=== PATIENT | male | born 1965 | race Caucasian/White ===

== ENCOUNTER 2022-12-28 08:27 | Outpatient (OUT) | payer OTHER, SELFPAY ==
--- NOTE | 2022-12-28 11:05 | US_ITS ---
[address] [address] Patient Name: JELLY CARABALLO MRN: [id number] date: 1965 Sex: M Assigned Patient Location: [facility] Current Patient Location: [facility] Accession/Order Number: [id number] Exam Date: 12/28/2022 11:30 Report Date: 12/28/2022 13:53 At the request of: SUJATHA ESCALERA Procedure: US scrotum SCROTAL ULTRASOUND: 12/28/2022 10:48 AM PDT HISTORY: SCROTAL PAIN N50.82 , SCROTAL LESION N50.9, HYDROCELE N43.3. TECHNIQUE: Real-time sonography through the scrotum were performed. Color and spectral Doppler waveform analysis were used to evaluate vascularity of scrotal contents. Arterial blood inflow and venous blood outflow were evaluated. COMPARISON: Scrotal ultrasound 09/13/2022 FINDINGS: RIGHT SCROTUM: RIGHT TESTICLE: Echogenicity: Homogeneous echotexture. No focal solid lesion. Measurements: 4.5 x 2.5 x 3.1 cm. Volume: 17.9 mL. Size: Normal. Hydrocele: No hydrocele. Varicocele: No varicocele. Testicular vascular exam: Color Doppler and pulse Doppler exam demonstrates normal arterial blood inflow and venous outflow waveforms. Symmetric with opposite testis. RIGHT EPIDIDYMIS: Normal in size and position. Color Doppler is normal. The hypoechoic lesion seen on the ultrasound from 09/13/2022 is no longer visualized. LEFT SCROTUM: LEFT TESTICLE: Echogenicity: Homogeneous echotexture. No focal solid lesion. Measurements: 4.5 x 2.6 x 2.9 cm. Volume: 17.3 mL. Size: Normal. Hydrocele: Small. Interval resolution of the complexity within the hydrocele Varicocele: No varicocele. Testicular vascular exam: Color Doppler and pulse Doppler exam demonstrates normal arterial blood inflow and venous outflow waveforms. Symmetric with opposite testis. LEFT EPIDIDYMIS: Normal in size and position. Color Doppler is normal. SCROTAL WALL: Normal. IMPRESSION: 1. Hypoechoic lesion in the tail of the right epididymis is no longer visualized and may have represented a posttraumatic or infectious process. 2. Complexity within the left hydrocele has resolved. A small simple appearing hydrocele remains. Electronically authenticated by: ELOY HERNANDEZ Date: 12/28/2022 13:53
== END 2022-12-28 08:28 | disposition home or self-care (01) ==
LOC: RAD 08:35
PROVIDERS: PCP Nurse Practitioner; Visit Provider Urology
DX: N50.82 Scrotal pain (principal); N50.9 Disorder of male genital organs, unspecified; N43.3 Hydrocele, unspecified
CPT/HCPCS: 76870

== ENCOUNTER 2024-06-26 11:58 | Outpatient (OUT) | payer OTHER, SELFPAY ==
--- NOTE | 2024-06-26 12:01 | XR_ITS ---
The [address] [address] Patient Name: JELLY CARABALLO MRN: [id number] date: 1965 Sex: M Assigned Patient Location: [facility] Current Patient Location: [facility] Accession/Order Number: [id number] Exam Date: 06/26/2024 12:05 Report Date: 06/26/2024 15:21 At the request of: AMADA STOCKTON Procedure: XR abdomen min 2V EXAMINATION: XR abdomen min 2V HISTORY: Flank Pain R10.9 COMPARISON: CT abdomen pelvis 10/05/2022 FINDINGS: BOWEL GAS PATTERN: 1.8 x 1.2 cm dense opacity projecting over right mid abdomen which is felt to be within the bowel and not the lower pole of the kidney; likely food material or medication. FREE AIR: None. CALCIFICATIONS: No appreciable urinary tract calculi. Pelvic calcifications favor phleboliths. BONES: No fracture or visible bone lesion. OTHER: Negative. XR/XR abdomen min 2V IMPRESSION: 1. No appreciable urinary tract calculi. 2. Nonobstructed bowel gas pattern. No acute findings. Electronically authenticated by: MACEY LISA Date: 06/26/2024 15:21
--- NOTE | 2024-06-26 12:01 | XR_ITS ---
The [place] [id number] Patient Name: JELLY CARABALLO MRN: [id number] date: 1965 Sex: M Assigned Patient Location: [facility] Current Patient Location: [facility] Accession/Order Number: [id number] Exam Date: 06/26/2024 12:05 Report Date: 06/26/2024 15:11 At the request of: AMADA STOCKTON Procedure: XR lumbar spine 6V w bending EXAMINATION: XR lumbar spine 6V w bending HISTORY: Flank Pain R10.9 COMPARISON: No relevant comparison available. FINDINGS: BONES: No significant spondylosis, scoliosis, fracture, or visible bony lesion. DISC SPACES: No significant disc height narrowing, subluxation, or endplate abnormality. PARASPINOUS: Negative. No paraspinous abnormality is seen. OTHER: Negative. XR/XR lumbar spine 6V w bending IMPRESSION: 1. No acute bone abnormality. 2. Minimal degenerative changes. Electronically authenticated by: MACEY LISA Date: 06/26/2024 15:11
== END 2024-06-26 11:59 | disposition home or self-care (01) ==
LOC: RAD 11:58
PROVIDERS: PCP Nurse Practitioner; Visit Provider Nurse Practitioner
DX: R10.9 Unspecified abdominal pain (principal); M51.369 Other intervertebral disc degeneration, lumbar region without mention of lumbar back pain or lower extremity pain
CPT/HCPCS: 72114; 74019

== ENCOUNTER 2024-12-05 09:10 | Outpatient (OUT) | payer OTHER, SELFPAY ==
--- OUTSIDE RECORDS SUMMARY | 2015-11-01 16:30 | XMS_ITS | Encounter Summary ---
Author Organization [facility] Address [address] [place] [address] Care Team Providers Care Patient Relations Manager Name Role Phone Mariam Luna MD Primary Care Provider [phone] Encounter Details Date Type Department Care Team (Late st Contact Info) Description 11/01/2015 4:30 PM EDT Hospital Encounter [facility] Physical Therapy [address] [place], [place] [phone] Thea Gutierrez, PT Social History Tobacco Use Types Packs/Day Years Used Date Smoking Tobacco: Never Alcohol Use Standard Drinks/Week Comments No 0 (1 standard drink = 0.6 oz pur e alcohol) Sex and Gender Information Value Date Recorded Sex Assigned at Not on file Legal Sex Male 8:46 PM EST Gender Identity Not on file Sexual Orientation Not on file documented as of this encounter Progress Notes * Thea Gutierrez, PT - 11/01/2015 2:02 PM EDT [facility] Outpatient Physical Therapy Daily Note Patient: Silvestre Corea : 1965 Referring Practitioner: Dr. Naveen Webb Referral Date : 08/18/15 Date: 11/01/2015 Referring Practitioner: Dr. Naveen Webb Referral Date : 08/18/15 Diagnosis: Mila peripheral neuropathy Treatment Diagnosis: general weakness Onset Date: 08/23/15 PT Insurance Information: [employer] Total # of Visits Approved: 18 Per Physician Order Total # of Visits to Date: 3 No Show: 0 Canceled Appointment: 1 Pre-Treatment Pain: 0/10 Subjective: Pt states that he was a little stiff and notes he is getting some muscle soreness from the program. Pt reports pain is 0/10 and he does have some tightness. Exercises/Modalities/Manual: See DocFlow Sheet Assessment Assessment: Pt requires mod verbal cues for technique and pace. Plan Plan: Continue with current plan Goals (Total # of Visits to Date: 3) Short Term Goals - Time Frame for Short term goals: 3 weeks Short term goal 1: Initiate HEP - met [x]Met []Partially met []Not met Short term goal 2: Pt SLR will improve to at least 55 deg on R and 65 deg on L for improve HS stretch for flexibility. []Met []Partially met []Not met Short term goal 3: Pt will be able to use elliptical up to 10 min indicating improve endurance to activity for ADLs. 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 supervisor intermediates goal 4: Pt strength of mila hips will be at least 4+/5 to improve stability with squatting. Post Treatment Pain: 0/10 Time In: 1630 Time Out: 1716 Timed Code Treatment Minutes: 46 Minutes Total Treatment Time: 46 Minutes Thea Gutierrez PT, DPT Therapy [place]: [id number] Date: 11/01/2015 documented in this encounter Plan of Treatment Not on file documented as of this encounter Visit Diagnoses Not on filedocumented in this encounter Care Teams Patient Relations Manager Relationship Specialty Start Date End Date Mariam Luna MD PCP - General 01/31/15 08/17/20 documented as of this encounter
--- OUTSIDE RECORDS SUMMARY | 2015-11-03 17:00 | XMS_ITS | Encounter Summary ---
Author Organization [facility] Address [address] [place] [address] Care Team Providers Care Road Consultant Name Role Phone Mariam Luna MD Primary Care Provider [phone] Encounter Details Date Type Department Care Team (Late st Contact Info) Description 11/03/2015 5:00 PM EDT Hospital Encounter [facility] Physical Therapy [address] [place], [place] [phone] Thea Gutierrez, PT Social History Tobacco Use [...] Progress Notes * Thea Gutierrez, PT - 11/03/2015 6:11 PM EDT [facility] Outpatient Physical Therapy Daily Note Patient: Silvestre Corea : 1965 Referring Practitioner: Dr. Naveen Webb Referral Date : 08/18/15 Date: 11/03/2015 Referring Practitioner: Dr. Naveen Webb Referral Date : 08/18/15 Diagnosis: Mila peripheral neuropathy Treatment Diagnosis: general weakness Onset Date: 08/23/15 PT Insurance Information: [employer] Total # of Visits Approved: 18 Per Physician Order Total # of Visits to Date: 4 No Show: 0 Canceled Appointment: 1 Pre-Treatment Pain: 0/10 Subjective: Pt reports slight stiffness but he is pleased with what he is able to do. He was able to do 8 min on the elliptical. Pt has 0/10 complaints of pain. Exercises/Modalities/Manual: See DocFlow Sheet Assessment Assessment: Pt was initiated on new exs which he tolerated well. Pt demonstrated increased balance deficits with fatigue.Pt has SLR R 61 deg and L 65 deg. Plan Plan: Continue with current plan Goals (Total # of Visits to Date: 4) Short Term Goals - Time Frame for Short term goals: 3 weeks Short term goal 1: Initiate HEP - met [x]Met []Partially met []Not met Short term goal 2: Pt SLR will improve to at least 55 deg on R and 65 deg on L for improve HS stretch for flexibility - met [x]Met []Partially met []Not met Short term goal 3: Pt will be able to use elliptical up to 10 min indicating improve endurance to activity for ADLs. 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 long-term goal 4: Pt strength of mila hips will be at least 4+/5 to improve stability with squatting. Post Treatment Pain: 0/10 Time In: 1700 Time Out: 1800 Timed Code Treatment Minutes: 60 Minutes Total Treatment Time: 60 Minutes Thea Gutierrez PT, DPT Therapy [place]: [id number] Date: 11/03/2015 documented in this encounter Plan of Treatment Not on file documented as of this encounter Visit Diagnoses Not on filedocumented in this encounter Care Teams Road Consultant Relationship Specialty Start Date End Date Mariam Luna MD PCP - General 01/31/15 08/17/20 documented as of this encounter
--- OUTSIDE RECORDS SUMMARY | 2015-11-08 15:15 | XMS_ITS | Encounter Summary ---
Author Organization [facility] Address [address] [place] [address] Care Team Providers Care Fire Behavior Analyst Name Role Phone Mariam Luna MD Primary Care Provider [phone] Encounter Details Date Type Department Care Team (Late st Contact Info) Description 11/08/2015 3:15 PM EDT Hospital Encounter [facility] Physical Therapy [address] [place], [place] [phone] Bola Ennis Social History Tobacco Use Types Packs/Day Years Used Date Smoking Tobacco: Never Alcohol Use Standard Drinks/Week Comments No 0 (1 standard drink = 0.6 oz pur e alcohol) Sex and Gender Information Value Date Recorded Sex Assigned at Not on file Legal Sex Male 8:46 PM EST Gender Identity Not on file Sexual Orientation Not on file documented as of this encounter Plan of Treatment Not on file documented as of this encounter Visit Diagnoses Not on filedocumented in this encounter Care Teams Fire Behavior Analyst Relationship Specialty Start Date End Date Mariam Luna MD PCP - General 01/31/15 08/17/20 documented as of this encounter
--- OUTSIDE RECORDS SUMMARY | 2015-11-10 16:45 | XMS_ITS | Encounter Summary ---
Author Organization [facility] Address [address] [place] [address] Care Team Providers Care Insole And Outsole Preparer Name Role Phone Mariam Luna MD Primary Care Provider [phone] Encounter Details Date Type Department Care Team (Late st Contact Info) Description 11/10/2015 4:45 PM EDT Hospital Encounter [facility] Physical Therapy [address] [place], [place] [phone] Bola Ennis Social History Tobacco Use Types [...] on filedocumented in this encounter Care Teams Insole And Outsole Preparer Relationship Specialty Start Date End Date Mariam Luna MD PCP - General 01/31/15 08/17/20 documented as of this encounter
--- OUTSIDE RECORDS SUMMARY | 2015-11-11 16:15 | XMS_ITS | Encounter Summary ---
Author Organization [facility] Address [address] [place] [address] Care Team Providers Care Operator Maintainer Name Role Phone Mariam Luna MD Primary Care Provider [phone] Encounter Details Date Type Department Care Team (Late st Contact Info) Description 11/11/2015 4:15 PM EDT Hospital Encounter [facility] Physical Therapy [address] [place], [place] [phone] Fredo Gilman PTA Social History Tobacco Use Types Packs/Day Years [...] on filedocumented in this encounter Care Teams Operator Maintainer Relationship Specialty Start Date End Date Mariam Luna MD PCP - General 01/31/15 08/17/20 documented as of this encounter
--- OUTSIDE RECORDS SUMMARY | 2015-11-24 17:00 | XMS_ITS | Encounter Summary ---
Author Organization [facility] Address [address] [place] [address] Care Team Providers Care Television News Anchor Name Role Phone Mariam Luna MD Primary Care Provider [phone] Encounter Details Date Type Department Care Team (Late st Contact Info) Description 11/24/2015 5:00 PM EDT Hospital Encounter [facility] Physical Therapy [address] [place], [place] [phone] Thea Gutierrez, PT Social History Tobacco Use [...] Connie Navarrete - 11/25/2015 12:28 PM EDT [facility] Rehabilitation Date: 11/25/2015 Patient Name: Silvestre [...] on filedocumented in this encounter Care Teams Television News Anchor Relationship Specialty Start Date End Date Mariam Luna MD PCP - General 01/31/15 08/17/20 documented as of this encounter
--- OUTSIDE RECORDS SUMMARY | 2015-12-06 16:30 | XMS_ITS | Encounter Summary ---
Author Organization [facility] Address [address] [place] [address] Care Team Providers Care Topstitcher Zigzag Name Role Phone Mariam Luna MD Primary Care Provider [phone] Encounter Details Date Type Department Care Team (Late st Contact Info) Description 12/06/2015 4:30 PM EDT Hospital Encounter [facility] Physical Therapy [address] [place], [place] [id number] Thea Gutierrez, PT Social History Tobacco Use [...] Gutierrez, PT - 02/09/2016 10:22 AM EDT [facility] Outpatient Physical Therapy Discharge Summary Patient: Silvestre Corea : 1965 Referring physician: No admitting provider for patient encounter. Referring Practitioner: Dr. Naveen Webb Diagnosis: Mila peripheral neuropathy Date Treatment Initiated: 10/22/15 Date of Last Treatment: 12/06/15 PT Visit Information Onset Date: 08/23/15 PT Insurance Information: Alere Total # of Visits Approved: 18 Total [...] improve endurance to activity for ADLs. 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 economic history teacher goal 4: Pt strength of mila hips [...] Gutierrez, PT - 12/06/2015 5:45 PM EDT [facility] Outpatient Physical Therapy Daily Note Patient: Silvestre Corea : 1965 Referring Practitioner: Dr. Naveen Webb Referral Date : 08/18/15 Date: 12/06/2015 Referring Practitioner: Dr. Naveen Quick Referral Date : 08/18/15 Diagnosis: Mila peripheral neuropathy Treatment Diagnosis: general weakness Onset Date: 08/23/15 PT Insurance Information: Alere Total # of Visits Approved: 18 Per [...] ADLs. 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 economic history teacher goal 4: Pt strength of mila hips will be at least 4+/5 to improve stability with squatting. Post Treatment Pain: 0/10 Time In: 1630 Time Out: 1726 Timed Code Treatment Minutes: 57 Minutes Total Treatment Time: 57 Minutes Thea Gutierrez PT, DPT Therapy License Number: [id number] Date: 12/06/2015 documented in this encounter Plan of Treatment Not on file documented as of this encounter Visit Diagnoses Not on filedocumented in this encounter Care Teams Topstitcher Zigzag Relationship Specialty Start Date End Date Mariam Luna MD PCP - General 01/31/15 08/17/20 documented as of this encounter
--- OUTSIDE RECORDS SUMMARY | 2024-02-04 03:50 | XMS_ITS ---
Author Organization [facility] Address [address] [place] [address] Care Team Providers Care Sheet Metal Operator Name Role Phone Gala Anna Primary Care Provider Kirit Mays Unavailable [phone] REASON FOR VISIT Bilateral great toe pain Problems Problem Type SNOMED Code ICD Code Onset Dates Problem Status W/U Status Risk Notes Problem [id number] Hallux varus (acquired), right foot (M20.31) Active confirmed Problem 424541242373161 Hallux varus (acquired), left foot (M20.32) Active confirmed Problem 385917678 Contusion of left great toe with damage to nail, initial encounter (S90.212A) Active confirmed Problem 883433665 Contusion of right great toe with damage to nail, initial encounter (S90.211A) Active confirmed Encounters Encounter Location Date Provider Diagnosis [facility] [address] [place] [address] 02/04/2024 Kirit Sky Contusion of left great [...] * JELLY CARABALLO LDOB:1965 (58 yo M)Acc No.[id number]:02/04/2024 Patient: Anila JELLY CHAMBERS Zac Provider: Betsey Sky DPM :1965 A ge:58 Y S ex:Male Date:02/04/2024 Address:[address] [place] [address], [place] [address] Pcp:Gala Anna Subjective: * Chief Complaints: * [...] with Sjogren's and is currently following with provider service representative looking at seronegative arthropathies. Nail plates themselves [...] 02/04/2024 Generated for Rah cruz/Serg/Abeitting on: 0 12/05/2024 09:13 AM EDT History and Physical Notes * [...] with Sjogren's and is currently following with provider service representative looking at seronegative arthropathies. Nail plates themselves [...]
--- NOTE | 2024-12-05 | NM_ITS ---
Patient Name: JELLY CARABALLO MR#: [id number] : 1965 Exam Date: 12/05/2024 Ordering Doctor: AMADA STOCKTON RADIOLOGY REPORT PROCEDURE: NM MORIAH PERF SPECT REST STR COMPARISON: None. INDICATIONS: SOB, FAMILY HX CAD, CHEST TIGHTNESS TECHNIQUE: Exam Description: Stress/Rest two day protocol gated SPECT Rest Imagin.2 mCi Tc-99m Cardiolite IV on 12/05/2024 Stress Imaging 25.2 mCi Tc-99m Cardiolite IV on 12/08/2024 Exercise Protocol: 0.4 mg Lexiscan given IV Heart Rate (bpm): Rest: 72 Max: 90 PMHR: 55 Blood Pressure: Rest: 138/78 Max: 138/78 Symptoms: Rest and peak stress ECG findings were pending and the Lxiscan EKG portion of the study was pending per attending physician [facility] . For more details please see separate cardiac stress test report. FINDINGS: QUALITY OF STUDY: Good PERFUSION DEFECT: LOCATION: 1.Anteroapical, 2.Inferior SIZE: 1.Small 2.Medium SEVERITY: 1.Mild 2.Mild TYPE: 1.reversible 2. Fixed with adequate contractility and thickenin WALL MOTION: Normal LV SIZE: 141 mL. TID / TCD: 1.1 LVEF: Calculated EF 58%. SUMMARY: Abnormal Myocardial perfusion imaging study CONCLUSION: Abnormal myocardial perfusion stress images showing evidence of small area of mild ischemia at the anteroapical segment. In addition there is evidence of diaphragmatic attenuation Normal left ventricular systolic function, ejection fraction 58% No transient ischemic dilatation,TID 1.1 Lexiscan EKG stress test is reported separately Dictated by: Geena Cortez MD on 12/08/2024 at 15:27 Approved by: Geena Cortez MD on 12/08/2024 at 15:33
--- OUTSIDE RECORDS SUMMARY | 2024-12-05 09:12 | XMS_ITS | Clinical Summary ---
Author Organization [facility] Address [address] [place] [phone] Care Team Providers Care Banquet Manager Name Role Phone Mariam Luna MD Primary Care Provider [phone] Allergies Active Allergy Reactions Criticality Noted Date Comments Banana 07/07/2014 Medications TESTOSTERONE IMIndications:U nspecified hereditary and idiopathic peripheral neuropathy 0.25 mL by Intramuscular route once a week. Active gemfibrozil 600 MG TabIndications: Idiopathic neuropathy,Pain in both feet,Carpal tunnel syndrome, right,Carpal tunnel syndrome, left,Brisk deep tendon reflexes,Neurop athic pain take 600 mg by mouth 2 times daily. Active cetirizine 10 MG Tab take 10 mg by mouth daily. Active Diclofenac Sodium (VOLTAREN) 1 % Gel 1 Application by Transdermal route 4 times daily. 100 g 3 6 Active METFORMIN HCL PO take by mouth.. Acti ve zolpidem 10 MG Tab tabletIndicatio ns:Idiopathic neuropathy,Foot pain, bilateral,Numbn ess in feet,Bilateral hand numbness Take 10 mg by mouth at bedtime. Active lidocaine 5 % Patch patchIndication s:Neuropathic pain,Brisk deep tendon reflexes,Idiopa thic neuropathy,Pain in both feet,Carpal tunnel syndrome, right,Carpal tunnel syndrome, left Place 1 patch on skin every 24 hours. Max of 12 hours of application then remove 30 patch 11 8 Active BACLOFEN 10 MG Tab tablet TAKE 1 TABLET BY MOUTH ONCE DAILY AT BEDTIME 30 tablet 11 9 Active pregabalin 300 MG CapIndications: Idiopathic neuropathy,Gluc ose intolerance (impaired glucose tolerance) 1 capsule by mouth BID 60 capsule 5 9 Active Active Problems Problem Noted Date Diagnosed Date Obesity: body mass index of 35.0-39.9 08/16/2017 Overview (10/02/2022): 09/30/22 IMO Update Numbness in feet 08/16/2017 Bilateral hand numbness 08/16/2017 Idiopathic neuropathy 03/21/2012 Family History Medical History Relation Name Comments Other - Specify Brothileana Allison age 42 Other - Specify Daughter 1 22 Other - Specify Daughter 2 7 Coronary Artery Disease Father Neurologic Disease Father Parkinson 's Disease Other - Specify Father age 72 Neurologic Disease Maternal Aunt Neuropat hy Coronary Artery Disease Mother Diabetes Mother Uncontrolled di abetes and Renal failure Neurologic Disease Mother neuropath y Neurologic Disease Other Nephew-Sandeep symptoms like patient's Diabetes Sister 1 Other - Specify Sister 1 age 47 Neurologic Disease Sister 2 Sharron Sjogren's syndrome; Rheumatoid arthritis Other - Specify Sister 2 Sharron accidental m edication overdose Diabetes Sister 3 Other - Specify Sister 3 age 50 Other - Specify Sister 4 age 50 Other - Specify Son 9 Relation Name Status Comments Brothileana Allison Alive hand tremors an d sore feet from walking, but no other symptoms Daughter 1 Alive Daughter 2 Alive Father Alive Coronary artery bypass and Parkinson's disease Maternal Aunt Mother (Age 62) adopted; d iabetes, hearing loss and a neuropathy Other Nephew-Sandeep Alive sister 's oldest son with symptoms like patient's Sister 1 Alive DM-1 with sympt oms of peripheral neuropathy Sister 2 Sharron (Age 49) born 1960 - 14 year h/o neuropathy which is sensory predominant and fairly severe Sister 3 Alive Sister 4 Alive Son Alive Social History Tobacco Use Types Packs/Day Years Used Date Smoking Tobacco: Never Smokeless Tobacco: Never Alcohol Use Standard Drinks/Week Comments Yes 0.8 (1 standard drink = 0.6 oz p ure alcohol) rarely once a month Sex and Gender Information Value Date Recorded Sex Assigned at Not on file Legal Sex Male 4:43 PM EST Gender Identity Male Sexual Orientation Not on file 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 Not on file Not on file Not on file Not on file Not on file Not on file Not on file Last Filed Vital Signs Vital Sign Reading Time Taken Comments Blood Pressure 122/68 08/16/2017 11:22 AM EST Pulse 70 08/16/2017 11:22 AM EST Temperature - - Respiratory Rate 18 07/07/2014 3:47 PM EST Oxygen Saturation - - Inhaled Oxygen Concentration - - Weight 130.2 kg (287 lb) 08/16/2017 11:22 AM EST Height 188 cm (6' 2 ) 08/16/2017 11:22 AM EST Body Mass Index 36.85 08/16/2017 11:22 AM EST Plan of Treatment Health Maintenance Due Date Last Done Comments HEPATITIS C VIRUS SCREENING 1965 TETANUS 1965 HIV SCREENING DISCUSSION 1980 HEP B VACCINE (1 of 3 - 19+ 3-dose series) 1984 TDAP (ADULT) 1984 COLORECTAL CANCER SCREENING DISCUSSION 2010 LIPID SCREENING 04/18/2015 04/18/2010, 01/07/2010 PNEUMOCOCCAL VACCINE SERIES (1 of 1 - PCV) 2015 ZOSTER (SHINGLES) VACCINE (1 of 2) 2015 PROSTATE CANCER SCREENING DISCUSSION 2020 COVID-19 VACCINE ( - 2023- season) 2024 INFLUENZA VACCINE (Season Ended) 2025 Procedures Procedure Name Priority Date/Time Associated Diagnosis Comments LIPID PANEL W CALCULATED LDL Routine 04/18/2010 9:33 AM EDT Memory loss from Last 3 Months or Most Recently Relevant to Health Maintenance Results * (ABNORMAL) LIPID PANEL (04/18/2010 9:33 AM EDT) CHOLESTEROL 254(H) <200 mg/dL LAB, [facility] Comment: [<200 mg/dL: Desirable] [200-239 mg/dL: Borderline High] [>239 mg/dL: High] TRIGLYCERIDES-TR IGE 358(H) <150 mg/dL [facility], [facility] Comment: [<150 mg/dL: Desirable] [150-199 mg/dL: Borderline] [200-499 mg/dL: High] [>500 mg/dL: Very High] HDL CHOLESTEROL 41(L) >60.0 mg/dL LAB, [facility] Comment: [<40 mg/dL: Low (High Risk)] [>59 mg/dL: High (Low Risk)] LDL CHOLESTEROL, CALCULATED 141(H) 0 - 99 mg/dL [facility], [facility] Comment: [<100 mg/dL: Optimal] [100-129 mg/dL: Near Optimal] [130-159 mg/dL: Borderline High] [160-189 mg/dL: High] [>189 mg/dL: Very High] CHOLESTEROL, TOTAL/HDL 6.2(H) <4.5 [facility], [facility] Comment:[<4.5: Low risk] 04/18/2010 9:33 AM EDT 04/18/2010 10:53 AM EDT Angela Oshea MD, PhD CHEMISTRY ORDERABLES Final Result LAB, [facility] [address] [place] [address] from Last 3 Months or Most Recently Relevant to Health Maintenance Insurance [employer] Care Teams Banquet Manager Relationship Specialty Start Date End Date Mariam Luna MD [address] [place] [address] PCP - General Family Medicine 10/29/15
--- OUTSIDE RECORDS SUMMARY | 2024-12-05 09:12 | XMS_ITS | Encounter Summary ---
Author Organization [facility] Address [address] [place] [address] Care Team Providers Care Senior Sales Operations Manager Name Role Phone Gala Anna APRN, NP Primary Care Provider [phone] Reason for Referral * (Routine) - Closed Specialty Diagnoses / Procedures Referred By Sammy butt Referred To Contact Diagnoses Diabetic polyneuropathy associated with type 2 diabetes mellitus (HCC) Low testosterone Feeling of chest tightness Dyspnea on exertion FH: premature coronary heart disease Procedures Nuclear stress test with myocardial perfusion Gala Anna APRN - NP [address] [place] [address] Phone: tel: fax: Referral ID Status Reason Start Date Expiration Date Visits Re quested Visits Authorized [id number] Closed 08/14/2023 08/13/2024 3 3 Encounter Details Date Type Department Care Team (Latest Contact Info) Description 08/14/2023 Transcribe Orders [facility] Pre Access [address] [place] [address] Gala Anna APRN - NP [address] [place], [place] [id number] Diabetic polyneuropathy associated with type 2 diabetes mellitus (HCC) (Primary Dx); Low testosterone; Feeling of chest tightness; Dyspnea on exertion; FH: premature coronary heart disease Social History Tobacco Use Types Packs/Day Years [...] as of this encounter Plan of Treatment Scheduled Orders Name Type Priority Associated Diagnoses Orde r Schedule Nuclear stress test with myocardial perfusion CV Stress/NM Stress Routine Diabetic polyneuropathy associated with type 2 diabetes mellitus (HCC) Low testosterone Feeling of chest tightness Dyspnea on exertion FH: premature coronary heart disease Expected: 08/14/2023, Expires: 08/14/2024 documented as of this encounter Visit Diagnoses Diagnosis Diabetic polyneuropathy associated with type 2 diabetes mellitus (HCC)- Primary Low testosterone Other testicular hypofunction Feeling of chest tightness Other chest pain Dyspnea on exertion Other dyspnea and respiratory abnormality FH: premature coronary heart disease Family history of ischemic heart disease documented in this encounter Care Teams Senior Sales Operations Manager Relationship Specialty Start Date End Date Gala Anna APRN - NP [address] [facility] [address] [place], [place] [id number] PCP - General 06/19/22 documented as of this encounter
--- OUTSIDE RECORDS SUMMARY | 2024-12-05 09:12 | XMS_ITS | Encounter Summary ---
Author Organization [facility] Address [address] [place] [address] Care Team Providers Care Bread Wrapper Name Role Phone Gala Anna APRN, NP Primary Care Provider [phone] Reason for Referral * Imaging (Routine) - Closed Specialty Diagnoses / Procedures Referred By Contsofie t Referred To Contact Radiology Diagnoses Stomach ache R10.9 (ICD-10-CM) - Stomach ache Procedures CT ABDOMEN PELVIS W WO CONTRAST Additional Contrast? None CHG CT ABDOMEN & PELVIS W/O CONTRST 1/> [place] [id number] - CHG CT ABDOMEN & PELVIS W/O CONTRST 1/> BODY RE Gala Anna APRN - NP [address] [place] [address] Phone: tel: fax: Referral ID Status Reason Start Date Expiration Date Visits Re quested Visits Authorized [id number] Closed 10/09/2022 09/15/2023 1 1 Encounter Details Date Type Department Care Team (Latest Contact Info) Description 09/15/2022 Transcribe Orders [facility] Pre Access [address] [place] [address] Gala Anna APRN - NP [address] [place] [address] Stomach ache (Primary Dx) Social History Tobacco Use Types Packs/Day Years [...] Type Priority Associated Diagnoses Orde r Schedule CT ABDOMEN PELVIS W WO CONTRAST Additional Contrast? None Imaging Routine Stomach ache Expected: 09/15/2022, Expires: 09/16/2023 documented as of this encounter Visit Diagnoses Diagnosis Stomach ache- Primary Dyspepsia and other specified disorders of function of stomach documented in this encounter Care Teams Bread Wrapper Relationship Specialty Start Date End Date Gala Anna APRN - ROBBY [address] [facility] [address] [place], [place] [id number] PCP - General 06/19/22 documented as of this encounter
--- OUTSIDE RECORDS SUMMARY | 2024-12-05 09:12 | XMS_ITS | Encounter Summary ---
Author Organization [facility] Address [address] [place] [address] Care Team Providers Care Mount Loader Name Role Phone Gala Anna APRN, NP Primary Care Provider [phone] Reason for Referral * Eval and Treat (Routine) - Closed Specialty Diagnoses / Procedures Referred By Sammy t Referred To Contact Nutrition / IP Unit Diagnoses Body mass index 36.0-36.9, adult Gala Anna APRN - NP [address] [place] [address] Phone: tel: fax: [facility] Diet and Nutrition [address] [place] [address] Phone: tel: Referral ID Status Reason Start Date Expiration Date V isits Requested Visits Authorized [id number] Closed Specialty Services Required 01/26/2023 01/26/2024 1 1 Scheduling Instructions [facility] Outpatient Nutrition Services- [address] [place] [facility]83 Comments The patient can be scheduled with any member of the group, including the provider with the first available appointments. Encounter Details Date Type Department Care Team (Latest Contact Info) Description 01/26/2023 Transcribe Orders [facility] Pre Access [address] [place] [address] Gala Anna APRN - NP [address] [place] [address] Body mass index 36.0-36.9, adult (Primary Dx) Social History Tobacco Use Types [...] of this encounter Plan of Treatment Scheduled Referrals Name Type Priority Associated Diagnoses Order Schedule [facility] Body mass index 36.0-36.9, adult Ordered: 01/26/2023 documented as of this encounter Visit Diagnoses Diagnosis Body mass index 36.0-36.9, adult- Primary Body Mass Index 36.0-36.9, adult documented in this encounter Care Teams Mount Loader Relationship Specialty Start Date End Date Gala Anna APRN - ROBBY [address] [facility] [address] [place] [address] PCP - General 06/19/22 documented as of this encounter
--- OUTSIDE RECORDS SUMMARY | 2024-12-05 09:13 | XMS_ITS | Clinical Summary ---
Author Organization [facility] Address [address] [place] [address] Care Team Providers Care Tobacco Packing Machine Operator Name Role Phone Mariam Luna MD Primary Care Provider [phone] Allergies Active Allergy Reactions Criticality Noted Date Comments Banana GI Intolerance 11/09/2016 Other Swelling 11/09/2016 bees Medications baclofen (LIORESAL) 10 MG tablet Take 10 mg by mouth at bedtime . 7 Active TRULICITY 1.5 mg/0.5 mL Pen Inject 1.5 mg under the skin every 7 days Injects every Sunday night.. 7 Active fluticasone (FLONASE) 50 mcg/actuation nasal spray Instill 2 sprays into each nostril daily . 7 Active gemfibrozil (LOPID) 600 MG tablet Take 600 mg by mouth 2 (two) times a day . 7 Active metFORMIN (GLUCOPHAGE) 500 MG tablet Take 500 mg by mouth 2 (two) times a day . 7 Active LYRICA 300 mg capsule Take 300 mg by mouth 2 (two) times a day . 7 Active testosterone cypionate (DEPOTESTOTERON E CYPIONATE) 200 mg/mL injection Inject 200 mg into the shoulder, thigh, or buttocks every 14 (fourteen) days . 7 Active zolpidem (AMBIEN) 10 mg tablet Take 10 mg by mouth nightly as needed for sleep . 7 Active aspirin 81 MG EC tabletIndicatio ns:prevention of transient ischemic attack Take 81 mg by mouth daily Reasons: prevention of transient ischemic attack. Active ciclopirox (LOPROX) 0.77 % cream Apply 1 application topically 2 (two) times a day as needed Apply to feet. . Active Active Problems Problem Noted Date Diagnosed Date Bile duct leak 11/13/2016 Assessment & Plan (11/14/2016 2:49 PM EDT): Mr. Corea is a 51 yr old M with PMHx significant for DM, periphreal neuropathy and hx of PE, presenting to [facility] 11/10 with abdominal pain, N/V. He had an open tereso 11/05/2016. HIDA scan shows a bile leak from the cystic duct stump. GI consulted for evaluation. --ERCP 11/13 with placement of pancreatic duct stent. Choledocholithiasis and sludge removed w/biliary sphincterotomy and balloon extraction. A low grade cystic duct stump leak was noted tx with biliary sphincterotomy and placement of 10 Fr x 7 cm straight plastic stent. --LFTs increased today --Lipase nl --abdominal pain improved but still with some general discomfort. Passing flatus and had BM --AF, VSS Labs: WBC 6.35, Hgb 12.3, Hct 36.3, alk phos 351, AST 88, ALT 241, T bili 1.0 Plan: --Okay for clear liquids today --NPO at midnight --Will plan for EGD for PD stent removal tomorrow 11/15/16 given no sign of post ERCP pancreatitis. Discussed risk and benefit with patient and he is in agreement with plan. Consent obtained and on patient's chart. --trend LFTs --will arrange for repeat ERCP in 6 weeks removal of biliary stent and reevaluation - GI will continue to follow. Discussed with Dr. Corbin, GI Ileus 11/09/2016 Cholecystitis 11/05/2016 Assessment & Plan (11/06/2016 8:00 AM EDT): This is a 51 year old patient with acute and chronic cholecystitis and cholelithiasis s/p laparoscopic converted to open cholecystectomy, intraperitoneal drain placement 11/05 - SPEEDY dark SS, nonbilious - LFTs trending down today - will discuss need for GI consult for EUS/ERCP - if no procedure, will likely advance to clears - mIVF @ 75cc/hr - DVT PPx lovenox - cefotetan Family History Medical History Relation Comments Heart disease Father Heart disease Mother Relation Status Comments Father Mother Social History Tobacco Use Types Packs/Day Years Used Date Smoking Tobacco: Never Alcohol Use Standard Drinks/Week Comments Yes 0 (1 standard drink = 0.6 oz pur e alcohol) seldom Sex and Gender Information Value Date Recorded Sex Assigned at Not on file Legal Sex Male 12:06 AM EDT Gender Identity Not on file Sexual Orientation Not on file Last Filed Vital Signs Vital Sign Reading Time Taken Comments Blood Pressure 140/85 12/27/2016 1:43 PM EDT Pulse 63 12/27/2016 1:43 PM EDT Temperature 36.7 C (98 F) 12/20/2016 1:11 PM EDT Respiratory Rate 19 12/27/2016 1:43 PM EDT Oxygen Saturation 96% 12/27/2016 1:43 PM EDT Inhaled Oxygen Concentration - - Weight 120.2 kg (265 lb) 12/27/2016 10:17 AM EDT Height 185.4 cm (6' 1 ) 12/27/2016 10:17 AM EDT Body Mass Index 34.96 12/27/2016 10:17 AM EDT Plan of Treatment Health Maintenance Due Date Last Done Comments CT Colonography 1965 Colonoscopy 1965 Colorectal Cancer Screening/Monitoring 1965 Fecal DNA 1965 Fecal occult blood test (FOBT,FIT) 1965 PSA Level 1965 Tetanus: Every 10yrs 1965 Wellness Visit 1968 Depression Screening/Follow-Up (PHQ-2/9) 1977 HIV Screening 1980 Hepatitis C Screening 1983 Pneumococcal Vaccine: Age 50+ (1 of 1 - PCV) 6 Zoster Vaccines (1 of 2) 2015 COVID-19 Vaccine (1 - season) 2024 Influenza Vaccine (Season Ended) 2025 Medical Devices Implanted Type Area Self Propelled Hot Mix Roller Operator Device Identifier Shelf Expiration Date Model / Serial / Lot Stent 5fr 5cm Pancreatic Zimmon - [id number] Implanted:Qty: 1 on 11/13/2016 by Allen Monroy MD at [facility] Stent [employer] 08/10/2019 SPSOF-5-5 / / [id number] Description:Expiration Visua lly and verbally confirmed by CASSIE and TIAGO, RN's Stent 10-7 Cotton Rebollar Biliary Stent Only - [id number] Implanted:Qty: 1 on 11/13/2016 by Allen Monroy MD at [facility] Stent [employer] 09/07/2019 CLSO-10-7 / / [id number] Description:expiration visua lly and verbally confirmed CASSIE and TIAGO, RN's Insurance * Guarantor: Silvestre Corea Account Type Relation to Patient Date of Phone Billing Address Personal/Family Self 1965 [phone] (Work) [address] [place] [address] [employer] CHOICE POS/POSII/PREMIER CARE/PREMIER CARE PLUS * Guarantor: Silvestre Corea Account Type Relation to Patient Date of Phone Billing Address Personal/Family Self 1965 [phone] (Work) [address] [place] [address] [employer] CHOICE POS/POSII/PREMIER CARE/PREMIER CARE PLUS Advance Directives For more information, please contact: [phone] * Full Code - Unverified (Latest Code Status on File) Date Activated Date Inactivated Comments 11/09/2016 12:31 PM 11/16/2016 5:17 PM * Full Code - Unverified Date Activated Date Inactivated Comments 11/05/2016 1:32 AM 11/08/2016 7:58 PM Care Teams Tobacco Packing Machine Operator Relationship Specialty Start Date End Date Mariam Luna MD [address] [place] [address] PCP - General Family Medicine 11/04/16
--- OUTSIDE RECORDS SUMMARY | 2024-12-05 09:13 | XMS_ITS | Encounter Summary ---
Author Organization [facility] Address [address] [place] [address] Care Team Providers Care Recovery Coach Name Role Phone Alejandro Florian DO Primary Care Provider [phone] Gala Anna INDUSTRIAL ELECTRICAL TECHNICIAN Unavailable [phone] Reason for Visit * Reason Comments Med Refill Encounter Details Date Type Department Care Team (Late Contact Info) Description 11/26/2024 Refill [facility] [address] [place] [address] Gala Anna NP [address] [place] [address] Diabetic peripheral neuropathy associated with type 2 diabetes mellitus (CMS/HCC) Social History Tobacco Use Types Packs/Day Years Used Date Smoking Tobacco: Never Smokeless Tobacco: Never Alcohol Use Standard Drinks/Week Comments Never 0 (1 standard drink = 0.6 oz pur e alcohol) Caffeine: none PHQ-2 Answer Date Recorded Patient Health Questionnaire-2 Score 0 11/13/2024 Sex and Gender Information Value Date Recorded Sex Assigned at Not on file Legal Sex Male 6:39 PM EDT Gender Identity Not on file Sexual Orientation Not on file documented as of this encounter Plan of Treatment Upcoming Encounters Date Type Department Care Team (Late Contact Info) Description 03/24/2025 7:40 AM EDT Office Visit [facility] [address] [place] [address] Christina Broussard, LUIS [address] [place] [address] documented as of this encounter Visit Diagnoses Diagnosis Diabetic peripheral neuropathy associated with type 2 diabetes mellitus ([facility]) documented in this encounter Additional Health Concerns Assessment Noted Time PHQ-9 Depression Total Score: 3 04/02/20 23 7:00 AM EDT documented as of this encounter Care Teams Recovery Coach Relationship Specialty Start Date End Date Alejandro Florian DO [address] [place] [address] PCP - General Family Medicine 01/15/23 Gala Anna NP [address] [place] [address] Nurse Practitioner Family Medicine 01/15/23 documented as of this encounter
--- OUTSIDE RECORDS SUMMARY | 2024-12-05 09:13 | XMS_ITS | Encounter Summary ---
Author Organization [facility] Address [address] [facility] [place] [address] Care Team Providers Care Propagation Worker Name Role Phone Alejandro Florian DO Primary Care Provider [phone] Gala Anna BUSINESS MANAGEMENT INTERN Unavailable [phone] Encounter Details Date Type Department Care Team (Late st Contact Info) Description 02/05/2023 Abstract [facility] [address] [place] [address] Gala Anna NP [address] [place] [address] Social History Tobacco Use Types Packs/Day Years Used Date Smoking Tobacco: Never Alcohol Use Standard Drinks/Week Comments Never 0 (1 standard drink = 0.6 oz pur e alcohol) Caffeine: none Sex and Gender Information Value Date Recorded Sex Assigned at Not on file Legal Sex Male 6:39 PM EDT Gender Identity Not on file Sexual Orientation Not on file documented as of this encounter Plan of Treatment Upcoming Encounters Date Type Department Care Team (Late st Contact Info) Description 03/24/2025 7:40 AM EDT Office Visit [facility] [address] [place] [address] Christina Broussard PA [address] [facility] [address] [facility] [address] [place] [address] documented as of this encounter Visit Diagnoses Not on filedocumented in this encounter Care Teams Propagation Worker Relationship Specialty Start Date End Date Alejandro Florian DO [address] [place] [address] PCP - General Family Medicine 01/15/23 Gala Anna NP [address] [place] [address] Nurse Practitioner Family Medicine 01/15/23 documented as of this encounter
--- OUTSIDE RECORDS SUMMARY | 2024-12-05 09:13 | XMS_ITS | Clinical Summary ---
Author Organization [employer] Address [id number] [place] [address] Care Team Providers Care Urban And Regional Planner Name Role Phone Unavailable Primary Care Provider Unavailabl e Social History Tobacco Use Types Packs/Day Years Used Date Smoking Tobacco: Never Assessed Childcare Answer Date Recorded Childcare Unknown 12/11/2018 Employment Answer Date Recorded Employment Unknown 12/11/2018 Sex and Gender Information Value Date Recorded Sex Assigned at Not on file Legal Sex Male 12:13 PM EDT Gender Identity Not on file Sexual Orientation Not on file Plan of Treatment Not on file Medical Devices Not on file
--- OUTSIDE RECORDS SUMMARY | 2024-12-05 09:13 | XMS_ITS | Patient Health Record ---
Author Organization [facility] Address [address] [place] [address] Care Team Providers Care Cloth Painter Name Role Phone Gala Anna Primary Care Provider Kirit Mays Unavailable [phone] Reason For Referral No Information Problems Problem Type SNOMED Code ICD Code Onset Dates Problem Status W/U Status Risk Notes Problem [id number] Hallux varus (acquired), right foot (M20.31) Active confirmed Problem [id number] Hallux varus (acquired), left foot (M20.32) Active confirmed Problem [id number] Contusion of right great toe with damage to nail, initial encounter (S90.211A) Active confirmed Problem [id number] Contusion of left great toe with damage to nail, initial encounter (S90.212A) Active confirmed Encounters Encounter Location Date Provider Diagnosis [facility] [address] [place] [address] 02/04/2024 Kirit Sky Contusion of left great toe with damage to nail, initial encounter S90.212A ; Contusion of right great toe with damage to nail, initial encounter S90.211A ; Hallux varus (acquired), right foot M20.31 and Hallux varus (acquired), left foot M20.32 Assessments Encounter Date Diagnosis (ICD Code) Assessment Notes Treatment Notes Treatment Clinical Notes Section Notes 02/04/2024 Contusion of right great toe with damage to nail, initial encounter (ICD-10 - S90.211A) Subungual hematoma bilateral hallux 02/04/2024 Contusion of left great toe with damage to nail, initial encounter (ICD-10 - S90.212A) Subungual hematoma bilateral hallux 02/04/2024 Hallux varus [...] Subungual hematoma bilateral hallux Plan Of Treatment No Information Insurance Providers Payer Name Payer Address Payer Phone Subscriber Number Group Number Insured Name Patient Relationship to Insured Coverage Start Date Coverage End Date [facility] [address] [address] [place] [address] [id number] JELLY CARABALLO Self - patient is the insured
--- OUTSIDE RECORDS SUMMARY | 2024-12-05 09:13 | XMS_ITS | Encounter Summary ---
Author Organization [facility] Address [address] [facility] [address] [place] [address] Care Team Providers Care Trust Administrative Assistant Name Role Phone Alejandro Florian DO Primary Care Provider [phone] Gala Anna CHARACTER ARTIST Unavailable [phone] Encounter Details Date Type Department Care Team (Late st Contact Info) Description 12/28/2022 Orders Only [facility] [address] [place] [address] Gala Anna NP [address] [place] [address] Social History Tobacco Use Types Packs/Day Years Used Date Smoking Tobacco: Never Assessed Sex and Gender Information Value Date Recorded Sex Assigned at Not on file Legal Sex Male 6:39 PM EDT Gender Identity Not on file Sexual Orientation Not on file documented as of this encounter Plan of Treatment Upcoming Encounters Date Type Department Care Team (Late st Contact Info) Description 03/24/2025 7:40 AM EDT Office Visit [facility] [address] [place] [address] Christina Broussard PA [address] [facility] [address] [facility] [address] [place] [address] documented as of this encounter Procedures Procedure Name Priority Date/Time Associated Diagnosis Comments US SCROTUM Routine 12/28/2022 2:58 PM EDT documented in this encounter Results * US scrotum (12/28/2022 2:58 PM EDT) Anatomical Region Laterality Modality Body Ultrasound us Gala Anna CHARACTER ARTIST IMG US PROCEDURES Final Result documented in this encounter Visit Diagnoses Not on filedocumented in this encounter Care Teams Trust Administrative Assistant Relationship Specialty Start Date End Date Alejandro Florian DO [address] [place] [address] PCP - General Family Medicine 01/15/23 Gala Anna, ROBBY [address] [place] [address] Nurse Practitioner Family Medicine 01/15/23 documented as of this encounter
--- OUTSIDE RECORDS SUMMARY | 2024-12-05 09:13 | XMS_ITS | Encounter Summary ---
Author Organization [facility] Address [address] [facility] [place] [address] Care Team Providers Care Document Control Associate Name Role Phone Alejandro Florian DO Primary Care Provider [phone] Gala Anna STOCKROOM SUPERVISOR Unavailable [phone] Encounter Details Date Type Department Care Team (Late st Contact Info) Description 03/07/2024 Abstract [facility] [address] [place] [address] Gala Anna NP [address] [place] [address] Social History Tobacco Use Types Packs/Day Years Used Date Smoking Tobacco: Never Smokeless Tobacco: Never Alcohol Use Standard Drinks/Week Comments Never 0 (1 standard drink = 0.6 oz pur e alcohol) Caffeine: none PHQ-2 Answer Date Recorded Patient Health Questionnaire-2 Score 0 02/28/2024 Sex and Gender Information Value Date Recorded Sex Assigned at Not on file Legal Sex Male 6:39 PM EDT Gender Identity Not on file Sexual Orientation Not on file documented as of this encounter Plan of Treatment Upcoming Encounters Date Type Department Care Team (Late st Contact Info) Description 03/24/2025 7:40 AM EDT Office Visit [facility] [address] [place] [address] Christina Broussard PA [address] [facility] [address] [place], [place] [id number] documented as of this encounter Visit Diagnoses Not on filedocumented in this encounter Additional Health Concerns Assessment Noted Time PHQ-9 Depression Total Score: 3 04/02/20 23 7:00 AM EDT documented as of this encounter Care Teams Document Control Associate Relationship Specialty Start Date End Date Alejandro Florian DO [address] [place] [address] PCP - General Family Medicine 01/15/23 Gala Anna NP [address] [place] [address] Nurse Practitioner Family Medicine 01/15/23 documented as of this encounter
--- OUTSIDE RECORDS SUMMARY | 2024-12-05 09:13 | XMS_ITS | Clinical Summary ---
Author Organization [facility] Address [address] [place] [address] Care Team Providers Care Museum Exhibit Designer Name Role Phone Unavailable Primary Care Provider Unavailabl e Social History Tobacco Use Types Packs/Day Years Used Date Smoking Tobacco: Never Assessed [place] Safety & Environment Answer Date Rec orded Fear of Current or Ex-Partner Not on file Emotionally Abused Not on file 08/23/2023 Physically Abused Not on file 08/23/2023 Sexually Abused Not on file 08/23/2023 Physically or Sexually Abused Not on file Sex and Gender Information Value Date Recorded Sex Assigned at Not on file Gender Identity Not on file Sexual Orientation Not on file Plan of Treatment Not on file
--- OUTSIDE RECORDS SUMMARY | 2024-12-05 09:13 | XMS_ITS | Encounter Summary ---
Author Organization [facility] Address [address] [facility] [place] [address] Care Team Providers Care Vp Production Name Role Phone Alejandro Florian DO Primary Care Provider [phone] Gala Anna FORGESMITH Unavailable [phone] Encounter Details Date Type Department Care Team (Late st Contact Info) Description 12/27/2023 Abstract [facility] [address] [place] [address] Gala Anna NP [address] [place] [address] Social History Tobacco Use Types Packs/Day Years Used Date Smoking Tobacco: Never Smokeless Tobacco: Never Alcohol Use Standard Drinks/Week Comments Never 0 (1 standard drink = 0.6 oz pur e alcohol) Caffeine: none PHQ-2 Answer Date Recorded Patient Health Questionnaire-2 Score 0 04/02/2023 Sex and Gender Information Value Date Recorded Sex Assigned at Not on file Legal Sex Male 6:39 PM EDT Gender Identity Not on file Sexual Orientation Not on file documented as of this encounter Plan of Treatment Upcoming Encounters Date Type Department Care Team (Late st Contact Info) Description 03/24/2025 7:40 AM EDT Office Visit [facility] [address] [place] [address] Christina Broussard PA [address] [facility] [address] [place], [place] [id number] documented as of this encounter Visit Diagnoses Not on filedocumented in this encounter Additional Health Concerns Assessment Noted Time PHQ-9 Depression Total Score: 3 04/02/20 23 7:00 AM EDT documented as of this encounter Care Teams Vp Production Relationship Specialty Start Date End Date Alejandro Florian DO [address] [place] [address] PCP - General Family Medicine 01/15/23 Gala Anna NP [address] [place] [address] Nurse Practitioner Family Medicine 01/15/23 documented as of this encounter
--- OUTSIDE RECORDS SUMMARY | 2024-12-05 09:13 | XMS_ITS | Encounter Summary ---
Author Organization [facility] Address [address] [place] [address] Care Team Providers Care Metrology Technician Name Role Phone Alejandro Florian Primary Care Provider [phone] Gala Anna HOMICIDE SQUAD LIEUTENANT Unavailable [phone] Reason for Visit * Reason Comments Med Refill Encounter Details Date Type Department Care Team (Late st Contact Info) Description 05/04/2024 Refill [facility] [address] [place] [id number] Linda Benito, HOMICIDE SQUAD LIEUTENANT [address] [place] [address] Injury of nail bed of toe Social History Tobacco Use Types Packs/Day Years Used Date Smoking Tobacco: Never Smokeless Tobacco: Never Alcohol Use Standard Drinks/Week Comments Never 0 (1 standard drink = 0.6 oz pur e alcohol) Caffeine: none PHQ-2 Answer Date Recorded Patient Health Questionnaire-2 Score 0 05/05/2024 Sex and Gender Information Value Date Recorded Sex Assigned at Not on file Legal Sex Male 6:39 PM EDT Gender Identity Not on file Sexual Orientation Not on file documented as of this encounter Functional Status * Over the past 2 weeks, how often have you been bothered by any of the following problems? Question Answer Date of Assessment Author Little interest or pleasure in doing things Not at all 05/05/2024 7:56 AM Teagan Arenas LPN Feeling down, depressed, or hopeless Not at all 05/05/2024 7:56 AM Teagan Arenas LPN Patient Health Questionnaire -2 Score 0 05/05/2024 7:56 AM EST Teagan Lawrence LPN documented as of this encounter Plan of Treatment Upcoming Encounters Date Type Department Care Team (Late st Contact Info) Description 03/24/2025 7:40 AM EDT Office Visit [facility] [address] [place] [address] Christina Broussard, LUIS [address] [place] [address] documented as of this encounter Visit Diagnoses Diagnosis Injury of nail bed of toe documented in this encounter Additional Health Concerns Assessment Noted Time PHQ-9 Depression Total Score: 3 04/02/20 7:00 AM EDT documented as of this encounter Care Teams Metrology Technician Relationship Specialty Start Date End Date Alejandro Florian DO [address] [place], [place] [id number] PCP - General Family Medicine 01/15/23 Gala Anna NP [address] [place] [address] Nurse Practitioner Family Medicine 01/15/23 documented as of this encounter
--- OUTSIDE RECORDS SUMMARY | 2024-12-05 09:13 | XMS_ITS | Encounter Summary ---
Author Organization [facility] Address [address] [facility] [place] [address] Care Team Providers Care Superintendent Service Name Role Phone Alejandro Florian DO Primary Care Provider [phone] Gala Anna MANAGER LINE Unavailable [phone] Encounter Details Date Type Department Care Team (Late st Contact Info) Description 03/13/2024 Abstract [facility] [address] [place] [address] Gala Anna NP [address] [place] [address] Social History Tobacco Use Types [...] [facility] [address] [place] [address] Christina Broussard PA [address] [facility] [address] [place], [place] [id number] documented as of this encounter Visit Diagnoses Not on filedocumented in this encounter Additional Health Concerns Assessment Noted Time PHQ-9 Depression Total Score: 3 04/02/20 23 7:00 AM EDT documented as of this encounter Care Teams Superintendent Service Relationship Specialty Start Date End Date Alejandro Florian DO [address] [place] [address] PCP - General Family Medicine 01/15/23 Gala Anna NP [address] [place] [address] Nurse Practitioner Family Medicine 01/15/23 documented as of this encounter
--- OUTSIDE RECORDS SUMMARY | 2024-12-05 09:13 | XMS_ITS | Encounter Summary ---
Author Organization [facility] Address [address] [facility] [place] [address] Care Team Providers Care Electronic Die Maker Name Role Phone Alejandro Florian DO Primary Care Provider [phone] Gala Anna INSIDE CHANNEL ACCOUNT MANAGER Unavailable [phone] Encounter Details Date Type Department Care Team (Late st Contact Info) Description 01/17/2023 Abstract [facility] [address] [place] [address] Gala Anna NP [address] [place] [address] Social History Tobacco Use Types [...] [facility] DER[facility] [address] [place] [address] Christina Broussard PA [address] [facility] [address] [place] [address] [place] [address] documented as of this encounter Visit Diagnoses Not on filedocumented in this encounter Care Teams Electronic Die Maker Relationship Specialty Start Date End Date Alejandro Florian DO [address] [place] [address] PCP - General Family Medicine 01/15/23 Gala Anna NP [address] [facility] [address] [place] [address] Nurse Practitioner Family Medicine 01/15/23 documented as of this encounter
--- OUTSIDE RECORDS SUMMARY | 2024-12-05 09:13 | XMS_ITS | Encounter Summary ---
Author Organization [facility] Address [address] [facility] [place] [address] Care Team Providers Care Wound Care Specialist Name Role Phone Alejandro Florian DO Primary Care Provider [phone] Gala Anna INSURANCE ACCOUNT REPRESENTATIVE Unavailable [phone] Encounter Details Date Type Department Care Team (Late st Contact Info) Description 07/26/2023 Abstract [facility] [address] [place] [address] Gala Anna NP [address] [place] [address] Social History Tobacco Use Types [...] [facility] DER[facility] [address] [place] [address] Christina Broussard PA [address] [facility] [address] [place] [address] documented as of this encounter Visit Diagnoses Not on filedocumented in this encounter Additional Health Concerns Assessment Noted Time PHQ-9 Depression Total Score: 3 04/02/20 23 7:00 AM EDT documented as of this encounter Care Teams Wound Care Specialist Relationship Specialty Start Date End Date Alejandro Florian DO [address] [place] [address] PCP - General Family Medicine 01/15/23 Gala Anna NP [address] [place] [address] Nurse Practitioner Family Medicine 01/15/23 documented as of this encounter
--- OUTSIDE RECORDS SUMMARY | 2024-12-05 09:13 | XMS_ITS | Encounter Summary ---
Author Organization [facility] Address [address] [facility] [place] [address] Care Team Providers Care Parts Representative Name Role Phone Alejandro Florian DO Primary Care Provider [phone] Gala Anna DUST BOX TENDER Unavailable [phone] Encounter Details Date Type Department Care Team (Late st Contact Info) Description 01/15/2023 Abstract [facility] [address] [place] [address] Gala Anna NP [address] [place] [address] Social History Tobacco Use Types [...] [facility] DER[facility] [address] [place] [address] Christina Broussard PA [address] [facility] [address] [place] [address] [place] [address] documented as of this encounter Visit Diagnoses Not on filedocumented in this encounter Care Teams Parts Representative Relationship Specialty Start Date End Date Alejandro Florian DO [address] [place] [address] PCP - General Family Medicine 01/15/23 Gala Anna NP [address] [facility] [address] [place] [address] Nurse Practitioner Family Medicine 01/15/23 documented as of this encounter
--- OUTSIDE RECORDS SUMMARY | 2024-12-05 09:13 | XMS_ITS | Encounter Summary ---
Author Organization [facility] Address [address] [facility] [place] [address] Care Team Providers Care Field Evidence Technician Name Role Phone Alejandro Florian Primary Care Provider [phone] Gala Anna FACTORY LABORER Unavailable [phone] Encounter Details Date Type Department Care Team (Late st Contact Info) Description 04/02/2023 Abstract [facility] [address] [place] [address] Gala Anna NP [address] [place] [address] Social History Tobacco Use Types [...] problems? Question Answer Date of Assessment Author Patient Health Questionnaire -2 Score 0 04/02/2023 7:00 AM Mary Jo Ovalle LPN * Over the past 2 weeks, how often have you been bothered by any of the following problems? Question Answer Date of Assessment Author Little interest or pleasure in doing things Not at all 04/02/2023 7:00 AM EDT Mary Jo Garcia LPN Feeling down, depressed, or hopeless Not at all 04/02/2023 7:00 AM EDT Mary Jo Garcia LPN Trouble falling or staying asleep, or sleeping too much Several days 04/02/2023 7:00 AM EDT Mary Jo Garcia LPN Feeling tired or having little energy Several days 04/02/2023 7:00 AM EDT Mary Jo Garcia LPN Poor appetite or overeating Not at all 04/02/2023 7: 00 AM EDT Mary Jo Garcia LPN Feeling bad about yourself - or that you are a failure or have let yourself or your family down Not at all 04/02/2023 7:00 AM EDT Mary Jo Garcia LPN Trouble concentrating on things, such as reading the newspaper or watching television Several days 04/02/2023 7:00 AM EDT Mary Jo Garcia LPN Moving or speaking so slowly that other people could have noticed? Or the opposite - being so fidgety or restless that you have been moving around a lot more than usual. Not at all 04/02/2023 7:00 AM EDT Mary Jo Garcia LPN Thoughts that you would be better off or hurting yourself in some way Not at all 04/02/2023 7:00 AM EDT Mary Jo Garcia LPN Patient Health Questionnaire-9 Score 3 04/02/2023 7:00 AM EDT Lucy Garcia LPN documented as of this encounter Plan of Treatment Upcoming Encounters Date Type Department Care Team (Late st Contact Info) Description 03/24/2025 7:40 AM EDT Office Visit [facility] [address] [place] [address] Christina Broussard, LUIS [address] [place] [address] documented as of this encounter Visit Diagnoses Not on filedocumented in this encounter Additional Health Concerns Assessment Noted Time PHQ-9 Depression Total Score: 3 04/02/20 7:00 AM EDT documented as of this encounter Care Teams Field Evidence Technician Relationship Specialty Start Date End Date Alejandro Florian DO [address] [place] [address] PCP - General Family Medicine 01/15/23 Gala Anna NP [address] [place] [address] Nurse Practitioner Family Medicine 01/15/23 documented as of this encounter
--- OUTSIDE RECORDS SUMMARY | 2024-12-05 09:13 | XMS_ITS | Referral Summary ---
Author Organization [facility] Address [address] [address] Care Team Providers Care Munitions Handler Name Role Phone Unavailable Primary Care Provider [...]
--- OUTSIDE RECORDS SUMMARY | 2024-12-05 09:13 | XMS_ITS | Encounter Summary ---
Author Organization [facility] Address [address] [place] [address] Care Team Providers Care Rolling Mill Operator Helper Name Role Phone Casa Hunter MD Primary Care Provider [phone] Alli Roman MD Primary Care Provider Lisa Mariam Carrington MD Primary Care Provider [phone] Reason for Visit * Reason Onset Date Comments Medication Refill 02/21/2011 Encounter Details Date Type Department Care Team (Late st Contact Info) Description 02/21/2011 Refill Neurology [facility] [place] [address] [place] [address] [place] [address] Francia Kelly MD [address] [place] [address] [place] [address] Unspecified hereditary and idiopathic peripheral neuropathy; Spasm of muscle Social History Tobacco Use Types Packs/Day Years [...] 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 file Not on file Not on file Not on file Not on file Not on file documented as of this encounter Miscellaneous Notes * Telephone Encounter - Francia Kelly MD - 02/21/2011 11:56 AM EDTFrom: SILVESTRE CARABALLO To: Francia Kelly MD Sent: SunFeb 21, 2011 9:02 AM Subject: Medication Renewal Request Original authorizing provider: MD Silvsetre Omalley Anmol would like a refill of the following medications: gabapentin (NEURONTIN) 300 MG PO CAPS [Francia Kelly MD] Preferred pharmacy: [facility] [id number] [facility] [address] [place] [id number] Comment: I have tried to cut back as discussed however the my pain and cramping has increase so i have continued the medication. I am currently taking 2 tablets in the morning and 3 tablets in the evening. Wediscussed the possibility of changing to another medication due to side effects. I must have cursedmyself at our last appointment because i have seen significant increase in numbness and pain in both my hands and feet.Please reply to this message by work phone. documented in this encounter Plan of Treatment Not on file documented as of this encounter Visit Diagnoses Diagnosis Unspecified hereditary and idiopathic peripheral neuropathy Spasm of muscle documented in this encounter Care Teams Rolling Mill Operator Helper Relationship Specialty Start Date End Date Casa Hunter MD [address] [place] [id number] PCP - General 05/17/10 04/13/11 Alli Roman MD PCP - General 04/14/11 09/15/14 Mariam Luna MD [address] [place] [address] PCP - General Family Medicine 10/29/15 documented as of this encounter
--- OUTSIDE RECORDS SUMMARY | 2024-12-05 09:13 | XMS_ITS | Encounter Summary ---
Author Organization [facility] Address [address] [facility] [place] [place] [address] Care Team Providers Care Cyber Incident Analyst Name Role Phone Alejandro Florian DO Primary Care Provider [phone] Gala Anna PULPING MACHINE OPERATOR Unavailable [phone] Encounter Details Date Type Department Care Team (Late st Contact Info) Description 12/14/2022 Abstract [facility] [address] [place] [address] Gala Anna NP [address] [place] [address] Social History Tobacco Use Types [...] [facility] DER[facility] [address] [place] [address] Christina Broussard PA [address] [facility] [address] [place] [address] [place] [address] documented as of this encounter Visit Diagnoses Not on filedocumented in this encounter Care Teams Cyber Incident Analyst Relationship Specialty Start Date End Date Alejandro Florian DO [address] [place] [address] PCP - General Family Medicine 01/15/23 Gala Anna NP [address] [facility] [address] [place] [address] Nurse Practitioner Family Medicine 01/15/23 documented as of this encounter
--- OUTSIDE RECORDS SUMMARY | 2024-12-05 09:13 | XMS_ITS | Encounter Summary ---
Author Organization [facility] enter Address [address] [place] [address] Care Team Providers Care Outside Repairer Special Name Role Phone Alli Roman MD Primary Care Provider Mariam Gamboa MD Primary Care Provider [phone] Reason for Visit * Reason Onset Date Comments Other 06/10/2014 Encounter Details Date Type Department Care Team (Late st Contact Info) Description 06/10/[address] 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 Left vm message informing him he has an appointment with Jillian Woodruff our genetic counselor to what genetic testing should be done. Forward to Dr Kelly Forward to Jillian Woodruff * Telephone Encounter - Jb Day - 06/15/2014 10:39 AM EST PT is calling stating he needs a call back about this. Please call and advise. VEGA * Telephone Encounter - RobinsonMarcella Perez - 06/10/2014 4:37 PM EST Pt called and stated that he thought Dr. Kelly wanted him to have mouth biopsy. He stated that he thought he was to have this to test for Sjogren's Syndrome. He is wanting to confirm this before theend of the year so that he will be able to get it done before the new year. Please call and advise.Thank you. documented in this encounter Plan of Treatment Not on file documented as of this encounter Visit Diagnoses Not on filedocumented in this encounter Care Teams Outside Repairer Special Relationship Specialty Start Date End Date Alli Roman MD PCP - General 04/14/11 09/15/14 Mariam Luna MD [address] [place] [address] PCP - General Family Medicine 10/29/15 documented as of this encounter
--- OUTSIDE RECORDS SUMMARY | 2024-12-05 09:13 | XMS_ITS | Encounter Summary ---
Author Organization [facility] Address [address] [facility] [place] [address] Care Team Providers Care Auditor Internal Name Role Phone Alejandro Florian DO Primary Care Provider [phone] Gala Anna GRAVITY PROSPECTING OBSERVER HELPER Unavailable [phone] Encounter Details Date Type Department Care Team (Late st Contact Info) Description 06/15/2023 Abstract [facility] [address] [place] [address] Gala Anna NP [address] [place] [address] Social History Tobacco Use Types [...] [facility] DER[facility] [address] [place] [address] Christina Broussard PA [address] [facility] [address] [place] [address] documented as of this encounter Visit Diagnoses Not on filedocumented in this encounter Additional Health Concerns Assessment Noted Time PHQ-9 Depression Total Score: 3 04/02/20 23 7:00 AM EDT documented as of this encounter Care Teams Auditor Internal Relationship Specialty Start Date End Date Alejandro Florian DO [address] [place] [address] PCP - General Family Medicine 01/15/23 Gala Anna NP [address] [place] [address] Nurse Practitioner Family Medicine 01/15/23 documented as of this encounter
--- OUTSIDE RECORDS SUMMARY | 2024-12-05 09:13 | XMS_ITS | Encounter Summary ---
Author Organization [facility] Address [address] [facility] [place] [address] Care Team Providers Care Locomotive Crane Operator Name Role Phone Alejandro Florian Primary Care Provider [phone] Gala Anna JAVA PROGRAMMER ANALYST Unavailable [phone] Encounter Details Date Type Department Care Team (Late st Contact Info) Description 11/10/2024 Orders Only [facility] [address] [place] [address] Gala Anna NP [address] [place] [address] Social History Tobacco Use Types [...] pleasure in doing things Not at all 11/13/2024 7:29 AM ARDENT Gala Anna NP Feeling down, depressed, or hopeless Not at all 11/13/2024 7:29 AM ARDENT Gala Anna NP Patient Health Questionnaire -2 Score 0 11/13/2024 7:29 AM EDT Gaal Anna NP documented as of this encounter Plan of Treatment Upcoming Encounters Date Type Department Care Team (Late st Contact Info) Description 03/24/2025 7:40 AM EDT Office Visit [facility] [address] [place] [address] Christina Broussard, PA [address] [place] [address] documented as of this encounter Procedures Procedure Name Priority Date/Time Associated Diagnosis Comments DIABETIC RETINOPATHY SCREENING - OU - BOTH EYES Routine 11/08/2024 10:13 AM EDT documented in this encounter Results * Diabetic Retinopathy Screening - OU - Both Eyes (11/08/2024 10:13 AM EDT) Anatomical Region Laterality Modality Head Other us Gala Anna JAVA PROGRAMMER ANALYST OPHTH PHOTOGRAPHY Final Result documented in this encounter Visit Diagnoses Not on filedocumented in this encounter Additional Health Concerns Assessment Noted Time PHQ-9 Depression Total Score: 3 04/02/20 7:00 AM EDT documented as of this encounter Care Teams Locomotive Crane Operator Relationship Specialty Start Date End Date Alejandro Florian DO [address] [place] [id number] PCP - General Family Medicine 01/15/23 Gala Anna NP [address] [place] [address] Nurse Practitioner Family Medicine 01/15/23 documented as of this encounter
--- OUTSIDE RECORDS SUMMARY | 2024-12-05 09:13 | XMS_ITS | Clinical Summary ---
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 Meat Name Role Phone ChiquiAlejandro sanchez Daniel DRISCOLL Primary Care Provider [phone]- [phone] Gala Anna STAGE SETTINGS PAINTER Unavailable [phone] Allergies Active Allergy Reactions Criticality Noted Date Comments Banana 07/07/2014 Other Reaction(s): GI Distress, GI Intolerance Banana (Diagnostic) Unknown 04/21/2022 Bee Pollen Unknown 04/21/2022 Bee Venom Unknown 01/31/2015 Mixed Ragweed Angioedema,Unknown 11/09/2016 bees Molds & Smuts Unknown 04/21/2022 Medications Alpha-Lipoic Acid 600 MG capsule Take by mouth Daily Active aspirin 81 MG EC tablet Take 81 mg by mouth in the morning. Active omega-3 (Fish Oil) 1000 MG capsule Take by mouth Daily Active fluticasone (Flonase) 50 MCG/ACT nasal sprayIndications: Non-seasonal allergic rhinitis due to pollen Use 1 spray(s) in each nostril once daily 16 g 3 023 Active clobetasol (Temovate) 0.05 % ointment 022 Active EPINEPHrine (Epipen) 0.3 MG/0.3ML injection syringeIndication s:Bee sting allergy INJECT CONTENTS OF 1 PEN NEEDED FOR ALLERGIC REACTION 1 each 1 024 Active dulaglutide (Trulicity) 1.5 MG/0.5ML solution pen-injectorIndic ations:Type 2 diabetes mellitus without complication, without long-term current use of insulin Inject 1.5 mg under the skin 1 (one) time per week Patient to take two of the 1.5mg pens every week due to product availability 8 pen 11 024 Active cyanocobalamin (Vitamin B-12) 1000 MCG tablet Take 1,000 mcg by mouth Daily Active Turmeric (QC TUMERIC COMPLEX PO) Take by mouth Daily Active Syringe/Needle, Disp, (Luer Lock Safety Syringes) 22G X 1-1/2 3 ML miscIndications:I diopathic neuropathy Inject 1 each under the skin Daily 100 each 1 024 Active metFORMIN (Glucophage) 1000 MG tabletIndications :Diabetic peripheral neuropathy associated with type 2 diabetes mellitus (CMS/HCC) TAKE 1 TABLET BY MOUTH TWICE DAILY WITH A MEAL 180 tablet 1 024 Active levothyroxine (Synthroid, Levoxyl) 50 MCG tabletIndications :Acquired hypothyroidism (CMS/HCC) Take 1 tablet (50 mcg) by mouth in the morning. Take before meals. 90 tablet 2 024 Active Dulaglutide (Trulicity) 3 MG/0.5ML solution auto-injectorIndi cations:Diabetes mellitus due to underlying condition with hyperosmolarity without coma, without long-term current use of insulin (CMS/HCC) Inject 3 mg under the skin 1 (one) time per week 12 mL 3 024 Active rOPINIRole (Requip) 0.25 MG tabletIndications :Idiopathic neuropathy Take 1 tablet (0.25 mg) by mouth Daily as needed (restless legs) 90 tablet 1 024 Active tadalafil (Cialis) 5 MG tabletIndications :Low testosterone Take 1 tablet (5 mg) by mouth Daily as needed for erectile dysfunction 10 tablet 2 024 Active glyBURIDE (Diabeta) 5 MG tabletIndications :Diabetic peripheral neuropathy associated with type 2 diabetes mellitus (CMS/HCC) TAKE 1 TABLET BY MOUTH IN THE MORNING WITH MEALS 100 tablet 025 Active testosterone cypionate (Depo-Testosteron e) 200 MG/ML injectionIndicati ons:Low testosterone INJECT 1/2 (ONE-HALF) ML INTRAMUSCULARLY ONCE A WEEK 30 day supply 4 mL 3 025 Active montelukast (Singulair) 10 MG tabletIndications :Acute non-recurrent frontal sinusitis TAKE 1 TABLET BY MOUTH AT BEDTIME 90 tablet 1 025 Active pregabalin (Lyrica) 300 MG capsuleIndication s:Acute non-recurrent frontal sinusitis TAKE 1 CAPSULE BY MOUTH IN THE MORNING AND 1 AT BEDTIME 180 capsule 1 025 Active Ozempic, 2 MG/DOSE, 8 MG/3ML solution pen-injector INJECT 1 SYRINGE (2MG) SUBCUTANEOUSLY ONCE A WEEK IN THE ABDOMEN, THIGH, OR UPPER ARM. 025 Active cefuroxime (Ceftin) 250 MG tabletIndications :Bacterial folliculitis Take 1 tablet, by mouth, twice daily, 30 days 60 tablet 4 025 Active ketoconazole (NIZOral) 2 % shampooIndication s:Bacterial folliculitis Apply topically 2 (two) times a week Lather on scalp and mcdowell area 2x a week, leave on 5 min before rinsing 120 mL 11 025 12/17 Active traZODone (Desyrel) 50 MG tabletIndications :Idiopathic neuropathy TAKE 1 TABLET BY MOUTH ONCE DAILY AT THE SAME TIME EACH DAY. 90 tablet 025 Active rosuvastatin (Crestor) 40 MG tabletIndications :Diabetic peripheral neuropathy associated with type 2 diabetes mellitus (CMS/HCC) Take 1 tablet by mouth once daily 90 tablet 025 Active rosuvastatin (Crestor) 40 MG tabletIndications :Diabetic peripheral neuropathy associated with type 2 diabetes mellitus (CMS/HCC) Take 1 tablet (40 mg) by mouth Daily 90 tablet 024 11/26 Discontinued traZODone (Desyrel) 50 MG tabletIndications :Idiopathic neuropathy Take 1 tablet (50 mg) by mouth 1 (one) time each day at the same time 90 tablet 1 024 11/16 Discontinued doxycycline (Vibramycin) 100 MG capsuleIndication s:Bacterial folliculitis Take 1 capsule daily 30 capsule 3 025 11/14 Discontinued( Ineffective) cefuroxime (Ceftin) 500 MG tabletIndications :Acute non-recurrent frontal sinusitis Take 1 tablet (500 mg) by mouth in the morning and 1 tablet (500 mg) before bedtime. Do all this for 7 days. Take 1 tablet daily. 14 tablet 025 11/20 Active Problems Problem Noted Date Diagnosed Date Hallux varus (acquired), right foot 05/05/2024 Sigmoid diverticulitis 04/02/2023 Acquired hypothyroidism 01/19/2023 Asthma 01/19/2023 Bilateral hearing loss 01/19/2023 BPH with obstruction/lower urinary tract symptom s 01/19/2023 Diabetes 01/19/2023 Erectile dysfunction 01/19/2023 Gall stone 01/19/2023 Hyperlipemia 01/19/2023 Low HDL (under 40) 01/19/2023 Hyperglycemia due to type 2 diabetes mellitus long-term current use of insulin 01/17/2022 Allergic to bees 09/08/2021 Psoriasis 09/08/2021 Chronic gouty arthritis 01/12/2020 Class 2 obesity 10/07/2019 Diabetic peripheral neuropat hy associated with type 2 diabetes mellitus 10/07/2019 Essential hypertension 10/07/2019 Morbid obesity 10/07/2019 Carpal tunnel syndrome of right wrist 01/15/2018 Diverticulitis of colon 10/04/2017 Bilateral hand numbness 08/16/2017 Severe obesity with body mas s index (BMI) of 35.0 to 39.9 with serious comorbidity 08/16/2017 Overview (01/19/2023): 09/30/22 IMO Update Numbness in feet 08/16/2017 Bile duct leak 11/13/2016 Overview (01/19/2023): Last Assessment & Plan: Mr. Corea is a 51 yr old M with PMHx significant for DM, periphreal neuropathy and hx of PE, [facility] with [facility] pain, N/V. He had [...] to follow. Discussed with Dr. Corbin, GI Cholecystitis 11/05/2016 Overview (01/19/2023): Last Assessment & Plan: This is a 51 year old patient with acute and chronic cholecystitis and cholelithiasis s/p laparoscopic converted to open cholecystectomy, intraperitoneal drain placement 11/05 - SPEEDY dark SS, nonbilious - LFTs trending down today - will discuss need for GI consult for EUS/ERCP - if no procedure, will likely advance to clears - mIVF @ 75cc/hr - DVT PPx lovenox - cefotetan Lipoprotein deficiency disorder 08/28/2016 Hypertriglyceridemia 08/28/2016 Low testosterone 03/16/2016 Male hypogonadism 03/16/2016 Type 2 diabetes mellitus without complication Idiopathic neuropathy 03/21/2012 Beriberi 11/22/2010 Allergic rhinitis due to pollen 03/24/2010 Mononeuritis 03/24/2010 Resolved Problems Problem Noted Date Diagnosed Date Resolved Date Penile rash 01/19/2023 01/19/2023 Hydrocele 01/19/2023 01/19/2023 Scrotal lesion 01/19/2023 01/19/2023 Scrotal pain 01/19/2023 01/19/2023 Seasonal allergic reaction 01/19/2023 0 01/19/2023 Sensorineural hearing loss ( SNHL) of both ears 10/27/2021 01/19/2023 Ileus 11/09/2016 01/19/2023 Encounters Date Type Department Care Team Description 11/26/2024 Refill [facility] [address] [place] [id number] Gala Anna NP Diabetic peripheral neuropathy associated with type 2 diabetes mellitus (CMS/HCC) 11/16/2024 Refill [facility] [address] [place] [address] Gala Anna NP Idiopathic neuropathy 11/14/2024 7:40 AM EDT Office Visit [facility] [address] [place] [id number] Christina Broussard PA Bacterial folliculitis (Primary Dx); Seborrheic keratosis 11/14/2024 Bamboo flowsheet [facility] [address] [place] [address] Christina Broussard PA 11/14/2024 Travel 11/13/2024 7:30 AM EDT Office Visit [facility] [address] [place] [address] Gala Anna NP Type 2 diabetes mellitus with diabetic polyneuropathy, with long-term current use of insulin (CMS/[facility]) (Primary Dx); Low testosterone; Acquired hypothyroidism (CMS/HCC); Mixed hyperlipidemia ([facility]); Screening for prostate cancer; Heart murmur; Shortness of breath; Family history of early CAD; Feeling of chest tightness; Acute non-recurrent frontal sinusitis 11/13/2024 Bamboo flowsheet [facility] [address] [place] [id number] Gala Anna NP 11/13/2024 Travel 11/10/2024 Orders Only [facility] [address] [place] [address] Gala Anna NP 11/05/2024 Refill [facility] [address] [place] [address] Gala Anna NP Acute non-recurrent frontal sinusitis 11/02/2024 Refill [facility] [address] [place] [address] Gala Anna, STAGE SETTINGS PAINTER Low testosterone 10/31/2024 Telephone [facility] [address] [place] [address] Veda Hawley RN Med Refill 10/25/2024 Refill [facility] [address] [place] [address] Gala Anna, STAGE SETTINGS PAINTER Low testosterone 09/28/2024 Refill [facility] [address] [place] [address] Gala Anna, ROBBY Diabetic peripheral neuropathy associated with type 2 diabetes mellitus ([facility]/HCC) 09/11/2024 Telephone [facility] [address] [place] [address] Gala Anna, ROBBY Eye Exam 09/05/2024 Refill [facility] [address] [place] [address] Gala Anna, ROBBY Diabetic peripheral neuropathy associated with type 2 diabetes mellitus ([facility]) from Last 3 Months Immunizations Immunization Administration Dates Next Due Influenza, High Dose Seasona l, Preservative Free 04/16/2019 Influenza, Unspecified 04/21/2022,2020,04/08/2020,2018 Influenza, injectable, quadr ivalent, preservative free 04/02/2023,04/21/2022,04/15/2021,2019,04/17/2019 Influenza, seasonal, injecta ble, preservative free 05/05/2024 Moderna SARS-CoV-2 Booster Vaccination 06/06/2021 Moderna SARS-CoV-2 Vaccination 08/10/2020,2020 Tdap 04/21/2022 Family History Medical History Relation Name Comments Heart disease Father Hypertension Father Parkinsonism Father No Known Problems Maternal Grandfather No Known Problems Maternal Grandmother Diabetes Mother Heart disease Mother Hypertension Mother Kidney failure Mother Dementia Paternal Grandmother Relation Name Status Comments Father Maternal Grandfather Maternal Grandmother Mother Other Spouse Alive Paternal Grandfather Paternal Grandmother Son Alive Social History Tobacco Use Types Packs/Day Years Used Date Smoking Tobacco: Never Smokeless Tobacco: Never Tobacco Cessation:Counseling Given: Not Answered Alcohol Use Standard Drinks/Week Comments Never 0 [...] Sign Reading Time Taken Comments Blood Pressure 132/82 11/13/2024 7:25 AM EDT Pulse 74 11/13/2024 7:25 AM EDT Temperature 35.7 C (96.2 F) 11/13/2024 7:25 AM EDT Respiratory Rate 18 05/05/2024 7:56 AM EST Oxygen Saturation 94% 11/13/2024 7:25 AM EDT Inhaled Oxygen Concentration - - Weight 129 kg (284 lb 3.2 oz) 11/13/2024 7:25 AM EDT Height 188 cm (6' 2 ) 11/13/2024 7:25 AM EDT Body Mass Index 36.49 11/13/2024 7:25 AM EDT Plan of Treatment Upcoming Encounters Date Type Department Care Team (Late st Contact Info) Description 03/24/2025 7:40 AM EDT Office Visit [facility] [address] [place] [address] Christina Broussard, LUIS [address] [place] [address] Health Maintenance Due Date Last Done Comments CT Colonography 1965 FIT-DNA 1965 FIT 1965 FOBT 1965 Sigmoidoscopy 1965 Diabetes: Hemoglobin A1C 02/11/2025 025, 09/30/2024, 02/26/2024, Additional history exists Diabetes: Urine Protein Screening 11/12/2025 11/12/2024, 05/13/2024, 11/01/2023, Additional history exists Diabetes: Retinopathy Screening 11/08/2026 11/08/2024, 05/09/2023, 04/26/2022, Additional history exists Colonoscopy 04/16/2030 04/16/2020, 05/05/2013 Colorectal Cancer Screening 04/16/2030 Influenza Vaccine Completed 05/05/2024, , 04/21/2022, Additional history exists Procedures Procedure Name Priority Date/Time Associated Diagnosis Comments NOTE Routine 11/12/2024 8:11 AM EDT URINALYSIS REFLEX Routine 11/12/2024 8:1 1 AM EDT Dysuria Flank pain CULTURE, URINE, ROUTINE Routine 11/12/2024 8:11 AM EDT Dysuria Flank pain MICROALBUMIN / CREATININE URINE RATIO Routine 11/12/2024 8:10 AM EDT Diabetic peripheral neuropathy associated with type 2 diabetes mellitus (CMS/HCC) Mixed hyperlipidemia (CMS/HCC) Essential hypertension (CMS/HCC) Routine health maintenance HEMOGLOBIN A1C Routine 11/11/2024 7:49 AM EDT CBC (INCLUDES DIFF/PLT) Routine 11/11/2024 7:49 AM EDT COMPREHENSIVE METABOLIC PANEL Routine 11/11/2024 7:49 AM EDT LIPID PANEL Routine 11/11/2024 7:49 AM EDT HEPATITIS C ANTIBODY Routine 11/11/2024 7:49 AM EDT Routine health maintenance Need for hepatitis C screening test T4 (THYROXINE), TOTAL Routine 11/11/2024 7:49 AM EDT Acquired hypothyroidism (CMS/HCC) Diabetic peripheral neuropathy associated with type 2 diabetes mellitus (CMS/HCC) Mixed hyperlipidemia (CMS/HCC) Essential hypertension (CMS/HCC) Routine health maintenance TSH Routine 11/11/2024 7:49 AM EDT Acquired hypothyroidism (CMS/HCC) Diabetic peripheral neuropathy associated with type 2 diabetes mellitus (CMS/HCC) Mixed hyperlipidemia (CMS/HCC) Essential hypertension (CMS/HCC) Routine health maintenance TESTOSTERONE, TOTAL, MALES (ADULT), [place] Routine 11/11/2024 7:49 AM EDT Diabetic peripheral neuropathy associated with type 2 diabetes mellitus (CMS/HCC) Low testosterone Routine health maintenance DIABETIC RETINOPATHY SCREENING - OU - BOTH EYES Routine 11/08/2024 10:13 AM EDT HEMOGLOBIN A1C Routine 09/30/2024 Diabetic peripheral neuropathy associated with type 2 diabetes mellitus (CMS/HCC) Mixed hyperlipidemia (CMS/HCC) Type 2 diabetes mellitus without complication, without long-term current use of insulin COLONOSCOPY Routine 04/16/2020 12:00 PM EDT from Last 3 Months or Most Recently Relevant to Health Maintenance Results * NOTE (11/12/2024 8:11 AM EDT) NOTE [facility] Comment: This urine was analyzed for the presence of WBC, RBC, bacteria, casts, and other formed elements. Only those elements seen were reported. 11/12/2024 8:11 AM EDT 11/12/2024 8:11 AM EDT Narrative Resulting Agency Comment Performing Organization Information Site ID: QPT Name: [facility] Address: [address] [place] [address], [address] [place] [phone] Director: David Carrillo MD us Gala Anna NP [facility] Final Result [facility] * (ABNORMAL) Urinalysis with reflex microscopic (clean catch) (11/12/2024 8:11 AM EDT) COLOR YELLOW YELLOW [facility] APPEARANCE CLEAR CLEAR [facility] SPECIFIC GRAVITY 1.020 1.001 - 1.035 [facility] PH 5.5 5.0 - 8.0 [facility] GLUCOSE NEGATIVE NEGATIVE [facility] BILIRUBIN NEGATIVE NEGATIVE [facility] KETONES NEGATIVE NEGATIVE [facility] OCCULT BLOOD NEGATIVE NEGATIVE [facility] PROTEIN NEGATIVE NEGATIVE [facility] NITRITE NEGATIVE NEGATIVE [facility] LEUKOCYTE ESTERASE 2+(A) NEGATIVE [facility] WBC 6-10(A) < OR = 5 /HPF [facility] RBC NONE SEEN < OR = 2 /HPF [facility] SQUAMOUS EPITHELIAL CELLS 0-5 < OR = 5 /HPF [facility] BACTERIA NONE SEEN NONE SEEN /HPF [facility] HYALINE CAST NONE SEEN NONE SEEN /LPF [facility] Urine Urine specimen obtained by clean catch procedure / Unknown 11/12/2024 8:11 AM EDT 11/12/2024 8:11 AM EDT Narrative Resulting Agency Comment Performing Organization Information Site ID: QPT Name: [facility] Address: [address] [place] [address], [address] [place] [phone] Director: David Carrillo MD Gala Anna NP LAB URINE ORDERABLES Final Res ult Performing Organization Address [facility] de Phone Number [facility] * Urine culture (11/12/2024 8:11 AM EDT) MICRO NUMBER [id number] [facility] SPECIMEN QUALITY Adequate [facility] SOURCE: ([facility]) URINE [facility] STATUS FINAL [facility] RESULT SEE NOTE [facility] Comment: Less than 10,000 CFU/mL of single Gram positive organism isolated. No further testing will be performed. If clinically indicated, recollection using a method to minimize contamination, with prompt transfer to Urine Culture Transport Tube, is recommended. Urine Urine specimen obtained by clean catch procedure / Unknown 11/12/2024 8:11 AM EDT 11/12/2024 8:11 AM EDT Narrative Resulting Agency Comment Performing Organization Information Site ID: QPT Name: [facility] Address: [address] [place] [address], [address] [place] [phone] Director: David Carrillo MD Gala Anna NP LAB MICROBIOLOGY - GENERAL ORD ERABLES Final Result Performing Organization Address [facility] de Phone Number [facility] * Microalbumin / creatinine urine ratio (11/12/2024 8:10 AM EDT) CREATININE, RANDOM URINE 135 20 - 320 mg/dL [facility] ALBUMIN, URINE 0.5 See Note: mg/dL [facility] Comment: Reference Range: Reference Range Not established ALBUMIN/CREATININE RATIO, RANDOM URINE 4 <30 mg/g creat [facility] Comment: The ADA defines abnormalities in albumin excretion as follows: Albuminuria Category Result (mg/g creatinine) Normal to Mildly increased <30 Moderately increased 30-299 Severely increased > OR = 300 The ADA recommends that at least two of three specimens collected within a 3-6 month period be abnormal before considering a patient to be within a diagnostic category. Urine Urine specimen obtained by clean catch procedure / Unknown 11/12/2024 8:10 AM EDT 11/12/2024 8:10 AM EDT Narrative [facility] - 11/13/2024 11:36 AM EDT SPLIT 11/11/2024 FROM [id number] Resulting Agency Comment Performing Organization Information Site ID: QPT Name: [facility] Address: [address] [place] [address], [address] [place] [phone] Director: David Carrillo MD us Gala Anna NP LAB URINE ORDERABLES Final Res ult [facility] * Hepatitis C antibody (11/11/2024 7:49 AM EDT) HEPATITIS C ANTIBODY NON-REACTI VE NON-REACT AMY [facility] Comment: HCV antibody was non-reactive. There is no laboratory evidence of HCV infection. In most cases, no further action is required. However, if recent HCV exposure is suspected, a test for HCV RNA (test code 05441) is suggested. For additional information please refer to http://education.Seeq/faq/BWD60x9 (This link is being provided for informational/ educational purposes only.) Blood Venous blood specimen / Unknown 11/11/2024 7:49 AM EDT 11/11/2024 7:49 AM EDT Narrative [facility] - 11/12/2024 12:29 PM EDT FASTING:YES PATIENT UNABLE TO VOID; ADVISED TO RETURN FOR COLLECTION. FASTING: YES Resulting Agency Comment Performing Organization Information Site ID: QPT Name: [facility] Address: [address] [place] [address], [address] [place] [phone] Director: David Carrillo MD us Gala Anna STAGE SETTINGS PAINTER LAB BLOOD ORDERABLES Final Res ult [facility] * (ABNORMAL) CBC and differential (11/11/2024 7:49 AM EDT) WHITE BLOOD CELL COUNT 4.6 3.8 - 10.8 Thousand/u L [facility] RED BLOOD CELL COUNT 5.12 4.20 - 5.80 Million/uL [facility] HEMOGLOBIN 14.4 13.2 - 17.1 g/dL [facility] HEMATOCRIT 45.3 38.5 - 50.0 % [facility] MCV 88.5 80.0 - 100.0 fL [facility] MCH 28.1 27.0 - 33.0 pg [facility] MCHC 31.8(L) 32.0 - 36.0 g/dL [facility] Comment: For adults, a slight decrease in the calculated MCHC value (in the range of 30 to 32 g/dL) is most likely not clinically significant; however, it should be interpreted with caution in correlation with other red cell parameters and the patient's clinical condition. RDW 14.6 11.0 - 15.0 % [facility] PLATELET COUNT 182 140 - 400 Thousand/u L [facility] MPV 10.2 7.5 - 12.5 fL [facility] ABSOLUTE NEUTROPHILS 2,456 1,500 - 7,800 cells/uL [facility] ABSOLUTE LYMPHOCYTES 1,366 850 - 3,900 cells/uL [facility] ABSOLUTE MONOCYTES 428 200 - 950 cells/uL [facility] ABSOLUTE EOSINOPHILS 317 15 - 500 cells/uL [facility] ABSOLUTE BASOPHILS 32 0 - 200 cells/uL [facility] NEUTROPHILS 53.4 % [facility] LYMPHOCYTES 29.7 % [facility] MONOCYTES 9.3 % [facility] EOSINOPHILS 6.9 % [facility] BASOPHILS 0.7 % [facility] 11/11/2024 7:49 AM EDT 11/11/2024 7:49 AM EDT Narrative [facility] - 11/12/2024 12:29 PM EDT FASTING:YES PATIENT UNABLE TO VOID; ADVISED TO RETURN FOR COLLECTION. FASTING: YES Resulting Agency Comment Performing Organization Information Site ID: QPT Name: [facility] Address: [address] [place] [address], [address] [place] [phone] Director: David Carrillo MD us Gala Anna STAGE SETTINGS PAINTER LAB BLOOD ORDERABLES Final Res ult Performing Organization Address [facility] de Phone Number [facility] * TSH (11/11/2024 7:49 AM EDT) TSH 4.04 0.40 - 4.50 mIU/L [facility] Blood Venous blood specimen / Unknown 11/11/2024 7:49 AM EDT 11/11/2024 7:49 AM EDT Narrative [facility] - 11/12/2024 12:29 PM EDT FASTING:YES PATIENT UNABLE TO VOID; ADVISED TO RETURN FOR COLLECTION. FASTING: YES Resulting Agency Comment Performing Organization Information Site ID: QPT Name: [facility] Address: [address] [place] [address], [address] [place] [phone] Director: David Carrillo MD us Gala Anna STAGE SETTINGS PAINTER LAB BLOOD ORDERABLES Final Res ult Performing Organization Address [facility] de Phone Number [facility] * T4 (11/11/2024 7:49 AM EDT) Pathologist [facility] T4 (THYROXINE), TOTAL 5.9 4.9 - 10.5 mcg/dL [facility] Blood Venous blood specimen / Unknown 11/11/2024 7:49 AM EDT 11/11/2024 7:49 AM EDT Narrative [facility] - 11/12/2024 12:29 PM EDT FASTING:YES PATIENT UNABLE TO VOID; ADVISED TO RETURN FOR COLLECTION. FASTING: YES Resulting Agency Comment Performing Organization Information Site ID: QPT Name: [facility] Address: [address] [place] [address], [address] [place] [phone] Director: David Carrillo MD us Gala Anna STAGE SETTINGS PAINTER LAB BLOOD ORDERABLES Final Res ult Performing Organization Address [facility] de Phone Number [facility] * Testosterone (11/11/2024 7:49 AM EDT) TESTOSTERONE, TOTAL, MALES (ADULT), IA 448 250 - 827 ng/dL [facility] Blood Venous blood specimen / Unknown 11/11/2024 7:49 AM EDT 11/11/2024 7:49 AM EDT Narrative [facility] - 11/12/2024 12:29 PM EDT FASTING:YES PATIENT UNABLE TO VOID; ADVISED TO RETURN FOR COLLECTION. FASTING: YES Resulting Agency Comment Performing Organization Information Site ID: QPT Name: [facility] Address: [address] [facility] [place] [phone] Director: David Carrillo MD Gala Anna NP LAB BLOOD ORDERABLES Final Res ult Performing Organization Address [facility] de Phone Number [facility] * (ABNORMAL) Hemoglobin A1c (11/11/2024 7:49 AM EDT) Only the most recent of2 resultswithin the time period is included. Hemoglobin A1C 6.8(H) <5.7 % [facility] Comment: For someone without known diabetes, a hemoglobin A1c value of 6.5% or greater indicates that they may have diabetes and this should be confirmed with a follow-up test. For someone with known diabetes, a value <7% indicates that their diabetes is well controlled and a value greater than or equal to 7% indicates suboptimal control. A1c targets should be individualized based on duration of diabetes, age, comorbid conditions, and other considerations. Currently, no consensus exists regarding use of hemoglobin A1c for diagnosis of diabetes for children. 11/11/2024 7:49 AM EDT 11/11/2024 7:49 AM EDT Narrative [facility] - 11/12/2024 12:29 PM EDT FASTING:YES PATIENT UNABLE TO VOID; ADVISED TO RETURN FOR COLLECTION. FASTING: YES Resulting Agency Comment Performing Organization Information Site ID: QPT Name: [facility] [facility] Address: [address] [place] [address], [address] [place] [address] Director: David Carrillo MD Gala Anna NP LAB BLOOD ORDERABLES Final Res ult Performing Organization Address [facility] de Phone Number [facility] * (ABNORMAL) Lipid panel (11/11/2024 7:49 AM EDT) CHOLESTEROL, TOTAL 193 <200 mg/dL [facility] HDL CHOLESTEROL 34(L) > OR = 40 mg/dL [facility] TRIGLYCERIDES 433(H) <150 mg/dL [facility] Comment: If a non-fasting specimen was collected, consider repeat triglyceride testing on a fasting specimen if clinically indicated. Aditya et al. J. of Clin. Lipidol. 2015;9:129-169. LDL-CHOLESTEROL [facility] Comment: LDL cholesterol not calculated. Triglyceride levels greater than 400 mg/dL invalidate calculated LDL results. Reference range: <100 Desirable range <100 mg/dL for primary prevention; <70 mg/dL for patients with CHD or diabetic patients with > or = 2 CHD risk factors. LDL-C is now calculated using the Opal calculation, which is a validated novel method providing better accuracy than the Friedewald equation in the estimation of LDL-C. Ancelmo SS et al. MARIELY. 2013;310(19): 1954-7786 (http://education.Pressable/faq/RUW991) CHOL/HDLC RATIO 5.7(H) <5.0 (calc) [facility] NON HDL CHOLESTEROL 159(H) <130 mg/dL (calc) [facility] Comment: For patients with diabetes plus 1 major ASCVD risk factor, treating to a non-HDL-C goal of <100 mg/dL (LDL-C of <70 mg/dL) is considered a therapeutic option. 11/11/2024 7:49 AM EDT 11/11/2024 7:49 AM EDT Narrative [facility] - 11/12/2024 12:29 PM EDT FASTING:YES PATIENT UNABLE TO VOID; ADVISED TO RETURN FOR COLLECTION. FASTING: YES Resulting Agency Comment Performing Organization Information Site ID: QPT Name: [facility] Address: [address] [place] [address], [address] [place] [phone] Director: David Carrillo MD us Gala Anna NP LAB BLOOD ORDERABLES Final Res ult [facility] * (ABNORMAL) Comprehensive metabolic panel (11/11/2024 7:49 AM EDT) Glucose 159(H) 65 - 99 mg/dL [facility] Comment: Fasting reference interval For someone without known diabetes, a glucose value >125 mg/dL indicates that they may have diabetes and this should be confirmed with a follow-up test. BUN 22 7 - 25 mg/dL [facility] Creatinine 1.11 0.70 - 1.30 mg/dL [facility] EGFR 76 > OR = 60 mL/min/1. 73m2 [facility] BUN/CREATININE RATIO SEE NOTE: 6 - 22 (calc) [facility] Comment: Not Reported: BUN and Creatinine are within reference range. Sodium 139 135 - 146 mmol/L [facility] Potassium, Bld 4.4 3.5 - 5.3 mmol/L [facility] Chloride 105 98 - 110 mmol/L [facility] Carbon Dioxide 25 20 - 32 mmol/L [facility] Calcium 9.5 8.6 - 10.3 mg/dL [facility] PROTEIN, TOTAL 6.4 6.1 - 8.1 g/dL [facility] ALBUMIN 4.5 3.6 - 5.1 g/dL [facility] GLOBULIN 1.9 1.9 - 3.7 g/dL (calc) [facility] ALBUMIN/GLOBULIN RATIO 2.4 1.0 - 2.5 (calc) [facility] BILIRUBIN, TOTAL 0.5 0.2 - 1.2 mg/dL [facility] ALKALINE PHOSPHATASE 63 35 - 144 U/L [facility] AST 25 10 - 35 U/L [facility] ALT 35 9 - 46 U/L [facility] 11/11/2024 7:49 AM EDT 11/11/2024 7:49 AM EDT Narrative [facility] - 11/12/2024 12:29 PM EDT FASTING:YES PATIENT UNABLE TO VOID; ADVISED TO RETURN FOR COLLECTION. FASTING: YES Resulting Agency Comment Performing Organization Information Site ID: QPT Name: [facility] Address: [address] [place] [address], [address] [place] [phone] Director: David Carrillo MD us Gala Anna NP LAB BLOOD ORDERABLES Final Res ult [facility] * Diabetic Retinopathy Screening - OU - Both Eyes (11/08/2024 10:13 AM EDT) Anatomical Region Laterality Modality Head Other us Gala Anna NP OPHTH PHOTOGRAPHY Final Result * Colonoscopy (04/16/2020 12:00 PM EDT) Anatomical Region Laterality Modality Endoscopy 04/16/2020 12:0 0 PM EDT Narrative 04/16/2020 12:00 PM EDT PERFORMED AT [facility] LOCATION:[id number] diverticulitis Procedure Note CONVERSION, GENERIC - 11/15/2022 PERFORMED AT [facility] LOCATION:[id number] diverticulitis Gala Anna NP ENDOSCOPY PROCEDURE ORDERABLES Final Result from Last 3 Months or Most Recently Relevant to Health Maintenance Insurance [facility] [address] [phone] [facility] Care Teams Poultry Farmer Meat Relationship Specialty Start Date End Date Alejandro Florian DO [address] [place] [address] PCP - General Family Medicine 01/15/23 Gala Anna NP [address] [place] [address] Nurse Practitioner Family Medicine 01/15/23
--- OUTSIDE RECORDS SUMMARY | 2024-12-05 09:13 | XMS_ITS | Encounter Summary ---
Author Organization [facility] Address [address] [facility] [place] [address] Care Team Providers Care Tow Feeder Name Role Phone Alejandro Florian DO Primary Care Provider [phone] Gala Anna PACKAGE WRAPPER Unavailable [phone] Encounter Details Date Type Department Care Team (Late st Contact Info) Description 06/08/2023 Abstract [facility] [address] [place] [address] Gala Anna NP [address] [place] [address] Social History Tobacco Use Types [...] [facility] DERM [address] [place] [address] Christina Broussard PA [address] [facility] [address] [place] [address] documented as of this encounter Visit Diagnoses Not on filedocumented in this encounter Additional Health Concerns Assessment Noted Time PHQ-9 Depression Total Score: 3 04/02/20 23 7:00 AM EDT documented as of this encounter Care Teams Tow Feeder Relationship Specialty Start Date End Date Alejandro Florian DO [address] [place] [address] PCP - General Family Medicine 01/15/23 Gala Anna NP [address] [place] [address] Nurse Practitioner Family Medicine 01/15/23 documented as of this encounter
--- OUTSIDE RECORDS SUMMARY | 2024-12-05 09:13 | XMS_ITS | Clinical Summary ---
Author Organization [facility] Address [address] [place] [address] Care Team Providers Care Project Management Instructor Name Role Phone Gala Anna APRN - ROBBY Primary Care Provider [phone] Allergies Active Allergy Reactions Criticality Noted Date Comments Banana 01/31/2015 Bee Venom 01/31/2015 Medications famotidine (PEPCID) 20 MG tablet Take 40 mg by mouth once Active pregabalin (LYRICA) 150 MG capsule Take 300 mg by mouth 2 times daily Active metFORMIN (GLUCOPHAGE) 500 MG tablet Take 500 mg by mouth 2 times daily (with meals) Active ibuprofen (ADVIL;MOTRIN) 600 MG tablet Take 600 mg by mouth every 6 hours as needed for Pain Active aspirin 81 MG tablet Take 81 mg by mouth daily Active fluticasone (FLONASE) 50 MCG/ACT nasal spray 1 spray by Nasal route daily Active testosterone cypionate (DEPOTESTOTERONE CYPIONATE) 200 MG/ML injection Inject 200 mg into the muscle once Active dulaglutide (TRULICITY) 1.5 MG/0.5ML SC injection Inject 1.5 mg into the skin once a week Active glipiZIDE (GLUCOTROL) 5 MG tablet Take 5 mg by mouth 2 times daily (before meals) Active Alpha-Lipoic Acid 600 MG CAPS Take by mouth Active [place]-3 Fatty Acids (FISH OIL) 1000 MG capsule Take by mouth daily Active rosuvastatin (CRESTOR) 10 MG tablet Take 10 mg by mouth daily Active Encounters Date Type Department Care Team Description 11/17/2024 Transcribe Orders [facility] Pre Access [address] [id number] Gala Anna APRN - ROBBY Shortness of breath (Primary Dx); Heart murmur; Family history of early CAD; Feeling of chest tightness from Last 3 Months Social History Tobacco Use Types Packs/Day Years Used Date Smoking Tobacco: Never Tobacco Cessation:Counseling Given: Not Answered Alcohol Use Standard Drinks/Week Comments No 0 (1 standard drink = 0.6 oz pur e alcohol) Sex and Gender Information Value Date Recorded Sex Assigned at Not on file Legal Sex Male 8:46 PM EST Gender Identity Not on file Sexual Orientation Not on file Last Filed Vital Signs Vital Sign Reading Time Taken Comments Blood Pressure 134/72 06/19/2022 7:56 AM EST Pulse 80 06/19/2022 7:56 AM EST Temperature 36.1 C (96.9 F) 06/19/2022 7:56 AM EST Respiratory Rate 18 06/19/2022 7:56 AM EST Oxygen Saturation 94% 11/09/2016 8:01 AM EDT Inhaled Oxygen Concentration - - Weight 126.7 kg (279 lb 4.8 oz) 06/19/2022 7:56 AM EST Height 188 cm (6' 2 ) 06/19/2022 7:56 AM EST Body Mass Index 35.86 06/19/2022 7:56 AM EST Plan of Treatment Health Maintenance Due Date Last Done Comments Depression Screen 1977 HIV screen 1980 Hepatitis C screen 1983 Hepatitis B vaccine (1 of 3 - 19+ 3-dose series) 1984 Colonoscopy 2010 Colorectal Cancer Screen 2010 FIT/FOBT: Average risk 2010 Fecal-DNA (Cologuard): Average risk 2010 Sigmoidoscopy/CT colonography 2010 Lipids 06/29/2013 06/29/2012 Pneumococcal 50+ years Vaccine (1 of 1 - PCV) 2015 Shingles vaccine (1 of 2) 2015 A1C test (Diabetic or Prediabetic) 11/15/2020 08/18/2020 COVID-19 Vaccine ( season) 2024 06/07/2021, 08/11/2020, 07/14/2020 Flu vaccine (Season Ended) 01/30/202504/21, 04/15/2021, 04/14/2021, Additional history exists DTaP/Tdap/Td vaccine (2 - Td or Tdap) 04/21/2032 04/21/2022 GFR test (Diabetes, CKD 3-4, OR last GFR 15-59) Discontinued 03/03/2022, 11/09/2016, 12/18/2015, Additional history exists Hepatitis A vaccine Aged Out No longe r eligible based on patient's age to complete this topic Hib vaccine Aged Out No longer eligi ble based on patient's age to complete this topic Meningococcal (ACWY) vaccine Aged Out No longer eligible based on patient's age to complete this topic Meningococcal B vaccine Aged Out No l onger eligible based on patient's age to complete this topic Polio vaccine Aged Out No longer elig ible based on patient's age to complete this topic Procedures Procedure Name Priority Date/Time Associated Diagnosis Comments COMPREHENSIVE METABOLIC PANEL Routine 03/03/2022 2:33 PM EDT HEMOGLOBIN A1C Routine 08/18/2020 8:12 AM EST LIPID PANEL Routine 06/29/2012 8:32 AM EST from Last 3 Months or Most Recently Relevant to Health Maintenance Results * (ABNORMAL) Comprehensive Metabolic Panel (03/03/2022 2:33 PM EDT) Glucose 276(H) 70 - 99 mg/dL 03/03/2022 2:33 PM EDT [facility] BUN 13 6 - 20 mg/dL 03/03/2022 2:33 PM EDT [facility] Creatinine 0.87 0.70 - 1.20 mg/dL 03/03/2022 2:33 PM EDT [facility] BUN/Creatinine Ratio 15 9 - 20 03/03/2022 2:33 PM EDT [facility] Calcium 10.0 8.6 - 10.4 mg/dL 03/03/2022 2:33 PM EDT [facility] Sodium 137 135 - 144 mmol/L 03/03/2022 2:33 PM EDT [facility] Potassium 4.1 3.7 - 5.3 mmol/L 03/03/2022 2:33 PM [facility] Chloride 99 98 - 107 mmol/L 03/03/2022 2:33 PM [facility] CO2 25 20 - 31 mmol/L 03/03/2022 2:33 PM [facility] Anion Gap 13 9 - 17 mmol/L 03/03/2022 2:33 PM [facility] Alkaline Phosphatase 73 40 - 129 U/L 03/03/2022 2:33 PM [facility] ALT 42(H) 5 - 41 U/L 03/03/2022 2:33 PM [facility] AST 24 <40 U/L 03/03/2022 2:33 PM [facility] Total Bilirubin 0.6 0.3 - 1.2 mg/dL 03/03/2022 2:33 PM [facility] Total Protein 6.9 6.4 - 8.3 g/dL 03/03/2022 2:33 PM [facility] Albumin 4.6 3.5 - 5.2 g/dL 03/03/2022 2:33 PM [facility] Albumin/Globulin Ratio 2.0 1.0 - 2.5 03/03/2022 2:33 PM [facility] GFR Non- >60 >60 mL/min 03/03/2022 2:33 PM [facility] GFR >60 >60 mL/min 03/03/2022 2:33 PM [facility] GFR Comment 03/03/2022 2:33 PM [facility] Comment: Average GFR for 50-59 years old: 93 mL/min/1.73sq m Chronic Kidney Disease: <60 mL/min/1.73sq m Kidney failure: <15 mL/min/1.73sq m eGFR calculated using average adult body mass. Additional eGFR calculator available at: http://www.[employer].Medicago/multiple_crcl_2012.htm GFR Staging 03/03/2022 2:33 PM EDT [facility] Comment: Stage 1: Some kidney damage normal GFR Stage 2: Mild kidney damage GFR 60-89 Stage 3: Moderate kidney damage GFR 30-59 Stage 4: Severe kidney damage GFR 15-29 Stage 5: Severe kidney damage GFR <15 ESRD - chronic treatment by dialysis or transplant 03/03/2022 2:33 PM EDT 03/03/2022 2:34 PM EDT Gala Anna APRN - ROBBY CHEMISTRY ORDERABLES Paulina l Result Performing Organization Address City/[facility]/ZIP Co de Phone Number [facility] [address] [place] [address] * (ABNORMAL) Hemoglobin A1C (08/18/2020 8:12 AM EST) Hemoglobin A1C 6.6(H) 4.0 - 6.0 % 08/18/2020 8:12 AM EST [facility] Estimated Avg Glucose 143 mg/dL 08/18/2020 8:12 AM EST [facility] Comment: The ADA and AACC recommend providing the estimated average glucose result to permit better patient understanding of their HBA1c result. 08/18/2020 8:12 AM EST 08/18/2020 8:13 AM EST Reuben Payton MD CHEMISTRY ORDERABLES Final Resul t Performing Organization Address [facility]/ZIP Co de Phone Number [facility] [address] [phone] [facility] [address] [place] [address] * (ABNORMAL) Lipid panel (06/29/2012 8:32 AM EST) Cholesterol 201(H) 0 - 200 mg/dL [facility] HDL 41 >40 mg/dL [facility] Comment: Reference range: >= 60 Negative Risk Factor LDL Cholesterol 117(H) 0 - 100 mg/dL [facility] Comment: Direct (measured) LDL and calculated LDL are not interchangeable tests. Chol/HDL Ratio 5.0 1.0 - 5.0 [facility] Triglycerides 215(H) 0 - 150 mg/dL [facility] VLDL 43(H) 6 - 30 mg/dL [facility] Comment: Performed at [address] [place], [place] [id number] 06/29/2012 8:32 AM EST 06/29/2012 8:33 AM EST us Alli Roman MD CHEMISTRY ORDERABLES Final R esult [facility] [address] [facility] [place] [address], [facility] [phone] [facility] from Last 3 Months or Most Recently Relevant to Health Maintenance Insurance [facility] Care Teams Project Management Instructor Relationship Specialty Start Date End Date Gala Anna APRN - NP [address] [facility] [address] [place] [address] PCP - General 06/19/22
== END 2024-12-05 09:11 | disposition home or self-care (01) ==
LOC: CARD 09:11
PROVIDERS: PCP Nurse Practitioner; Visit Provider Nurse Practitioner
DX: R01.1 Cardiac murmur, unspecified (principal); R06.02 Shortness of breath; Z82.49 Family history of ischemic heart disease and other diseases of the circulatory system; R07.89 Other chest pain; R94.8 Abnormal results of function studies of other organs and systems
CPT/HCPCS: 78452; A9500

== ENCOUNTER 2024-12-08 07:33 | Outpatient (OUT) | payer OTHER, SELFPAY ==
--- OUTSIDE RECORDS SUMMARY | 2015-11-01 16:30 | XMS_ITS | Encounter Summary ---
Author Organization [facility] Address [address] [place] [address] Care Team Providers Care Metal Furniture Repairer Name Role Phone Mariam Luna MD Primary Care Provider [phone] Encounter Details Date Type Department Care Team (Late st Contact Info) Description 11/01/2015 4:30 PM EDT Hospital Encounter [facility] Physical Therapy [address] [place], [place] [phone] Thea Gutierrez, PT Social History Tobacco Use [...] Gutierrez, PT - 11/01/2015 2:02 PM EDT [facility] Out[facility] Physical Therapy Daily Note Patient: Silvestre Corea : 1965 Referring Practitioner: Dr. Naveen Webb Referral Date : 08/18/15 Date: 11/01/2015 Referring Practitioner: Dr. Naveen Webb Referral Date : 08/18/15 Diagnosis: Mila peripheral neuropathy Treatment Diagnosis: general weakness Onset Date: 08/23/15 PT Insurance Information: [employer] Total # of Visits Approved: 18 Per [...] for ADLs. 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 termite control technician goal 4: Pt strength of mila hips will be at least 4+/5 to improve stability with squatting. Post Treatment Pain: 0/10 Time In: 1630 Time Out: 1716 Timed Code Treatment Minutes: 46 Minutes Total Treatment Time: 46 Minutes Thea Gutierrez PT, DPT Therapy [place]: [id number] Date: 11/01/2015 documented in this encounter Plan of Treatment Not on file documented as of this encounter Visit Diagnoses Not on filedocumented in this encounter Care Teams Metal Furniture Repairer Relationship Specialty Start Date End Date Mariam Luna MD PCP - General 01/31/15 08/17/20 documented as of this encounter
--- OUTSIDE RECORDS SUMMARY | 2015-11-03 17:00 | XMS_ITS | Encounter Summary ---
Author Organization [facility] Address [address] [place] [address] Care Team Providers Care Mobile Sales Expert Name Role Phone Mariam Luna MD Primary Care Provider [phone] Encounter Details Date Type Department Care Team (Late st Contact Info) Description 11/03/2015 5:00 PM EDT Hospital Encounter [facility] Physical Therapy [address] [place], [place] [phone] Thea Gutirerez, PT Social History Tobacco Use Types Packs/Day [...] Gutierrez, PT - 11/03/2015 6:11 PM EDT [facility] Outpatient Physical Therapy Daily Note Patient: Silvestre Corea : 1965 Referring Practitioner: Dr. Naveen Webb Referral Date : 08/18/15 Date: 11/03/2015 Referring Practitioner: Dr. Naveen Webb Referral Date : 08/18/15 Diagnosis: Mila peripheral neuropathy Treatment Diagnosis: general weakness Onset Date: 08/23/15 PT Insurance Information: [employer] Total # of Visits Approved: 18 Per [...] for ADLs. 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 long-term goal 4: Pt strength of mila hips will be at least 4+/5 to improve stability with squatting. Post Treatment Pain: 0/10 Time In: 1700 Time Out: 1800 Timed Code Treatment Minutes: 60 Minutes Total Treatment Time: 60 Minutes Thea Gutierrez PT, DPT Therapy [place]: [id number] Date: 11/03/2015 documented in this encounter Plan of Treatment Not on file documented as of this encounter Visit Diagnoses Not on filedocumented in this encounter Care Teams Mobile Sales Expert Relationship Specialty Start Date End Date Mariam Luna MD PCP - General 01/31/15 08/17/20 documented as of this encounter
--- OUTSIDE RECORDS SUMMARY | 2015-11-08 15:15 | XMS_ITS | Encounter Summary ---
Author Organization [facility] Address [address] [place] [address] Care Team Providers Care Warranty Administrator Name Role Phone Mariam Luna MD Primary Care Provider [phone] Encounter Details Date Type Department Care Team (Late st Contact Info) Description 11/08/2015 3:15 PM EDT Hospital Encounter [facility] Physical Therapy [address] [place], [place] [phone] Bola Ennis Social History Tobacco Use Types [...] on filedocumented in this encounter Care Teams Warranty Administrator Relationship Specialty Start Date End Date Mariam Luna MD PCP - General 01/31/15 08/17/20 documented as of this encounter
--- OUTSIDE RECORDS SUMMARY | 2015-11-10 16:45 | XMS_ITS | Encounter Summary ---
Author Organization [facility] Address [address] [place] [address] Care Team Providers Care Precast Concrete Ironworker Name Role Phone Mariam Luna MD Primary Care Provider [phone] Encounter Details Date Type Department Care Team (Late st Contact Info) Description 11/10/2015 4:45 PM EDT Hospital Encounter [facility] Physical Therapy [address] [place], [place] [phone] Bola Ennis Social History Tobacco Use Types [...] on filedocumented in this encounter Care Teams Precast Concrete Ironworker Relationship Specialty Start Date End Date Mariam Luna MD PCP - General 01/31/15 08/17/20 documented as of this encounter
--- OUTSIDE RECORDS SUMMARY | 2015-11-11 16:15 | XMS_ITS | Encounter Summary ---
Author Organization [facility] Address [address] [place] [address] Care Team Providers Care Jet Man Name Role Phone Mariam Luna MD Primary Care Provider [phone] Encounter Details Date Type Department Care Team (Late st Contact Info) Description 11/11/2015 4:15 PM EDT Hospital Encounter [facility] Physical Therapy [address] [place], [place] [phone] Fredo Gilman PTA Social History Tobacco Use [...] on filedocumented in this encounter Care Teams Jet Man Relationship Specialty Start Date End Date Mariam Luna MD PCP - General 01/31/15 08/17/20 documented as of this encounter
--- OUTSIDE RECORDS SUMMARY | 2015-11-24 17:00 | XMS_ITS | Encounter Summary ---
Author Organization [facility] Address [address] [place] [address] Care Team Providers Care Brand Specialist Name Role Phone Mariam Luna MD Primary Care Provider [phone] Encounter Details Date Type Department Care Team (Late st Contact Info) Description 11/24/2015 5:00 PM EDT Hospital Encounter [facility] Physical Therapy [address] [place], [place] [phone] Thea Gutierrez, PT Social History Tobacco Use [...] as of this encounter Progress Notes * Connie Navarrete - 11/25/2015 12:28 PM EDT [facility] Rehabilitation Date: 11/25/2015 Patient Name: Silvestre Corea : 1965 [x] Pt No Showed Appt [] Pt Cancelled Appt: [] No Reason Given [] Sick/ill [] Other: Connie Navarrete Date: 11/25/2015 Cosigned by Thea Gutierrez, PT at 12/09/2015 11:09 AM EDT documented in this encounter Plan of Treatment Not on file documented as of this encounter Visit Diagnoses Not on filedocumented in this encounter Care Teams Brand Specialist Relationship Specialty Start Date End Date Mariam Luna MD PCP - General 01/31/15 08/17/20 documented as of this encounter
--- OUTSIDE RECORDS SUMMARY | 2015-12-06 16:30 | XMS_ITS | Encounter Summary ---
Author Organization [facility] Address [address] [place] [address] Care Team Providers Care Felt Washing Machine Tender Name Role Phone Mariam Luna MD Primary Care Provider Encounter Details Date Type Department Care Team (Late st Contact Info) Description 12/06/2015 4:30 PM EDT Hospital Encounter [facility] Physical Therapy [address] [place], [place] [phone] Thea Gutierrez, PT Social History Tobacco Use [...] on file documented as of this encounter Discharge Summaries * Ella Gutierrez, PT - 02/09/2016 10:22 AM EDT [facility] Outpatient Physical Therapy Discharge Summary Patient: Silvestre Corea : 1965 Referring physician: No admitting provider for patient encounter. Referring Practitioner: Dr. Naveen Webb Diagnosis: Mila peripheral neuropathy Date Treatment Initiated: 10/22/15 Date of Last Treatment: 12/06/15 PT Visit Information Onset Date: 08/23/15 PT Insurance Information: [employer] Total # of Visits Approved: 18 Total # of Visits to Date: 10 Plan of Care/Certification Expiration Date: 01/17/16 No Show: 4 Canceled Appointment: 3 Frequency/Duration Days: 3 times per week Weeks: 6 weeks Treatment Received [x]HP/CP []Electrical Stim [x]Therapeutic Exercise []Gait Training []Aquatics []Ultrasound [x]Patient Education/HEP [x]Manual Therapy []Traction []Neuro-devin []Soft Tissue Mobs []Home TENS []Iontophoresis [x]Orthotic casting/fitting []Dry Needling Assessment Assessment: Pt completed 10 PT visits with improvements noted. Pt called to cancel last 2 scheduledappointments and no further visits were scheduled. We will now discharge PT episode. Goals Short term goals Time Frame for Short term goals: 3 weeks Short term goal 1: Initiate HEP - met Short term goal 2: Pt SLR will improve to at least 55 deg on R and 65 deg on L for improve HS stretch for flexibility - met Short term goal 3: Pt will be able to use elliptical up to 10 min indicating improve endurance to activity for ADLs. -MET aluminum boats assembler goals Time Frame for aluminum boats assembler goals : 6 weeks aluminum boats assembler goal 1: Pt will be independent and compliant with his HEP - met and cont alf goal 2: Pt flexibility will improve to allow at least 65 deg SLR mila decreasing strain onLB alf goal 3: Pt will report overall 45% improved in all MRADLs. aluminum boats assembler goal 4: Pt strength of mila hips will be at least 4+/5 to improve stability with squatting. Reason for Discharge [] Goals Achieved [] Poor Follow Through/Attendance [x] Optimal Function Achieved [x] Patient Discharged Self [] Hospitalization [] Physician discharge Thank you for this referral Ella Gutierrez PT, DPT Date: 02/09/2016 documented in this encounter Progress Notes * Thea Gutierrez, PT - 12/06/2015 5:45 PM EDT [facility] Outpatient Physical Therapy Daily Note Patient: Silvestre Corea : 1965 Referring Practitioner: Dr. Naveen Webb Referral Date : 08/18/15 Date: 12/06/2015 Referring Practitioner: Dr. Naveen Quick Referral Date : 08/18/15 Diagnosis: Mila peripheral neuropathy Treatment Diagnosis: general weakness Onset Date: 08/23/15 PT Insurance Information: [employer] Total # of Visits Approved: 18 Per Physician Order Total # of Visits to Date: 10 No Show: 4 Canceled Appointment: 1 Pre-Treatment Pain: 0/10 Subjective: Pt reports that he has no pain other than when he is on his feet. He is able to stay onhis feet longer. Pt was issued his orthotics and instructed in wearing schedule. Exercises/Modalities/Manual: See DocFlow Sheet Assessment Assessment: Pt was instructed in proper wearing of orthotics. Pt reported good understanding. Pt missed prior appointment due to his father's . Will continue to progress as tolerated. Plan Plan: Continue with current plan Goals (Total # of Visits to Date: 10) Short Term Goals - Time Frame for [...] indicating improve endurance to activity for ADLs. 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 aluminum boats assembler goal 4: Pt strength of mila hips will be at least 4+/5 to improve stability with squatting. Post Treatment Pain: 0/10 Time In: 1630 Time Out: 1726 Timed Code Treatment Minutes: 57 Minutes Total Treatment Time: 57 Minutes Thea Gutierrez PT, DPT Therapy [place]: [id number] Date: 12/06/2015 documented in this encounter Plan of Treatment Not on file documented as of this encounter Visit Diagnoses Not on filedocumented in this encounter Care Teams Felt Washing Machine Tender Relationship Specialty Start Date End Date Mariam Luna MD PCP - General 01/31/15 08/17/20 documented as of this encounter
--- OUTSIDE RECORDS SUMMARY | 2024-02-04 03:50 | XMS_ITS ---
Author Organization [facility] Address [address] [place] [address] Care Team Providers Care Landscape Foreman Name Role Phone Gala Anna Primary Care Provider Kirit Mays Unavailable [phone] REASON FOR VISIT Bilateral great toe pain Problems Problem Type SNOMED Code ICD Code Onset Dates Problem Status W/U Status Risk Notes Problem 46032451371201838 Hallux varus (acquired), right foot (M20.31) Active confirmed Problem 680227481683128 Hallux varus (acquired), left foot (M20.32) Active confirmed Problem 557519923 Contusion of left great toe with damage to nail, initial encounter (S90.212A) Active confirmed Problem 515543618 Contusion of right great toe with damage to nail, initial encounter (S90.211A) Active confirmed Encounters Encounter Location Date Provider Diagnosis [facility] [address] [place] [phone] 02/04/2024 Kirit Sky Contusion of left great toe with damage to nail, initial encounter S90.212A ; Contusion of right great toe with damage to nail, initial encounter S90.211A ; Hallux varus (acquired), right foot M20.31 and Hallux varus (acquired), left foot M20.32 Assessments Encounter Date Diagnosis (ICD Code) Assessment Notes Treatment Notes Treatment Clinical Notes Section Notes 02/04/2024 Contusion of left great toe with damage to nail, initial encounter (ICD-10 - S90.212A) Subungual hematoma bilateral hallux 02/04/2024 Contusion of right great toe with damage to nail, initial encounter (ICD-10 - S90.211A) Subungual hematoma bilateral hallux 02/04/2024 Hallux varus (acquired), right foot (ICD-10 - M20.31) Patient Educated with: OM HANDOUT.pdf (OM HANDOUT.pdf) Subungual hematoma bilateral hallux 02/04/2024 Hallux varus (acquired), left foot (ICD-10 - M20.32) Subungual hematoma bilateral hallux 02/04/2024 Other Patient examined and evaluated Patient was given homeopathic remedies for home including Epsom salt soaks Patient was given silicone toe ring lets Follow-up female Subungual hematoma bilateral hallux Plan Of Treatment Treatment Notes Assessment Notes Hallux varus (acquired), right foot Juliana ent Educated with: OM HANDOUT.pdf (OM HANDOUT.pdf) Other Patient examined and evaluated Patient was given homeopathic remedies for home including Epsom salt soaks Patient was given silicone toe ring lets Follow-up female Next Appt Details Follow Up: email, Reason: Progress Notes * JELLY CARABALLO LDOB:1965 (58 yo M)Acc No.[id number]:02/04/2024 Patient: Anila JELLY CHAMBERS Zac Provider: Betsey Sky DPM :1965 A ge:58 Y S ex:Male Date:02/04/2024 Address:[address] [place] [address], [place] [address] Pcp:Gala Anna Subjective: * Chief Complaints: * B ilateral great toe pain * HPI: F ollow Up: Patient is a pleasant 58-year-old male presenting for initial evaluation of bilateral foot pain, left worse than right. Patient states that the great toe nail plate had turned black over the last 2 weeks after doing extensive yard work. 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 Patient's sister was also diagnosed with Sjogren's and is currently following with toe former stitchdowns looking at seronegative arthropathies. Nail plates themselves appear stable. Patient was given silicone toe sleeves as well as a handout for homeopathic remedies including Epsom salt soaks at home. Patient will follow-up with us via email. All further question concerns or medical management were otherwise addressed. * Medical History: * Surgical History: * Medications: N one Objective: * Vitals: * Examination: G eneral examination: P atient alert and oriented x 3 no acute distress Pedal pulses palpable skin temperature is within normal arabella cap refill time intact to lesser toes Skin envelope appears well-maintained does have stable subungual hematoma encompassing the hallux nail plate bilateral. Minimal pain on palpation subungual hematoma involves less than 50% of the nailbed Epicritic and protopathic sensations are grossly diminished with global paresthesias . Assessment: * Assessment: 1. C ontusion of left great toe with damage to nail, initial encounter - S90.212A (Primary)?2. C ontusion of right great toe with damage to nail, initial encounter - S90.211A 3 . Hallux varus (acquired), right foot - M20.31 4 . H allux varus (acquired), left foot - M20.32 Subungual hematoma bilateral hallux. Plan: * Treatment: 2. O thers Notes: Patient examined and evaluated Patient was given homeopathic remedies for home including Epsom salt soaks Patient was given silicone toe ring lets Follow-up female * Procedure Codes: * Follow Up: e mail Forms: * Images: * Sign off status: Completed true * Provider: Betsey Sky DPM Date: 0 02/04/2024 Generated for Rah cruz/Serg/Abeitting on: 0 12/08/2024 07:36 AM EDT History and Physical Notes * HPI (History of Present Illness) Category Sub-Category Detail Notes Category Not es Follow Up Patient is a pl easant 58-year-old male presenting for initial evaluation of bilateral foot pain, left worse than right. Patient states that the great toe nail plate had turned black over the last 2 weeks after doing extensive yard work. 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 Patient's sister was also diagnosed with Sjogren's and is currently following with toe former stitchdowns looking at seronegative arthropathies. Nail plates themselves appear stable. Patient was given silicone toe sleeves as well as a handout for homeopathic remedies including Epsom salt soaks at home. Patient will follow-up with us via email. All further question concerns or medical management were otherwise addressed. Examination Category Sub-Category Detail Notes Category Not es General examination Patient alert and oriented x 3 no acute distress Pedal pulses palpable skin temperature is within normal arabella cap refill time intact to lesser toes Skin envelope appears well-maintained does have stable subungual hematoma encompassing the hallux nail plate bilateral. Minimal pain on palpation subungual hematoma involves less than 50% of the nailbed Epicritic and protopathic sensations are grossly diminished with global paresthesias
--- OUTSIDE RECORDS SUMMARY | 2024-12-08 07:36 | XMS_ITS | Encounter Summary ---
Author Organization [facility] Address [address] [facility] [address] [place] [address] Care Team Providers Care Veneer Glue Jointer Feedback Name Role Phone Alejandro Florian DO Primary Care Provider Gala Anna IN HOME SALES REPRESENTATIVE Unavailable [phone] Encounter Details Date Type Department Care Team (Late st Contact Info) Description 12/28/2022 Orders Only [facility] [address] [place] [address] Gala Anna NP [address] [place] [address] Social History Tobacco Use Types [...] [facility] DERM [address] [place] [address] Christina Broussard PA [address] [facility] [facility] [address] [facility] [address] [place] [address] documented as of this encounter Procedures Procedure Name Priority Date/Time Associated Diagnosis Comments US SCROTUM Routine 12/28/2022 2:58 PM EDT documented in this encounter Results * US scrotum (12/28/2022 2:58 PM EDT) Anatomical Region Laterality Modality Body Ultrasound us Gala Anna IN HOME SALES REPRESENTATIVE IMG US PROCEDURES Final Result documented in this encounter Visit Diagnoses Not on filedocumented in this encounter Care Teams Veneer Glue Jointer Feedback Relationship Specialty Start Date End Date Alejandro Florian DO [address] [place] [address] PCP - General Family Medicine 01/15/23 Gala Anna, ROBBY [address] [place] [address] Nurse Practitioner Family Medicine 01/15/23 documented as of this encounter
--- OUTSIDE RECORDS SUMMARY | 2024-12-08 07:36 | XMS_ITS | Referral Summary ---
Author Organization [facility] Address [address] [place] [address] Care Team Providers Care Utilization Management Rn Name Role Phone Unavailable Primary Care Provider [...]
--- OUTSIDE RECORDS SUMMARY | 2024-12-08 07:36 | XMS_ITS | Clinical Summary ---
Author Organization [facility] Address [address] [place] [address] Care Team Providers Care Log Grader Name Role Phone Mariam Luna MD Primary Care Provider [phone] Allergies Active Allergy Reactions Criticality Noted Date [...] neuropathy and hx of PE, presenting to [facility] 11/10 with abdominal pain, N/V. [...] Ended) 2025 Medical Devices Implanted Type Area Bulb Planter Device Identifier Shelf Expiration Date Model / Serial / Lot Stent 5fr 5cm Pancreatic Zimmon - [id number] Implanted:Qty: 1 on 11/13/2016 by Allen Monroy MD at [facility] Stent [employer] 08/10/2019 [id number]-5-5 / / [id number] Description:Expiration Visua lly and verbally confirmed by CASSIE and TIAGO, RN's Stent 10-7 Cotton Rebollar Biliary Stent Only - [id number] Implanted:Qty: 1 on 11/13/2016 by Allen Monroy MD at [facility] Stent [employer] 09/07/2019 [id number]-10-7 / / [id number] Description:expiration visua lly and verbally confirmed CASSIE and TIAGO, RN's Insurance * Guarantor: Silvestre Corea Account Type Relation to Patient Date of Phone Billing Address Personal/Family Self 1965 [phone] (Work) [address] [place] [address] [employer] CHOICE POS/POSII/PREMIER CARE/PREMIER CARE PLUS * Guarantor: Silvestre Corea Account Type Relation to Patient Date of Phone Billing Address Personal/Family Self 1965 [phone] (Work) [address] [place] [address] [employer] CHOICE POS/POSII/PREMIER CARE/PREMIER CARE PLUS Advance Directives For more information, please contact: [phone] * Full Code - Unverified (Latest Code Status on File) Date Activated Date Inactivated Comments 11/09/2016 12:31 PM 11/16/2016 5:17 PM * Full Code - Unverified Date Activated Date Inactivated Comments 11/05/2016 1:32 AM 11/08/2016 7:58 PM Care Teams Log Grader Relationship Specialty Start Date End Date Mariam Luna MD [address] [place] [address] PCP - General Family Medicine 11/04/16
--- OUTSIDE RECORDS SUMMARY | 2024-12-08 07:36 | XMS_ITS | Encounter Summary ---
Author Organization [facility] Address [address] [facility] [place] [address] Care Team Providers Care Printed Circuit Board Panels Trimmer Name Role Phone Alejandro Florian DO Primary Care Provider [phone] Gala Anna PROGRESS CLERK Unavailable [phone] Encounter Details Date Type Department Care Team (Late st Contact Info) Description 07/26/2023 Abstract [facility] [address] [place] [address] Gala Anna NP [address] [place] [address] Social History Tobacco Use Types [...] [facility] DERM [address] [place] [address] Christina Broussard PA [address] [facility] [address] [place] [address] documented as of this encounter Visit Diagnoses Not on filedocumented in this encounter Additional Health Concerns Assessment Noted Time PHQ-9 Depression Total Score: 3 04/02/20 23 7:00 AM EDT documented as of this encounter Care Teams Printed Circuit Board Panels Trimmer Relationship Specialty Start Date End Date Alejandro Florian DO [address] [place] [address] PCP - General Family Medicine 01/15/23 Gala Anna NP [address] [place] [address] Nurse Practitioner Family Medicine 01/15/23 documented as of this encounter
--- OUTSIDE RECORDS SUMMARY | 2024-12-08 07:36 | XMS_ITS | Encounter Summary ---
Author Organization [facility] Address [address] [place] [address] Care Team Providers Care Content Producer Name Role Phone Gala Anna APRN, NP Primary Care Provider [phone] Reason for Referral * Eval and Treat (Routine) - Closed Specialty Diagnoses / Procedures Referred By Sammy t Referred To Contact Nutrition / IP Unit Diagnoses Body mass index 36.0-36.9, adult Gala Anna APRN - NP [address] [place] [address] Phone: tel: fax: [facility] Diet and Nutrition [address] [place] [address] Phone: tel: Referral ID Status Reason Start Date Expiration Date V isits Requested Visits Authorized [id number] Closed Specialty Services Required 01/26/2023 01/26/2024 1 1 Scheduling Instructions [facility] Outpatient Nutrition Services- [address] Mc[place]ally [facility]83 Comments The patient can be scheduled with any member of the group, including the provider with the first available appointments. Encounter Details Date Type Department Care Team (Latest Contact Info) Description 01/26/2023 Transcribe Orders [facility] Pre Access [address] [place] [address] Gala Anna APRN - NP [address] [place] [address] Body mass index 36.0-36.9, adult (Primary Dx) [...] Name Type Priority Associated Diagnoses Order Schedule [facility] Routine Body mass index 36.0-36.9, adult Ordered: 01/26/2023 documented as of this encounter Visit Diagnoses Diagnosis Body mass index 36.0-36.9, adult- Primary Body Mass Index 36.0-36.9, adult documented in this encounter Care Teams Content Producer Relationship Specialty Start Date End Date Gala Anna APRN - ROBBY [address] [facility] [address] [place] [address] PCP - General 06/19/22 documented as of this encounter
--- OUTSIDE RECORDS SUMMARY | 2024-12-08 07:36 | XMS_ITS | Encounter Summary ---
Author Organization [facility] Address [address] [facility] [place] [address] Care Team Providers Care Soil Conservation Aide Name Role Phone Alejandro Florian DO Primary Care Provider [phone] Gala Anna AUTOMOTIVE PARTS COORDINATOR Unavailable [phone] Encounter Details Date Type Department Care Team (Late st Contact Info) Description 03/13/2024 Abstract [facility] [address] [place] [address] Gala Anna NP [address] [place] [address] Social History Tobacco Use Types [...] TSR DERM [address] [place] [address] Christina Broussard PA [address] [facility] [address] [place], [place] [phone] documented as of this encounter Visit Diagnoses Not on filedocumented in this encounter Additional Health Concerns Assessment Noted Time PHQ-9 Depression Total Score: 3 04/02/20 23 7:00 AM EDT documented as of this encounter Care Teams Soil Conservation Aide Relationship Specialty Start Date End Date Alejandro Florian DO [address] [place] [address] PCP - General Family Medicine 01/15/23 Gala Anna NP [address] [place] [address] Nurse Practitioner Family Medicine 01/15/23 documented as of this encounter
--- OUTSIDE RECORDS SUMMARY | 2024-12-08 07:36 | XMS_ITS | Encounter Summary ---
Author Organization [facility] Address [address] [facility] [place] [address] Care Team Providers Care Assistant Name Role Phone Alejandro Florian DO Primary Care Provider [phone]- [phone] Gala Anna ASIC DESIGN ENGINEER Unavailable [phone] Encounter Details Date Type Department Care Team (Late st Contact Info) Description 02/05/2023 Abstract [facility] [address] [place] [address] Gala Anna NP [address] [place] [address] Social History Tobacco Use Types [...] [facility] D[facility] [address] [place] [address] Christina Broussard PA [address] [facility] [address] [facility] [address] [place] [address] documented as of this encounter Visit Diagnoses Not on filedocumented in this encounter Care Teams Assistant Relationship Specialty Start Date End Date Alejandro Florian DO [address] [place] [address] PCP - General Family Medicine 01/15/23 Gala Anna NP [address] [place] [address] Nurse Practitioner Family Medicine 01/15/23 documented as of this encounter
--- OUTSIDE RECORDS SUMMARY | 2024-12-08 07:36 | XMS_ITS | Encounter Summary ---
Author Organization [facility] Address [address] [facility] [place] [address] Care Team Providers Care Administrative Intern Name Role Phone Alejandro Florian DO Primary Care Provider [phone] Gala Anna INDUSTRIAL CONVEYOR BELT REPAIRER Unavailable [phone] Encounter Details Date Type Department Care Team (Late st Contact Info) Description 01/17/2023 Abstract [facility] [address] [place] [address] Gala Anna NP [address] [place] [address] Social History Tobacco Use Types [...] [facility] DERM [address] [place] [address] Christina Broussard PA [address] [facility] [address] [place] [address] [place] [address] documented as of this encounter Visit Diagnoses Not on filedocumented in this encounter Care Teams Administrative Intern Relationship Specialty Start Date End Date Alejandro Florian DO [address] [place] [address] PCP - General Family Medicine 01/15/23 Gala Anna NP [address] [facility] [address] [place] [address] Nurse Practitioner Family Medicine 01/15/23 documented as of this encounter
--- OUTSIDE RECORDS SUMMARY | 2024-12-08 07:36 | XMS_ITS | Encounter Summary ---
Author Organization [facility] Address [address] [place] [address] Care Team Providers Care City Wellness Coordinator Name Role Phone Gala Anna APRN, NP Primary Care Provider [phone] Reason for Referral * Imaging (Routine) - Closed Specialty Diagnoses / Procedures Referred By Contsofie t Referred To Contact Radiology Diagnoses Stomach ache R10.9 (ICD-10-CM) - Stomach ache Procedures CT ABDOMEN PELVIS W WO CONTRAST Additional Contrast? None CHG CT ABDOMEN & PELVIS W/O CONTRST 1/> [place] RE [id number] - CHG CT ABDOMEN & PELVIS W/O CONTRST 1/> BODY RE Gala Anna APRN - NP [address] [place] [address] Phone: tel: fax: Referral ID Status Reason Start Date Expiration Date Visits Re quested Visits Authorized [id number] Closed 10/09/2022 09/15/2023 1 1 Encounter Details Date Type Department Care Team (Latest Contact Info) Description 09/15/2022 Transcribe Orders [facility] Pre Access [address] [place] [address] Gala Anna APRN - NP [address] [place] [address] Stomach ache (Primary Dx) Social History Tobacco [...] stomach documented in this encounter Care Teams City Wellness Coordinator Relationship Specialty Start Date End Date Gala Anna APRN - ROBBY [address] [facility] [address] [place], [place] [id number] PCP - General 06/19/22 documented as of this encounter
--- OUTSIDE RECORDS SUMMARY | 2024-12-08 07:36 | XMS_ITS | Encounter Summary ---
Author Organization [facility] Address [address] [place] [address] Care Team Providers Care Metal Door Assembler Name Role Phone Alejandro Florian Primary Care Provider [phone] Gala Anna FREELANCE DIRECTOR Unavailable [phone] Reason for Visit * Reason Comments Med Refill Encounter Details Date Type Department Care Team (Late st Contact Info) Description 05/04/2024 Refill [facility] [address] [place] [id number] Linda Benito, FREELANCE DIRECTOR [address] [place] [address] Injury of nail bed of [...] [facility] DERM [address] [place] [address] Christina Broussard, LUIS [address] [place] [address] documented as of this encounter Visit Diagnoses Diagnosis Injury of nail bed of toe documented in this encounter Additional Health Concerns Assessment Noted Time PHQ-9 Depression Total Score: 3 04/02/20 7:00 AM EDT documented as of this encounter Care Teams Metal Door Assembler Relationship Specialty Start Date End Date Alejandro Florian DO [address] [place], [place] [id number] PCP - General Family Medicine 01/15/23 Gala Anna NP [address] [place] [address] Nurse Practitioner Family Medicine 01/15/23 documented as of this encounter
--- OUTSIDE RECORDS SUMMARY | 2024-12-08 07:36 | XMS_ITS | Encounter Summary ---
Author Organization [facility] Address [address] [place] [address] Care Team Providers Care Durability Technician Name Role Phone Gala Anna APRN, NP Primary Care Provider [phone] Reason for Referral * (Routine) - Closed Specialty Diagnoses / Procedures Referred By Sammy butt Referred To Contact Diagnoses Diabetic polyneuropathy associated with type 2 diabetes mellitus (HCC) Low testosterone Feeling of chest tightness Dyspnea on exertion FH: premature coronary heart disease Procedures Nuclear stress test with myocardial perfusion Gala Anna APRN - NP [address] [place] [address] Phone: tel: fax: Referral ID Status Reason Start Date Expiration Date Visits Re quested Visits Authorized [id number] Closed 08/14/2023 08/13/2024 3 3 Encounter Details Date Type Department Care Team (Latest Contact Info) Description 08/14/2023 Transcribe Orders [facility] Pre Access [address] [place] [address] Gala Anna APRN - NP [address] [place], [place] [id number] Diabetic polyneuropathy associated with type 2 diabetes [...] disease documented in this encounter Care Teams Durability Technician Relationship Specialty Start Date End Date Gala Anna APRN - NP [address] [facility] [address] [place], [place] [id number] PCP - General 06/19/22 documented as of this encounter
--- OUTSIDE RECORDS SUMMARY | 2024-12-08 07:36 | XMS_ITS | Encounter Summary ---
Author Organization [facility] Address [address] [facility] [place] [address] Care Team Providers Care Electronics Hardware Design Engineer Name Role Phone Alejandro Florian DO Primary Care Provider [phone] Gala Anna SYSTEM TECHNOLOGIST Unavailable [phone] Encounter Details Date Type Department Care Team (Late st Contact Info) Description 06/08/2023 Abstract [facility] [address] [place] [address] Gala Anna NP [address] [place] [address] Social History Tobacco Use Types [...] [facility] D[facility] [address] [place] [address] Christina Broussard PA [address] [facility] [address] [place] [address] documented as of this encounter Visit Diagnoses Not on filedocumented in this encounter Additional Health Concerns Assessment Noted Time PHQ-9 Depression Total Score: 3 04/02/20 23 7:00 AM EDT documented as of this encounter Care Teams Electronics Hardware Design Engineer Relationship Specialty Start Date End Date Alejandro Florian DO [address] [place] [address] PCP - General Family Medicine 01/15/23 Gala Anna NP [address] [place] [address] Nurse Practitioner Family Medicine 01/15/23 documented as of this encounter
--- OUTSIDE RECORDS SUMMARY | 2024-12-08 07:36 | XMS_ITS | Encounter Summary ---
Author Organization [facility] Address [address] [facility] [place] [address] Care Team Providers Care Search Lead Name Role Phone Alejandro Florian Primary Care Provider [phone] Gala Anna FIELD RECRUITER Unavailable [phone] Encounter Details Date Type Department Care Team (Late st Contact Info) Description 11/10/2024 Orders Only [facility] [address] [place] [address] Gala Anna NP [address] [place] [address] Social History Tobacco Use Types [...] -2 Score 0 11/13/2024 7:29 AM EDT Gala Anna NP documented as of this encounter Plan of Treatment Upcoming Encounters Date Type Department Care Team (Late st Contact Info) Description 03/24/2025 7:40 AM EDT Office Visit [facility] [address] [place] [address] Christina Broussard, PA [address] [place] [address] documented as of this encounter Procedures Procedure Name Priority Date/Time Associated Diagnosis Comments DIABETIC RETINOPATHY SCREENING - OU - BOTH EYES Routine 11/08/2024 10:13 AM EDT documented in this encounter Results * Diabetic Retinopathy Screening - OU - Both Eyes (11/08/2024 10:13 AM EDT) Anatomical Region Laterality Modality Head Other us Gala Anna FIELD RECRUITER OPHTH PHOTOGRAPHY Final Result documented in this encounter Visit Diagnoses Not on filedocumented in this encounter Additional Health Concerns Assessment Noted Time PHQ-9 Depression Total Score: 3 04/02/20 7:00 AM EDT documented as of this encounter Care Teams Search Lead Relationship Specialty Start Date End Date Alejandro Florian DO [address] [place] [id number] PCP - General Family Medicine 01/15/23 Gala Anna NP [address] [place] [address] Nurse Practitioner Family Medicine 01/15/23 documented as of this encounter
--- OUTSIDE RECORDS SUMMARY | 2024-12-08 07:36 | XMS_ITS | Encounter Summary ---
Author Organization [facility] Address [address] [facility] [place] [address] Care Team Providers Care Unit Clerk Name Role Phone Alejandro Florian DO Primary Care Provider [phone] Gala Anna AUTHORIZATION COORDINATOR Unavailable [phone] Encounter Details Date Type Department Care Team (Late st Contact Info) Description 12/14/2022 Abstract [facility] [address] [place] [address] Gala Anna NP [address] [place] [address] Social History Tobacco Use Types [...] TSR DERM [address] [place] [address] Christina Broussard PA [address] [facility] [address] [place] [address] [place] [address] documented as of this encounter Visit Diagnoses Not on filedocumented in this encounter Care Teams Unit Clerk Relationship Specialty Start Date End Date Alejandro Florian DO [address] [place] [address] PCP - General Family Medicine 01/15/23 Gala Anna NP [address] [facility] [address] [place] [address] Nurse Practitioner Family Medicine 01/15/23 documented as of this encounter
--- OUTSIDE RECORDS SUMMARY | 2024-12-08 07:36 | XMS_ITS | Clinical Summary ---
Author Organization [facility] Address [address] [place] [address] Care Team Providers Care General Internist Name Role Phone Unavailable Primary Care Provider [...]
--- OUTSIDE RECORDS SUMMARY | 2024-12-08 07:36 | XMS_ITS | Encounter Summary ---
Author Organization [facility] Address [address] [facility] [place] [address] Care Team Providers Care Furniture Mover Helper Name Role Phone Alejandro Florian DO Primary Care Provider [phone] Gala Anna AIRCRAFT INSTRUMENT TESTER Unavailable [phone] Encounter Details Date Type Department Care Team (Late st Contact Info) Description 06/15/2023 Abstract [facility] [address] [place] [address] Gala Anna NP [address] [place] [address] Social History Tobacco Use Types [...] TSR DERM [address] [place] [address] Christina Broussard PA [address] [facility] [address] [place] [address] documented as of this encounter Visit Diagnoses Not on filedocumented in this encounter Additional Health Concerns Assessment Noted Time PHQ-9 Depression Total Score: 3 04/02/20 23 7:00 AM EDT documented as of this encounter Care Teams Furniture Mover Helper Relationship Specialty Start Date End Date Alejandro Florian DO [address] [place] [address] PCP - General Family Medicine 01/15/23 Gala Anna NP [address] [place] [address] Nurse Practitioner Family Medicine 01/15/23 documented as of this encounter
--- OUTSIDE RECORDS SUMMARY | 2024-12-08 07:36 | XMS_ITS | Encounter Summary ---
Author Organization [facility] Address [address] [facility] [place] [address] Care Team Providers Care Press Operator Printing Name Role Phone Alejandro Florian DO Primary Care Provider [phone] Gala Anna WOOD STRIP BLOCK FLOOR INSTALLER Unavailable [phone] Encounter Details Date Type Department Care Team (Late st Contact Info) Description 01/15/2023 Abstract [facility] [address] [place] [address] Gala Anna NP [address] [place] [address] Social History Tobacco Use Types [...] TSR DERM [address] [place] [address] Christina Broussard PA [address] [facility] [address] [place] [address] [place] [address] documented as of this encounter Visit Diagnoses Not on filedocumented in this encounter Care Teams Press Operator Printing Relationship Specialty Start Date End Date Alejandro Florian DO [address] [place] [address] PCP - General Family Medicine 01/15/23 Gala Anna NP [address] [facility] [address] [place] [address] Nurse Practitioner Family Medicine 01/15/23 documented as of this encounter
--- OUTSIDE RECORDS SUMMARY | 2024-12-08 07:36 | XMS_ITS | Clinical Summary ---
Author Organization [facility] Address [address] [place] [address] Care Team Providers Care Plumbing Warehouse Helper Name Role Phone Gala Anna APRN - ROBBY Primary Care Provider [phone] Allergies Active Allergy Reactions Criticality Noted Date [...] 600 MG CAPS Take by mouth Active Nebo-3 Fatty Acids (FISH OIL) 1000 MG capsule Take by mouth daily Active rosuvastatin (CRESTOR) 10 MG tablet Take 10 mg by mouth daily Active Encounters Date Type Department Care Team Description 11/17/2024 Transcribe Orders [facility] Pre Access [address] [place] [id number] Gala Anna APRN - ROBBY Shortness of [...] - 99 mg/dL 03/03/2022 2:33 PM EDT [facility] BUN 13 6 - 20 mg/dL 03/03/2022 2:33 PM EDT [facility] Creatinine 0.87 0.70 - 1.20 mg/dL 03/03/2022 2:33 PM EDT [facility] BUN/Creatinine Ratio 15 9 - 20 03/03/2022 2:33 PM EDT [facility] Calcium 10.0 8.6 - 10.4 mg/dL 03/03/2022 2:33 PM EDT [facility] Sodium 137 135 - 144 mmol/L 03/03/2022 2:33 PM EDT [facility] Potassium 4.1 3.7 - 5.3 mmol/L 03/03/2022 2:33 PM [facility] Chloride 99 98 - 107 mmol/L 03/03/2022 2:33 PM [facility] CO2 25 20 - 31 mmol/L 03/03/2022 2:33 PM [facility] Anion Gap 13 9 - 17 mmol/L 03/03/2022 2:33 PM [facility] Alkaline Phosphatase 73 40 - 129 U/L 03/03/2022 2:33 PM [facility] ALT 42(H) 5 - 41 U/L 03/03/2022 2:33 PM [facility] AST 24 <40 U/L 03/03/2022 2:33 PM [facility] Total Bilirubin 0.6 0.3 - 1.2 mg/dL 03/03/2022 2:33 PM [facility] Total Protein 6.9 6.4 - 8.3 g/dL 03/03/2022 2:33 PM [facility] Albumin 4.6 3.5 - 5.2 g/dL 03/03/2022 2:33 PM [facility] Albumin/Globulin Ratio 2.0 1.0 - 2.5 03/03/2022 2:33 PM [facility] GFR Non- >60 >60 mL/min 03/03/2022 2:33 PM [facility] GFR >60 >60 mL/min 03/03/2022 2:33 PM [facility] GFR Comment 03/03/2022 2:33 PM [facility] Comment: Average GFR for 50-59 years old: 93 mL/min/1.73sq m Chronic Kidney Disease: <60 mL/min/1.73sq m Kidney failure: <15 mL/min/1.73sq m eGFR calculated using average adult body mass. Additional eGFR calculator available at: http://www.[employer].Calix/multiple_crcl_2012.htm GFR Staging 03/03/2022 2:33 PM EDT [facility] Comment: Stage 1: Some kidney damage [...] ORDERABLES Paulina l Result Performing Organization Address City/[facility]/ZIP Co de Phone Number [facility] [address] [place] [address] * (ABNORMAL) Hemoglobin A1C (08/18/2020 8:12 AM EST) Hemoglobin A1C 6.6(H) 4.0 - 6.0 % 08/18/2020 8:12 AM EST [facility] Estimated Avg Glucose 143 mg/dL 08/18/2020 8:12 AM EST [facility] Comment: The ADA and AACC recommend providing the estimated average glucose result to permit better patient understanding of their HBA1c result. 08/18/2020 8:12 AM EST 08/18/2020 8:13 AM EST Reuben Payton MD CHEMISTRY ORDERABLES Final Resul t Performing Organization Address [facility]/ZIP Co de Phone Number [facility] [address] [phone] [facility] [employer] [address] [place] [address] * (ABNORMAL) Lipid panel (06/29/2012 8:32 AM EST) Cholesterol 201(H) 0 - 200 mg/dL [facility] HDL 41 >40 mg/dL [facility] Comment: Reference range: >= 60 Negative Risk Factor LDL Cholesterol 117(H) 0 - 100 mg/dL [facility] Comment: Direct (measured) LDL and calculated LDL are not interchangeable tests. Chol/HDL Ratio 5.0 1.0 - 5.0 [facility] Triglycerides 215(H) 0 - 150 mg/dL [facility] VLDL 43(H) 6 - 30 mg/dL [facility] Comment: Performed at [address] [place], [place] [id number] 06/29/2012 8:32 AM EST 06/29/2012 8:33 AM EST us Alli Roman MD CHEMISTRY ORDERABLES Final R esult [facility] [address] [place] [address], [facility] [phone] [facility] from Last 3 Months or Most Recently Relevant to Health Maintenance Insurance [facility] Care Teams Plumbing Warehouse Helper Relationship Specialty Start Date End Date Gala Anna APRN - NP [address] [facility] [address] [place] [address] PCP - General 06/19/22
--- OUTSIDE RECORDS SUMMARY | 2024-12-08 07:37 | XMS_ITS | Encounter Summary ---
Author Organization [facility] Address [address] [facility] [place] [address] Care Team Providers Care Instructional Paraprofessional Name Role Phone Alejandro Florian DO Primary Care Provider [phone] Gala Anna WORD PROCESSOR Unavailable [phone] Encounter Details Date Type Department Care Team (Late st Contact Info) Description 03/07/2024 Abstract [facility] [address] [place] [address] Gala Anna NP [address] [place] [address] Social History Tobacco Use Types [...] TSR DERM [address] [place] [address] Christina Broussard PA [address] [facility] [address] [place], [place] [id number] documented as of this encounter Visit Diagnoses Not on filedocumented in this encounter Additional Health Concerns Assessment Noted Time PHQ-9 Depression Total Score: 3 04/02/20 23 7:00 AM EDT documented as of this encounter Care Teams Instructional Paraprofessional Relationship Specialty Start Date End Date Alejandro Florian DO [address] [place] [address] PCP - General Family Medicine 01/15/23 Gala Anna NP [address] [place] [address] Nurse Practitioner Family Medicine 01/15/23 documented as of this encounter
--- OUTSIDE RECORDS SUMMARY | 2024-12-08 07:37 | XMS_ITS | Encounter Summary ---
Author Organization [facility] Address [address] [facility] [address] Care Team Providers Care Used Building Materials Yard Worker Name Role Phone Alejandro Florian DO Primary Care Provider [phone] Gala Anna ALLIED HEALTH PROFESSIONAL Unavailable [phone] Encounter Details Date Type Department Care Team (Late st Contact Info) Description 12/27/2023 Abstract [facility] [address] [place] [address] Gala Anna NP [address] [place] [address] Social History Tobacco Use Types [...] TSR DERM [address] [place] [address] Christina Broussard PA [address] [facility] [address] [place], [place] [id number] documented as of this encounter Visit Diagnoses Not on filedocumented in this encounter Additional Health Concerns Assessment Noted Time PHQ-9 Depression Total Score: 3 04/02/20 23 7:00 AM EDT documented as of this encounter Care Teams Used Building Materials Yard Worker Relationship Specialty Start Date End Date Alejandro Florian DO [address] [place] [address] PCP - General Family Medicine 01/15/23 Gala Anna NP [address] [place] [address] Nurse Practitioner Family Medicine 01/15/23 documented as of this encounter
--- OUTSIDE RECORDS SUMMARY | 2024-12-08 07:37 | XMS_ITS | Clinical Summary ---
Author Organization [facility] Address [address] [place] [address] Care Team Providers Care Folder Machine Adjuster Name Role Phone ChiquiAlejandro sanchez Daniel DRISCOLL Primary Care Provider [phone] Gala Anna CERTIFIED MEDICINE AIDE Unavailable [phone] Allergies Active Allergy Reactions Criticality Noted Date [...] Hyperglycemia due to type 2 diabetes mellitus [facility] current use of insulin 01/17/2022 Allergic to [...] hx of PE, presenting to [facility] 11/10 with abdominal pain, N/V. He had [...] FM [address] [place] [id number] Gala Anna NP Diabetic peripheral neuropathy associated with type 2 diabetes mellitus (CMS/HCC) 11/16/2024 Refill [facility] [address] [place] [address] Glaa Anna NP Idiopathic neuropathy 11/14/2024 7:40 AM EDT Office Visit [facility] [address] [place] [address] Christina Broussard PA Bacterial folliculitis (Primary Dx); Seborrheic keratosis 11/14/2024 Bamboo flowsheet [facility] [address] [place] [address] Christina Broussard PA 11/14/2024 Travel 11/13/2024 7:30 AM EDT Office Visit [facility] [address] [place] [address] Gala Anna NP Type 2 diabetes mellitus with diabetic polyneuropathy, with long-term current use of insulin (CMS/[facility]) (Primary Dx); Low testosterone; Acquired hypothyroidism (CMS/HCC); Mixed hyperlipidemia ([facility]); Screening for prostate cancer; Heart murmur; Shortness of breath; Family history of early CAD; Feeling of chest tightness; Acute non-recurrent frontal sinusitis 11/13/2024 Bamboo flowsheet [facility] [address] [place] [address] Gala Anna NP 11/13/2024 Travel 11/10/2024 Orders Only [facility] [address] [place] [address] Gala Anna NP 11/05/2024 Refill [facility] [address] [place] [address] Gala Anna NP Acute non-recurrent frontal sinusitis 11/02/2024 Refill [facility] [address] [place] [address] Gala Anna, CERTIFIED MEDICINE AIDE Low testosterone 10/31/2024 Telephone [facility] [address] [place] [address] Veda Hawley RN Med Refill 10/25/2024 Refill [facility] [address] [place] [address] Gala Anna, ROBBY Low testosterone 09/28/2024 Refill [facility] [address] [place] [address] Gala Anna, ROBBY Diabetic peripheral neuropathy associated with type 2 diabetes mellitus ([facility]) 09/11/2024 Telephone [facility] [address] [place] [address] Gala Anna, ROBBY Eye Exam from Last 3 Months Immunizations Immunization Administration [...] [facility] DER[facility] [address] [place] [address] Christina Broussard, PA [address] [place] [address] Health Maintenance Due Date Last Done Comments [...] type 2 diabetes mellitus (CMS/HCC) Mixed hyperlipidemia (CMS/[facility]) Type 2 diabetes mellitus without complication, without [...] Performing Organization Information Site ID: QPT Name: [employer] [facility] Address: [address] [place] [address], [address] [place] [address] Director: David Carrillo MD Gala Anna NP [facility] Final Result [facility] [...] Performing Organization Information Site ID: QPT Name: [employer] [facility] Address: [address] [place] [address], [address] [place], [place] [id number] Director: David Carrillo MD Gala Anna NP LAB URINE ORDERABLES Final Res ult Performing Organization Address [facility] de Phone Number QUEST * Urine culture (11/12/2024 8:11 AM EDT) MICRO NUMBER [id number] [facility] SPECIMEN QUALITY Adequate [facility]ST SOURCE: (QUEST) [...] Performing Organization Information Site ID: QPT Name: [employer] [facility] Address: [address] [place] [address], [address] [place] [address] Director: David Carrillo MD Gala Anna NP LAB MICROBIOLOGY - GENERAL ORD ERABLES Final Result Performing Organization Address [facility] de Phone Number QUEST * Microalbumin / [...] 11/13/2024 11:36 AM EDT SPLIT 11/11/2024 FROM [id number] Resulting Agency Comment Performing Organization Information Site ID: QPT Name: [employer] [facility] Address: [address] [facility], [address] [place] [address] Director: David Carrillo MD us Gala Anna CERTIFIED MEDICINE AIDE LAB URINE ORDERABLES Final Res ult Performing Organization Address [facility] de Phone Number [facility] * Hepatitis C antibody (11/11/2024 7:49 AM EDT) HEPATITIS C ANTIBODY NON-REACTI VE NON-REACT AMY [facility] Comment: HCV antibody was non-reactive. There is no laboratory evidence of HCV infection. In most cases, no further action is required. However, if recent HCV exposure is suspected, a test for HCV RNA (test code 91096) is suggested. For additional information please refer to http://education.Jotky/faq/AME28a0 (This link is being provided for informational/ educational purposes only.) Blood Venous blood specimen / Unknown 11/11/2024 7:49 AM EDT 11/11/2024 7:49 AM EDT Narrative [facility] - 11/12/2024 12:29 PM EDT FASTING:YES PATIENT UNABLE TO VOID; ADVISED TO RETURN FOR COLLECTION. FASTING: YES Resulting Agency Comment Performing Organization Information Site ID: QPT Name: [facility] [facility] Address: [address] [place] [address], [address] [place] [address] Director: David Carrillo MD us Gala Anna CERTIFIED MEDICINE AIDE LAB BLOOD ORDERABLES Final Res ult Performing Organization Address [facility] de Phone Number [facility] * (ABNORMAL) CBC and differential (11/11/2024 7:49 AM EDT) Pathologist [facility] WHITE BLOOD CELL COUNT 4.6 3.8 - [...] Performing Organization Information Site ID: QPT Name: [employer] [facility] Address: [address] [place] [address], [address] [place] [address] Director: David Carrillo MD us Gala Anna NP LAB BLOOD ORDERABLES Final Res ult [facility] * TSH (11/11/2024 7:49 AM EDT) Pathologist [facility] TSH 4.04 0.40 - 4.50 mIU/L [facility] Blood Venous blood specimen / Unknown 11/11/2024 7:49 AM EDT 11/11/2024 7:49 AM EDT Narrative [facility] - 11/12/2024 12:29 PM EDT FASTING:YES PATIENT UNABLE TO VOID; ADVISED TO RETURN FOR COLLECTION. FASTING: YES Resulting Agency Comment Performing Organization Information Site ID: QPT Name: [facility] [facility] Address: [address] [place] [address], [address] [place] [address] Director: David Carrillo MD Gala Anna CERTIFIED MEDICINE AIDE LAB BLOOD ORDERABLES Final Res ult Performing Organization Address [facility] de Phone Number [facility]ST * T4 (11/11/2024 7:49 AM EDT) T4 (THYROXINE), TOTAL 5.9 4.9 - 10.5 mcg/dL [facility] Blood Venous blood specimen / Unknown 11/11/2024 7:49 AM EDT 11/11/2024 7:49 AM EDT Narrative [facility] - 11/12/2024 12:29 PM EDT FASTING:YES PATIENT UNABLE TO VOID; ADVISED TO RETURN FOR COLLECTION. FASTING: YES Resulting Agency Comment Performing Organization Information Site ID: QPT Name: [facility] [facility] Address: [address] [place] [address], [address] [place], [place] [id number] Director: David Carrillo MD Gala Anna CERTIFIED MEDICINE AIDE LAB BLOOD ORDERABLES Final Res ult Performing Organization Address [facility] de Phone Number [facility] * Testosterone (11/11/2024 [...] Performing Organization Information Site ID: QPT Name: [employer] [facility] Address: [address] , [address] [place] [address] Director: David Carrillo MD Gala Anna NP LAB BLOOD ORDERABLES Final Res ult Performing Organization Address [facility] de Phone Number [facility] * (ABNORMAL) Hemoglobin [...] Performing Organization Information Site ID: QPT Name: [facility] [facility] Address: [address] , [address] [place] [address] Director: David Carrillo MD us Gala Anna NP LAB BLOOD ORDERABLES Final Res ult Performing Organization Address [facility] de Phone Number [facility] * (ABNORMAL) Lipid [...] factors. LDL-C is now calculated using the Ancelmo-Mor calculation, which is a validated novel method providing better accuracy than the Friedewald equation in the estimation of LDL-C. Ancelmo SS et al. MARIELY. 2013;310(19): 4346-4475 (http://education.Zazoom/faq/NOI219) CHOL/HDLC RATIO 5.7(H) <5.0 (calc) [facility]ST NON [...] Performing Organization Information Site ID: QPT Name: [employer] [facility] Address: [address] [place] [address], [address] [place] [address] Director: David Carrillo MD Gala Anna NP [...] Performing Organization Information Site ID: QPT Name: [employer] [facility] Address: [address] [place] [address], [address] [place] [address] Director: David Carrillo MD us Gala Anna [...] Narrative 04/16/2020 12:00 PM EDT PERFORMED AT [facility] LOCATION:[id number] diverticulitis Procedure Note CONVERSION, GENERIC - 11/15/2022 PERFORMED AT [facility] LOCATION:[id number] diverticulitis Gala Anna NP ENDOSCOPY PROCEDURE ORDERABLES Final Result from Last 3 Months or Most Recently Relevant to Health Maintenance Insurance [facility] Care Teams Folder Machine Adjuster Relationship Specialty Start Date End Date Alejandro Florian DO [address] [place] [address] PCP - General Family Medicine 01/15/23 Gala Anna NP [address] [place] [address] Nurse Practitioner Family Medicine 01/15/23
--- OUTSIDE RECORDS SUMMARY | 2024-12-08 07:37 | XMS_ITS | Patient Health Record ---
Author Organization [facility] Address [address] [place] [address] Care Team Providers Care Apartment Locator Name Role Phone Gala Anna Primary Care Provider Kirit Mays Unavailable [phone] Reason For Referral No Information Problems Problem Type SNOMED Code ICD Code Onset Dates Problem Status W/U Status Risk Notes Problem [id number] Hallux varus (acquired), right foot (M20.31) Active confirmed Problem [id number] Hallux varus (acquired), left foot (M20.32) Active confirmed Problem [id number] Contusion of right great toe with damage to nail, initial encounter (S90.211A) Active confirmed Problem [id number] Contusion of left great toe with damage to nail, initial encounter (S90.212A) Active confirmed Encounters Encounter Location Date Provider Diagnosis [facility] Office [address] [place] [phone] 02/04/2024 Kirit Sky Contusion of left great [...] Insured Coverage Start Date Coverage End Date [facility] [address] [address] [place] [address] [id number] JELLY CARABALLO Self - patient is the insured
--- OUTSIDE RECORDS SUMMARY | 2024-12-08 07:37 | XMS_ITS | Encounter Summary ---
Author Organization [facility] Address [address] [place] [address] Care Team Providers Care Woodworking Shop Hand Name Role Phone Alejandro Florian DO Primary Care Provider [phone] Gala Anna FLOOR ATTENDANT Unavailable [phone] Reason for Visit * Reason Comments Med Refill Encounter Details Date Type Department Care Team (Late Contact Info) Description 11/26/2024 Refill [facility] [address] [place] [address] Gala Anna NP [address] [place] [address] Diabetic peripheral neuropathy associated with [...] [facility]SR DERM [address] [place] [address] Christina Broussard, LUIS [address] [place] [address] documented as of this encounter Visit Diagnoses Diagnosis Diabetic peripheral neuropathy associated with type 2 diabetes mellitus ([facility]) documented in this encounter Additional Health Concerns Assessment Noted Time PHQ-9 Depression Total Score: 3 04/02/20 23 7:00 AM EDT documented as of this encounter Care Teams Woodworking Shop Hand Relationship Specialty Start Date End Date Alejandro Florian DO [address] [place] [address] PCP - General Family Medicine 01/15/23 Gala Anna NP [address] [place] [address] Nurse Practitioner Family Medicine 01/15/23 documented as of this encounter
--- OUTSIDE RECORDS SUMMARY | 2024-12-08 07:37 | XMS_ITS | Clinical Summary ---
Author Organization [employer] [facility] [employer] Address [id number] [place] [address] Care Team Providers Care Center Human Resources Manager Name Role Phone Unavailable Primary Care Provider [...]
--- OUTSIDE RECORDS SUMMARY | 2024-12-08 07:47 | XMS_ITS | CCD ---
Author Organization [facility] ion [facility] Care Team Providers Care Blocker [employer]ated [employer] Forms Name Role Phone BAKFRANCINE, ENEDELIA FRANTZ Unavailable Unavailable KHUSHI, ENEDELIA FRANTZ Unavailable Unavailable TIMO QUIROZ Unavailable Unavailable Fito James Primary Care Provider James Payton MD Primary Care Provider FRUTH, AMADA Referring Unavailable ROSS, JAMES Primary Care Unavailable FRUTH, AMADA Referring Unavailable ROSS, [facility] Primary Care Unavailable FRUTH, AMADA Referring Unavailable ROSS, [facility] Primary Care Unavailable FRUTH, AMADA Referring Unavailable ROSS, [facility] Primary Care Unavailable FRUTH, AMADA Primary Care Physician FRUTH, AMADA Primary Care Unavailable BROWN ., DR NESTOR Madrigal Admitting Unavailable BROWN ., DR NESTOR Madrigal Attending Unavailable BROWN ., DR NESTOR Madrigal Consulting Unavailable ANEUDY, DR RAD Sanchez Consulting Unavailabl e FRUTH, AMADA Primary Care Unavailable FRUTH, AMADA Admitting Unavailable FRUTH, AMADA Attending Unavailable ALBERTO ZAPIEN Consulting Unavailable FRUTH, AMADA Consulting Unavailable FRUTH, AMADA Primary Care Unavailable GOVIND FIGUEROA Consulting Unavailable JAYME CELIS Admitting Unavailable JAYME CELIS Attending Unavailable JAYME CELIS Consulting Unavailable Alejandro Florian DO Primary Care Provider Wilfrido LITIGATION SPECIALISTAmada Unavailable [phone] Frukaryn, LITIGATION SPECIALIST Amada Carrion Primary Care Unavailab le Fruth, LITIGATION SPECIALIST Amada Carrion Referring Unavailab maritza DagFrancheska Abreu Attending Unavail able FRUKARYN, AMADA E Attending Unavailable CHRISTINA HAM Attending Unavailable CHRISTINA HAM Attending Unavailable FRUKARYN, AMADA E Attending Unavailable CHRISTINA HAM Attending Unavailable RENETTA BENITO Referring Unavailable RENETTA BENITO Attending Unavailable AMADA STOCKTON Attending Unavailable AMADA STOCKTON Attending Unavailable Lizzeth Arriaga Attending Unavailable Lizzeth Arriaga Attending Unavailable Allergies Allergy Classification Reported Allergen(s) Allergy Type Date of Onset Reaction(s) Facility (20 sources) banana extract; Translations: [BANANA] Drug Allergy 0 [facility] Repository (1 source) OTHER; Translations: [OTHER] Propensity to adverse reactions (disorder) 7 [facility] Repository (5 sources) bee venom Propensity to adverse reactions to drug 5 [facility] Work Phone: (1 source) bee venom Drug allergy (disorder) 1 [facility] Repository (1 source) Mold Extract Drug Allergy [facility] Repository (20 sources) Banana Extract Drug Allergy 2 Unknown [facility] Work Phone: (20 sources) Bee pollen Allergy to substance 2 Unknown [facility] Healthcare (20 sources) Honey bee venom Allergy to substance 5 Unknown [facility] Healthcare (20 sources) Mold Extract Drug Allergy 2 Unknown [facility] Healthcare (20 sources) Mixed Ragweed Allergy to substance 7 Angioedema, Unknown [facility] Healthcare (1 source) No Known Medication Allergies; Translations: [No Known Medication Allergies] Propensity to adverse reactions (disorder) [facility] Repository Medications Current Medications Medication Drug Class(es) Dates Sig (Normalized) Sig (Original) acetaminophen 325 mg / oxyCODONE hydrochloride 5 mg oral tablet (5 sources) Opioid Agonist take 2 tablets by mouth every four hours as needed for pain and pain, then take 1-2 tablets by mouth every four hours as needed for pain and pain oxyCODONE-acetamin ophen (PERCOCET) 5-325 MG per tablet Take 2 tablets by mouth every 4 hours as needed for Pain 1-2 tablets ever 4 hrs prn pain . 0 Active aspirin 81 mg delayed release oral tablet (20 sources) Platelet Aggregation Inhibitor, Nonsteroidal Anti-inflammatory Drug take 1 tablet by mouth in the morning aspirin 81 MG EC tablet Take 81 mg by mouth in the morning. Active take 1 tablet by mouth once afshan y aspirin 81 MG tablet Take 81 mg by mouth daily 0 Active azithromycin 250 mg oral tablet (2 sources) Macrolide Antimicrobial Start: 02-28-2024 End: 03-04-2024 take 2 tablets by mouth once daily, then take 1 tablet by mouth once daily azithromycin (Zithromax) 250 MG tablet Indications: Acute non-recurrent frontal sinusitis Take 2 tablets (500 mg) by mouth Daily AND 1 tablet (250 mg) Daily. Do all this for 5 days. 6 tablet 02/28/2024 03/04/2024 Active baclofen 10 mg oral tablet (5 sources) gamma-Aminobutyric Acid-ergic Agonist take 1 tablet by mouth once daily baclofen (LIORESAL) 10 MG tablet Take 10 mg by mouth nightly 0 Active betamethasone 0.5 mg/ml / clotrimazole 10 mg/ml topical cream (3 sources) Azole Antifungal, Corticosteroid Start: 09-27-2022 apply 45 g topically twice daily betamethasone-clot rimazole Top 0.05%-1% Crm 15 gram See Instructions, 45 gm, Refill(s) 0, Topical BID, [id number], 188, cm, 09/27/22 10:31:00 EDT, Height/Length Dosing, 128, kg, 09/27/22 10:31:00 EDT, Weight Dosing Start Date: 09/27/22 Status: Ordered cefuroxime 250 mg oral tablet (10 sources) Cephalosporin Antibacterial Start: 11-14-2024 take 1 tablet by mouth twice daily cefuroxime (Ceftin) 250 MG tablet Indications: Bacterial folliculitis Take 1 tablet, by mouth, twice daily, 30 days 60 tablet 4 11/14/2024 Active Start: 11-13-2024 End: 11-20-2024 take 1 tablet by mouth in the morning, then take 1 tablet by mouth at bedtime, then take 1 tablet by mouth once daily cefuroxime (Ceftin) 500 MG tablet Indications: Acute non-recurrent frontal sinusitis Take 1 tablet (500 mg) by mouth in the morning and 1 tablet (500 mg) before bedtime. Do all this for 7 days. Take 1 tablet daily. 14 tablet 11/13/2024 11/20/2024 Active cetirizine hydrochloride 10 mg oral tablet (3 sources) Histamine-1 Receptor Antagonist take 1 tablet by mouth in the morning cetirizine (ZyrTEC) 10 MG tablet Take 10 mg by mouth in the morning. 0 Active clobetasol propionate 0.0005 mg/mg topical ointment (20 sources) Corticosteroid Start: 06-12-20 clobetasol (Temovate) 0.05 % ointment 06/12/2022 Active Start: 06-12-2022 clobetasol (Te movate) 0.05 % ointment APPLY OINTMENT TOPICALLY TO AFFECTED AREA EXTERNALLY TWICE DAILY FOR 14 DAYS 06/12/2022 Active diphenhydrAMINE hydrochloride 50 mg oral capsule (5 sources) Histamine-1 Receptor Antagonist take 1 capsule by mouth once diphenhydrAMINE (BENADRYL) 50 MG capsule Take 50 mg by mouth once 0 Active docosahexaenoic acid 120 mg / eicosapentaenoic acid 180 mg oral capsule (20 sources) omega-3 (Fish Oi l) 1000 MG capsule Take by mouth Daily Active doxycycline hyclate 100 mg oral capsule (20 sources) Tetracycline-class Drug Start: End: doxycycline (Vibramycin) 100 MG capsule Indications: Bacterial folliculitis Take 1 capsule daily 30 capsule 3 07/22/2024 11/14/2024 Discontinued (Ineffective) 0.5 ml dulaglutide 3 mg/ml auto-injector (20 sources) GLP-1 Receptor Agonist Start: 024 dulaglutide (Trulicity) 1.5 MG/0.5ML solution pen-injector Indications: Type 2 diabetes mellitus without complication, without long-term current use of insulin Inject 1.5 mg under the skin 1 (one) time per week Patient to take two of the 1.5mg pens every week due to product availability 8 pen 11 12/24/2023 Active Start: 09-05-2022 Trulicity Pen Refills(s) 0 Start Date: 09/05/22 Status: Ordered Dulaglutide (DEWEY LICITY) 1.5 MG/0.5ML SOPN Inject 1.5 mg into the skin once a week 0 Active Dulaglutide (Trulicity) 3 MG/0.5ML solution auto-injector (20 sources) Start: 05-05-2024 inject 3 mg by subcutaneous injection every week Dulaglutide (Trulicity) 3 MG/0.5ML solution auto-injector Indications: Diabetes mellitus due to underlying condition with hyperosmolarity without coma, without long-term current use of insulin (CMS/HCC) Inject 3 mg under the skin 1 (one) time per week 12 mL 3 05/05/2024 Active dulaglutide (Trulicity) 3 MG/0.5ML solution pen-injector (15 sources) Start: 03-07-2024 End: 05-05-2024 inject 3 mg by subcutaneous injection every week dulaglutide (Trulicity) 3 MG/0.5ML solution pen-injector Indications: Diabetes mellitus due to underlying condition with hyperosmolarity without coma, without long-term current use of insulin (CMS/HCC) Inject 3 mg under the skin 1 (one) time per week 12 mL 3 03/07/2024 05/05/2024 Discontinued (Therapy completed) Start: 03-07-2024 inject 3 mg by subcu taneous injection every week dulaglutide (Trulicity) 3 MG/0.5ML solution pen-injector Indications: Diabetes mellitus due to underlying condition with hyperosmolarity without coma, without long-term current use of insulin (CMS/HCC) Inject 3 mg under the skin 1 (one) time per week 12 mL 3 03/07/2024 Active Start: 08-15-2023 End: 03-07-2024 dulaglutide (Trulicity) 3 MG /0.5ML solution pen-injector Indications: Diabetes mellitus due to underlying condition with hyperosmolarity without coma, without long-term current use of insulin (CMS/HCC) INJECT 1 SYRINGE SUBCUTANEOUSLY ONCE A WEEK ON WEDNESDAYS 12 mL 3 08/15/2023 03/07/2024 Discontinued (Reorder) Start: 08-15-2023 dulaglutide (T rulicity) 3 MG/0.5ML solution pen-injector Indications: Diabetes mellitus due to underlying condition with hyperosmolarity without coma, without long-term current use of insulin (CMS/HCC) INJECT 1 SYRINGE SUBCUTANEOUSLY ONCE A WEEK ON WEDNESDAYS 12 mL 3 08/15/2023 Active [id number] 0.3 ml EPINEPHrine 1 mg/ml auto-injector (20 sources) alpha-Adrenergic Agonist, beta-Adrenergic Agonist, Catecholamine Start: 10-12-2023 EPINEPHrine (Epip en) 0.3 MG/0.3ML injection syringe Indications: Bee sting allergy INJECT CONTENTS OF 1 PEN NEEDED FOR ALLERGIC REACTION 1 each 1 10/12/2023 Active Start: 06-12-2022 EPINEPHrine (E pipen) 0.3 MG/0.3ML injection syringe INJECT CONTENTS OF 1 PEN NEEDED FOR ALLERGIC REACTION 0 06/12/2022 Active famotidine 20 mg oral tablet (5 sources) Histamine-2 Receptor Antagonist take 2 tablets by mouth once famotidine (PEPCID) 20 MG tablet Take 40 mg by mouth once 0 Active fluticasone propionate 0.05 mg/actuat metered dose nasal spray (20 sources) Corticosteroid Start: 03-27-20 take 1 spray(s) nasal route once daily fluticasone (Flonase) 50 MCG/ACT nasal spray Indications: Non-seasonal allergic rhinitis due to pollen Use 1 spray(s) in each nostril once daily 16 g 3 03/27/2023 Active fluticasone (IAN NASE ALLERGY RELIEF) 50 MCG/ACT nasal spray 1 spray by Nasal route daily 0 Active gemfibrozil 600 mg oral tablet (5 sources) Peroxisome Proliferator Receptor alpha Agonist take 1 tablet by mouth twice daily gemfibrozil (LOPID) 600 MG tablet Take 600 mg by mouth 2 times daily 0 Active glipiZIDE (4 sources) Sulfonylurea Start: 3 glipiZIDE Refills(s) 0 Start Date: 09/05/22 Status: Ordered glyBURIDE 5 mg oral tablet (20 sources) Sulfonylurea Start: 5 End: 5 take 1 tablet by mouth at mealtime glyBURIDE (Diabeta) 5 MG tablet Indications: Diabetic peripheral neuropathy associated with type 2 diabetes mellitus (CMS/HCC) TAKE 1 TABLET BY MOUTH IN THE MORNING WITH MEALS 100 tablet 09/28/2024 Active Start: 09-18-2023 End: 05-05-2024 take 1 tablet by mouth at mealtime glyBURIDE (Diabeta) 5 MG tablet Indications: Diabetic peripheral neuropathy associated with type 2 diabetes mellitus (CMS/HCC) Take 1 tablet (5 mg) by mouth in the morning. Take with meals. 100 tablet 1 05/05/2024 Active Start: 06-05-2023 take 1 tablet by gina th once daily at breakfast glyBURIDE (Diabeta) 5 MG tablet Indications: Diabetic peripheral neuropathy associated with type 2 diabetes mellitus (CMS/HCC) TAKE 1 TABLET BY MOUTH ONCE DAILY WITH BREAKFAST OR THE FIRST MAIN MEAL OF THE DAY 90 tablet 0 06/05/2023 Active ibuprofen 600 mg oral tablet (5 sources) Nonsteroidal Anti-inflammatory Drug take 1 tablet by mouth every six hours as needed for pain ibuprofen (ADVIL;MOTRIN) 600 MG tablet Take 600 mg by mouth every 6 hours as needed for Pain 0 Active ketoconazole 20 mg/ml medicated shampoo (4 sources) Azole Antifungal Start: End: ketoconazole (NIZOral) 2 % shampoo Indications: Bacterial folliculitis Apply topically 2 (two) times a week Lather on scalp and mcdowell area 2x a week, leave on 5 min before rinsing 120 mL 11 11/17/2024 12/17/2024 Active ketorolac tromethamine 10 mg oral tablet (2 sources) Nonsteroidal Anti-inflammatory Drug, Cyclooxygenase Inhibitor Start: End: take 1 tablet by mouth every six hours for pain ketorolac (Toradol) 10 MG tablet Indications: Flank pain Take 1 tablet (10 mg) by mouth every 6 (six) hours if needed for moderate pain for up to 5 days 20 tablet 06/17/2024 06/22/2024 Active levoFLOXacin 500 mg oral tablet (1 source) Quinolone Antimicrobial Start: End: take 1 tablet by mouth every twenty-four hours Levaquin 500 mg Tab 500 mg = 1 tab(s), Oral, q24hr, X 14 day(s), # 14 tab(s), Refills(s) 0, Pharmacy: [id number], 188, cm, 09/27/22 10:31:00 EDT, Height/Length Dosing, 128, kg, 09/27/22 10:31:00 EDT, Weight Dosing Start Date: 09/27/22 Stop Date: 10/11/22 Status: Ordered levothyroxine sodium 0.05 mg oral tablet (20 sources) l-Thyroxine Start: End: take 1 tablet by mouth before mealtime levothyroxine (Synthroid, Levoxyl) 50 MCG tablet Indications: Acquired hypothyroidism (CMS/HCC) Take 1 tablet (50 mcg) by mouth in the morning. Take before meals. 90 tablet 2 05/05/2024 Active Melatonin (4 sources) Start: melatonin Refills(s) 0 Start Date: 09/05/22 Status: Ordered meloxicam 15 mg oral tablet (3 sources) Nonsteroidal Anti-inflammatory Drug Start: take 1 tablet by mouth once daily meloxicam 15 mg Tab 15 mg = 1 tab(s), Oral, Daily, # 14 tab(s), Refills(s) 0, Pharmacy: [facility], 188, cm, 09/27/22 10:31:00 EDT, Height/Length Dosing, 128, kg, 09/27/22 10:31:00 EDT, Weight Dosing Start Date: 09/27/22 Status: Ordered metFORMIN hydrochloride 1000 mg oral tablet (20 sources) Biguanide Start: End: take 1 tablet by mouth twice daily at mealtime metFORMIN (Glucophage) 1000 MG tablet Indications: Diabetic peripheral neuropathy associated with type 2 diabetes mellitus (CMS/HCC) TAKE 1 TABLET BY MOUTH TWICE DAILY WITH A MEAL 180 tablet 1 05/05/2024 Active Start: 05-20-2023 End: 08-03-2023 take 1 tablet by mouth twice daily at mealtime metFORMIN (Glucophage) 1000 MG tablet Indications: Diabetic peripheral neuropathy associated with type 2 diabetes mellitus (CMS/HCC) TAKE 1 TABLET BY MOUTH TWICE DAILY WITH A MEAL 180 tablet 1 08/03/2023 Active Start: 09-05-2022 metformin Refi lls(s) 0 Start Date: 09/05/22 Status: Ordered take 1 tablet by gina twice daily at mealtime metFORMIN (GLUCOPHAGE) 500 MG tablet Take 500 mg by mouth 2 times daily (with meals) 0 Active miconazole nitrate 20 mg/ml topical cream (16 sources) Azole Antifungal Start: 10-12-2023 End: 06-17-2024 miconazole (Micatin) 2 % cream Indications: Balanitis Apply topically 2 (two) times a day genitalia 113 g 1 10/12/2023 06/17/2024 Discontinued (Therapy completed) montelukast 10 mg oral tablet (20 sources) Leukotriene Receptor Antagonist Start: 10-12-2023 End: 05-05-2025 take 1 tablet by mouth at bedtime montelukast (Singulair) 10 MG tablet Indications: Acute non-recurrent frontal sinusitis TAKE 1 TABLET BY MOUTH AT BEDTIME 90 tablet 1 11/05/2024 Active Multivitamin preparation (4 sources) Start: 09-05-2022 multivitamin Refill(s) 0 Start Date: 09/05/22 Status: Ordered Ozempic, 2 MG/DOSE, 8 MG/3ML solution pen-injector (7 sources) Start: 11-10-2024 Ozempic, 2 MG/DOSE, 8 MG/3ML solution pen-injector INJECT 1 SYRINGE (2MG) SUBCUTANEOUSLY ONCE A WEEK IN THE ABDOMEN, THIGH, OR UPPER ARM. 11/10/2024 Active pioglitazone 15 mg oral tablet (16 sources) Peroxisome Proliferator Receptor alpha Agonist, Peroxisome Proliferator Receptor gamma Agonist, Thiazolidinedione Start: 11-02-2023 End: 05-05-2024 take 1 tablet by mouth once daily pioglitazone (Actos) 15 MG tablet Indications: Diabetic peripheral neuropathy associated with type 2 diabetes mellitus (CMS/HCC) Take 1 tablet (15 mg) by mouth Daily 90 tablet 1 03/07/2024 Active pregabalin 300 mg oral capsule (20 sources) Start: 10-12-2023 End: 03-07-2025 take 1 capsule by mouth in the morning, then take 1 capsule by mouth at bedtime pregabalin (Lyrica) 300 MG capsule Indications: Acute non-recurrent frontal sinusitis TAKE 1 CAPSULE BY MOUTH IN THE MORNING AND 1 AT BEDTIME 180 capsule 1 11/05/2024 Active Start: 04-02-2023 End: 08-03-2023 take 1 capsule by mouth in the morning pregabalin (Lyrica) 300 MG capsule Indications: Diabetic peripheral neuropathy associated with type 2 diabetes mellitus (CMS/HCC) Take 1 capsule (300 mg) by mouth in the morning and 1 capsule (300 mg) before bedtime. 180 capsule 3 08/03/2023 Active Start: 09-05-2022 Lyrica Refills (s) 0 Start Date: 09/05/22 Status: Ordered take 2 capsules by m outh twice daily pregabalin (LYRICA) 150 MG capsule Take 300 mg by mouth 2 times daily 0 Active rOPINIRole 0.25 mg oral tablet (20 sources) Nonergot Dopamine Agonist Start: 03-07-2024 End: 05-05-2024 take 1 tablet by mouth once daily as needed rOPINIRole (Requip) 0.25 MG tablet Indications: Idiopathic neuropathy Take 1 tablet (0.25 mg) by mouth Daily as needed (restless legs) 90 tablet 1 05/05/2024 Active rosuvastatin calcium 40 mg oral tablet (20 sources) HMG-CoA Reductase Inhibitor Start: 11-26-2024 take 1 tablet by mouth once daily rosuvastatin (Crestor) 40 MG tablet Indications: Diabetic peripheral neuropathy associated with type 2 diabetes mellitus (CMS/HCC) Take 1 tablet by mouth once daily 90 tablet 11/26/2024 Active Start: 12-12-2023 End: 11-26-2024 take 1 tablet by mouth once daily rosuvastatin (Crestor) 40 MG tablet Indications: Diabetic peripheral neuropathy associated with type 2 diabetes mellitus (CMS/HCC) Take 1 tablet (40 mg) by mouth Daily 90 tablet 05/05/2024 11/26/2024 Discontinued Start: 06-05-2023 take 1 tablet by gina once daily rosuvastatin (Crestor) 40 MG tablet Indications: Diabetic peripheral neuropathy associated with type 2 diabetes mellitus (CMS/HCC) Take 1 tablet by mouth once daily 90 tablet 0 06/05/2023 Active Start: 09-05-2022 rosuvastatin R efills(s) 0 Start Date: 09/05/22 Status: Ordered Syringe/Needle, Disp, (Luer Lock Safety Syringes) 22G X 1-1/2 3 ML misc (20 sources) Start: 03-07-2024 Syringe/Needle, Disp, (Luer Lock Safety Syringes) 22G X 1-1/2 3 ML misc Indications: Idiopathic neuropathy Inject 1 each under the skin Daily 100 each 1 03/07/2024 Active tadalafil 5 mg oral tablet (20 sources) Phosphodiesterase 5 Inhibitor Start: 11-02-2023 End: 05-05-2024 take 1 tablet by mouth once daily as needed tadalafil (Cialis) 5 MG tablet Indications: Low testosterone Take 1 tablet (5 mg) by mouth Daily as needed for erectile dysfunction 10 tablet 2 05/05/2024 Active Start: 09-27-2022 take 1 tablet by gina once daily tadalafil 5 mg oral tablet 5 mg = 1 tab(s), Oral, Daily, # 30 tab(s), Refills(s) 11, Pharmacy: [facility], 188, cm, 09/27/22 10:31:00 EDT, Height/Length Dosing, 128, kg, 09/27/22 10:31:00 EDT, Weight Dosing Start Date: 09/27/22 Status: Ordered Start: 09-05-2022 End: 11-04-2022 take 1 tablet by mouth once daily Cialis 2.5 mg oral tablet 2.5 mg = 1 tab(s), Oral, Daily, X 30 day(s), # 30 tab(s), Refills(s) 1, Pharmacy: [facility], 188, cm, 09/05/22 10:08:00 EST, Height/Length Dosing, 128, kg, 09/05/22 10:08:00 EST, Weight Dosing Start Date: 09/05/22 Stop Date: 11/04/22 Status: Ordered 1 ml testosterone cypionate 200 mg/ml injection (20 sources) Androgen Start: 07-25-2023 End: 11-03-2024 inject 0.5 mL by intramuscular injection every week testosterone cypionate (Depo-Testosterone) 200 MG/ML injection Indications: Low testosterone INJECT 1/2 (ONE-HALF) ML INTRAMUSCULARLY ONCE A WEEK 30 day supply 4 mL 3 11/03/2024 Active testosterone cyp ionate (DEPOTESTOTERONE CYPIONATE) 200 MG/ML injection Inject 200 mg into the muscle once 0 Active thioctic acid 600 mg oral capsule (20 sources) Alpha-Lipoic Aci d 600 MG capsule Take by mouth Daily Active traMADol hydrochloride 50 mg oral tablet (5 sources) Opioid Agonist Start: 6 take 1 tablet by mouth every six hours traMADol (ULTRAM) 50 MG tablet Take 1 tablet by mouth every 6 hours when necessary pain 16 tablet 0 12/16/2015 Active traZODone hydrochloride 50 mg oral tablet (20 sources) Serotonin Reuptake Inhibitor Start: 4 End: 5 take 1 tablet by mouth once daily traZODone (Desyrel) 50 MG tablet Indications: Idiopathic neuropathy TAKE 1 TABLET BY MOUTH ONCE DAILY AT THE SAME TIME EACH DAY. 90 tablet 11/16/2024 Active Start: 09-05-2022 trazodone Refi lls(s) 0 Start Date: 09/05/22 Status: Ordered Turmeric extract (20 sources) Turmeric (QC NORMA MAGALYS COMPLEX PO) Take by mouth Daily Active vitamin b12 1 mg oral tablet (20 sources) Vitamin B12 take 1 tablet by mouth once daily cyanocobalamin (Vitamin B-12) 1000 MCG tablet Take 1,000 mcg by mouth Daily Active zolpidem tartrate 10 mg oral tablet (5 sources) gamma-Aminobutyric Acid-ergic Agonist take 1 tablet by mouth once daily as needed for sleep zolpidem (AMBIEN) 10 MG tablet Take 10 mg by mouth nightly as needed for Sleep 0 Active Completed/Discontinued Medications Medication Drug Class(es) Dates Sig (Normalized) Sig (Original) Luer Lock Safety Syringes 22G X 1-1/2 3 ML misc (7 sources) Start: 11-20-2022 End: 03-07-2024 Luer Lock Safety Syringes 22G X 1-1/2 3 ML misc USE DIRECTED ONCE A WEEK 11/20/2022 03/07/2024 Discontinued (Reorder) Start: 11-20-2022 Luer Lock Safe ty Syringes 22G X 1-1/2 3 ML misc USE DIRECTED ONCE A WEEK 11/20/2022 Active Start: 11-20-2022 Luer Lock Safe ty Syringes 22G X 1-1/2 3 ML misc USE DIRECTED ONCE A WEEK 0 11/20/2022 Active Trulicity 3 MG/0.5ML solution pen-injector (3 sources) End: 08-15-2023 inject 3 mg by subcutaneous injection every week Trulicity 3 MG/0.5ML solution pen-injector 3 mg Subcutaneous weekly for 90 days 0 08/15/2023 Discontinued inject 3 mg by subcu taneous injection every week Trulicity 3 MG/0.5ML solution pen-injector 3 mg Subcutaneous weekly for 90 days 0 Active Problems Active Problems Problem Classification Problem Date Documented Date Episodic/Chronic Abdominal pain (7 sources) Generalized abdominal pain; Translations: [Generalized abdominal pain] Onset: 10-13-2022 Episodic Acquired foot deformities (20 sources) Acquired right hallux varus; Translations: [Hallux varus (acquired), right foot] Onset: 05-05-2024 05-05-2024 Chronic Asthma (20 sources) Asthma; Translations: [Unspecified asthma, uncomplicated] Onset: 01-19-2023 09-05-2022 Chronic Biliary tract disease (20 sources) Bile duct leakage; Translations: [Other specified diseases of biliary tract] Onset: 11-13-2016 01-19-2023 Chronic Diabetes mellitus with complications (20 sources) Type 2 diabetes mellitus with diabetic polyneuropathy; Translations: [Peripheral neuropathy due to type 2 diabetes mellitus] Onset: 10-07-2019 01-19-2023 Chronic Diabetes mellitus without complication (20 sources) Diabetes mellitus; Translations: [Type 2 diabetes mellitus without complications] Onset: 03-16-2016 09-05-2022 Chronic Disorders of lipid metabolism (20 sources) Hyperlipidemia; Translations: [Hyperlipidemia, unspecified] Onset: 08-28-2016 09-05-2022 Chronic Diverticulosis and diverticulitis (20 sources) Diverticulitis of colon; Translations: [Diverticulitis of large intestine without perforation or abscess without bleeding] Onset: 10-04-2017 01-19-2023 Chronic Essential hypertension (20 sources) Essential (primary) hypertension; Translations: [Essential hypertension] Onset: 10-07-2019 01-19-2023 Chronic Genitourinary symptoms and ill-defined conditions (2 sources) Dysuria; Translations: [Dysuria] 05-05-2024 Episodic Gout and other crystal arthropathies (20 sources) Chronic gouty arthritis; Translations: [Idiopathic chronic gout, unspecified site, without tophus (tophi)] Onset: 01-12-2020 01-19-2023 Chronic Heart valve disorders (6 sources) Heart murmur; Translations: [Cardiac murmur, unspecified] 11-13-2024 Episodic Hyperplasia of prostate (20 sources) Benign prostatic hypertrophy with outflow obstruction; Translations: [Benign prostatic hyperplasia with lower urinary tract symptoms] Onset: 09-05-2022 Chronic Immunizations and screening for infectious disease (2 sources) Immunization due; Translations: [Encounter for immunization] 05-05-2024 Episodic Nonspecific chest pain (7 sources) Tight chest; Translations: [Other chest pain] 08-03-2023 Episodic Other and unspecified benign neoplasm (2 sources) Senile angioma; Translations: [Hemangioma of skin and subcutaneous tissue] 04-21-2024 Episodic Other ear and sense organ disorders (20 sources) Bilateral hearing loss; Translations: [Unspecified hearing loss, bilateral] Onset: 01-19-2023 01-19-2023 Chronic Other endocrine disorders (20 sources) Male hypogonadism; Translations: [Testicular hypofunction] Onset: 03-16-2016 01-19-2023 Chronic Other inflammatory condition of skin (20 sources) Psoriasis; Translations: [Psoriasis, unspecified] Onset: 09-08-2021 01-19-2023 Chronic Other lower respiratory disease (1 source) Dyspnea on exertion; Translations: [Other forms of dyspnea] 08-03-2023 Episodic Other lower respiratory disease (6 sources) Dyspnea; Translations: [Shortness of breath] 11-13-2024 Episodic Other male genital disorders (20 sources) Male erectile dysfunction, unspecified; Translations: [Erectile dysfunction] Onset: 09-05-2022 Chronic Other male genital disorders (2 sources) Hydrocele of testis; Translations: [Hydrocele, unspecified] Onset: 09-27-2022 Episodic Other male genital disorders (4 sources) Scrotal pain; Translations: [SCROTAL PAIN] Onset: 09-13-2022 Episodic Other nervous system disorders (20 sources) Carpal tunnel syndrome of right wrist; Translations: [Carpal tunnel syndrome, right upper limb] Onset: 01-15-2018 01-19-2023 Chronic Other nervous system disorders (20 sources) Neuropathy; Translations: [Hereditary and idiopathic neuropathy, unspecified] Onset: 03-21-2012 01-19-2023 Chronic Other nervous system disorders (20 sources) Mononeuritis; Translations: [Mononeuropathy, unspecified] Onset: 03-24-2010 01-19-2023 Chronic Other nutritional; endocrine; and metabolic disorders (20 sources) Obese class II; Translations: [Obesity, unspecified] Onset: 10-07-2019 01-19-2023 Chronic Other nutritional; endocrine; and metabolic disorders (20 sources) Lipoprotein deficiency disorder; Translations: [Lipoprotein deficiency] Onset: 08-28-2016 01-19-2023 Chronic Other nutritional; endocrine; and metabolic disorders (20 sources) Cholesterol level - finding; Translations: [Lipoprotein deficiency] Onset: 01-19-2023 01-19-2023 Chronic Other nutritional; endocrine; and metabolic disorders (20 sources) Morbid obesity; Translations: [Morbid (severe) obesity due to excess calories] Onset: 10-07-2019 01-19-2023 Chronic Other nutritional; endocrine; and metabolic disorders (20 sources) Severe obesity; Translations: [Morbid (severe) obesity due to excess calories] Onset: 08-16-2017 01-19-2023 Chronic Other nutritional; endocrine; and metabolic disorders (4 sources) Obesity caused by energy imbalance; Translations: [Morbid (severe) obesity due to excess calories] 05-05-2024 Chronic Other nutritional; endocrine; and metabolic disorders (2 sources) Body mass index 30+ - obesity; Translations: [Body mass index (BMI) 35.0-35.9, adult] 05-05-2024 Chronic Other skin disorders (3 sources) Eruption; Translations: [Rash and other nonspecific skin eruption] Onset: 09-05-2022 Episodic Other skin disorders (6 sources) Rash of genitalia; Translations: [Rash and other nonspecific skin eruption] Onset: 01-19-2023 Resolved: 01-19-2023 09-27-2022 Episodic Other skin disorders (6 sources) Bacterial folliculitis; Translations: [Other specified follicular disorders] 04-21-2024 Episodic Other skin disorders (2 sources) Seborrheic keratosis; Translations: [Other seborrheic keratosis] 11-14-2024 Episodic Other upper respiratory disease (20 sources) Allergic rhinitis due to pollen; Translations: [Allergic rhinitis due to pollen] Onset: 03-24-2010 01-19-2023 Chronic Other upper respiratory infections (9 sources) Acute frontal sinusitis; Translations: [Acute frontal sinusitis, unspecified] 05-05-2024 Episodic Residual codes; unclassified (1 source) Obstructive sleep apnea (adult) (pediatric); Translations: [OBSTRUCTIVE SLEEP APNEA] Onset: 03-01-2022 Chronic Residual codes; unclassified (7 sources) FH: premature coronary heart disease; Translations: [Family history of ischemic heart disease and other diseases of the circulatory system] 08-03-2023 Episodic Thyroid disorders (20 sources) Hypothyroidism; Translations: [Acquired hypothyroidism] Onset: 01-19-2023 09-05-2022 Chronic Unclassified (4 sources) Patient encounter status 09-05-2022 Unclassified (1 source) CONTACT W/AND (SUSP) EXPOS COVID-19; Translations: [CONTACT W/AND (SUSP) EXPOS COVID-19] Onset: 03-01-2022 Past or Other Problems Problem Classification Problem Date Documented Date Episodic/Chronic Allergic reactions (20 sources) Allergy to bee venom; Translations: [Bee allergy status] Onset: 09-08-2021 01-19-2023 Episodic Biliary tract disease (20 sources) Calculus of bile duct without cholangitis or cholecystitis without obstruction; Translations: [Gallstone] Onset: 11-05-2016 09-05-2022 Episodic Intestinal obstruction without hernia (20 sources) Intestinal obstruction co-occurrent and due to decreased peristalsis; Translations: [Ileus, unspecified] Onset: 11-09-2016 Resolved: 01-19-2023 01-19-2023 Episodic Mood disorders (20 sources) Mood disorders Onset: 04-02-2023 04-02-2023 Nutritional deficiencies (20 sources) Beriberi; Translations: [Dry beriberi] Onset: 11-22-2010 01-19-2023 Episodic Other aftercare (1 source) 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; Translations: [SENIOR LIVING CURRENT USE OF ASPIRIN] Onset: 03-01-2022 Episodic Other aftercare (1 source) prison (current) use of oral hypoglycemic drugs; Translations: [SENIOR LIVING USE ORAL HYPOGLYCEMIC DX] Onset: 03-01-2022 Episodic Other aftercare (1 source) Other intermediate designer (current) drug therapy; Translations: [OTH SENIOR LIVING CURRENT DRUG THERAPY] Onset: 03-01-2022 Episodic Other aftercare (20 sources) Long-term current use of insulin; Translations: [rodent exterminator (current) use of insulin] Onset: 01-17-2022 01-19-2023 Episodic Other ear and sense organ disorders (20 sources) Sensorineural hearing loss, bilateral; Translations: [Sensorineural hearing loss, bilateral] Onset: 10-27-2021 Resolved: 01-19-2023 01-19-2023 Chronic Other lower respiratory disease (4 sources) Cough; Translations: [Acute cough] Episodic Other male genital disorders (20 sources) Disorder of male genital organ; Translations: [Disorder of male genital organs, unspecified] Onset: 09-27-2022 Resolved: 01-19-2023 Episodic Other male genital disorders (20 sources) Pain in scrotum ; Translations: [Scrotal pain] Onset: 09-27-2022 Resolved: 01-19-2023 Episodic Other male genital disorders (20 sources) Disorder of scrotum; Translations: [Disorder of male genital organs, unspecified] Onset: 01-19-2023 Resolved: 01-19-2023 09-27-2022 Episodic Other nervous system disorders (20 sources) Numbness of hand; Translations: [Anesthesia of skin] Onset: 08-16-2017 01-19-2023 Episodic Other nervous system disorders (20 sources) Numbness of foot ; Translations: [Anesthesia of skin] Onset: 08-16-2017 01-19-2023 Episodic Other screening for suspected conditions (not mental disorders or infectious disease) (20 sources) Encounter for screening for malignant neoplasm of prostate; Translations: [Screening for malignant neoplasm done] Onset: 03-16-2016 Episodic Other skin disorders (20 sources) Rash and other nonspecific skin eruption; Translations: [Unspecified disorder of penis] Onset: 01-19-2023 Resolved: 01-19-2023 01-19-2023 Episodic Other upper respiratory disease (20 sources) Seasonal allergy; Translations: [Other seasonal allergic rhinitis] Onset: 01-19-2023 Resolved: 01-19-2023 01-19-2023 Chronic Poisoning by nonmedicinal substances (4 sources) Toxic effect of venom of bees, accidental (unintentional), initial encounter; Translations: [TOXIC EFF VENOM BEES ACC INIT ENC] Onset: 02-26-2022 Episodic Results Test Name Value Interpretation Reference Range Facility Provider Letteron 09-30-2024 Provider Letter Amada Stockton, [id number] [facility] [address] [place] [id number] Re: Silvestre Anmol Date of Visit: 09/30/2024 Dear Amada Stockton , Let me know if you have any questions or concerns. Sincerely, Francheska Mejia, DRAINAGE DESIGN COORDINATOR-ACCOUNTS PAYABLE BOOKKEEPER C C Providers: The following document(s) were included in the letter: September 30, 2024 09:25:06 EDT - (09/30/2024) Diabetes Office Visit Note Normal [facility] SARS-CoV-2 (COVID-19) Ab Juan Sharma (S/P/Bld)on 02-28-2024 Interpretation and review of laboratory results Normal [facility] SARS-CoV-2 (COVID-19) RNA FELIX+probe Ql (Unsp spec) Negative [facility] Ambulatory Visit Summaryon 0 12-26-2023 Ambulatory Visit Summary SILVESTRE COREA :1965 Visit Date:12/26/2023 Ambulatory Visit Instructions Your Diagnosis BPH with obstruction/lower urinary tract symptoms Hydrocele Scrotal lesion Penile rash Erectile dysfunction Your Care Team Attending Physician - Bart MARTINEZ, Lizzeth Pena Primary Care Physician - AMADA STOCKTON NP This Is Your Medications List Contact prescribing physician if questions or concerns betamethasone-clotri mazole topical (betamethasone-clotr imazole Top 0.05%-1% Crm 15 gram) dulaglutide (Trulicity Pen) glipiZIDE melatonin meloxicam (meloxicam 15 mg Tab) metformin multivitamin pregabalin (Lyrica) rosuvastatin tadalafil (tadalafil 5 mg oral tablet) trazodone Procedures Performed Cholecystectomy, Colonoscopy, Vasectomy. Discharge Vitals Temperature (Temporal Artery) 36.5 ?C Heart Rate (Peripheral) 88 Blood Pressure 140/86 Height 188 cm Height 74 in Weight 128 kg Weight 281.6 lb BMI 36.22 What to do next You Need to Schedule the Following Appointments Follow Up with Bart MARTINEZ, Lizzeth Pena, URL, URO When: Where: [address] [place] [address]- [phone] Medications What How Much When Why Instructions Unchanged betamethasone-clotri mazole topical (betamethasone-clotr imazole Top 0.05%-1% Crm 15 gram) See instructions Topical BID Contact prescribing physician if questions or concerns Unchanged dulaglutide (Trulicity Pen) Contact prescribing physician if questions or concerns Unchanged glipiZIDE Contact prescribing physician if questions or concerns Unchanged melatonin Contact prescribing physician if questions or concerns Unchanged meloxicam (meloxicam 15 mg Tab) 1 Tablets By Mouth Every day Contact prescribing physician if questions or concerns Unchanged metformin Contact prescribing physician if questions or concerns Unchanged multivitamin Contact prescribing physician if questions or concerns Unchanged pregabalin (Lyrica) Contact prescribing physician if questions or concerns Unchanged rosuvastatin Contact prescribing physician if questions or concerns Unchanged tadalafil (tadalafil 5 mg oral tablet) 1 Tablets By Mouth Every day BPH with obstruction/lower urinary tract symptoms Contact prescribing physician if questions or concerns Unchanged trazodone Contact prescribing physician if questions or concerns Allergies No Known Allergies No Known Medication Allergies Problems Ongoing - Any problem that you are currently receiving treatment for. Asthma BPH with obstruction/lower urinary tract symptoms Diabetes Erectile dysfunction Gall stone Hydrocele Hyperlipemia Hypothyroid Penile rash Prostate cancer screening Scrotal lesion Scrotal pain Patient Survey You may receive a survey via text or e-mail asking about your office visit. Please share your experience with us by completing your survey. We appreciate your feedback and thank you for choosing us for your care. Education Materials Erectile Dysfunction Erectile dysfunction (ED) is the inability to get or keep an erection in order to have sexual intercourse. ED is considered a symptom of an underlying disorder and is not considered a disease. ED may include: ? Inability to get an erection. ? Lack of enough hardness of the erection to allow penetration. ? Loss of erection before sex is finished. What are the causes? This condition may be caused by: ? Physical causes, such as: ? Artery problems. This may include heart disease, high blood pressure, atherosclerosis, and diabetes. ? Hormonal problems, such as low testosterone. ? Obesity. ? Nerve problems. This may include back or pelvic injuries, multiple sclerosis, Parkinson's disease, spinal cord injury, and stroke. ? Certain medicines, such as: ? Pain relievers. ? Antidepressants. ? Blood pressure medicines and water pills (diuretics). ? Cancer medicines. ? Antihistamines. ? Muscle relaxants. ? Lifestyle factors, such as: ? Use of drugs such as marijuana, cocaine, or opioids. ? Excessive use of alcohol. ? Smoking. ? Lack of physical activity or exercise. ? Psychological causes, such as: ? Anxiety or stress. ? Sadness or depression. ? Exhaustion. ? Fear about sexual performance. ? Guilt. What are the signs or symptoms? Symptoms of this condition include: ? Inability to get an erection. ? Lack of enough hardness of the erection to allow penetration. ? Loss of the erection before sex is finished. ? Sometimes having normal erections, but with frequent unsatisfactory episodes. ? Low sexual satisfaction in either partner due to erection problems. ? A curved penis occurring with erection. The curve may cause pain, or the penis may be too curved to allow for intercourse. ? Never having nighttime or morning erections. How is this diagnosed? This condition is often diagnosed by: ? (more content not included)... Normal [facility] Patient Educationon 12-26-19 Patient Education Urology Erectile Dysfunction Erectile dysfunction (ED) is the inability to get or keep an erection in order to have sexual intercourse. ED is considered a symptom of an underlying disorder and is not considered a disease. ED may include: ? Inability to get an erection. ? Lack of enough hardness of the erection to allow penetration. ? Loss of erection before sex is finished. What are the causes? This condition may be caused by: ? Physical causes, such as: ? Artery problems. This may include heart disease, high blood pressure, atherosclerosis, and diabetes. ? Hormonal problems, such as low testosterone. ? Obesity. ? Nerve problems. This may include back or pelvic injuries, multiple sclerosis, Parkinson's disease, spinal cord injury, and stroke. ? Certain medicines, such as: ? Pain relievers. ? Antidepressants. ? Blood pressure medicines and water pills (diuretics). ? Cancer medicines. ? Antihistamines. ? Muscle relaxants. ? Lifestyle factors, such as: ? Use of drugs such as marijuana, cocaine, or opioids. ? Excessive use of alcohol. ? Smoking. ? Lack of physical activity or exercise. ? Psychological causes, such as: ? Anxiety or stress. ? Sadness or depression. ? Exhaustion. ? Fear about sexual performance. ? Guilt. What are the signs or symptoms? Symptoms of this condition include: ? Inability to get an erection. ? Lack of enough hardness of the erection to allow penetration. ? Loss of the erection before sex is finished. ? Sometimes having normal erections, but with frequent unsatisfactory episodes. ? Low sexual satisfaction in either partner due to erection problems. ? A curved penis occurring with erection. The curve may cause pain, or the penis may be too curved to allow for intercourse. ? Never having nighttime or morning erections. How is this diagnosed? This condition is often diagnosed by: ? Performing a physical exam to find other diseases or specific problems with the penis. ? Asking you detailed questions about the problem. ? Doing tests, such as: ? Blood tests to check for diabetes mellitus or high cholesterol, or to measure hormone levels. ? Other tests to check for underlying health conditions. ? An ultrasound exam to check for scarring. ? A test to check blood flow to the penis. ? Doing a sleep study at home to measure nighttime erections. How is this treated? This condition may be treated by: ? Medicines, such as: ? Medicine taken by mouth to help you achieve an erection (oral medicine). ? Hormone replacement therapy to replace low testosterone levels. ? Medicine that is injected into the penis. Your health care provider may instruct you how to give yourself these injections at home. ? Medicine that is delivered with a short applicator tube. The tube is inserted into the opening at the tip of the penis, which is the opening of the urethra. A tiny pellet of medicine is put in the urethra. The pellet dissolves and enhances erectile function. This is also called MUSE (medicated urethral system for erections) therapy. ? Vacuum pump. This is a pump with a ring on it. The pump and ring are placed on the penis and used to create pressure that helps the penis become erect. ? Penile implant surgery. In this procedure, you may receive: ? An inflatable implant. This consists of cylinders, a pump, and a reservoir. The cylinders can be inflated with a fluid that helps to create an erection, and they can be deflated after intercourse. ? A semi-rigid implant. This consists of two silicone rubber rods. The rods provide some rigidity. They are also flexible, so the penis can both curve downward in its normal position and become straight for sexual intercourse. ? Blood vessel surgery to improve blood flow to the penis. During this procedure, a blood vessel from a different part of the body is placed into the penis to allow blood to flow around (bypass) damaged or blocked blood vessels. ? Lifestyle changes, such as exercising more, losing weight, and quitting smoking. Follow these instructions at home: Medicines ? Take [id number] and prescription medicines only as told by your health care provider. Do not increase the dosage without first discussing it with your health care provider. ? If you are using self-injections, do injections as directed by your health care provider. Make sure you avoid any veins that are on the surface of the penis. After giving an injection, apply pressure to the injection site for 5 minutes. ? Talk to your health care provider about how to prevent headaches while taking ED medicines. These medicines may cause a sudden headache due to the increase in blood flow in your body. General instructions ? Exercise regularly, as directed by your health care provider. Work with your health care provider to lose weight, if needed. ? Do not use any products that contain nicotine or tobacco. These products include cig (more content not included)... Normal [facility] Urology Office/Clinic Noteon 12-26-2023 Urology Office/Clinic Note Chief Complaint F/U with BPH HPI Staff 15m (pt RS'd due to not having image complete, then CX'd next appt) DX: BPH, Scrotal pain, Scrotal Lesion, Hydrocele & Penile Rash *Tadalafil increased from 2.5mg to 5mg at time of last encounter He states that this dose helps a lot better & was tx'd w/Levaquin 500mg qd & Meloxicam 15mg qd x2wks. CT ap w/wo 10/06/23 (ordered by PCP due to abdominal & flank pain) *NEG Uro Scrotal US 12/28/22 *improvement of prior complex hydrocele and epididymal lesion (pt called w/results) Last PSA 09/20/21 0.47 Current PSA 08/03/23- 0.52 Pt is diabetic. Last A1C 10/30/23- 8.2 IPSS 9 RICKIE 20 Could not give a urine sample today Pain in left testicle and pressure under neath the testicle. Does not take anything for this just rides it out until it goes away (Off and on pain) Dysuria: denies Incomplete bladder emptying: yes Hematuria: denies visible blood Frequency: 2x daily Urgency: in the morning he has urgency, but the rest of day no urgency Nocturia: denies Stream: sometimes hesitation, weaker stream Leaking: yes Post void dripping: yes Wearing pads/ Depends: denies Urge incontinence: denies Stress incontinence: denies Incontinence without Sensory Awareness: denies Abdominal pain: denies Flank pain: denies Sexual complaints: denies History of Present Illness Tests reviewed: reviewed scrotal US, CT scan, testosterone, external labs: PSA, A1c I have reviewed the previous health record information and history for this patient from Dr. Arriaga. I have reviewed and verified the staff HPI to be accurate for this encounter. Review of Systems PHQ Score Initial Depression Screen Score: 0 SCORE ROS - Provider Constitutional: denies weight loss, denies hot flashes. Eyes: denies eye problems. Gastrointestinal: denies nausea, denies vomiting. Cardiovascular: denies chest pain or angina. Integumentary: no dryness Musculoskeletal: denies musculoskeletal symptoms. ENMT: denies otolaryngeal symptoms. Respiratory: no shortness of breath. Heme/Lymph: denies easy bleeding tendency, denies easy bruising tendency. Psychiatric: no confusion, no anxiety. Genitourinary: See HPI. Physical Exam Vitals & Measurements T: 36.5 ?C(Temporal Artery) HR: 88(Peripheral) BP: 140/86 HT: 74 in HT: 188 cm WT: 128 kg WT: 281.6 lb BMI: 36.22 General Appearance: alert, no distress, well nourished, well developed male. Genitourinary: abnormal scrotum - small L hydrocele, normal testes, normal urethra, epididymis - tender on L without masses, normal vas deferens/spermatic cord. No inguinal hernia. Assessment/Plan 58 yo male with hx of complex hydrocele, epididymitis and BPH here for follow up 1. BPH with obstruction/lower urinary tract symptoms (N40.1: Benign prostatic hyperplasia with lower urinary tract symptoms) CT AP w/wo 10/06/23 [facility] - Prostate volume 50g. PSA 09/20/21 - 0.47 10/30/23 - 0.52 IPSS 9 (11). Increased Tadalafil from 2.5mg qd to 5mg qd at prior OV. Feels this has been working well. Discussed alternative options to medication if pt prefers to be off or wants to improve sxs further, including TURP, versus less invasive options such as Rezum or Urolift, depending on prostate size and shape. Educational pamphlets provided. Advised pt a cystoscopy/TRUS may need done prior to determine candidacy. Risks/benefits of each option have been discussed in detail. Pt would like to think about options for now. -Cont Tadalafil 5mg qd -Cont PSA screening w/ PCP q2y -Call to schedule cysto/TRUS if wishes to proceed with operative intervention in future 2. Hydrocele (N43.3: Hydrocele, unspecified) Scrotal US 09/13/22 [facility] - a moderate complex left-sided hydrocele Scrotal US 12/28/22 [facility] - Small L hydrocele. Given Levaquin 500mg qd and Meloxicam 15mg qd for 2 weeks at prior OV. US shows resolution from prior event. Pain improved after taking this. However reports intermittent L testicular pain and pressure underneath. Not bothersome enough to warrant intervention, pt just wanted to f/u. Reviewed imaging results. Advised pt hydrocele did improve. However pt does feel epididymis is inflamed, consistent on exam. Notices pain especially when lying down. Educated pt on pathophysiology of hydroceles and epididymitis. Advised pt pain may be present secondary to previous infection/scarring. Hydrocele does not appear large enough to warrant intervention at this time. -Recommended scrotal support and NSAIDs if pain becomes bothersome. Declines meloxicam at this time -Take ibuprofen 600-800 q6hrs as needed -Consider scrotal US if pain becomes more bothersome or exam changes -Consider surgery in future if no improvement/botherso me after conservative measures. Risks of surgery discussed 3. Scrotal lesion (N50.9: Disorder of male genital organs, unspecified) Scrotal US 09/13/22 [facility] - Hypoechoic lesion to the right testicle, outside testicle - possibly cyst Scrotal US 12/28/22 [facility] - Hypoechoic lesion no (more content not included)... Normal [facility] Comment on above: Result Comment: Elec tronically Signed By: Lizzeth Arriaga MD\.br\Date and Time Signed: 12/26/23 15:55 EDT\.br\Electronically Co-Signed By: Tatum Coyle.br\Date and Time Co-Signed: 12/26/23 09:44 EDT CREATININEon 10-05-2022 Creatinine [Mass/Vol] 0.98 mg/dL Normal 0.70-1.30 The [facility] Comment on above: Performed By: #### C ALEXIS #### [facility] [address], [place] [address] Dr. Magda Shelby EGFR-AF MALAGASY >60 Normal >=60 [facility] Comment on above: Performed By: #### C ALEXIS #### [facility] [address], [place] [address] Dr. Magda Shelby EGFR-NON AF MALAGASY >60 Normal >=60 [facility] Comment on above: Performed By: #### C ALEXIS #### [facility] [address] [place], [place] [id number] Dr. Magda Shelby CT ABD/PELV WO W CONon 10-05 CT ABD/PELV WO W CON EXAM: CT scan of the abdomen and pelvis without and with IV contrast using 100 mL of IV iodinated contrast. Oral contrast. Dose reduction technique used: Automated exposure control and/or adjustment of the mA and/or kV according to patient size and/or use of iterative reconstruction technique. REASON FOR EXAM: Abdominal pain, flank pain COMPARISON: CT scan dated 10/01/2017 FINDINGS: Tiny nonobstructing left calyceal tip renal stone. Left renal cyst. Cholecystectomy. Colonic diverticulosis. Negative appendix. No free intraperitoneal air. No free fluid in the abdomen or pelvis. No dilated or thickened loops of small bowel or colon. No renal, ureteral or bladder calculi. No hydronephrosis. Liver, pancreas, spleen, bilateral kidneys, and bilateral adrenal glands are otherwise unremarkable. No lymphadenopathy in the abdomen or pelvis. Remainder unremarkable. IMPRESSION: No acute abnormalities in the abdomen or pelvis. Electronically authenticated by: ALBERTO ZAPIEN Date: 2022-10-05 08:57 Normal [facility] US SCROTUMon 09-13-2022 US SCROTUM EXAM: US SCROTUM HISTORY: Pain in scrotum COMPARISON: None. TECHNIQUE: Realtime scrotal ultrasound. Doppler color flow as well as spectral analysis were performed. Findings: The right and left testes measure 3.5 x 3.0 x 2.1 and 3.8 x 3.3 x 2.1 cm. Unremarkable parenchymal echotexture. No intratesticular mass. Blood flow is identified bilaterally. Caudal to the right testis the is a hypoechoic 1.5 x 0.7 x 0.7 cm lesion. No significant internal blood flow. Moderate sized septated left-sided hydrocele. IMPRESSION: 1. Blood flow identified to the bilateral testes. 2. 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 If indicated, suggest short-term follow-up imaging in 6-12 weeks to assess for stability. 3. Moderate-sized complex left-sided hydrocele. Electronically authenticated by: GOVIND FIGUEROA Date: 2022-09-13 09:34 Normal [facility] CBCon 03-03-2022 Erythrocyte distribution width (RBC) [Ratio] 13.8 % Normal 11.8-14.4 [facility] Comment on above: Performed By: #### C WANG, CP #### [address] [place], [place] [id number] Glass Sagger: Bill Hernadez MD Hematocrit (Bld) [Volume fraction] 44.7 % Normal 40.7-50.3 [facility] Comment on above: Performed By: #### C WANG, CP #### [address] [place], [place] [address] Glass Sagger: Bill Hernadez MD Hemoglobin (Bld) [Mass/Vol] 14.6 g/dL Normal 13.0-17.0 [facility] Comment on above: Performed By: #### C WANG, CP #### [address] [place], [place] [id number] Glass Sagger: Bill Hernadez MD MCH (RBC) [Entitic mass] 27.7 pg Normal 25.2-33.5 [facility] Comment on above: Performed By: #### C WANG, CP #### [address] [place], [place] [id number] Glass Sagger: Bill Henradez MD MCHC (RBC) [Mass/Vol] 32.7 g/dL Normal 28.4-34.8 [facility] Comment on above: Performed By: #### C WANG, CP #### [address] [place] [address] Glass Sagger: Bill Hernadez MD MCV (RBC) [Entitic vol] 84.7 fL Normal 82.6-102.9 [facility] Comment on above: Performed By: #### C WANG, CP #### [address] [place], [place] [address] Glass Sagger: Bill Hernadez MD NRBC Automated 0.0 per 100 WBC Normal 0.0 [facility] Comment on above: Performed By: #### C WANG, CP #### [facility] [address] [place], [facility]83 Glass Sagger: Bill Hernadez MD Platelet mean volume (Bld) [Entitic vol] 10.5 fL Normal 8.1-13.5 [facility] Comment on above: Performed By: #### C WANG, CP #### [address] [place], [facility]83 Glass Sagger: Bill Hernadez MD Platelets (Bld) [#/Vol] 216 10*3/uL Normal 138-453 [facility] Comment on above: Performed By: #### C WANG, CP #### [address] [place], [facility]83 [employer] Sagger: Bill Hernadez MD RBC (Bld) [#/Vol] 5.28 10*6/uL Normal 4.21-5.77 [facility] Comment on above: Performed By: #### C WANG, CP #### [address] [place], [facility]83 Glass Sagger: Bill Hernadez MD WBC (Bld) [#/Vol] 7.6 10*3/uL Normal 3.5-11.3 [facility] Comment on above: Performed By: #### C WANG, CP #### [facility] [address] [place] [address] Glass Sagger: Bill Hernadez MD Hematocrit (Bld) [Volume fraction] 44.7 % 40.7 - 50.3 % [facility] Hemoglobin (Bld) [Mass/Vol] 14.6 g/dL 13 - 17 g/dL [facility] MCH (RBC) [Entitic mass] 27.7 pg 25.2 - 33.5 pg [facility] MCHC (RBC) [Mass/Vol] 32.7 g/dL 28.4 - 34.8 g/dL [facility] MCV (RBC) [Entitic vol] 84.7 fL 82.6 - 102.9 fL [facility] NRBC Automated 0.0 0.0 per 100 WBC [facility] Platelet distribution width (Bld) [Ratio] 13.8 % 11.8 - 14.4 % [facility] Platelet mean volume (Bld) [Entitic vol] 10.5 fL 8.1 - 13.5 fL [facility] Platelets (Bld) [#/Vol] 216 10*3/uL [facility] RBC (Bld) [#/Vol] 5.28 10*6/uL 4.21 - 5.7 7 m/uL [facility] WBC (Bld) [#/Vol] 7.6 10*3/uL [facility] Comp Metabolic Profon 2021 (cont.) Normal [facility] Comment on above: Result Comment: Aver age GFR for 50-59 years old: 93 mL/min/1.73sq m Chronic Kidney Disease: <60 mL/min/1.73sq m Kidney failure: <15 mL/min/1.73sq m eGFR calculated using average adult body mass. Additional eGFR calculator available at: http://www.[employer]/multiple_crcl_2011.htm Performed By: #### C WANG, CP #### [facility] [address] [place] [address] Glass Sagger: Bill Hernadez MD Albumin [Mass/Vol] 4.6 g/dL Normal 3.5-5.2 [facility] Comment on above: Performed By: #### C WANG, CP #### [facility] [address] [place] [address] Glass Sagger: Bill Hernadez MD Albumin/Glob Ratio 2.0 Normal 1.0-2.5 [facility] Comment on above: Performed By: #### C BC, CP #### [facility] [address] [place], [place] [id number] Glass Sagger: Bill Hernadez MD Alkaline Phos 73 U/L Normal 40-129 [facility] Comment on above: Performed By: #### C BC, CP #### [facility] [address] [place], [place] [address] Glass Sagger: Bill Hernadez MD ALT [Catalytic activity/Vol] 42 U/L High 5-41 [facility] Comment on above: Performed By: #### C BC, CP #### [facility] [address] [place], [place] [address]83 Glass Sagger: Bill Hernadez MD Anion gap [Moles/Vol] 13 mmol/L Normal 9-17 [facility] Comment on above: Performed By: #### C BC, CP #### [facility] [address] [place], [place] [address] Glass Sagger: Bill Hernadez MD AST [Catalytic activity/Vol] 24 U/L Normal <40 [facility] Comment on above: Performed By: #### C BC, CP #### [facility] [address] [place], [place] 3527383 Glass Sagger: Bill Hernadez MD Bilirubin [Mass/Vol] 0.6 mg/dL Normal 0.3-1.2 [facility] Comment on above: Performed By: #### C BC, CP #### [facility] [address] [place], [place] [id number] Glass Sagger: Bill Hernadez MD BUN/CRE Ratio 15 Normal 9-20 [facility] Comment on above: Performed By: #### C BC, CP #### [facility] [address] [place], [place] [address] Glass Sagger: Bill Hernadez MD Calcium [Mass/Vol] 10.0 mg/dL Normal 8.6-10.4 [facility] Comment on above: Performed By: #### C BC, CP #### [facility] [address] [place], [place] [address] Glass Sagger: Bill Hernadez MD Chloride [Moles/Vol] 99 mmol/L Normal 98-107 [facility] Comment on above: Performed By: #### C BC, CP #### [facility] [address] [place], [place] [address]83 Glass Sagger: Bill Hernadez MD CO2 [Moles/Vol] 25 mmol/L Normal 20-31 [facility] Comment on above: Performed By: #### C BC, CP #### [facility] [address] [place], [place] [address]83 Glass Sagger: Bill Hernadez MD Creatinine [Mass/Vol] 0.87 mg/dL Normal 0.70-1.20 [facility] Comment on above: Performed By: #### C BC, CP #### [facility] [address] [place], [place] [address]83 Glass Sagger: Bill Hernadez MD GFR, Amer >60 Normal >60 [facility] Comment on above: Performed By: #### C BC, CP #### [facility] [address] [place], [place] [address] Glass Sagger: Bill Hernadez MD GFR,non Amer >60 Normal >60 [facility] Comment on above: Performed By: #### C BC, CP #### [facility] [address] [place], [place] [id number] Glass Sagger: Bill Hernadez MD Glucose [Mass/Vol] 276 mg/dL High 70-99 [facility] Comment on above: Performed By: #### C BC, CP #### [facility] [address] [place], [place] [address] Glass Sagger: Bill Hernadez MD Potassium [Moles/Vol] 4.1 mmol/L Normal 3.7-5.3 [facility] Comment on above: Performed By: #### C WANG, CP #### [facility] [address] [place] [address] Glass Sagger: Bill Hernadez MD Protein [Mass/Vol] 6.9 g/dL Normal 6.4-8.3 [facility] Comment on above: Performed By: #### C WANG, CP #### [facility] [address] [place] [address] Glass Sagger: Bill Hernadez MD Sodium [Moles/Vol] 137 mmol/L Normal 135-144 [facility] Comment on above: Performed By: #### C WANG, CP #### [address] [place], [place] [address]483 Glass Sagger: Bill Hernadez MD Staging: Normal [facility] Comment on above: Result Comment: Stag e 1: Some kidney damage normal GFR Stage 2: Mild kidney damage GFR 60-89 Stage 3: Moderate kidney damage GFR 30-59 Stage 4: Severe kidney damage GFR 15-29 Stage 5: Severe kidney damage GFR <15 ESRD - chronic treatment by dialysis or transplant Performed By: #### C WANG, CP #### [facility] [address] [place] [address] Dr[address] [place], [place] [address] Glass Sagger: Bill Hernadez MD Urea nitrogen [Mass/Vol] 13 mg/dL Normal 6-20 [facility] Comment on above: Performed By: #### C WANG, CP #### [facility] [address] [place] [address] Glass Sagger: Bill Hernadez MD Comprehensive Metabolic Pane [facility] 03-03-2022 Albumin [Mass/Vol] 4.6 g/dL 3.5 - 5.2 g/dL [facility] Albumin/Globulin [Mass ratio] 2.0 {ratio} 1 - 2.[address] [facility] ALP (Bld) [Catalytic activity/Vol] 73 U/L 40 - 129 U/L [facility] ALT [Catalytic activity/Vol] 42 U/L High 5 - 41 U/L [facility] Anion gap [Moles/Vol] 13 mmol/L 9 - 17 mmol/L [facility] AST [Catalytic activity/Vol] 24 U/L NINF - 40 U/L [facility] Bilirubin [Mass/Vol] 0.6 mg/dL 0.3 - 1.2 mg/dL [facility] Calcium [Mass/Vol] 10.0 mg/dL 8.6 - 10. 4 mg/dL [facility] Chloride [Moles/Vol] 99 mmol/L 98 - 107 mmol/L [facility] CO2 [Moles/Vol] 25 mmol/L 20 - 31 mmol/L [facility] Creatinine [Mass/Vol] 0.87 mg/dL 0.7 - 1.2 mg/dL [facility] Free PSA/Total PSA [Mass fraction] 6.9 g/dL 6.4 - 8.3 g/dL [facility] GFR >60 60 - PINF mL/min [facility] GFR Non- >60 60 - PINF mL/min [facility] Glucose [Mass/Vol] 276 mg/dL High 70 - 99 mg/dL [facility] Interpretation and review of laboratory results Abnormal [facility] Potassium [Moles/Vol] 4.1 mmol/L 3.7 - 5.3 mmol/L [facility] Sodium [Moles/Vol] 137 mmol/L 135 - 144 mmol/L [facility] Urea nitrogen (BldV) [Mass/Vol] 13 mg/dL 6 - 20 mg/dL [facility] Urea nitrogen/Creatinine (Bld) [Mass ratio] 15 9 - 20 [facility] Laboratory - Chemistry and C hemistry - challengeon 03-03-2022 GFR/1.73 sq M.predicted MDRD (S/P/Bld) [Vol rate/Area] [facility] Comment on above: Average GFR for 50-5 9 years old: 93 mL/min/1.73sq m Chronic Kidney Disease: <60 mL/min/1.73sq m Kidney failure: <15 mL/min/1.73sq m eGFR calculated using average adult body mass. Additional eGFR calculator available at: http://www.[employer]/multiple_crcl_2012.htm Stage 1: Some kidney damage normal GFR Stage 2: Mild kidney damage GFR 60-89 Stage 3: Moderate kidney damage GFR 30-59 Stage 4: Severe kidney damage GFR 15-29 Stage 5: Severe kidney damage GFR <15 ESRD - chronic treatment by dialysis or transplant XR ABDOMEN (2 VIEWS)on 03-03 XR ABDOMEN (2 VIEWS) EXAMINATION: TWO XRAY VIEWS OF THE ABDOMEN 03/03/2022 3:03 pm COMPARISON: None. HISTORY: ORDERING SYSTEM PROVIDED HISTORY: Abdominal pain, generalized FINDINGS: Bowel gas pattern nonobstructed. No pathologic calcification. No acute osseous abnormality. IMPRESSION: Nonobstructed bowel-gas pattern. Interpreted by: Abram Muñoz DO Signed by: Abram Muñoz DO 03/03/22 Final result Normal [facility] Nonobstructed bowel-gas pattern. [facility] EXAMINATION: TWO XRAY VIEWS OF THE ABDOMEN 03/03/2022 3:03 pm COMPARISON: None. HISTORY: ORDERING SYSTEM PROVIDED HISTORY: Abdominal pain, generalized FINDINGS: Bowel gas pattern nonobstructed. No pathologic calcification. No acute osseous abnormality. [facility] Abram Muñoz DO - 03/03/2022 EXAMINATION: TWO XRAY VIEWS OF THE ABDOMEN 03/03/2022 3:03 pm COMPARISON: None. HISTORY: ORDERING SYSTEM PROVIDED HISTORY: Abdominal pain, generalized FINDINGS: Bowel gas pattern nonobstructed. No pathologic calcification. No acute osseous abnormality. IMPRESSION: Nonobstructed bowel-gas pattern. [facility] Work Phone: Radiology Study observation (narrative) [facility] [employer] Phone: XR ABDOMEN (2 VIEWS)Ordered By: Abram Muñoz on 03-03-2022 [facility] Phone: XR CHEST (2 VW)on 03-03-2022 XR CHEST (2 VW) EXAMINATION: TWO XRAY VIEWS OF THE CHEST 03/03/2022 3:03 pm COMPARISON: PA and lateral chest November 09, 2016. HISTORY: ORDERING SYSTEM PROVIDED HISTORY: Abdominal pain, generalized FINDINGS: The heart is normal in size. Central pulmonary vascularity appears normal. No evidence of pneumothorax, pleural effusion, infiltrate, or abnormal lung mass. Osseous structures are grossly unremarkable in appearance. Suggestion of a large body habitus. IMPRESSION: Unremarkable PA and lateral chest. No evidence of acute cardiopulmonary process. Interpreted by: Martha Crawford MD Signed by: Martha Crawford MD 03/03/22 Final result Normal [facility] Unremarkable PA and lateral chest. No evidence of acute cardiopulmonary process. [facility] EXAMINATION: TWO XRAY VIEWS OF THE CHEST 03/03/2022 3:03 pm COMPARISON: PA and lateral chest November 09, 2016. HISTORY: ORDERING SYSTEM PROVIDED HISTORY: Abdominal pain, generalized FINDINGS: The heart is normal in size. Central pulmonary vascularity appears normal. No evidence of pneumothorax, pleural effusion, infiltrate, or abnormal lung mass. Osseous structures are grossly unremarkable in appearance. Suggestion of a large body habitus. [facility] Martha Crawford MD - 03/03/2022 EXAMINATION: TWO XRAY VIEWS OF THE CHEST 03/03/2022 3:03 pm COMPARISON: PA and lateral chest November 09, 2016. HISTORY: ORDERING SYSTEM PROVIDED HISTORY: Abdominal pain, generalized FINDINGS: The heart is normal in size. Central pulmonary vascularity appears normal. No evidence of pneumothorax, pleural effusion, infiltrate, or abnormal lung mass. Osseous structures are grossly unremarkable in appearance. Suggestion of a large body habitus. IMPRESSION: Unremarkable PA and lateral chest. No evidence of acute cardiopulmonary process. [employer] Phone: Radiology Study observation (narrative) [employer] Phone: XR CHEST (2 VW)Ordered By: Mo Crawford on 03-03-2022 [employer] Phone: POINT OF CARE GLUCOSEon 01-31 Glucose [Mass/Vol] 240 mg/dL Critically high 74-106 [facility] Comment on above: Performed By: #### P OCGLUC #### [facility] [address] [place] [address] Dr. Magda Shelby CBC AUTO DIFFon 02-26-2022 BASO # 0.0 103/ul Normal 0.0-0.1 [facility] Comment on above: Performed By: #### C BC #### [facility] [address] [place] [address] Dr. Magda Shelby Basophils/100 WBC (Bld) 0.2 % Normal 0.2-2.0 [facility] Comment on above: Performed By: #### C BC #### [facility] [address] [place] [address] Dr. Magda Shelby EO # 0.1 103/ul Normal 0.0-0.7 [facility] Comment on above: Performed By: #### C BC #### [facility] [address] [place] [address] Dr. Magda Shelby Eosinophils/100 WBC (Bld) 1.1 % Normal 0.9-7.0 [facility] Comment on above: Performed By: #### C BC #### [facility] [address] [place] [address] Dr. Magda Shelby Erythrocyte distribution width (RBC) [Ratio] 14.5 % Normal 11.0-15.0 [facility] Comment on above: Performed By: #### C BC #### [facility] [address] [place] [address] Dr. Magda Shelby Hematocrit (Bld) [Volume fraction] 45.3 % Normal 42.0-54.0 [facility] Comment on above: Performed By: #### C BC #### [facility] [address] [place] [address] Dr. Magda Shelby Hemoglobin (Bld) [Mass/Vol] 14.9 g/dL Normal 14.0-18.0 [facility] Comment on above: Performed By: #### C BC #### [facility] [address] [place] [address] Dr. Magda Shelby IG # 0.04 10e3/ul Critically high 0.00-0.03 [facility] Comment on above: Performed By: #### C BC #### [facility] [address] [place] [address] Dr. Magda Shelby IG % 0.4 % Normal 0.0-0.5 [facility] Comment on above: Performed By: #### C BC #### [facility] [address] [place] [address] Dr. Magda Shelby LYMPH # 1.4 103/ul Normal 1.2-3.8 [facility] Comment on above: Performed By: #### C BC #### [facility] [address] [place] [address] Dr. Magda Shelby Lymphocytes/100 WBC (Bld) 13.2 % Critically low 20.5-60.0 [facility] Comment on above: Performed By: #### C BC #### [facility] [address] [place] [address] Dr. Magda Shelby MANUAL DIFF REQ NO Normal [facility] Comment on above: Performed By: #### C BC #### [facility] [address] [place] [address] Dr. Magda Shelby MCH (RBC) [Entitic mass] 27.6 pg Normal 25.9-34.0 [facility] Comment on above: Performed By: #### C BC #### [facility] [address] [place] [address] Dr. Magda Shelby MCHC (RBC) [Mass/Vol] 32.9 g/dL Normal 29.9-35.2 [facility] Comment on above: Performed By: #### C BC #### [facility] [address] [place] [address] Dr. Magda Shelby MCV (RBC) [Entitic vol] 84.0 fL Normal 80.0-94.0 [facility] Comment on above: Performed By: #### C BC #### [facility] [address] [place] [address] Dr. Magda Shelby MONO # 0.6 103/ul Normal 0.3-0.8 [facility] Comment on above: Performed By: #### C BC #### [facility] [address] [place] [address] [address] Magda Shelby Monocytes/100 WBC (Bld) 5.1 % Normal 1.7-12.0 [facility] Comment on above: Performed By: #### C BC #### [facility] [address] [place] [address] [address] Magda Shelby NEUT # 8.7 103/ul Critically high 1.4-6.5 [facility] Comment on above: Performed By: #### C BC #### [facility] [address] [place] [address] Dr. Magda Shelby Neutrophils/100 WBC (Bld) 80.0 % Critically high 43.0-75.0 [facility] Comment on above: Performed By: #### C BC #### [facility] [address] [place] [address] Dr. Magda Shelby Platelet mean volume (Bld) [Entitic vol] 10.4 fL Normal 9.5-13.5 [facility] Comment on above: Performed By: #### C BC #### [facility] [address] [place] [address] Dr. Magda Shelby PLT 213 103/ul Normal 150-450 [facility] Comment on above: Performed By: #### C BC #### [facility] [address] [place] [address] Dr. Magda hSelby RBC 5.39 106/ul Normal 4.70-6.10 [facility] Comment on above: Performed By: #### C BC #### [facility] [address] [place] [address] Dr. Magda Shelby WBC 10.9 103/ul Normal 4.0-11.0 [facility] Comment on above: Performed By: #### C BC #### [facility] [address] [place] [address] Dr. Magda Shelby Covid-19 PCR ([facility]on 01-31 SARS-CoV-2 (COVID-19) RNA FELIX+probe Ql (Unsp spec) Not detected Normal NOT DETECTED [facility] Comment on above: Result Comment: When diagnostic testing is negative, the possibility of a false negative should be considered in the context of a patient's recent exposures and the presence of clinical signs and symptoms consistent with SARS-CoV-2. This test is not yet approved or cleared by the [place] FDA. When there are no FDA-approved or cleared tests available, and other criteria are met, FDA can make tests available under an emergency access mechanism called an Emergency Use Authorization (EUA). The EUA for this test is supported by the Unit Assistant of Health and Human Service's declaration that circumstances exist to justify the emergency use of in vitro diagnostics for the detection and/or diagnosis of the virus that causes COVID-19. This EUA will remain in effect for the duration of the COVID-19 declaration justifying emergency of IVDs, unless it is terminated or revoked by the FDA (after which the test may no longer be used). Performed By: #### C VDTBH #### [facility] [address] [place] [address] Dr. Magda Shelby POINT OF CARE GLUCOSEon 01-31 Glucose [Mass/Vol] 281 mg/dL Critically high 74-106 [facility] Comment on above: Performed By: #### P OCGLUC #### [facility] [address] [place] [address] Dr. Magda Shelby Glucose [Mass/Vol] 222 mg/dL Critically high 74-106 [facility] Comment on above: Performed By: #### P OCGLUC #### [facility] [address] [place] [address] Dr. Magda Shelby PROF CHEM 8 (BAS METB)on Anion gap [Moles/Vol] 12.2 mmol/L Normal [facility] [facility] Comment on above: Performed By: #### B MP #### [facility] [address] [place] [address] Dr. Magda Shelby Calcium [Mass/Vol] 8.6 mg/dL Normal 8.5-10.1 [facility] Comment on above: Performed By: #### B MP #### [facility] [address] [address] [address] Magda Shelby Chloride [Moles/Vol] 105 mmol/L Normal 98-107 [facility] Comment on above: Performed By: #### B MP #### [facility] [address] [address] [address] Magda Shelby CO2 [Moles/Vol] 25.1 mmol/L Normal 21.0-32.0 [facility] Comment on above: Performed By: #### B MP #### [facility] [address] [place] [address] Dr. Magda Shelby Creatinine [Mass/Vol] 1.12 mg/dL Normal 0.70-1.30 [facility] Comment on above: Performed By: #### B MP #### [facility] [address] [place] [address] Dr. Magda Shelby EGFR-AF MALAGASY >60 Normal >=60 [facility] Comment on above: Performed By: #### B MP #### [facility] [address] [address] [address] Magda Shelby EGFR-NON AF MALAGASY >60 Normal >=60 [facility] Comment on above: Performed By: #### B MP #### [facility] [address] [address] [address] Magda Shelby Glucose [Mass/Vol] 184 mg/dL Critically high 74-106 [facility] Comment on above: Performed By: #### B MP #### [facility] [address] [address] [address] Magda Shelby Potassium [Moles/Vol] 4.3 mmol/L Normal 3.5-5.1 [facility] Comment on above: Performed By: #### B MP #### [facility] [address] [address] [address] Magda Shelby Sodium [Moles/Vol] 138 mmol/L Normal 136-145 [facility] Comment on above: Performed By: #### B MP #### [facility] [address] [address] [address] Magda Shelby Urea nitrogen [Mass/Vol] 13.0 mg/dL Normal 7.0-18.0 [facility] Comment on above: Performed By: #### B MP #### [facility] [address] [place], [place] [address] Dr. Magda Shelby Urea nitrogen/Creatinine [Mass ratio] 11.6 mg/mg Normal [facility] Comment on above: Performed By: #### B MP #### [facility] [address] [place], [place] [address] Dr. Magda Shelby Microalbumin (with Creat)on 09-21-2021 Creatinine (U) [Mass/Vol] 85 mg/dL Normal 20-320 [facility] Comment on above: Order Comment: [facility] performed at: [facility], [address] [place] [address], [address] [place] [address], [address] [place] [address], Electronic Device Monitor: David Carrillo MD [facility] Date/Time: [facility] Results Received Date/Time: [facility] Reported Date/Time: Performed By: #### m ALBC #### [facility] [address] [place] [address] MICROALBUMIN 0.3 mg/dL Normal See Note: [facility] Comment on above: Order Comment: [facility] performed at: [facility], [address] [place] [address], [address] [place] [address], [address] [place] [address], Electronic Device Monitor: David Carrillo MD [facility] Date/Time: [facility] Results Received Date/Time: [facility] Reported Date/Time: Result Comment: Refe rence Range: Reference Range Not established Performed By: #### m ALBC #### [facility] [address] [place] [address] MICROALBUMIN/CREATI NINE RATIO, RANDOM URINE 4 mcg/mg creat Normal <30 [facility] Comment on above: Order Comment: [facility] performed at: [facility], [address] [place] [address], [address] [place] [address], [phone], Electronic Device Monitor: David Carrillo MD [facility] Date/Time: [facility] Results Received Date/Time: [facility] Reported Date/Time: Result Comment: The ADA defines abnormalities in albumin excretion as follows: Albuminuria Category Result (mcg/mg creatinine) Normal to Mildly increased <30 Moderately increased 30-299 Severely increased > OR = 300 The ADA recommends that at least two of three specimens collected within a 3-6 month period be abnormal before considering a patient to be within a diagnostic category. Performed By: #### m ALBC #### [facility] [address] [place] [address] Q - UR CULT REFLEXon 022 REFLEXIVE URINE CULTURE SEE NOTE Normal [facility] Comment on above: Order Comment: [facility] performed at: [employer], [facility], [address] [place] [address], [address] [place] [address], [phone], Electronic Device Monitor: David Carrillo MD [facility] Date/Time: [facility] Results Received Date/Time: [facility] Reported Date/Time: Result Comment: NO C ULTURE INDICATED Performed By: #### A 1C #### [facility] [address] [place] [address] Q - URINALYSIS,COMPLETE,WITH REFLEX TO CULTUREon 09-21-2021 Appearance (U) CLEAR Normal CLEAR [facility] Comment on above: Order Comment: [facility] performed at: [facility], [address] [place] [address], [address] [place] [address], [phone], Electronic Device Monitor: David Carrillo MD [facility] Date/Time: [facility] Results Received Date/Time: [facility] Reported Date/Time: Performed By: #### A 1C #### [facility] [address] [place] [address] BACTERIA NONE SEEN Normal NONE SEEN [facility] Comment on above: Order Comment: [facility] performed at: [facility], [address] [place] [address] , [address] [place] [address], [address] [place] [address], Electronic Device Monitor: David Carrillo MD [facility] Date/Time: [facility] Results Received Date/Time: [facility] Reported Date/Time: Performed By: #### A 1C #### [facility] [address] [place] [address] Bilirubin Ql (U) Negative Normal NEGATIVE [facility] Comment on above: Order Comment: [facility] performed at: [employer], [facility], [address] , [address] [place] [address], [address] [place] [address], Electronic Device Monitor: David Carrillo MD [facility] Date/Time: [facility] Results Received Date/Time: [facility] Reported Date/Time: Performed By: #### A 1C #### [facility] [address] [place] [address] Color (U) YELLOW Normal YELLOW [facility] Comment on above: Order Comment: [facility] performed at: [employer], [facility], [address] , [address] [place] [address], [address] [place] [address], Electronic Device Monitor: David Carrillo MD [facility] Date/Time: [facility] Results Received Date/Time: [facility] Reported Date/Time: Performed By: #### A 1C #### [facility] [address] [place] [address] Glucose Ql (U) Negative Normal NEGATIVE [facility] Comment on above: Order Comment: [facility] performed at: [employer], [facility], [address] , [address] [place] [address], [address] [place] [address], Electronic Device Monitor: David Carrillo MD [facility] Date/Time: [facility] Results Received Date/Time: [facility] Reported Date/Time: Performed By: #### A 1C #### [facility] [address] [place] [address] HYALINE CAST NONE SEEN Normal NONE SEEN [facility] Comment on above: Order Comment: [facility] performed at: [employer], [facility], [address] [facility], [address] [place] [address], [address] [place] [address], Electronic Device Monitor: David Carrilol MD [facility] Date/Time: [facility] Results Received Date/Time: [facility] Reported Date/Time: Performed By: #### A 1C #### [facility] [address] [place] [address] Ketones Ql (U) Negative Normal NEGATIVE [facility] Comment on above: Order Comment: [facility] performed at: [employer], [facility], [address] [facility], [address] [place] [address], [address] [place] [address], Electronic Device Monitor: David Carrillo MD [facility] Date/Time: [facility] Results Received Date/Time: [facility] Reported Date/Time: Performed By: #### A 1C #### [facility] [address] [place] [address] Leukocyte esterase Test strip Ql (U) Negative Normal NEGATIVE [facility] Comment on above: Order Comment: [facility] performed at: [employer], [facility], [address] [facility], [address] [place] [address], [address] [place] [address], Electronic Device Monitor: David Carrillo MD [facility] Date/Time: [facility] Results Received Date/Time: [facility] Reported Date/Time: Performed By: #### A 1C #### [facility] [address] [place] [address] Nitrite Ql (U) Negative Normal NEGATIVE [facility] Comment on above: Order Comment: [facility] performed at: [employer], [facility], [address] [facility], [address] [place] [address], [address] [place] [address], Electronic Device Monitor: David Carrillo MD [facility] Date/Time: [facility] Results Received Date/Time: [facility] Reported Date/Time: Performed By: #### A 1C #### [facility] [address] [place] [address] OCCULT BLOOD Negative Normal NEGATIVE [facility] Comment on above: Order Comment: [facility] performed at: [employer], [facility], [address] [facility], [address] [place] [address], [address] [place] [address], Electronic Device Monitor: David Carrillo MD [facility] Date/Time: [facility] Results Received Date/Time: [facility] Reported Date/Time: Performed By: #### A 1C #### [facility] [address] [place] [address] pH (U) [pH] Normal 5.0-8.[address] [facility] Special[facility] Comment on above: Order Comment: [facility] performed at: [employer], [facility], [address] , [address] [place] [address], [address] [place] [address], Electronic Device Monitor: David Carrillo MD [facility] Date/Time: [facility] Results Received Date/Time: [facility] Reported Date/Time: Performed By: #### A 1C #### [facility] [address] [place] [address] Protein Ql (U) Negative Normal NEGATIVE [facility] Comment on above: Order Comment: [facility] performed at: [employer], [facility], [address] [facility], [address] [place] [address], [address] [place] [address], Electronic Device Monitor: David Carrillo MD [facility] Date/Time: [facility] Results Received Date/Time: [facility] Reported Date/Time: Performed By: #### A 1C #### [facility] [address] [place] [address] RBC NONE SEEN Normal < OR = 2 [facility] Comment on above: Order Comment: [facility] performed at: [employer], [facility], [address] [facility], [address] [place] [address], [address] [place] [address], Electronic Device Monitor: David Carrillo MD [facility] Date/Time: [facility] Results Received Date/Time: [facility] Reported Date/Time: Performed By: #### A 1C #### [facility] [address] [place] [address] Specific gravity (U) [Rel density] 1.015 Normal 1.001-1.035 [facility] Comment on above: Order Comment: [facility] performed at: [employer], [facility], [address] [facility], [address] [place] [address], [address] [place] [address], Electronic Device Monitor: David Carrillo MD [facility] Date/Time: [facility] Results Received Date/Time: [facility] Reported Date/Time: Performed By: #### A 1C #### [facility] [address] [place] [address] SQUAMOUS EPITHELIAL CELLS NONE SEEN Normal < OR = 5 [facility] Comment on above: Order Comment: [facility] performed at: [employer], [facility], [address] , [address] [place] [address], [address] [place] [address], Electronic Device Monitor: David Carrillo MD [facility] Date/Time: [facility] Results Received Date/Time: [facility] Reported Date/Time: Performed By: #### A 1C #### [facility] [address] [place] [address] WBC NONE SEEN Normal < OR = 5 [facility] Comment on above: Order Comment: [facility] performed at: [employer], [facility], [address] , [address] [place] [address], [address] [place] [address], Electronic Device Monitor: David Carrillo MD [facility] Date/Time: [facility] Results Received Date/Time: [facility] Reported Date/Time: Performed By: #### A 1C #### [facility] [address] [place] [address] Complete Blood Count with Au to Diffon 09-20-2021 BASOABS 28 cells/uL Normal 0-[address] [facility] Specialist Comment on above: Order Comment: [facility] performed at: [employer], [facility], [address] [place] [address], [address] [place] [address], [address] [place] [address], Electronic Device Monitor: David Carrillo MD [facility] Date/Time: [facility] Results Received Date/Time: [facility] Reported Date/Time: Performed By: #### C BCAD, CMP, TSH reflex FT4, TEST, LIPD, FT4, VITD #### [facility] Default [address] [place] [address] Basophils/100 WBC (Bld) 0.5 % Normal [facility] Comment on above: Order Comment: [facility] performed at: [employer], [facility], [address] [place] [address], [address] [place] [address], [address] [place] [address], Electronic Device Monitor: David Carrillo MD [facility] Date/Time: [facility] Results Received Date/Time: [facility] Reported Date/Time: Performed By: #### C BCAD, CMP, TSH reflex FT4, TEST, LIPD, FT4, VITD #### [facility] Default [address] [place] [address] EOSABS 429 cells/uL Normal 15-500 [facility] Comment on above: Order Comment: [facility] performed at: [employer], [facility], [address] [place] [address], [address] [place] [address], [address] [place] [address], Electronic Device Monitor: David Carrillo MD [facility] Date/Time: [facility] Results Received Date/Time: [facility] Reported Date/Time: Performed By: #### C BCAD, CMP, TSH reflex FT4, TEST, LIPD, FT4, VITD #### [facility] Default [address] [place] [address] Eosinophils/100 WBC (Bld) 7.8 % Normal [facility] Comment on above: Order Comment: [facility] performed at: [employer], [facility], [address] [place] [address], [address] [place] [address], [address] [place] [address], Electronic Device Monitor: David Carrillo MD [facility] Date/Time: [facility] Results Received Date/Time: [facility] Reported Date/Time: Performed By: #### C BCAD, CMP, TSH reflex FT4, TEST, LIPD, FT4, VITD #### [facility] Default [address] [place] [address] Erythrocyte distribution width (RBC) [Ratio] 13.7 % Normal 11.0-15.0 [facility] Comment on above: Order Comment: [facility] performed at: [employer], [facility], [address] [place] [address], [address] [place] [address], [address] [place] [address], Electronic Device Monitor: David Carrillo MD [facility] Date/Time: [facility] Results Received Date/Time: [facility] Reported Date/Time: Performed By: #### C BCAD, CMP, TSH reflex FT4, TEST, LIPD, FT4, VITD #### [facility] Default [address] [place] [address] Hematocrit (Bld) [Volume fraction] 41.4 % Normal 38.5-50.0 [facility] Comment on above: Order Comment: [facility] performed at: [employer], [facility], [address] [place] [address], [address] [place] [address], Electronic Device Monitor: David Carrillo MD [facility] Date/Time: [facility] Results Received Date/Time: [facility] Reported Date/Time: Performed By: #### C BCAD, CMP, TSH reflex FT4, TEST, LIPD, FT4, VITD #### [facility] Default [address] [place] [address] Hemoglobin (Bld) [Mass/Vol] 13.6 g/dL Normal 13.2-17.1 [facility] Comment on above: Order Comment: [facility] performed at: [employer], [facility], [address] [place] [address], [address] [place] [address], [address] [place] [address], Electronic Device Monitor: David Carrillo MD [facility] Date/Time: [facility] Results Received Date/Time: [facility] Reported Date/Time: Performed By: #### C BCAD, CMP, TSH reflex FT4, TEST, LIPD, FT4, VITD #### [facility] Default [address] [place] [address] Lymphocytes (Bld) [#/Vol] 1.485 10*3/uL Normal 850-3900 [facility] Comment on above: Order Comment: [facility] performed at: [employer], [facility], [address] [place] [address], [address] [place] [address], [address] [place] [address], Electronic Device Monitor: David Carrillo MD [facility] Date/Time: [facility] Results Received Date/Time: [facility] Reported Date/Time: Performed By: #### C BCAD, CMP, TSH reflex FT4, TEST, LIPD, FT4, VITD #### [facility] Default [address] [place] [address] Lymphocytes/100 WBC (Bld) 27.0 % Normal [facility] Comment on above: Order Comment: [facility] performed at: [employer], [facility], [address] [place] [address], [address] [place] [address], [address] [place] [address], Electronic Device Monitor: David Carrillo MD [facility] Date/Time: [facility] Results Received Date/Time: [facility] Reported Date/Time: Performed By: #### C BCAD, CMP, TSH reflex FT4, TEST, LIPD, FT4, VITD #### [facility] Default [address] [place] [address] MCH (RBC) [Entitic mass] 27.6 pg Normal 27.0-33.0 [facility] Comment on above: Order Comment: [facility] performed at: [facility], [facility], [address] [place] [address], [address] [place] [address], [address] [place] [address], Electronic Device Monitor: David Carrillo MD [facility] Date/Time: [facility] Results Received Date/Time: [facility] Reported Date/Time: Performed By: #### C BCAD, CMP, TSH reflex FT4, TEST, LIPD, FT4, VITD #### [facility] Default [address] [place] [address] MCHC (RBC) [Mass/Vol] 32.9 g/dL Normal 32.0-36.0 [facility] Comment on above: Order Comment: [facility] performed at: [employer], [facility], [address] [place] [address], [address] [place] [address], [address] [place] [address], Electronic Device Monitor: David Carrillo MD [facility] Date/Time: [facility] Results Received Date/Time: [facility] Reported Date/Time: Performed By: #### C BCAD, CMP, TSH reflex FT4, TEST, LIPD, FT4, VITD #### [facility] Default [address] [place] [address] MCV (RBC) [Entitic vol] 84.0 fL Normal 80.0-100.0 [facility] Comment on above: Order Comment: [facility] performed at: [employer], [facility], [address] [place] [address], [address] [place] [address], [address] [place] [address], Electronic Device Monitor: David Carrillo MD [facility] Date/Time: [facility] Results Received Date/Time: [facility] Reported Date/Time: Performed By: #### C BCAD, CMP, TSH reflex FT4, TEST, LIPD, FT4, VITD #### [facility] Default [address] [place] [address] MONOABS 556 cells/uL Normal 200-950 [facility] Comment on above: Order Comment: [facility] performed at: [employer], [employer], [address] [facility], [address] [place] [address], [address] [place] [address], Electronic Device Monitor: David Carrillo MD [facility] Date/Time: [facility] Results Received Date/Time: [facility] Reported Date/Time: Performed By: #### C BCAD, CMP, TSH reflex FT4, TEST, LIPD, FT4, VITD #### [facility] Default [address] [place] [address] Monocytes/100 WBC (Bld) 10.1 % Normal [facility] Specialist Comment on above: Order Comment: [facility] performed at: [employer], [facility], [address] [facility], [address] [place] [address], [address] [place] [address], Electronic Device Monitor: David Carrillo MD [facility] Date/Time: [facility] Results Received Date/Time: [facility] Reported Date/Time: Performed By: #### C BCAD, CMP, TSH reflex FT4, TEST, LIPD, FT4, VITD #### [facility] [address] [place] [address] Neutrophils (Bld) [#/Vol] 3.003 10*3/uL Normal 8749-[address] [facility] Comment on above: Order Comment: [facility] performed at: [employer], [facility], [address] [place] [address], [address] [place] [address], [address] [place] [address], Electronic Device Monitor: David Carrillo MD [facility] Date/Time: [facility] Results Received Date/Time: [facility] Reported Date/Time: Performed By: #### C BCAD, CMP, TSH reflex FT4, TEST, LIPD, FT4, VITD #### [facility] Default [address] [place] [address] Neutrophils/100 WBC (Bld) 54.6 % Normal [facility] Comment on above: Order Comment: [facility] performed at: [employer], [facility], [address] [place] [address], [address] [place] [address], [address] [place] [address], Electronic Device Monitor: David Carrillo MD [facility] Date/Time: [facility] Results Received Date/Time: [facility] Reported Date/Time: Performed By: #### C BCAD, CMP, TSH reflex FT4, TEST, LIPD, FT4, VITD #### [facility] Default [address] [place] [address] Platelet mean volume (Bld) [Entitic vol] 11.3 fL Normal 7.5-12.5 [facility] Comment on above: Order Comment: [facility] performed at: [employer], [facility], [address] [place] [address], [address] [place] [address], [address] [place] [address], Electronic Device Monitor: David Carrillo MD [facility] Date/Time: [facility] Results Received Date/Time: [facility] Reported Date/Time: Performed By: #### C BCAD, CMP, TSH reflex FT4, TEST, LIPD, FT4, VITD #### [facility] Default [address] [place] [address] Platelets (Bld) [#/Vol] 175 10*3/uL Normal 140-400 [facility] Comment on above: Order Comment: [facility] performed at: [employer], [facility], [address] [place] [address], [address] [place] [address], [address] [place] [address], Electronic Device Monitor: David Carrillo MD [facility] Date/Time: [facility] Results Received Date/Time: [facility] Reported Date/Time: Performed By: #### C BCAD, CMP, TSH reflex FT4, TEST, LIPD, FT4, VITD #### [facility] Default [address] [place] [address] RBC (Bld) [#/Vol] 4.93 10*6/uL Normal 4.20-5.80 [facility] [place] [facility] Comment on above: Order Comment: [facility] performed at: [employer], [facility], [address] , [address] [place] [address], [address] [place] [address], Electronic Device Monitor: David Carrillo MD [facility] Date/Time: [facility] Results Received Date/Time: [facility] Reported Date/Time: Performed By: #### C BCAD, CMP, TSH reflex FT4, TEST, LIPD, FT4, VITD #### [facility] Default [address] [place] [address] WBC (Bld) [#/Vol] 5.5 10*3/uL Normal 3.8-10.8 Shay larson [place] Be[employer] Farmer Comment on above: Order Comment: [facility] Testing performed at: [employer], [facility], [address] , [address] [place] [address], [phone], Electronic Device Monitor: David Carrillo MD [facility] Collection Date/Time: [facility] Results Received Date/Time: [facility] Reported Date/Time: Performed By: #### C BCAD, CMP, TSH reflex FT4, TEST, LIPD, FT4, VITD #### [facility] Default [address] [place] [address] Comprehensive Metabolic Pane favian 09-20-2021 Albumin [Mass/Vol] 4.4 g/dL Normal 3.6-5.1 Shay larson [place] [employer] Comment on above: Order Comment: [facility] Testing performed at: [employer], [facility], [address] , [address] [place] [address], [phone], Electronic Device Monitor: David Carrillo MD [facility] Date/Time: [facility] Results Received Date/Time: [facility] Reported Date/Time: Performed By: #### C BCAD, CMP, TSH reflex FT4, TEST, LIPD, FT4, VITD #### [facility] Default [address] [place] [address] Albumin/Globulin [Mass ratio] 2.1 {ratio} Normal 1.0-2.[address] [facility] Specialist Comment on above: Order Comment: [facility] performed at: [employer], [facility], [address] [place] [address], [address] [place] [address], [address] [place] [address], Electronic Device Monitor: David Carrillo MD [facility] Date/Time: [facility] Results Received Date/Time: [facility] Reported Date/Time: Performed By: #### C BCAD, CMP, TSH reflex FT4, TEST, LIPD, FT4, VITD #### [facility] [address] [place] [address] ALP [Catalytic activity/Vol] 60 U/L Normal 35-[address] [facility] Specialist Comment on above: Order Comment: [facility] performed at: [employer], [facility], [address] [place] [address], [address] [place] [address], [address] [place] [address], Electronic Device Monitor: David Carrillo MD [facility] Date/Time: [facility] Results Received Date/Time: [facility] Reported Date/Time: Performed By: #### C BCAD, CMP, TSH reflex FT4, TEST, LIPD, FT4, VITD #### [facility] [address] [place] [address] ALT [Catalytic activity/Vol] 45 U/L Normal 9-[address] [facility] Specialist Comment on above: Order Comment: [facility] performed at: [employer], [facility], [address] [place] [address], [address] [place] [address], [address] [place] [address], Electronic Device Monitor: David Carrillo MD [facility] Date/Time: [facility] Results Received Date/Time: [facility] Reported Date/Time: Performed By: #### C BCAD, CMP, TSH reflex FT4, TEST, LIPD, FT4, VITD #### [facility] [address] [place] [address] Anion gap [Moles/Vol] 13 mmol/L Normal 12-20 [facility] Beef Farmer Comment on above: Order Comment: [facility] Testing performed at: [employer], [facility], [address] [place] [address], [address] [place] [address], [address] [place] [address], Electronic Device Monitor: David Carrillo MD [facility] Date/Time: [facility] Results Received Date/Time: [facility] Reported Date/Time: Result Comment: Effe ctive 07/07/2019 reference range changed. Performed By: #### C BCAD, CMP, TSH reflex FT4, TEST, LIPD, FT4, VITD #### [facility] [address] [place] [address] AST [Catalytic activity/Vol] 32 U/L Normal 10-35 [facility] Beef Farmer Comment on above: Order Comment: [facility] performed at: [employer], [facility], [address] [place] [address], [address] [place] [address], [address] [place] [address], Electronic Device Monitor: David Carrillo MD [facility] Date/Time: [facility] Results Received Date/Time: [facility] Reported Date/Time: Performed By: #### C BCAD, CMP, TSH reflex FT4, TEST, LIPD, FT4, VITD #### [facility] [address] [place] [address] Bilirubin [Mass/Vol] 0.5 mg/dL Normal 0.2-1.2 [facility] Beef Farmer Comment on above: Order Comment: [facility] performed at: [employer], [facility], [address] [place] [address], [address] [place] [address], [address] [place] [address], Electronic Device Monitor: David Carrillo MD [facility] Date/Time: [facility] Results Received Date/Time: [facility] Reported Date/Time: Performed By: #### C BCAD, CMP, TSH reflex FT4, TEST, LIPD, FT4, VITD #### [facility] Default [address] [place] [address] BUN/CREA 16 NOT APPLICABLE Normal 6-22 [facility] Comment on above: Order Comment: [facility] Testing performed at: [employer], [facility], [address] [facility], [address] [place] [address], [address] [place] [address], Electronic Device Monitor: David Carrillo MD [facility] Date/Time: [facility] Results Received Date/Time: [facility] Reported Date/Time: Performed By: #### C BCAD, CMP, TSH reflex FT4, TEST, LIPD, FT4, VITD #### [facility] Default [address] [place] [address] Calcium [Mass/Vol] 9.3 mg/dL Normal 8.6-10.3 [facility] Comment on above: Order Comment: [facility] Testing performed at: [employer], [facility], [address] [place] [address], [address] [place] [address], [address] [place] [address], Electronic Device Monitor: David Carrillo MD [facility] Date/Time: [facility] Results Received Date/Time: [facility] Reported Date/Time: Performed By: #### C BCAD, CMP, TSH reflex FT4, TEST, LIPD, FT4, VITD #### [facility] [address] [place] [address] Chloride [Moles/Vol] 106 mmol/L Normal 98-110 [facility] Comment on above: Order Comment: [facility] performed at: [employer], [facility], [address] [place] [address], [address] [place] [address], [address] [place] [address], Electronic Device Monitor: David Carrillo MD [facility] Date/Time: [facility] Results Received Date/Time: [facility] Reported Date/Time: Performed By: #### C BCAD, CMP, TSH reflex FT4, TEST, LIPD, FT4, VITD #### [facility] [address] [place] [address] CO2 [Moles/Vol] 25 mmol/L Normal 20-32 [facility] Beef Farmer Comment on above: Order Comment: [facility] Testing performed at: [employer], [facility], [address] [facility], [address] [place] [address], [address] [place] [address], Electronic Device Monitor: David Carrillo MD [facility] Date/Time: [facility] Results Received Date/Time: [facility] Reported Date/Time: Performed By: #### C BCAD, CMP, TSH reflex FT4, TEST, LIPD, FT4, VITD #### [facility] [address] [place] [address] Creatinine [Mass/Vol] 0.92 mg/dL Normal 0.70-1.33 [facility] Beef Farmer Comment on above: Order Comment: [facility] performed at: [employer], [facility], [address] [facility], [address] [place] [address], [phone], Electronic Device Monitor: David Carrillo MD [facility] Date/Time: [facility] Results Received Date/Time: [facility] Reported Date/Time: Result Comment: For patients >49 years of age, the reference limit for Creatinine is approximately 13% higher for people identified as -Latvian. Performed By: #### C BCAD, CMP, TSH reflex FT4, TEST, LIPD, FT4, VITD #### [facility] Default [address] [place] [address] eGFRAA ([facility]) 107 mL/min/1.73m2 Normal > OR = 60 [facility] Specialist Comment on above: Order Comment: [facility] Testing performed at: [employer], [facility], [address] , [address] [place] [address], [phone], Electronic Device Monitor: David Carrillo MD [facility] Date/Time: [facility] Results Received Date/Time: [facility] Reported Date/Time: Performed By: #### C BCAD, CMP, TSH reflex FT4, TEST, LIPD, FT4, VITD #### [facility] Default [address] [place] [address] eGFRNAA ([facility]) 93 mL/min/1.73m2 Normal > OR = 60 [facility] Beef Farmer Comment on above: Order Comment: [facility] performed at: [employer], [facility], [address] [place] [address], [address] [place] [address], [address] [place] [address], Electronic Device Monitor: David Carrillo MD [facility] Date/Time: [facility] Results Received Date/Time: [facility] Reported Date/Time: Performed By: #### C BCAD, CMP, TSH reflex FT4, TEST, LIPD, FT4, VITD #### [facility] Default [address] [facility] [place] [address] Globulin (S) [Mass/Vol] 2.1 g/dL Normal 1.9-3.7 [facility] Beef Farmer Comment on above: Order Comment: [facility] Testing performed at: [employer], [facility], [address] [place] [address], [address] [place] [address], [address] [place] [address], Electronic Device Monitor: David Carrillo MD [facility] Date/Time: [facility] Results Received Date/Time: [facility] Reported Date/Time: Performed By: #### C BCAD, CMP, TSH reflex FT4, TEST, LIPD, FT4, VITD #### [facility] Default [address] [place] [address] Glucose [Mass/Vol] 168 mg/dL High 65-99 [facility] Beef Farmer Comment on above: Order Comment: [facility] performed at: [employer], [facility], [address] [place] [address], [address] [place] [address], [address] [place] [address], Electronic Device Monitor: David Carrillo MD [facility] Date/Time: [facility] Results Received Date/Time: [facility] Reported Date/Time: Result Comment: Fasting reference interval For someone without known diabetes, a glucose value >125 mg/dL indicates that they may have diabetes and this should be confirmed with a follow-up test. Performed By: #### C BCAD, CMP, TSH reflex FT4, TEST, LIPD, FT4, VITD #### [facility] Default [address] [place] [address] Potassium [Moles/Vol] 4.4 mmol/L Normal 3.5-5.[address] [facility] Specialist Comment on above: Order Comment: [facility] Testing performed at: [employer] [facility], [address] [place] [address], [phone], Electronic Device Monitor: David Carrillo MD [facility] Collection Date/Time: [facility] Results Received Date/Time: [facility] Reported Date/Time: Performed By: #### C BCAD, CMP, TSH reflex FT4, TEST, LIPD, FT4, VITD #### [facility] Default [address] [place] [address] Protein [Mass/Vol] 6.5 g/dL Normal 6.1-8.1 [facility] Beef Farmer Comment on above: Order Comment: [facility] Testing performed at: [facility], [address] [place] [address], [phone], Electronic Device Monitor: David Carrillo MD [facility] Collection Date/Time: [facility] Results Received Date/Time: [facility] Reported Date/Time: Performed By: #### C BCAD, CMP, TSH reflex FT4, TEST, LIPD, FT4, VITD #### [facility] Default [address] [place] [address] Sodium [Moles/Vol] 140 mmol/L Normal 135-146 Shay [facility] Beef Farmer Comment on above: Order Comment: [facility] Testing performed at: [facility], [address] [place] [address], [address] [place] [address], [address] [place] [address], Electronic Device Monitor: David Carrillo MD [facility] Collection Date/Time: [facility] Results Received Date/Time: [facility] Reported Date/Time: Performed By: #### C BCAD, CMP, TSH reflex FT4, TEST, LIPD, FT4, VITD #### [facility] Default [address] [place] [address] Urea nitrogen [Mass/Vol] 15 mg/dL Normal 7-25 [facility] Beef Farmer Comment on above: Order Comment: [facility] Testing performed at: [employer], [facility], [address] [place] [address], [address] [place] [address], [address] [place] [address], Electronic Device Monitor: David Carrillo MD [facility] Collection Date/Time: [facility] Results Received Date/Time: [facility] Reported Date/Time: Performed By: #### C BCAD, CMP, TSH reflex FT4, TEST, LIPD, FT4, VITD #### [facility] Default [address] [place] [address] Free T4on 09-20-2021 Free T4 [Mass/Vol] 1.0 ng/dL Normal 0.8-1.8 [facility] Specialist Comment on above: Order Comment: [facility] Testing performed at: [employer], [facility], [address] [place] [address], [address] [place] [address], [address] [place] [address], Electronic Device Monitor: David Carrillo MD [facility] Collection Date/Time: [facility] Results Received Date/Time: [facility] Reported Date/Time: Performed By: #### C BCAD, CMP, TSH reflex FT4, TEST, LIPD, FT4, VITD #### [facility] Default [address] [place] [address] Hemoglobin A1Con 09-20-2021 HEMOGLOBIN A1c 7.1 % of total Hgb High <5.7 No rthern [place] Be[employer] Farmer Comment on above: Order Comment: [facility] performed at: [employer], [facility], [address] [facility], [address] [place] [address], [phone], Electronic Device Monitor: David Carrillo MD [facility] Date/Time: [facility] Results Received Date/Time: [facility] Reported Date/Time: Result Comment: For someone without known diabetes, a [...] A1c for diagnosis of diabetes for children. Performed By: #### A 1C #### [facility] Default [address] [place] [address] Lipid Panelon 09-20-2021 Cholesterol [Mass/Vol] 117 mg/dL Normal <200 [facility] Beef Farmer Comment on above: Order Comment: [facility] Testing performed at: [employer], [facility], [address] [facility], [address] [place] [address], [phone], Electronic Device Monitor: David Carrillo MD [facility] Date/Time: [facility] Results Received Date/Time: [facility] Reported Date/Time: Performed By: #### C BCAD, CMP, TSH reflex FT4, TEST, LIPD, FT4, VITD #### [facility] Default [address] [place] [address] Cholesterol in HDL [Mass/Vol] 37 mg/dL Low > OR = 40 [facility] Beef Farmer Comment on above: Order Comment: [facility] Testing performed at: [employer], [facility], [address] [facility], [address] [place] [address], [phone], Electronic Device Monitor: David Carrillo MD [facility] Date/Time: [facility] Results Received Date/Time: [facility] Reported Date/Time: Performed By: #### C BCAD, CMP, TSH reflex FT4, TEST, LIPD, FT4, VITD #### [facility] Default [address] [place] [address] Cholesterol in LDL [Mass/Vol] 49 mg/dL Normal [facility] Specialist Comment on above: Order Comment: [facility] performed at: [employer], [facility], [address] [facility], [address] [place] [address], [phone], Electronic Device Monitor: David Carrillo MD [facility] Collection Date/Time: [facility] Results Received Date/Time: [facility] Reported Date/Time: Result Comment: Refe rence range: <100 Desirable range <100 mg/dL for primary prevention; <70 mg/dL for patients with CHD or diabetic patients with > or = 2 CHD risk factors. LDL-C is now calculated using the Ancelmo-Mor calculation, which is a validated novel method providing better accuracy than the Friedewald equation in the estimation of LDL-C. Ancelmo CLINTON et al. MARIELY. 2013;310(19): 2117-4178 (http://education.Your Style Unzipped.Aislelabs/faq/HLM788) Performed By: #### C BCAD, CMP, TSH reflex FT4, TEST, LIPD, FT4, VITD #### [facility] Default [address] [place] [address] NON HDL CHOLESTEROL 80 mg/dL (calc) Normal <130 [facility] Beef Farmer Comment on above: Order Comment: [facility] performed at: [employer], [facility], [address] , [address] [place] [address], [phone], Electronic Device Monitor: David Carrillo MD [facility] Collection Date/Time: [facility] Results Received Date/Time: [facility] Reported Date/Time: Result Comment: For patients with diabetes plus 1 major ASCVD risk factor, treating to a non-HDL-C goal of <100 mg/dL (LDL-C of <70 mg/dL) is considered a therapeutic option. Performed By: #### C BCAD, CMP, TSH reflex FT4, TEST, LIPD, FT4, VITD #### [facility] Default [address] [place] [address] Triglyceride [Mass/Vol] 263 mg/dL High <150 [facility] Beef Farmer Comment on above: Order Comment: [facility] Testing performed at: [facility], [facility], [address] [place] [address], [address] [place] [address], [address] [place] [address], Electronic Device Monitor: David Carrillo MD [facility] Collection Date/Time: [facility] Results Received Date/Time: [facility] Reported Date/Time: Result Comment: If a non-fasting specimen was collected, consider repeat triglyceride testing on a fasting specimen if clinically indicated. Aditya et al. J. of Clin. Lipidol. 2015;9:129-169. Performed By: #### C BCAD, CMP, TSH reflex FT4, TEST, LIPD, FT4, VITD #### [facility] Default [address] [place] [address] Prostatic Specific Antigen, Totalon 09-20-2021 PSA, TOTAL 0.47 ng/mL Normal < OR = 4.00 [facility] Beef Farmer Comment on above: Order Comment: [facility] Testing performed at: [facility], [facility], [address] [place] [address], [address] [place] [address], [address] [place] [address], Electronic Device Monitor: David Carrillo MD [facility] Collection Date/Time: [facility] Results Received Date/Time: [facility] Reported Date/Time: Result Comment: The total PSA value from this assay system is standardized against the WHO standard. The test result will be approximately 20% lower when compared to the equimolar-standardized total PSA (Juliana Midnight). Comparison of serial PSA results should be interpreted with this fact in mind. This test was performed using the Siemens chemiluminescent method. Values obtained from different assay methods cannot be used interchangeably. PSA levels, regardless of value, should not be interpreted as absolute evidence of the presence or absence of disease. Performed By: #### P SA #### [facility] Default [address] [place] [address] TSH w/ Reflex to Free T4on 0 09-20-2021 TSH W/REFLEX TO FT4 5.46 mIU/L High 0.40-4.50 [facility] Specialist Comment on above: Order Comment: [facility] Testing performed at: [employer], [facility], [address] [facility], [address] [place] [address], [phone], Electronic Device Monitor: David Carrillo MD [facility] Collection Date/Time: [facility] Results Received Date/Time: [facility] Reported Date/Time: Performed By: #### C BCAD, CMP, TSH reflex FT4, TEST, LIPD, FT4, VITD #### [facility] Default [address] [place] [address] Testosteroneon 09-20-2021 TESTOSTERONE, TOTAL, MALES (ADULT), IA 349 ng/dL Normal 250-[address] [facility] Specialist Comment on above: Order Comment: [facility] performed at: [employer], [facility], [address] [place] [address], [address] [place] [address], [address] [place] [address], Electronic Device Monitor: David Carrillo MD [facility] Collection Date/Time: [facility] Results Received Date/Time: [facility] Reported Date/Time: Performed By: #### C BCAD, CMP, TSH reflex FT4, TEST, LIPD, FT4, VITD #### [facility] Default [address] [place] [address] Vitamin D 25-OHon 09-20-2021 VIT D 25 OH 22 ng/mL Low 30-[address] [facility] Specialist Comment on above: Order Comment: [facility] performed at: [employer], [facility], [address] [place] [address], [address] [place] [address], [address] [place] [address], Electronic Device Monitor: David Carrillo MD [facility] Collection Date/Time: [facility] Results Received Date/Time: [facility] Reported Date/Time: Result Comment: Marizol min D Status 25-OH Vitamin D: Deficiency: <20 ng/mL Insufficiency: 20 - 29 ng/mL Optimal: > or = 30 ng/mL For 25-OH Vitamin D testing on patients on D2-supplementation and patients for whom quantitation of D2 and D3 fractions is required, the QuestAssureD(TM) 25-OH VIT D, (D2,D3), LC/MS/MS is recommended: order code 63803 (patients >2yrs). See Note 1 Note 1 For additional information, please refer to http://education.Plan A Drink/faq/IAP372 (This link is being provided for informational/ educational purposes only.) Performed By: #### C BCAD, CMP, TSH reflex FT4, TEST, LIPD, FT4, VITD #### [facility] Default [address] [place] [address] Hemoglobin A1Con 08-18-2020 Glucose [Mass/Vol] 143 mg/dL [employer] Work Phone: Comment on above: The ADA and AACC rec ommend providing the estimated average glucose result to permit better patient understanding of their HBA1c result. HbA1c (Bld) [Mass fraction] 6.6 % High 4 - 6 % [employer] Work Phone: Interpretation and review of laboratory results Abnormal [employer] Phone: Vital Signs Date Time Vital Sign Value Performing Clinician Facility 11-13-2024 07:25-0400 Body height 188 cm Amada Stockton LITIGATION SPECIALIST Work Phone: [facility] 11-13-2024 07:25-0400 Body mass index (BMI) [Ratio] 36.49 kg/m2 Amada Stockton LITIGATION SPECIALIST Work Phone: [facility] 11-13-2024 07:25-0400 Body temperature 96.21 [degF] Amada Stockton LITIGATION SPECIALIST Work Phone: [facility] 11-13-2024 07:25-0400 Body weight 128.91 kg Amada Stockton LITIGATION SPECIALIST Work Phone: [facility] 11-13-2024 07:25-0400 Diastolic blood pressure 82 mm[Hg] Amdaa Stockton LITIGATION SPECIALIST Work Phone: [facility] 11-13-2024 07:25-0400 Heart rate 74 /min Amada Fruth LITIGATION SPECIALIST Work Phone: [facility] 11-13-2024 07:25-0400 SaO2% (BldA) [Mass fraction] 94 % Amada Fruth LITIGATION SPECIALIST Work Phone: [facility] 11-13-2024 07:25-0400 Systolic blood pressure 132 mm[Hg] Amada Fruth LITIGATION SPECIALIST Work Phone: [facility] 06-17-2024 07:39-0500 Body height 188 cm Amada Fruth LITIGATION SPECIALIST Work Phone: [facility] 06-17-2024 07:39-0500 Body mass index (BMI) [Ratio] 35.87 kg/m2 Amada Fruth LITIGATION SPECIALIST Work Phone: [facility] 06-17-2024 07:39-0500 Body temperature 97.59 [degF] Amada Fruth LITIGATION SPECIALIST Work Phone: [facility] 06-17-2024 07:39-0500 Body weight 126.73 kg Amada Fruth LITIGATION SPECIALIST Work Phone: [facility] 06-17-2024 07:39-0500 Diastolic blood pressure 78 mm[Hg] Amada Fruth LITIGATION SPECIALIST Work Phone: [facility] 06-17-2024 07:39-0500 Heart rate 76 /min Amada Fruth LITIGATION SPECIALIST Work Phone: [facility] 06-17-2024 07:39-0500 SaO2% (BldA) [Mass fraction] 95 % Amada Fruth LITIGATION SPECIALIST Work Phone: [facility] 06-17-2024 07:39-0500 Systolic blood pressure 130 mm[Hg] Amada Fruth LITIGATION SPECIALIST Work Phone: [facility] 05-05-2024 07:56-0500 Body height 188 cm Amada Fruth LITIGATION SPECIALIST Work Phone: [facility] 05-05-2024 07:56-0500 Diastolic blood pressure 80 mm[Hg] Amada Fruth LITIGATION SPECIALIST Work Phone: [facility] 05-05-2024 07:56-0500 Heart rate 71 /min Amada Fruth LITIGATION SPECIALIST Work Phone: [facility] 05-05-2024 07:56-0500 Respiratory rate 18 /min Amada Fruth LITIGATION SPECIALIST Work Phone: [facility] 05-05-2024 07:56-0500 SaO2% (BldA) [Mass fraction] 94 % Amada Fruth LITIGATION SPECIALIST Work Phone: [facility] 05-05-2024 07:56-0500 Systolic blood pressure 112 mm[Hg] Amada Fruth LITIGATION SPECIALIST Work Phone: [facility] 02-28-2024 11:34-0400 Body height 188 cm Amada Fruth LITIGATION SPECIALIST Work Phone: [facility] 02-28-2024 11:34-0400 Body mass index (BMI) [Ratio] 35.82 kg/m2 Amada Fruth LITIGATION SPECIALIST Work Phone: [facility] [facility] 02-28-2024 11:34-0400 Body temperature 97.59 [degF] Amada Fruth LITIGATION SPECIALIST Work Phone: [facility] 02-28-2024 11:34-0400 Body weight 126.55 kg Amada Fruth LITIGATION SPECIALIST Work Phone: [facility] 02-28-2024 11:34-0400 Diastolic blood pressure 76 mm[Hg] Amada Fruth LITIGATION SPECIALIST Work Phone: [facility] 02-28-2024 11:34-0400 Heart rate 68 /min Amada Fruth LITIGATION SPECIALIST Work Phone: [facility] 02-28-2024 11:34-0400 SaO2% (BldA) [Mass fraction] 94 % Amada Fruth LITIGATION SPECIALIST Work Phone: [facility] 02-28-2024 11:34-0400 Systolic blood pressure 138 mm[Hg] Amada Fruth LITIGATION SPECIALIST Work Phone: [facility] 12-26-2023 08:27-0400 Blood Pressure Location Lizzeth Lue [facility] 12-26-2023 08:27-0400 Body temperature 97.7 [degF] Lizzeth Lue [facility] 12-26-2023 08:27-0400 Diastolic blood pressure 86 mm[Hg] Lizzeth Lue [facility] 12-26-2023 08:27-0400 Heart rate 88 /min Lizzeth Lue [facility] 12-26-2023 08:27-0400 Systolic blood pressure 140 mm[Hg] Lizzeth Lue [facility] 08-03-2023 07:39-0500 Body height 188 cm Amada Fruth LITIGATION SPECIALIST Work Phone: [facility] 08-03-2023 07:39-0500 Body mass index (BMI) [Ratio] 36.21 kg/m2 Amada Fruth LITIGATION SPECIALIST Work Phone: [facility] 08-03-2023 07:39-0500 Body weight 127.91 kg Amada Fruth LITIGATION SPECIALIST Work Phone: [facility] 08-03-2023 07:39-0500 Diastolic blood pressure 80 mm[Hg] Amada Fruth LITIGATION SPECIALIST Work Phone: [facility] 08-03-2023 07:39-0500 Heart rate 71 /min Amada Fruth LITIGATION SPECIALIST Work Phone: [facility] 08-03-2023 07:39-0500 Systolic blood pressure 126 mm[Hg] Amada Fruth LITIGATION SPECIALIST Work Phone: [facility] 09-27-2022 10:25-0400 Blood Pressure Location Lizzeth Lue [facility] 09-27-2022 10:25-0400 Diastolic blood pressure 82 mm[Hg] Lizzeth Lue [facility] 09-27-2022 10:25-0400 Heart rate 78 /min Lizzeth Lue [facility] 09-27-2022 10:25-0400 Systolic blood pressure 127 mm[Hg] Lizzeth Lue [facility] 09-05-2022 09:58-0500 Blood Pressure Location JAYME LALITA [facility] 09-05-2022 09:58-0500 Diastolic blood pressure 84 mm[Hg] JAYME LALITA [facility] 09-05-2022 09:58-0500 Heart rate 80 /min JAYME LALITA [facility] 09-05-2022 09:58-0500 Systolic blood pressure 144 mm[Hg] JAYME LALITA [facility] Encounters Encounter Date Encounter Type Care Provider Facility Start: 12-26-2024 ambulatory Lizzeth Arriaga Facility:[facility] Start: 11-26-2024 End: 11-26-2024 Refill Amada Stockton LITIGATION SPECIALIST Work Phone: [facility] Comment on above: Diabetic peripheral neuropathy associated with type 2 diabetes mellitus ([facility]) Start: 11-16-2024 End: 11-16-2024 Refill Amadaashley Stockton LITIGATION SPECIALIST Work Phone: [facility] Comment on above: Idiopathic neuropath y Start: 11-14-2024 End: 11-14-2024 Bamboo flowsheet Christina SMITH Work Phone: [facility] Start: 11-14-2024 End: 11-14-2024 Bamboo flowsheet Christina Ham PA Work Phone: [facility] Start: 11-14-2024 End: 11-14-2024 Office outpatient visit 25 minutes Christina Frank Aarti PA Work Phone: [facility] Comment on above: Bacterial folliculit is (Primary Dx); Seborrheic keratosis Start: 11-14-2024 End: 11-14-2024 ambulatory CHRISTINA HAM Not Available Start: 11-13-2024 End: 11-13-2024 Bamboo flowsheet Amada E Fruth LITIGATION SPECIALIST Work Phone: [facility] Start: 11-13-2024 End: 11-13-2024 Bamboo flowsheet Amada E Fruth LITIGATION SPECIALIST Work Phone: [facility] Start: 11-13-2024 End: 11-13-2024 Office outpatient visit 25 minutes Amada E Fruth LITIGATION SPECIALIST Work Phone: [facility] Comment on above: Type 2 diabetes nata itus with diabetic polyneuropathy, with long-term current use of insulin (CMS/HCC) (Primary Dx); Low testosterone; Acquired hypothyroidism (CMS/HCC); Mixed hyperlipidemia (CMS/HCC); Screening for prostate cancer; Heart murmur; Shortness of breath; Family history of early CAD; Feeling of chest tightness; Acute non-recurrent frontal sinusitis Start: 11-13-2024 End: 11-13-2024 ambulatory AMADA E FRUTH Not Available Start: 11-05-2024 End: 11-05-2024 Refill Amada E Fruth LITIGATION SPECIALIST Work Phone: [facility] Comment on above: Acute non-recurrent frontal sinusitis Start: 11-02-2024 End: 11-03-2024 Refill Amada E Fruth LITIGATION SPECIALIST Work Phone: [facility] Comment on above: Low testosterone Start: 10-31-2024 End: 11-02-2024 Telephone encounter Veda Halwey RN [facility] Comment on above: Med Refill Start: 10-25-2024 End: 10-26-2024 Refill Amadaashley Stockton LITIGATION SPECIALIST Work Phone: [facility] Comment on above: Low testosterone Start: 09-30-2024 End: 09-30-2024 ambulatory LITIGATION SPECIALIST Amada Stockton Facility[facility] Start: 09-28-2024 End: 09-28-2024 Refill Amadaashley Stockton LITIGATION SPECIALIST Work Phone: [facility] Comment on above: Diabetic peripheral neuropathy associated with type 2 diabetes mellitus ([facility]) Start: 08-22-2024 End: 08-22-2024 Telephone encounter Lizz Farfan MA [facility] Comment on above: Referral Start: 07-22-2024 End: 07-22-2024 Bamboo flowsheet Christina Ham PA Work Phone: [facility] Start: 07-22-2024 End: 07-22-2024 Bamboo flowsheet Christinahussein Ham PA Work Phone: [facility] Start: 07-22-2024 End: 07-22-2024 ambulatory CHRISTINA Zac HAM Not Available Start: 07-22-2024 End: 07-22-2024 Office outpatient visit 15 minutes Christina Ham PA Work Phone: [facility] Comment on above: Bacterial folliculit is (Primary Dx) Start: 06-29-2024 End: 06-30-2024 Telephone encounter Amada Stockton LITIGATION SPECIALIST Work Phone: [facility] Comment on above: abdominal xray Start: 06-17-2024 End: 06-17-2024 Bamboo flowsheet Amada E Frukaryn LITIGATION SPECIALIST Work Phone: [facility] Start: 06-17-2024 End: 06-17-2024 Bamboo flowsheet Amada E Fruth LITIGATION SPECIALIST Work Phone: [facility] Start: 06-17-2024 End: 06-17-2024 Office outpatient visit 15 minutes Amada Stockton LITIGATION SPECIALIST Work Phone: [facility] Comment on above: Flank pain (Primary Dx) Start: 06-17-2024 End: 06-17-2024 ambulatory AMADA E FRUTH Not Available Start: 05-05-2024 End: 05-05-2024 Bamboo flowsheet Amada E Fruth LITIGATION SPECIALIST Work Phone: [facility] Start: 05-05-2024 End: 05-05-2024 Bamboo flowsheet Amada E Fruth LITIGATION SPECIALIST Work Phone: [facility] Start: 05-05-2024 End: 05-05-2024 ambulatory AMADA E FRUTH Not Available Start: 05-05-2024 End: 05-05-2024 Patient encounter status Amada E Fruth LITIGATION SPECIALIST Work Phone: [facility] Start: 05-05-2024 End: 05-05-2024 Periodic preventive med est patient 40-64yrs Amada E Fruth LITIGATION SPECIALIST Work Phone: [facility] Comment on above: Acquired hypothyroid ism (CMS/HCC) (Primary Dx); Diabetic peripheral neuropathy associated with type 2 diabetes mellitus (CMS/HCC); Mixed hyperlipidemia (CMS/HCC); Low testosterone; Type 2 diabetes mellitus without complication, without long-term current use of insulin (CMS/HCC); Diabetes mellitus due to underlying condition with hyperosmolarity without coma, without long-term current use of insulin (CMS/HCC); Acute non-recurrent frontal sinusitis; Idiopathic neuropathy; Immunization due; Dysuria; Flank pain; Routine general medical examination at a health care facility; Type 2 diabetes mellitus with hyperglycemia (CMS/HCC); Morbid (severe) obesity due to excess calories (CMS/HCC); Body mass index (BMI) 35.0-35.9, adult; Type 2 diabetes mellitus with other specified complication (CMS/HCC); Male erectile dysfunction, unspecified; Type 2 diabetes mellitus with diabetic neuropathy, unspecified (CMS/HCC) Start: 04-21-2024 End: 04-21-2024 Bamboo flowsheet Christina Ham PA Work Phone: [facility] Start: 04-21-2024 End: 04-21-2024 Bamboo flowsheet Christina Ham PA Work Phone: [facility] Start: 04-21-2024 End: 04-21-2024 Office outpatient new 30 minutes Christina Ham PA Work Phone: [facility] Comment on above: Bacterial folliculit is (Primary Dx); Garrett angioma Start: 04-21-2024 End: 04-21-2024 ambulatory CHRISTINA HAM Not Available Start: 03-12-2024 End: 03-12-2024 Refill Teagan Lawrence [employer] Work Phone: [facility] Comment on above: Acute non-recurrent frontal sinusitis; Diabetic peripheral neuropathy associated with type 2 diabetes mellitus (CMS/HCC) Start: 03-09-2024 End: 03-09-2024 Refill Amada E Fruth LITIGATION SPECIALIST Work Phone: [facility] Comment on above: Diabetic peripheral neuropathy associated with type 2 diabetes mellitus (CMS/HCC) Start: 03-07-2024 End: 03-07-2024 Refill Amada E Fruth LITIGATION SPECIALIST Work Phone: [facility] Comment on above: Acquired hypothyroid ism (CMS/HCC); Low testosterone; Diabetes mellitus due to underlying condition with hyperosmolarity without coma, without long-term current use of insulin (CMS/HCC); Diabetic peripheral neuropathy associated with type 2 diabetes mellitus (CMS/HCC); Acute non-recurrent frontal sinusitis Idiopathic neuropath y (Primary Dx) Start: 02-28-2024 End: 02-28-2024 Bamboo flowsheet Amada E Fruth LITIGATION SPECIALIST Work Phone: [facility] Start: 02-28-2024 End: 02-28-2024 Bamboo flowsheet Amada E Fruth LITIGATION SPECIALIST Work Phone: [facility] Start: 02-28-2024 End: 02-28-2024 ambulatory AMADA E FRUTH Not Available Start: 02-28-2024 End: 02-28-2024 Office outpatient visit 15 minutes Amada E Fruth LITIGATION SPECIALIST Work Phone: [facility] Comment on above: Acute cough (Primary Dx); Acute non-recurrent frontal sinusitis Start: 01-30-2024 End: 01-30-2024 ambulatory RENETTA BENITO Not Available Start: 12-26-2023 End: 12-26-2023 ambulatory Lizzeth Arriaga Facility:[facility] Start: 12-26-2023 End: 12-26-2023 Patient encounter procedure Lizzeth Arriaga [facility] Start: 08-15-2023 Refill Amada Hansonth LITIGATION SPECIALIST Work Phone: [facility] Comment on above: Diabetes mellitus du e to underlying condition with hyperosmolarity without coma, without long-term current use of insulin (CMS/HCC) (Primary Dx) Start: 08-03-2023 Bamboo flowsheet Amada E Frut h LITIGATION SPECIALIST Work Phone: [facility] Start: 08-03-2023 Bamboo flowsheet Amada E Frut h LITIGATION SPECIALIST Work Phone: [facility] Start: 08-03-2023 End: 08-03-2023 Office outpatient visit 15 minutes Amada E th LITIGATION SPECIALIST Work Phone: [facility] Comment on above: Feeling of chest tig htness (Primary Dx); Diabetic peripheral neuropathy associated with type 2 diabetes mellitus (CMS/HCC); Acquired hypothyroidism (CMS/HCC); Low testosterone; Dyspnea on exertion; Family history of premature CAD; Screening for prostate cancer Start: 11-29-2022 End: 11-29-2022 Patient encounter procedure Lizzeth WhiteRosette Herrmannrohan [facility] Start: 10-05-2022 End: 10-06-2022 ambulatory AMADA STOCKTON Facility: Start: 09-27-2022 End: 09-27-2022 Patient encounter procedure Lizzeth WhiteRosette Herrmannrohan [facility] Start: 09-13-2022 End: 09-14-2022 ambulatory [facility] Facility: Start: 09-05-2022 End: 09-05-2022 Patient encounter procedure JAYME CELIS [facility] Start: 03-03-2022 End: 03-06-2022 ambulatory [facility] Start: 03-03-2022 End: 03-05-2022 Subsequent hospital visit by physician Negra Ramos Dr Room 2 [facility] Comment on above: Abdominal pain, gene ralized; Acute cough Start: 02-26-2022 End: 02-27-2022 ambulatory [facility] Facility: Start: 08-18-2020 End: 08-18-2020 Subsequent hospital visit by physician James MACEDO [facility] Start: 12-27-2016 End: 12-27-2016 Ambulatory [facility] Procedures Date Procedure Procedure Detail Performing Clinician Start: 02-28-2024 SARS-CoV-2 (COVID-19 ) Ab panel - Serum, Plasma or Blood by Rapid immunoassay Amada Stockton LITIGATION SPECIALIST Work Phone: Start: 03-03-2022 Radiologic exam abdo men 2 views Amada Stockton Work Phone: Start: 03-03-2022 Radiologic exam ches t 2 views Amada Stockton Work Phone: Start: 03-03-2022 Comprehensive metabo lic panel Amada Stockton Work Phone: Start: 08-18-2020 Hemoglobin glycosylated a1c James Payton Work Phone: Start: 04-16-2020 Colonoscopy James olsen MD Work Phone: Cholecystectomy JAYME KAUR Colonoscopy JAYME CELIS Vasectomy JAYME CELIS Plan of Treatment Date Care Activity Detail Author Start: 04-16-2030 Screening for malign ant neoplasm of colon [facility] Start: 11-08-2026 Glaucoma screening Diabetes: R etinopathy Screening [facility] Start: 11-12-2025 Urine screening for protein Diabetes: Urine Protein Screening [facility] Start: 05-13-2025 Urine screening for protein Diabetes: Urine Protein Screening [facility] Start: 05-09-2025 Glaucoma screening Diabetes: R etinopathy Screening [facility] Start: 03-24-2025 End: 03-24-2025 Patient encounter procedure 03/24/2025 7:40 AM EDT Office Visit [facility] [address] [place] [address] Christina Ham, LUIS [address] [place] [address] [facility] Start: 02-11-2025 Hemoglobin A1c measurement Diabetes: Hemoglobin A1C [facility] Start: 12-30-2024 Hemoglobin A1c measurement Diabetes: Hemoglobin A1C [facility] Start: 11-14-2024 End: 11-14-2024 Patient encounter procedure [facility] Comment on above: Arrived Start: 11-13-2024 End: 11-13-2025 Cardiac stress study Procedure STRESS TEST LEXISCAN Imaging Routine Heart murmur Shortness of breath Family history of early CAD Feeling of chest tightness Expected: 11/13/2024 (Approximate), Expires: 11/13/2025 [facility] Comment on above: Expected: 11/13/2024 (Approximate), Expires: 11/13/2025 Start: 11-13-2024 End: 11-13-2025 CBC W Auto Differential panel - Blood CBC and differential Lab Routine Type 2 diabetes mellitus with diabetic polyneuropathy, with long-term current use of insulin (CMS/HCC) Mixed hyperlipidemia (CMS/HCC) Expected: 11/13/2024 (Approximate), Expires: 11/13/2025 [facility] Work Phone: Comment on above: Expected: 11/13/2024 (Approximate), Expires: 11/13/2025 Start: 11-13-2024 End: 11-13-2025 Comprehensive metabolic 2000 panel - Serum or Plasma Comprehensive metabolic panel Lab Routine Type 2 diabetes mellitus with diabetic polyneuropathy, with long-term current use of insulin (CMS/HCC) Mixed hyperlipidemia (CMS/HCC) Expected: 11/13/2024 (Approximate), Expires: 11/13/2025 [facility] Comment on above: Expected: 11/13/2024 (Approximate), Expires: 11/13/2025 Start: 11-13-2024 End: 11-13-2025 Hemoglobin A1c/Hemoglobin.total in Blood Hemoglobin A1c Lab Routine Type 2 diabetes mellitus with diabetic polyneuropathy, with long-term current use of insulin (CMS/HCC) Expected: 11/13/2024 (Approximate), Expires: 11/13/2025 [facility] Comment on above: Expected: 11/13/2024 (Approximate), Expires: 11/13/2025 Start: 11-13-2024 End: 11-13-2025 Lipid 1996 panel - Serum or Plasma Lipid panel Lab Routine Type 2 diabetes mellitus with diabetic polyneuropathy, with long-term current use of insulin (CMS/HCC) Mixed hyperlipidemia (CMS/HCC) Expected: 11/13/2024 (Approximate), Expires: 11/13/2025 [facility] Comment on above: Expected: 11/13/2024 (Approximate), Expires: 11/13/2025 Start: 11-13-2024 End: 11-13-2025 Microalbumin/Creatinine panel in random Urine Microalbumin / creatinine urine ratio Lab Routine Type 2 diabetes mellitus with diabetic polyneuropathy, with long-term current use of insulin (CMS/HCC) Expected: 11/13/2024 (Approximate), Expires: 11/13/2025 [facility] Comment on above: Expected: 11/13/2024 (Approximate), Expires: 11/13/2025 Start: 11-13-2024 End: 11-13-2025 Prostate specific Ag [Mass/volume] in Serum or Plasma PSA Lab Routine Type 2 diabetes mellitus with diabetic polyneuropathy, with long-term current use of insulin (CMS/HCC) Screening for prostate cancer Expected: 11/13/2024 (Approximate), Expires: 11/13/2025 [facility] Comment on above: Expected: 11/13/2024 (Approximate), Expires: 11/13/2025 Start: 11-13-2024 End: 11-13-2025 Thyrotropin [Units/volume] in Serum or Plasma TSH Lab Routine Type 2 diabetes mellitus with diabetic polyneuropathy, with long-term current use of insulin (CMS/HCC) Acquired hypothyroidism (CMS/HCC) Expected: 11/13/2024 (Approximate), Expires: 11/13/2025 [facility] Comment on above: Expected: 11/13/2024 (Approximate), Expires: 11/13/2025 Start: 11-13-2024 End: 11-13-2026 US Heart Transthoracic Transthoracic Echo (TTE) Complete Echocardiography Routine Heart murmur Shortness of breath Family history of early CAD Feeling of chest tightness Expected: 11/13/2024 (Approximate), Expires: 11/13/2026 [facility] Comment on above: Expected: 11/13/2024 (Approximate), Expires: 11/13/2026 Start: 11-13-2024 End: 11-13-2024 Patient encounter procedure [facility] Comment on above: Arrived Start: 10-31-2024 Urine screening for protein Diabetes: Urine Protein Screening [facility] Start: 08-05-2024 End: 05-05-2025 Microalbumin/Creatinine panel in random Urine Microalbumin / creatinine urine ratio Lab Routine Diabetic peripheral neuropathy associated with type 2 diabetes mellitus (CMS/HCC) Dysuria Flank pain Expected: 08/05/2024 (Approximate), Expires: 05/05/2025 [facility] Comment on above: Expected: 08/05/2024 (Approximate), Expires: 05/05/2025 Start: 08-02-2024 Urine screening for protein Diabetes: Urine Protein Screening [facility] Start: 07-22-2024 End: 07-22-2024 Patient encounter procedure 07/22/2024 7:50 AM EST Office Visit [facility] [address] [place] [id number] Christina Ham PA [address] [place] [address] [facility] Start: 06-17-2024 End: 06-17-2025 XR Abdomen Single view XR ABDOMEN 2 VIEW Imaging Routine Flank pain Expected: 06/17/2024, Expires: 06/17/2025 [facility] Comment on above: Expected: 06/17/2024 , Expires: 06/17/2025 Start: 06-17-2024 End: 06-17-2025 XR Lumbar spine 4 Views XR LUMBAR SPINE AP/LAT/FLEX/EXT/OBLIQUES Imaging Routine Flank pain Expected: 06/17/2024, Expires: 06/17/2025 [facility] Work Phone: Comment on above: Expected: 06/17/2024 , Expires: 06/17/2025 Start: 06-17-2024 End: 06-17-2024 Patient encounter procedure 06/17/2024 7:30 AM EST Office Visit [facility] [address] [place] [address] Amada Stockton NP [address] [place] [address] Arrived [facility] Comment on above: Arrived Start: 05-28-2024 Hemoglobin A1c measurement Diabetes: Hemoglobin A1C [facility] Start: 05-05-2024 End: 05-05-2025 Bacteria identified in Urine by Culture Urine culture Microbiology Routine Dysuria Flank pain Expected: 05/05/2024 (Approximate), Expires: 05/05/2025 [facility] Comment on above: Expected: 05/05/2024 (Approximate), Expires: 05/05/2025 Start: 05-05-2024 End: 05-05-2025 CBC W Auto Differential panel - Blood CBC and differential Lab Routine Diabetic peripheral neuropathy associated with type 2 diabetes mellitus (CMS/HCC) Mixed hyperlipidemia (CMS/HCC) Type 2 diabetes mellitus without complication, without long-term current use of insulin (CMS/HCC) Expected: 05/05/2024 (Approximate), Expires: 05/05/2025 [facility] Work Phone: Comment on above: Expected: 05/05/2024 (Approximate), Expires: 05/05/2025 Start: 05-05-2024 End: 05-05-2025 Comprehensive metabolic 2000 panel - Serum or Plasma Comprehensive metabolic panel Lab Routine Diabetic peripheral neuropathy associated with type 2 diabetes mellitus (CMS/HCC) Mixed hyperlipidemia (CMS/HCC) Type 2 diabetes mellitus without complication, without long-term current use of insulin (CMS/HCC) Expected: 05/05/2024 (Approximate), Expires: 05/05/2025 [facility] Comment on above: Expected: 05/05/2024 (Approximate), Expires: 05/05/2025 Start: 05-05-2024 End: 05-05-2025 Hemoglobin A1c/Hemoglobin.total in Blood Hemoglobin A1c Lab Routine Diabetic peripheral neuropathy associated with type 2 diabetes mellitus (CMS/HCC) Mixed hyperlipidemia (CMS/HCC) Type 2 diabetes mellitus without complication, without long-term current use of insulin (CMS/HCC) Expected: 05/05/2024 (Approximate), Expires: 05/05/2025 [facility] Comment on above: Expected: 05/05/2024 (Approximate), Expires: 05/05/2025 Start: 05-05-2024 End: 05-05-2025 Lipid 1996 panel - Serum or Plasma Lipid panel Lab Routine Diabetic peripheral neuropathy associated with type 2 diabetes mellitus (CMS/HCC) Mixed hyperlipidemia (CMS/HCC) Type 2 diabetes mellitus without complication, without long-term current use of insulin (CMS/HCC) Expected: 05/05/2024 (Approximate), Expires: 05/05/2025 [facility] Comment on above: Expected: 05/05/2024 (Approximate), Expires: 05/05/2025 Start: 05-05-2024 End: 05-05-2025 Microalbumin/Creatinine panel in random Urine Microalbumin / creatinine urine ratio Lab Routine Diabetic peripheral neuropathy associated with type 2 diabetes mellitus (CMS/HCC) Mixed hyperlipidemia (CMS/HCC) Type 2 diabetes mellitus without complication, without long-term current use of insulin (CMS/HCC) Expected: 05/05/2024 (Approximate), Expires: 05/05/2025 [facility] Comment on above: Expected: 05/05/2024 (Approximate), Expires: 05/05/2025 Start: 05-05-2024 End: 05-05-2025 Testosterone [Mass/volume] in Serum or Plasma Testosterone Lab Routine Low testosterone Expected: 05/05/2024 (Approximate), Expires: 05/05/2025 [facility] Comment on above: Expected: 05/05/2024 (Approximate), Expires: 05/05/2025 Start: 05-05-2024 End: 05-05-2025 Thyrotropin [Units/volume] in Serum or Plasma TSH Lab Routine Acquired hypothyroidism (CMS/HCC) Expected: 05/05/2024 (Approximate), Expires: 05/05/2025 [facility] Comment on above: Expected: 05/05/2024 (Approximate), Expires: 05/05/2025 Start: 05-05-2024 End: 05-05-2025 Urinalysis complete panel - Urine Urinalysis with reflex microscopic (clean catch) Lab Routine Dysuria Flank pain Expected: 05/05/2024 (Approximate), Expires: 05/05/2025 [facility] Comment on above: Expected: 05/05/2024 (Approximate), Expires: 05/05/2025 Start: 05-05-2024 End: 05-05-2024 Patient encounter procedure 05/05/2024 7:30 AM EST Office Visit [facility] [address] [place] [address] Amada Stockton NP [address] [place] [id number] [facility] Start: 04-21-2024 End: 04-21-2024 Patient encounter procedure 04/21/2024 9:50 AM EDT Office Visit [facility] [address] [place] [id number] Christina Ham PA [address] [place] [address] Other acne [facility] Comment on above: Other acne Start: 04-10-2024 End: 04-10-2024 Patient encounter procedure 04/10/2024 3:30 PM EDT Office Visit [facility] [address] [place] [address] Amina Graham MD [address] [place] [address] [facility] Start: 03-30-2024 Urine screening for protein Diabetes: Urine Protein Screening [facility] Start: 03-02-2024 Influenza vaccination Influenza Vacc ine (#1) [facility] Start: 01-29-2024 Hemoglobin A1c measurement Diabetes: Hemoglobin A1C [facility] Start: 11-02-2023 End: 11-02-2023 Patient encounter procedure 11/02/2023 7:30 AM EDT Office Visit [facility] [address] [place] [address] Amada Stockton NP [address] [place] [address] [facility] Start: 11-01-2023 End: 08-03-2024 CBC W Auto Differential panel - Blood CBC and differential Lab Routine Diabetic peripheral neuropathy associated with type 2 diabetes mellitus ([facility]) Expected: 11/01/2023 (Approximate), Expires: 08/03/2024 [facility] Comment on above: Expected: 11/01/2023 (Approximate), Expires: 08/03/2024 Start: 11-01-2023 End: 08-03-2024 Comprehensive metabolic 2000 panel - Serum or Plasma Comprehensive metabolic panel Lab Routine Diabetic peripheral neuropathy associated with type 2 diabetes mellitus ([facility]) Expected: 11/01/2023 (Approximate), Expires: 08/03/2024 [facility] Comment on above: Expected: 11/01/2023 (Approximate), Expires: 08/03/2024 Start: 11-01-2023 End: 08-03-2024 Hemoglobin A1c measurement Hemoglobin A1c Lab Routine Diabetic peripheral neuropathy associated with type 2 diabetes mellitus ([facility]) Expected: 11/01/2023 (Approximate), Expires: 08/03/2024 [facility] Comment on above: Expected: 11/01/2023 (Approximate), Expires: 08/03/2024 Start: 11-01-2023 End: 08-03-2024 Lipid 1996 panel - Serum or Plasma Lipid panel Lab Routine Diabetic peripheral neuropathy associated with type 2 diabetes mellitus (CMS/HCC) Expected: 11/01/2023 (Approximate), Expires: 08/03/2024 [facility] Comment on above: Expected: 11/01/2023 (Approximate), Expires: 08/03/2024 Start: 11-01-2023 End: 08-03-2024 Microalbumin/Creatinine panel in random Urine Microalbumin / creatinine urine ratio Lab Routine Diabetic peripheral neuropathy associated with type 2 diabetes mellitus (CMS/HCC) Expected: 11/01/2023 (Approximate), Expires: 08/03/2024 [facility] Comment on above: Expected: 11/01/2023 (Approximate), Expires: 08/03/2024 Start: 11-01-2023 End: 08-03-2024 Prostate specific Ag [Mass/volume] in Serum or Plasma PSA Lab Routine Screening for prostate cancer Expected: 11/01/2023 (Approximate), Expires: 08/03/2024 [facility] Comment on above: Expected: 11/01/2023 (Approximate), Expires: 08/03/2024 Start: 11-01-2023 End: 08-03-2024 Testosterone [Mass/volume] in Serum or Plasma Testosterone Lab Routine Low testosterone Expected: 11/01/2023 (Approximate), Expires: 08/03/2024 [facility] Comment on above: Expected: 11/01/2023 (Approximate), Expires: 08/03/2024 Start: 11-01-2023 End: 08-03-2024 Thyrotropin [Units/volume] in Serum or Plasma TSH Lab Routine Diabetic peripheral neuropathy associated with type 2 diabetes mellitus (CMS/HCC) Acquired hypothyroidism (CMS/HCC) Expected: 11/01/2023 (Approximate), Expires: 08/03/2024 [facility] Comment on above: Expected: 11/01/2023 (Approximate), Expires: 08/03/2024 Start: 10-31-2023 Hemoglobin A1c measurement Diabetes: Hemoglobin A1C [facility] Start: 08-03-2023 End: 08-03-2025 STRESS NUCLEAR MEDICINE TREADMILL STRESS NUCLEAR MEDICINE TREADMI[facility] Cardiac Nuclear Medicine Routine Diabetic peripheral neuropathy associated with type 2 diabetes mellitus (CMS/HCC) Low testosterone Feeling of chest tightness Dyspnea on exertion Family history of premature CAD Expected: 08/03/2023 (Approximate), Expires: 08/03/2025 [facility] Work Phone: Comment on above: Expected: 08/03/2023 (Approximate), Expires: 08/03/2025 Start: 06-29-2023 Hemoglobin A1c measurement Diabetes: Hemoglobin A1C [facility] Start: 03-16-2022 End: 03-16-2022 Patient encounter procedure 03/16/2022 Office Visit Neurology Rustam Calderon MD [address] [place] [address] [place] [address] [facility] Start: 03-02-2022 Influenza vaccination Flu vaccine (# 1) [facility] Start: 10-06-2021 COVID-19 Vaccine (4 - Booster for Moderna series) COVID-19 Vaccine (4 - Booster for Moderna series) [facility] Start: 08-18-2021 Hemoglobin A1c measurement A1C test (Diabetic or Prediabetic) [facility] Start: 11-15-2020 Hemoglobin A1c measurement A1C test (Diabetic or Prediabetic) [facility] Start: 03-02-2020 Influenza vaccination Flu vaccine (# 1) [facility] Work Phone: Start: 06-29-2017 [facility]id [facility] Start: 2015 Screening for malign ant neoplasm of colon [facility] Start: 2015 Shingles Vaccine (1 of 2) Shingles Vaccine (1 of 2) [facility] Start: 06-29-2013 Lipid panel Lipids [facility] Start: 2010 Screening for malign ant neoplasm of colon [facility] Start: 1984 DTaP/Tdap/Td vaccine (1 - Tdap) DTaP/Tdap/Td vaccine (1 - Tdap) [facility] Start: 1983 Diabetic retinal exam Diabetic retin al exam [facility] Start: 1983 Hepatitis C screening Hepatitis C sc reen [facility] Start: 1983 Urine screening for protein Diabetic microalbuminuria test [facility] Start: 1980 HIV screening HIV screen [facility] Start: 1977 Depression Screen Depression Screen [facility] Start: 1975 Diabetic foot examination Diabetic foot exam [facility] Start: 1965 Hepatitis C screening Hepatitis C sc grisel [facility] Work Phone: Start: 1965 Screening for malign ant neoplasm of colon [facility] Immunizations Immunization Date Immunization Notes Care Provider [facility] 05-05-2024 influenza, seasonal, injectable, preservative free Amada Fruth LITIGATION SPECIALIST Work Phone: [facility] 04-02-2023 influenza, injectabl e, quadrivalent, preservative free Amada Fruth LITIGATION SPECIALIST Work Phone: [facility] 04-02-2023 influenza virus vaccine, unspecified formulation Amada Fruth LITIGATION SPECIALIST Work Phone: [facility] 04-21-2022 influenza virus vaccine, unspecified formulation JAYME LALITA [facility] 04-21-2022 influenza, injectabl e, quadrivalent, preservative free Amada Fruth LITIGATION SPECIALIST Work Phone: [facility] 04-21-2022 tetanus toxoid, redu georgina diphtheria toxoid, and acellular pertussis vaccine, adsorbed JAYME LALITA [facility] 06-07-2021 SARS-CoV-2 (COVID-19 ) mRNA-1273 vaccine JAYME LALITA [facility] 06-06-2021 Moderna SARS-CoV-2 Booster Vaccination Amada Fruth LITIGATION SPECIALIST Work Phone: [facility] 04-15-2021 influenza virus vaccine, unspecified formulation JAYME LALITA [facility] 04-15-2021 influenza, injectabl e, quadrivalent, preservative free Amada Fruth LITIGATION SPECIALIST Work Phone: [facility] 08-11-2020 SARS-CoV-2 (COVID-19 ) mRNA-1273 vaccine JAYME LALITA [facility] Comment on above: Result Comment: 2022: TPV6 08-10-2020 Moderna SARS-CoV-2 Vaccination Amada Fruth LITIGATION SPECIALIST Work Phone: [facility] 07-14-2020 SARS-CoV-2 (COVID-19 ) mRNA-1273 vaccine JAYME LALITA [facility] 07-13-2020 Moderna SARS-CoV-2 Vaccination Amada Fruth LITIGATION SPECIALIST Work Phone: [facility] 04-08-2020 influenza virus vaccine, unspecified formulation JAYME LALITA [facility] 04-08-2020 influenza, injectabl e, quadrivalent, preservative free Amada Fruth LITIGATION SPECIALIST Work Phone: [facility] 04-17-2019 influenza virus vaccine, unspecified formulation JAYME LALITA [facility] 04-17-2019 influenza, injectabl e, quadrivalent, preservative free Amada Fruth LITIGATION SPECIALIST Work Phone: [facility] 04-16-2019 influenza, high dose seasonal, preservative-free Amada Fruth LITIGATION SPECIALIST Work Phone: [facility] Healthcare Payers Date Payer Category Payer Private Health Insurance [id number] 2016 Private Health Insurance [id number] 1965 Unknown [id number] 2.16.8 [id number] 1965 Unknown [id number] 2.16.8 [id number] 1965 Unknown [id number] 2.16.8 [id number] 1965 Unknown [id number] 2.16.8 [id number] 1965 Unknown [id number] 2.16.84 [id number] 1965 Unknown [id number] 2.16.84 [id number] 1965 Unknown [id number] 2.16.84 0.1.832445.3.579.2.593 1965 Unknown [id number] 2.16. [id number] 1965 Unknown [id number] 2.16.84 0.1.178397.3.579.2.1259 1965 Unknown [id number] 2.16.84 0.1.021664.3.579.2.1259 1965 Unknown [id number] 2.16.84 0.1.768105.3.579.2.9 1965 Unknown [id number] 2.16.84 0.1.436231.3.579.2.1259 1965 Unknown [id number] 2.16.84 0.1.032594.3.579.2.1259 1965 Unknown [id number] 2.16.84 0.1.574190.3.579.2.1259 1965 Unknown [id number] 2.16.84 0.1.909710.3.579.2.1259 1965 Unknown [id number] 2.16.84 0.1.300451.3.579.2.1259 1965 Unknown [id number] 2.16.8 40.1.982388.3.579.2.727 1965 Unknown [id number] 2.16.8 [id number] 1959 Unknown [id number] Social History Date Type Detail Facility Start: 11-09-2016 End: 04-02-2023 Tobacco smoking status NHIS Never smoker [employer] Phone: Start: 11-09-2016 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 intake 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) [employer] Phone: Start: 1965 [facility] Tobacco smoking status Never [facility] Start: 04-02-2023 End: 11-13-2024 Sex Assigned At Male [facility] Start: 04-02-2023 Tobacco use and exposure Smokeless tobacco non-user [facility] Start: 04-02-2023 End: 11-14-2024 Alcohol intake Lifetime non-drinker (finding) [facility] Start: 04-02-2023 End: 11-13-2024 History of Social function [facility] Start: 01-18-2023 Alcohol Comment Caffeine: none [facility] Functional Status Date Assessment Result Facility 11-13-2024 Patient Health Quest ionnaire 2 item (PHQ-2) [Reported] [facility] 12-26-2023 Functional Status N/A [facility] 09-27-2022 Functional Status N/A [facility] 09-05-2022 Functional Status Yes [facility] Clinical Notes 09-05-2022 to 11-14-2024 LUIS Worthington - 11/14/2024 7:40 AM EDTRachel Rohan Stockton NP - 11/13/2024 7:30 AM EDTTelephone Encounter - Veda Hawley RN - 10/31/2024 9:32 AM LUIS Liu - 07/22/2024 7:50 AM EST Note Date & Type Note Facility 11-14-2024 History of Presen t illness Narrative Images from the original note were not included. Follow up Diagnosis: Folliculitis Location: neck, posterior scalp Last visit: 4 months ago Symptoms: still breaking out; still flaring with CPAP with mask; feels more oily; washes face twice a day with astringent; maybe feels he is sweating more and causing more breakouts; also feels he flares with testosterone levels Status: no change Current treatment: Doxycycline 100mg once a day Lesion Location: right arm Duration: month Quality: denies pain, denies itch Associated symptoms: weird rosemarie Treatments: none All pertinent medical history, medications, and allergies were reviewed. General Exam: alert, oriented to person, place, and time, normal affect, well appearing A focused exam completed based on patient reported problems, see below: Skin Exam 1. BACTERIAL FOLLICULITIS Left Buccal Cheek, Left Occipital Scalp, Left Parotid Area, Neck - Posterior, Scalp Erythematous follicular papules and pustules. Unchanged today At this time as patient is not improved, plan to discontinue Doxycyline and start Ceftin 250mg bid. Ketoconazole shampoo also prescribed for patient to use on the scalp and mcdowell area. Instructed on proper use of prescribed medications. Ceftin handout given. Plan to follow up in 3-4 months Related Medications cefuroxime (Ceftin) 250 MG tablet Take 1 tablet, by mouth, twice daily, 30 days ketoconazole (NIZOral) 2 % shampoo Apply topically 2 (two) times a week Lather on scalp and mcdowell area 2x a week, leave on 5 min before rinsing 2. SEBORRHEIC KERATOSIS Right Forearm - Posterior Stuck on verrucous, variably pigmented papule Patient was counseled regarding these benign growths. Removal is normally not necessary, but they may be removed if they are symptomatic or for cosmetic reasons. Next Visit: 3-4 months Folliculitis follow up documented in this encounter [facility] 11-13-2024 History of Presen t illness Narrative Images from the original note were not included. Silvestre Corea is a 59 y.o. 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 Mother and father both had DC by this age. Hx of DM A1c 6.8 currently SUBJECTIVE: MEDICATIONS: Current Outpatient Medications Medication Instructions Alpha-Lipoic Acid 600 MG capsule Daily aspirin 81 mg, Daily RT cefuroxime (CEFTIN) 500 mg, Oral, 2 times daily, Take 1 tablet daily clobetasol (Temovate) 0.05 % ointment APPLY OINTMENT TOPICALLY TO AFFECTED AREA EXTERNALLY TWICE DAILY FOR 14 DAYS cyanocobalamin (VITAMIN B-12) 1,000 mcg, Daily doxycycline (Vibramycin) 100 MG capsule Take 1 capsule daily EPINEPHrine (Epipen) 0.3 MG/0.3ML injection syringe INJECT CONTENTS OF 1 PEN NEEDED FOR ALLERGIC REACTION fluticasone (Flonase) 50 MCG/ACT nasal spray Use 1 spray(s) in each nostril once daily glyBURIDE (Diabeta) 5 MG tablet TAKE 1 TABLET BY MOUTH IN THE MORNING WITH MEALS levothyroxine (SYNTHROID, LEVOXYL) 50 mcg, Oral, Daily before breakfast metFORMIN (Glucophage) 1000 MG tablet TAKE 1 TABLET BY MOUTH TWICE DAILY WITH A MEAL montelukast (SINGULAIR) 10 mg, Oral, Nightly omega-3 (Fish Oil) 1000 MG capsule Daily Ozempic, 2 MG/DOSE, 8 MG/3ML solution pen-injector INJECT 1 SYRINGE (2MG) SUBCUTANEOUSLY ONCE A WEEK IN THE ABDOMEN, THIGH, OR UPPER ARM. pregabalin (Lyrica) 300 MG capsule TAKE 1 CAPSULE BY MOUTH IN THE MORNING AND 1 AT BEDTIME rOPINIRole (REQUIP) 0.25 mg, Oral, Daily PRN rosuvastatin (CRESTOR) 40 mg, Oral, Daily Syringe/Needle, Disp, (Luer Lock Safety Syringes) 22G X 1-1/2 3 ML misc 1 each, Subcutaneous, Daily tadalafil (CIALIS) 5 mg, Oral, Daily PRN testosterone cypionate (Depo-Testosterone) 200 MG/ML injection INJECT 1/2 (ONE-HALF) ML INTRAMUSCULARLY ONCE A WEEK 30 day supply traZODone (DESYREL) 50 mg, Oral, Every 24 hours Trulicity 1.5 mg, Subcutaneous, Weekly, Patient to take two of the 1.5mg pens every week due to product availability Trulicity 3 mg, Subcutaneous, Weekly Turmeric (QC TUMERIC COMPLEX PO) Daily ALLERGIES: Allergies Allergen Reactions Banana Other Reaction(s): GI Distress, GI Intolerance Banana (Diagnostic) Unknown Bee Pollen Unknown Bee Venom Unknown Mixed Ragweed Angioedema and Unknown bees Molds & Smuts Unknown SURGICAL HISTORY: Past Surgical History: Procedure Laterality Date [facility] CLONOSEQ CLONALITY (ID) 10/02/2017 Dr. Miles CHOLECYSTECTOMY 11/[address] Marko Robledo at [facility] COLONOSCOPY 05/05/2013 for diverticulitis, diverticulosis, polyp by Dr. Miles TONSILLECTOMY 1979 FAMILY HISTORY: Family History Problem Relation Name Age of Onset Hypertension Mother Heart disease Mother Kidney failure Mother Diabetes Mother Parkinsonism Father Hypertension Father Heart disease Father No Known Problems Maternal Grandmother No Known Problems Maternal Grandfather Dementia Paternal Grandmother SOCIAL HISTORY: Social History Tobacco Use Smoking status: Never Smokeless tobacco: Never Vaping Use Vaping status: Never Used Substance Use Topics Alcohol use: Never Comment: Caffeine: none Drug use: Never Depression: Not at risk (11/13/2024) PHQ-2 PHQ-2 Score: 0 REVIEW OF SYMPTOMS: Review of Systems Constitutional: Positive for fatigue. HENT: Positive for congestion, sinus pressure, sinus pain, sore throat and voice change. Eyes: Negative. Respiratory: Positive for shortness of breath. Cardiovascular: Positive for chest pain. Gastrointestinal: Negative. Genitourinary: Negative. Musculoskeletal: Positive for arthralgias. Skin: Negative. Neurological: Negative. Psychiatric/Behavioral: Negative. Hematological: Negative. Endocrine: Negative. Allergic/Immunologic: Positive for environmental allergies. OBJECTIVE: Visit Vitals BP 132/82 (BP Location: Left arm, Patient Position: Sitting, BP Cuff Size: Large adult) Pulse 74 Temp 96.2 F (Tympanic) Ht 6' 2 Wt 284 lb 3.2 oz SpO2 94% BMI 36.49 kg/m Smoking Status Never BSA 2.6 m Physical Exam Constitutional: Appearance: Normal appearance. HENT: Head: Normocephalic and atraumatic. Right Ear: Tympanic membrane, ear canal and external ear normal. Left Ear: Tympanic membrane, ear canal and external ear normal. Nose: Nose normal. Mouth/Throat: Mouth: Mucous membranes are moist. Pharynx: Oropharynx is clear. Eyes: Extraocular Movements: Extraocular movements intact. Conjunctiva/sclera: Conjunctivae normal. Pupils: Pupils are equal, round, and reactive to light. Neck: Vascular: No carotid bruit. Cardiovascular: Rate and Rhythm: Normal rate and regular rhythm. Pulses: Normal pulses. Heart sounds: Murmur heard. Pulmonary: Effort: Pulmonary effort is normal. Breath sounds: Normal breath sounds. Musculoskeletal: General: Normal range of motion. Cervical back: Normal range of motion and neck supple. Right lower leg: No edema. Left lower leg: No edema. Skin: General: Skin is warm and dry. Capillary Refill: Capillary refill takes less than 2 seconds. Neurological: General: No focal deficit present. Mental Status: He is alert and oriented to person, place, and time. Mental status is at baseline. Psychiatric: Mood and Affect: Mood normal. Behavior: Behavior normal. Thought Content: Thought content normal. Judgment: Judgment normal. ASSESSMENT AND PLAN: Assessment/Plan Problem List Items Addressed This Visit Acquired hypothyroidism (CMS/HCC) Relevant Orders TSH Chronic stable. Monitor. Diabetes (CMS/HCC) - Primary Relevant Orders Our specific goals for your diabetes, is to keep your hbaic<7% and your blood pressure less than 130/80. Our plan for achieving these goals is as follows: You state that you are confident that you can achieve & practice our plan. You have been given handouts providng education on diabetic diet and a summary of this plan at the end of your visit today. CBC and differential Comprehensive metabolic panel Hemoglobin A1c Lipid panel Microalbumin / creatinine urine ratio TSH PSA Hyperlipemia (CMS/HCC) Relevant Orders CBC and differential Comprehensive metabolic panel Lipid panel Low fat diet daily exercise. Low testosterone chronic stable. Monitor continue current care Other Visit Diagnoses Screening for prostate cancer Relevant Orders PSA Complete with next blood draw Heart murmur Relevant Orders Complete echo to evaluate Transthoracic Echo (TTE) Complete STRESS TEST [place] Shortness of breath Relevant Orders Complete echo and stress test to evaluate. To ER immediately for worsening/concerning symptoms Transthoracic Echo (TTE) Complete STRESS TEST [place] Family history of early CAD Relevant Orders Complete echo and stress test Transthoracic Echo (TTE) Complete STRESS TEST [place] Feeling of chest tightness Relevant Orders Complete stress test and eho Transthoracic Echo (TTE) Complete STRESS TEST [place] Acute non-recurrent frontal sinusitis Relevant Medications continue current medications. increase fliuds. rest use steam. take all medications as directed. call with any concerns and to ER for worsening symptoms cefuroxime (Ceftin) 500 MG tablet Follow up in about 3 months (around 02/13/2025) for Recheck. documented in this encounter [facility] 10-31-2024 Telephone encounter Note Rx for testosterone needs to be altered to reflect 4ml vs 2ml. Thiagot aware this will occur Sunday. [facility] 10-31-2024 Miscellaneous Notes Rx for testosterone needs to be altered to reflect 4ml vs 2ml. Thiagot aware this will occur Sunday. documented in this encounter [facility] 09-30-2024 Note Patient Education Ma terials Name: BuddySilvestre bradley Current Date: 09/30/2024 09:07:39 [facility] : 1965 The following sheet(s) are the Patient Education Leaflets for Silvestre Corea Custom Diabetes office visit stop metformin Trulicity 4.5 mg weekly Breakfast glyburide 5mg May call or stop by office for CGM/glucometer download and review for instrution on further med adjustment. Health Maintenance Goals Blood sugar goals ? A1c goal less than 7% to prevent intermediate designer complications that high sugar can lead to damage of small vessels of all organs specifically eyes, heart, brain, kidneys, skin and nerves. ? Use your meter readings as a guide to improve diet and exercise. ? Fasting and premeal blood sugar goal range 80-130 ? 1-2 hours after meal, bedtime goal less than 180 Hypoglycemia treatment ? Check blood sugar if you have symptoms of low which may include sweating, hunger, lightheaded, shakiness, nausea, confusion, blurred vision If low BS less than 70 treat following Rule of 15's: ? Eat 15 g carbs: 3 glucose tabs or 4 ounces fruit juice or regular soda, or 6-7 hard candies, or 1 tablespoon or sugar ? If blood sugar remains <80 after eating 15 g of carbs and waiting 15 minutes may repeat if blood sugar remains low ? No driving until glucose is normal. Instruct family members should be instructed in use of glucagon injection or nasal route in the instance of profound hypoglycemia. Diet Goals ? Continue working on proper diet choices increasing whole foodds with protein and vegetables. Avoid sugary drinks, avoid white/starchy foods (rice, pasta, potatoes), limit snacks and processed foods with high carb foods. Weight Loss Goal ? 5-10% if BMI is over 25 through diet and exercise. Goal BMI range 18.5 to 25. Activity Goal ? Minimum 10,000 steps daily. Intentional exercise 30 minutes at least 5 days a week for a total of 150 min of moderate to intense aerobic activity with goals of increasing heart rate at least 50-70%, walking is a great way to accomplish this goal Blood Pressure Goal ? Less than 130/80. Yearly urine labs and blood draw to monitor kidney function Cholesterol Goal ? LDL less than 100 and <70 in presence of heart disease. Vision ? Dilated eye exam should be performed yearly, starting within 5 years of initial diagnosis, or more often in cases of retinopathy Feet ? Daily home feet exams. Look for open wounds, developing sores, blisters, cracks, nailbed concerns. See assistive technology specialist for toenail trimming and promptly for any sites of concern. Vaccines ? Flu Shot recommended yearly in the fall. ? COVID vaccine initial series and booster ? Pneumovax recommended once prior to age 65 and then every 5 years. ? Hepatitis B series recommended ? Zostavax recommended age 60 Healthy Meal Tips PROTEIN: Choose foods high in protein. Eating protein that is low in fat can help you control your weight. It also helps keep your heart healthy. Low-fat high-protein foods include: ? Fish ? Plant proteins, such as dry beans and peas, nuts, and soy products like tofu and soymilk ? Lean meat with all visible fat removed ? Poultry with the skin removed ? Low-fat or nonfat milk, corrage cheese, cymraes yogurt, cheese FIBER: Fiber goal over 25 grams per day Starches, sugars, and fiber are all types of carbohydrates. Choose healthy carbohydrates high in Fiber. Fiber can help lower your cholesterol and triglycerides. Fiber is also healthy for your heart. You should have 25 grams of total fiber each day. Examples Fiber rich foods: Whole-grain breads and cereals Bulgur wheat Brown rice Whole-wheat pasta Fruits and Vegetables Dry beans and Peas CARBS: Carbohydrate goal under 150g per day Keep track of the amount of carbohydrates you eat. This can help you keep the right balance of physical activity and medicine. The amount of carbohydrates needed varies for each person depending on things such as your health, the medicines you take and how active you are. You may start with around 45 to 60 grams of carbohydrates per meal, depending on your situation. Examples of foods with less than 15 grams of carbohydrates (1 serving of carbohydrates): 1/2 cup canned or frozen fruit 1 slice Bread 1 cup of Soup Small piece of fresh fruit (4 ounces) ? cup Oatmeal ? cup Casserole ? cup Ice Cream or Sherbet ? Malian Muffin ? large Baked Potato (3 ounces) 2 small Cookies 4 to 6 Crackers 1/3 cup Rice 2-inch square Cake without Frosting 2-inch square Brownie 6 chicken Nuggets FATS: Saturated and trans fats are unhealthy for your heart. They raise LDL (bad) cholesterol. Fat is also high in calories, so it can make you gain weight. Do your best to limit unhealthy fats. To cut down on unhealthy fats and sugar, limit these foods: Butter or margarine Palm and palm kernel oils Coconut oil Cream Cheese Marc Lunch meats Ice cream Sweet bakery goods such as pies, muffins, donuts Jams (more content not included)... [facility] 08-22-2024 Telephone encounter Note Requesting referral for diabetes management to Dr. Pérez's office for weight management and type 2 diabetic management. [facility] 08-22-2024 Miscellaneous Notes Requesting referral for diabetes management to Dr. Pérez's office for weight management and type 2 diabetic management. documented in this encounter [facility] 07-22-2024 History of Presen t illness Narrative Follow up Diagnosis: Folliculitis Location: neck, posterior scalp Last visit: 3 months ago (first follow up since starting treatment) Symptoms: almost clear; few breakouts remain; itching still Status: improved Current treatment: Doxycycline 100mg once a day (still taking) All pertinent medical history, medications, and allergies were reviewed. General Exam: alert, oriented to person, place, and time, normal affect, well appearing A focused exam completed based on patient reported problems, see below: 1. Bacterial folliculitis Neck - Posterior, Scalp Few erythematous follicular papules and pustules. Much improved At this time as patient is improved but not at treatment goal, plan to continue current treatment. Refills prescribed today. Explained that likely the strap from CPAP machine is pulling hair follicles. Plan to follow up in 4 months. May consider decreasing Doxy at next appt Related Medications doxycycline (Vibramycin) 100 MG capsule Take 1 capsule daily Next Visit: 4 months documented in this encounter [facility] 06-29-2024 Telephone encounter Note Notify negative abdominal xray And notify mild arthritis of spine only. Can consider physical therapy if pain still present. [facility] 06-29-2024 Miscellaneous Notes Notify negative abdominal xray And notify mild arthritis of spine only. Can consider physical therapy if pain still present. documented in this encounter [facility] 06-17-2024 History of Presen t illness Narrative Silvestre Corea is a 58 y.o. 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 Ongoing a couple weeks. No known injury. Denies fever/chills. Denies difficulty urinating or blood in urine. Advil and aleve do not help symptoms. Pain is waking him up at night. SUBJECTIVE: MEDICATIONS: Current Outpatient Medications Medication Instructions Alpha-Lipoic Acid 600 MG capsule Daily aspirin 81 mg, Daily RT clobetasol (Temovate) 0.05 % ointment APPLY OINTMENT TOPICALLY TO AFFECTED AREA EXTERNALLY TWICE DAILY FOR 14 DAYS cyanocobalamin (VITAMIN B-12) 1,000 mcg, Daily doxycycline (Vibramycin) 100 MG capsule Take 1 capsule daily EPINEPHrine (Epipen) 0.3 MG/0.3ML injection syringe INJECT CONTENTS OF 1 PEN NEEDED FOR ALLERGIC REACTION fluticasone (Flonase) 50 MCG/ACT nasal spray Use 1 spray(s) in each nostril once daily glyBURIDE (DIABETA) 5 mg, Oral, Daily with breakfast ketorolac (TORADOL) 10 mg, Oral, Every 6 hours PRN levothyroxine (SYNTHROID, LEVOXYL) 50 mcg, Oral, Daily before breakfast metFORMIN (Glucophage) 1000 MG tablet TAKE 1 TABLET BY MOUTH TWICE DAILY WITH A MEAL montelukast (SINGULAIR) 10 mg, Oral, Nightly omega-3 (Fish Oil) 1000 MG capsule Daily pregabalin (LYRICA) 300 mg, Oral, 2 times daily, Patient states the red pregabalin works but the blue does not. Please dispense the red brand of medication rOPINIRole (REQUIP) 0.25 mg, Oral, Daily PRN rosuvastatin (CRESTOR) 40 mg, Oral, Daily Syringe/Needle, Disp, (Luer Lock Safety Syringes) 22G X 1-1/2 3 ML misc 1 each, Subcutaneous, Daily tadalafil (CIALIS) 5 mg, Oral, Daily PRN testosterone cypionate (Depo-Testosterone) 200 MG/ML injection INJECT 1/2 (ONE-HALF) ML INTRAMUSCULARLY ONCE A WEEK traZODone (DESYREL) 50 mg, Oral, Every 24 hours Trulicity 1.5 mg, Subcutaneous, Weekly, Patient to take two of the 1.5mg pens every week due to product availability Trulicity 3 mg, Subcutaneous, Weekly Turmeric (QC TUMERIC COMPLEX PO) Daily ALLERGIES: Allergies Allergen Reactions Banana Other Reaction(s): GI Distress, GI Intolerance Banana (Diagnostic) Unknown Bee Pollen Unknown Bee Venom Unknown Mixed Ragweed Angioedema and Unknown bees Molds & Smuts Unknown SURGICAL HISTORY: Past Surgical History: Procedure Laterality Date [facility] CLONOSEQ CLONALITY (ID) 10/02/2017 Dr. Miles CHOLECYSTECTOMY 11/[address] Marko Robledo at [facility] COLONOSCOPY 05/05/2013 for diverticulitis, diverticulosis, polyp by Dr. Miles TONSILLECTOMY 1979 FAMILY HISTORY: Family History Problem Relation Name Age of Onset Hypertension Mother Heart disease Mother Kidney failure Mother Diabetes Mother Parkinsonism Father Hypertension Father Heart disease Father No Known Problems Maternal Grandmother No Known Problems Maternal Grandfather Dementia Paternal Grandmother SOCIAL HISTORY: Social History Tobacco Use Smoking status: Never Smokeless tobacco: Never Vaping Use Vaping status: Never Used Substance Use Topics Alcohol use: Never Comment: Caffeine: none Drug use: Never Depression: Not at risk (05/05/2024) PHQ-2 PHQ-2 Score: 0 REVIEW OF SYMPTOMS: Review of Systems Constitutional: Negative. HENT: Negative. Eyes: Negative. Respiratory: Negative. Cardiovascular: Negative. Gastrointestinal: Negative. Genitourinary: Negative. Musculoskeletal: Positive for back pain. Skin: Negative. Neurological: Neuropathy present. Pt feels this is worsening. Psychiatric/Behavioral: Negative. Hematological: Negative. Endocrine: Negative. Allergic/Immunologic: Negative. OBJECTIVE: Visit Vitals BP 130/78 (BP Location: Left arm, Patient Position: Sitting, BP Cuff Size: Large adult) Pulse 76 Temp 97.6 F (Tympanic) Ht 6' 2 Wt 279 lb 6.4 oz SpO2 95% BMI 35.87 kg/m Smoking Status Never BSA 2.58 m Physical Exam Constitutional: Appearance: Normal appearance. HENT: Head: Normocephalic and atraumatic. Eyes: Extraocular Movements: Extraocular movements intact. Conjunctiva/sclera: Conjunctivae normal. Pupils: Pupils are equal, round, and reactive to light. Cardiovascular: Rate and Rhythm: Normal rate and regular rhythm. Pulses: Normal pulses. Heart sounds: Normal heart sounds. Pulmonary: Effort: Pulmonary effort is normal. Breath sounds: Normal breath sounds. Musculoskeletal: General: Tenderness present. No swelling, deformity or signs of injury. Right lower leg: No edema. Left lower leg: No edema. Comments: Tender mid back bilateral flanks Skin: General: Skin is warm and dry. Neurological: General: No focal deficit present. Mental Status: He is alert and oriented to person, place, and time. Mental status is at baseline. Psychiatric: Mood and Affect: Mood normal. Behavior: Behavior normal. Thought Content: Thought content normal. Judgment: Judgment normal. ASSESSMENT AND PLAN: Assessment/Plan Problem List Items Addressed This Visit None Visit Diagnoses Flank pain - Primary Relevant Medications ketorolac (Toradol) 10 MG tablet Other Relevant Orders XR LUMBAR SPINE AP/LAT/FLEX/EXT/OBLIQUES XR ABDOMEN 2 VIEW Complete xrays. Medication as directed with food. Stretch every day. 4 weeks. documented in this encounter [facility] 05-05-2024 History of Presen t illness Narrative Silvestre Corea is a 58 y.o. 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 Bowels at baseline. Noting pain in bilateral flanks unsure if MS or kidneys but feels deeper. Neuropathy stable. Using cgm current bsl 103. Mood has been good. SUBJECTIVE: MEDICATIONS: Current Outpatient Medications Medication Instructions Alpha-Lipoic Acid 600 MG capsule Daily aspirin 81 mg, Daily RT clobetasol (Temovate) 0.05 % ointment APPLY OINTMENT TOPICALLY TO AFFECTED AREA EXTERNALLY TWICE DAILY FOR 14 DAYS cyanocobalamin (VITAMIN B-12) 1,000 mcg, Daily doxycycline (Vibramycin) 100 MG capsule Take 1 capsule daily EPINEPHrine (Epipen) 0.3 MG/0.3ML injection syringe INJECT CONTENTS OF 1 PEN NEEDED FOR ALLERGIC REACTION fluticasone (Flonase) 50 MCG/ACT nasal spray Use 1 spray(s) in each nostril once daily glyBURIDE (DIABETA) 5 mg, Oral, Daily with breakfast levothyroxine (SYNTHROID, LEVOXYL) 50 mcg, Oral, Daily before breakfast metFORMIN (Glucophage) 1000 MG tablet TAKE 1 TABLET BY MOUTH TWICE DAILY WITH A MEAL miconazole (Micatin) 2 % cream Topical, 2 times daily, genitalia montelukast (SINGULAIR) 10 mg, Oral, Nightly omega-3 (Fish Oil) 1000 MG capsule Daily pregabalin (LYRICA) 300 mg, Oral, 2 times daily, Patient states the red pregabalin works but the blue does not. Please dispense the red brand of medication rOPINIRole (REQUIP) 0.25 mg, Oral, Daily PRN rosuvastatin (CRESTOR) 40 mg, Oral, Daily Syringe/Needle, Disp, (Luer Lock Safety Syringes) 22G X 1-1/2 3 ML misc 1 each, Subcutaneous, Daily tadalafil (CIALIS) 5 mg, Oral, Daily PRN testosterone cypionate (Depo-Testosterone) 200 MG/ML injection INJECT 1/2 (ONE-HALF) ML INTRAMUSCULARLY ONCE A WEEK traZODone (DESYREL) 50 mg, Oral, Every 24 hours Trulicity 1.5 mg, Subcutaneous, Weekly, Patient to take two of the 1.5mg pens every week due to product availability Trulicity 3 mg, Subcutaneous, Weekly Turmeric (QC TUMERIC COMPLEX PO) Daily ALLERGIES: Allergies Allergen Reactions Banana Other Reaction(s): GI Distress, GI Intolerance Banana (Diagnostic) Unknown Bee Pollen Unknown Bee Venom Unknown Mixed Ragweed Angioedema and Unknown bees Molds & Smuts Unknown SURGICAL HISTORY: Past Surgical History: Procedure Laterality Date [facility] CLONOSEQ CLONALITY (ID) 10/02/2017 Dr. Miles CHOLECYSTECTOMY 11/[address] Marko Robledo at [facility] COLONOSCOPY 05/05/2013 for diverticulitis, diverticulosis, polyp by Dr. Miles TONSILLECTOMY 1979 FAMILY HISTORY: Family History Problem Relation Name Age of Onset Hypertension Mother Heart disease Mother Kidney failure Mother Diabetes Mother Parkinsonism Father Hypertension Father Heart disease Father No Known Problems Maternal Grandmother No Known Problems Maternal Grandfather Dementia Paternal Grandmother SOCIAL HISTORY: Social History Tobacco Use Smoking status: Never Smokeless tobacco: Never Vaping Use Vaping status: Never Used Substance Use Topics Alcohol use: Never Comment: Caffeine: none Drug use: Never Depression: Not at risk (05/05/2024) PHQ-2 PHQ-2 Score: 0 REVIEW OF SYMPTOMS: Review of Systems Review of Systems Constitutional: Negative for fatigue, fever and unexpected weight change. HENT: Negative for congestion, dental problem, ear pain, postnasal drip, sinus pain and sore throat. Eyes: Negative for discharge and visual disturbance. Respiratory: Negative for snoring, cough, shortness of breath and wheezing. Cardiovascular: Negative for chest pain and palpitations. Gastrointestinal: Negative for blood in stool, constipation, diarrhea, nausea and vomiting. Genitourinary: Negative for difficulty urinating, dysuria and enuresis. Musculoskeletal: Negative for arthralgias and +bilateral flank pain Skin: Negative for color change, rash and wound. Allergic/Immunologic: Negative for food allergies. Neurological: Negative for dizziness and headaches. Psychiatric/Behavioral: Negative for self-injury and sleep disturbance. The patient is not nervous/anxious. OBJECTIVE: Visit Vitals BP 112/80 (BP Location: Left arm, Patient Position: Sitting, BP Cuff Size: Adult) Pulse 71 Resp 18 Ht 6' 2 SpO2 94% BMI 35.82 kg/m Smoking Status Never BSA 2.58 m Physical Exam Constitutional: General: pt is not in acute distress. Appearance:Pt is not ill-appearing, toxic-appearing or diaphoretic. HENT: Head: Normocephalic and atraumatic. Right Ear: Tympanic membrane and ear canal normal. There is no impacted cerumen. Left Ear: Tympanic membrane and ear canal normal. There is no impacted cerumen. Nose: No congestion or rhinorrhea. Mouth/Throat: Mouth: Mucous membranes are moist. Pharynx: Oropharynx is clear. No oropharyngeal exudate or posterior oropharyngeal erythema. Eyes: Extraocular Movements: Extraocular movements intact. Conjunctiva/sclera: Conjunctivae normal. Pupils: Pupils are equal, round, and reactive to light. Neck: Vascular: No carotid bruit. Cardiovascular: Rate and Rhythm: Normal rate and regular rhythm. Pulses: Normal pulses. Heart sounds: No murmur heard. No friction rub. No gallop. Pulmonary: Effort: Pulmonary effort is normal. No respiratory distress. Breath sounds: No stridor. No wheezing, rhonchi or rales. Musculoskeletal: General: No swelling, tenderness or deformity. Cervical back: No rigidity. Right lower leg: No edema. Left lower leg: No edema. Lymphadenopathy: Cervical: No cervical adenopathy. Skin: General: Skin is warm and dry. Capillary Refill: Capillary refill takes less than 2 seconds. Findings: No rash. Neurological: General: No focal deficit present. Mental Status: Pt is alert and oriented to person, place, and time. Mental status is at baseline. Psychiatric: Mood and Affect: Mood normal. Behavior: Behavior normal. Thought Content: Thought content normal. Judgment: Judgment normal. Diabetic foot exam: Left: Pulses Dorsalis Pedis: present Reflexes 2+ Vibratory sensation normal Proprioception normal Sharp/dull discrimination normal Filament test present Right: Pulses Dorsalis Pedis: present Reflexes 2+ Vibratory sensation normal Proprioception normal Sharp/dull discrimination normal Filament test present ASSESSMENT AND PLAN: Assessment/Plan Problem List Items Addressed This Visit Acquired hypothyroidism ([facility]/HCC) - Primary Relevant Medications levothyroxine (Synthroid, Levoxyl) 50 MCG tablet Other Relevant Orders TSH Stable. Monitor. Diabetes (CMS/HCC) Our specific goals for your diabetes, is to keep your hbaic<7% and your blood pressure less than 130/80. Our plan for achieving these goals is as follows: You state that you are confident that you can achieve & practice our plan. You have been given handouts providng education on diabetic diet and a summary of this plan at the end of your visit today. Relevant Medications Dulaglutide (Trulicity) 3 MG/0.5ML solution auto-injector Other Relevant Orders CBC and differential Comprehensive metabolic panel Hemoglobin A1c Lipid panel Microalbumin / creatinine urine ratio Diabetic peripheral neuropathy associated with type 2 diabetes mellitus ([facility]/HCC) Relevant Medications metFORMIN (Glucophage) 1000 MG tablet glyBURIDE (Diabeta) 5 MG tablet rosuvastatin (Crestor) 40 MG tablet Other Relevant Orders CBC and differential Comprehensive metabolic panel Hemoglobin A1c Lipid panel Microalbumin / creatinine urine ratio Microalbumin / creatinine urine ratio As above. Please get office copy of work wellness labs. Hyperlipemia ([facility]/HCC) Relevant Orders Low fat diet daily exercise CBC and differential Comprehensive metabolic panel Hemoglobin A1c Lipid panel Microalbumin / creatinine urine ratio Idiopathic neuropathy Stable monitor Relevant Medications rOPINIRole (Requip) 0.25 MG tablet traZODone (Desyrel) 50 MG tablet Low testosterone Stable. monitor Relevant Medications tadalafil (Cialis) 5 MG tablet testosterone cypionate (Depo-Testosterone) 200 MG/ML injection Other Relevant Orders Testosterone Type 2 diabetes mellitus without complication (CMS/HCC) Relevant Orders CBC and differential Comprehensive metabolic panel Hemoglobin A1c Lipid panel Microalbumin / creatinine urine ratio As above Other Visit Diagnoses Acute non-recurrent frontal sinusitis Relevant Medications montelukast (Singulair) 10 MG tablet pregabalin (Lyrica) 300 MG capsule continue current medications. increase fliuds. rest use steam. take all medications as directed. call with any concerns and to ER for worsening symptoms Immunization due Relevant Orders informed consent obtained. VIS provided. Flu vaccine greater than or equal to 3 years old, PF IM (IMM19) (Completed) Dysuria Relevant Orders Microalbumin / creatinine urine ratio Urinalysis with reflex microscopic (clean catch) Pt to bring sample back to office to run urine and micro a Urine culture Flank pain Relevant Orders As above Microalbumin / creatinine urine ratio Urinalysis with reflex microscopic (clean catch) Urine culture Routine general medical examination at a health care facility \ Encouraged to return for wellness exam/discussion once yearly. Advised to maintain 150 min of exercise per week with emphasis on good nutrition. Encouraged annual flu vaccine and keeping dtap utd. Discussed importance of adequate sleep and work/recreational balance. Encouraged to call with any questions at any time. Patient voiced understanding. Type 2 diabetes mellitus with hyperglycemia (CMS/HCC) Our specific goals for your diabetes, is to keep your hbaic<7% and your blood pressure less than 130/80. Our plan for achieving these goals is as follows: You state that you are confident that you can achieve & practice our plan. You have been given handouts providng education on diabetic diet and a summary of this plan at the end of your visit today. Morbid (severe) obesity due to excess calories (CMS/HCC) Stable. monitor Body mass index (BMI) 35.0-35.9, adult continue low calorie diet and daily exercise Type 2 diabetes mellitus with other specified complication (CMS/HCC) as above Male erectile dysfunction, unspecified cialis as needed Type 2 diabetes mellitus with diabetic neuropathy, unspecified (CMS/HCC) See above Follow up in about 3 months (around 08/05/2024) for Recheck. documented in this encounter [facility] 04-21-2024 History of Presen t illness Narrative Images from the original note were not included. Rash Location: posterior neck/posterior scalp Duration: 10 years Quality: painful Modifying factors: aggravated by CPAP machine Associated symptoms: acne , flares a couple of times a month Current treatments: Clearacil wash, Stridex pads, OTC acne cream (all ineffective) Lesion Location: left chest Duration: years Quality: denies pain, denies itch Associated symptoms: red, enlarging Treatments: none Previous patient. Last seen in 2019. Referred today by Amada Stockton APRN-NAS All pertinent medical history, medications, and allergies were reviewed. General Exam: alert, oriented to person, place, and time, normal affect, well appearing A focused exam completed based on patient reported problems, see below: 1. Bacterial folliculitis Neck - Posterior, Scalp Erythematous follicular papules and pustules. Discussed that folliculitis is a common condition in which the hair follicles become infected and can be symptomatic. Plan to treat like acne with a mcc low dose antibiotic. Doxycyline 100mg once a day prescribed today. Recommend patient take medication with food but not dairy, sit up for 30 min after taking medication, wear sunscreen as this medication increases sun sensitivity, and discontinue medication and notify clinic if new headaches/vision changes or other side effects occur. Recommend that patient wash with either Neutrogena Tsal shampoo or Selsun Blue. Notify office if failing to improve despite treatment. Plan to follow up in 2-3 months Related Medications doxycycline (Vibramycin) 100 MG capsule Take 1 capsule daily 2. Garrett angioma Left Breast Single garrett-red papule The patient was informed that angiomas are benign growths on the the skin. No treatment is necessary. Next Visit: 3 months documented in this encounter [facility] 03-12-2024 Telephone encounter Note Silvestre left a message on the refill line that he wanted Gabapentin and or Lyrica couldn't remember and then he said his diabetic medication he thought was Glipizide so I pulled Glyburide [facility] 03-12-2024 Miscellaneous Notes Silvestre left a message on the refill line that he wanted Gabapentin and or Lyrica couldn't remember and then he said his diabetic medication he thought was Glipizide so I pulled Glyburide documented in this encounter [facility] 02-28-2024 History of Presen t illness Narrative DIABETES Has freestyle andi A1C- 10/30/2023- 8.2 MICROA- 08/2023 LIPID- 10/2023 EYE EXAM- 05/2023- NDR FOOT EXAM- 01/17/2022- +neuropathy LAB- 10/2023 PSA- 10/30/2023- 0.52 HEP C SCREENING- none on file COLON- 04/16/2020- diverticulosis WELLVISIT- 10/2023 VACCINES- tdap 04/2022; no shingrix on file GENERAL SURGEON- Dr Pham- for colonoscopy FUNERAL LIMOUSINE DRIVER- Christina Ham- 12/2019 VENEER MATCHER- Dr Bateman- 02/04/2020 EYELET ROW MARKER- Dr. Mosqueda DENTIST- Johanna Mcnally Silvestre Corea is a 58 y.o. 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 Denies difficulty breathing. Otc without relief. SUBJECTIVE: MEDICATIONS: Current Outpatient Medications Medication Instructions Alpha-Lipoic Acid 600 MG capsule Oral, Daily aspirin 81 mg, Oral, Daily RT clobetasol (Temovate) 0.05 % ointment APPLY OINTMENT TOPICALLY TO AFFECTED AREA EXTERNALLY TWICE DAILY FOR 14 DAYS cyanocobalamin (VITAMIN B-12) 1,000 mcg, Oral, Daily dulaglutide (Trulicity) 3 MG/0.5ML solution pen-injector INJECT 1 SYRINGE SUBCUTANEOUSLY ONCE A WEEK ON WEDNESDAYS EPINEPHrine (Epipen) 0.3 MG/0.3ML injection syringe INJECT CONTENTS OF 1 PEN NEEDED FOR ALLERGIC REACTION fluticasone (Flonase) 50 MCG/ACT nasal spray Use 1 spray(s) in each nostril once daily glyBURIDE (Diabeta) 5 MG tablet TAKE 1 TABLET BY MOUTH ONCE DAILY WITH BREAKFAST OR THE FIRST MAIN MEAL OF THE DAY levothyroxine (SYNTHROID, LEVOXYL) 50 mcg, Oral, Daily before breakfast Luer Lock Safety Syringes 22G X 1-1/2 3 ML misc USE DIRECTED ONCE A WEEK metFORMIN (Glucophage) 1000 MG tablet TAKE 1 TABLET BY MOUTH TWICE DAILY WITH A MEAL miconazole (Micatin) 2 % cream Topical, 2 times daily, genitalia montelukast (SINGULAIR) 10 mg, Oral, Nightly omega-3 (Fish Oil) 1000 MG capsule Oral, Daily pioglitazone (ACTOS) 15 mg, Oral, Daily pregabalin (LYRICA) 300 mg, Oral, 2 times daily, Patient states the red pregabalin works but the blue does not. Please dispense the red brand of medication rOPINIRole (Requip) 0.25 MG tablet Daily PRN rosuvastatin (Crestor) 40 MG tablet Take 1 tablet by mouth once daily tadalafil (CIALIS) 5 mg, Oral, Daily PRN testosterone cypionate (Depo-Testosterone) 200 MG/ML injection INJECT 1/2 (ONE-HALF) ML INTRAMUSCULARLY ONCE A WEEK traZODone (Desyrel) 50 MG tablet Every 24 hours Trulicity 1.5 mg, Subcutaneous, Weekly, Patient to take two of the 1.5mg pens every week due to product availability Turmeric (QC TUMERIC COMPLEX PO) Oral, Daily ALLERGIES: Allergies Allergen Reactions Banana Other Reaction(s): GI Distress, GI Intolerance Banana (Diagnostic) Unknown Bee Pollen Unknown Bee Venom Unknown Mixed Ragweed Angioedema and Unknown bees Molds & Smuts Unknown SURGICAL HISTORY: Past Surgical History: Procedure Laterality Date [facility] CLONOSEQ CLONALITY (ID) 10/02/2017 Dr. Miles CHOLECYSTECTOMY 11/[address] Marko Robled[facility] at [facility] COLONOSCOPY 05/05/2013 for diverticulitis, diverticulosis, polyp by Dr. Miles TONSILLECTOMY 1979 FAMILY HISTORY: Family History Problem Relation Name Age of Onset Hypertension Mother Heart disease Mother Kidney failure Mother Diabetes Mother Parkinsonism Father Hypertension Father Heart disease Father No Known Problems Maternal Grandmother No Known Problems Maternal Grandfather Dementia Paternal Grandmother SOCIAL HISTORY: Social History Tobacco Use Smoking status: Never Smokeless tobacco: Never Vaping Use Vaping status: Never Used Substance Use Topics Alcohol use: Never Comment: Caffeine: none Drug use: Never Depression: Not at risk (02/28/2024) PHQ-2 PHQ-2 Score: 0 REVIEW OF SYMPTOMS: Review of Systems ROS : Sinus pain pressure and drainage Sore throat Ears plugged Negative for fevers, shortness of breath or wheezing +dry cough Denies rash +headache Denies dizziness Denies chest pain pressure edema or palpitations OBJECTIVE: Visit Vitals BP 138/76 Pulse 68 Temp 97.6 F Ht 6' 2 Wt 279 lb SpO2 94% BMI 35.82 kg/m Smoking Status Never BSA 2.58 m Physical Exam Constitutional: Appearance: Normal appearance. HENT: Head: Normocephalic and atraumatic. Right Ear: Tympanic membrane, ear canal and external ear normal. Left Ear: Tympanic membrane, ear canal and external ear normal. Nose: Congestion present. Comments: + sinus tenderness on palpation Mouth/Throat: Mouth: Mucous membranes are moist. Pharynx: Posterior oropharyngeal erythema present. Eyes: Conjunctiva/sclera: Conjunctivae normal. Pupils: Pupils are equal, round, and reactive to light. Cardiovascular: Rate and Rhythm: Normal rate and regular rhythm. Pulses: Normal pulses. Pulmonary: Effort: Pulmonary effort is normal. Breath sounds: Normal breath sounds. Musculoskeletal: General: Normal range of motion. Cervical back: Normal range of motion. Skin: General: Skin is warm and dry. Neurological: General: No focal deficit present. Mental Status: She is alert and oriented to person, place, and time. Mental status is at baseline. Psychiatric: Mood and Affect: Mood normal. Behavior: Behavior normal. Thought Content: Thought content normal. ASSESSMENT AND PLAN: Assessment/Plan Follow up keep routine and as needed.. documented in this encounter [facility] 12-26-2023 Hospital Discharg e instructions Patient Education 12/26/2023 09:41:44 Erectile Dysfunction Erectile Dysfunction Erectile dysfunction (ED) is the inability to get or keep an erection in order to have sexual intercourse. ED is considered a symptom of an underlying disorder and is not considered a disease. ED may include: Inability to get an erection. Lack of enough hardness of the erection to allow penetration. Loss of erection before sex is finished. What are the causes? This condition may be caused by: Physical causes, such as: ?Artery problems. This may include heart disease, high blood pressure, atherosclerosis, and diabetes. ?Hormonal problems, such as low testosterone. ?Obesity. ?Nerve problems. This may include back or pelvic injuries, multiple sclerosis, Parkinson's disease, spinal cord injury, and stroke. Certain medicines, such as: ?Pain relievers. ?Antidepressants. ?Blood pressure medicines and water pills (diuretics). ?Cancer medicines. ?Antihistamines. ?Muscle relaxants. Lifestyle factors, such as: ?Use of drugs such as marijuana, cocaine, or opioids. ?Excessive use of alcohol. ?Smoking. ?Lack of physical activity or exercise. Psychological causes, such as: ?Anxiety or stress. ?Sadness or depression. ?Exhaustion. ?Fear about sexual performance. ?Guilt. What are the signs or symptoms? Symptoms of this condition include: Inability to get an erection. Lack of enough hardness of the erection to allow penetration. Loss of the erection before sex is finished. Sometimes having normal erections, but with frequent unsatisfactory episodes. Low sexual satisfaction in either partner due to erection problems. A curved penis occurring with erection. The curve may cause pain, or the penis may be too curved to allow for intercourse. Never having nighttime or morning erections. How is this diagnosed? This condition is often diagnosed by: Performing a physical exam to find other diseases or specific problems with the penis. Asking you detailed questions about the problem. Doing tests, such as: ?Blood tests to check for diabetes mellitus or high cholesterol, or to measure hormone levels. ?Other tests to check for underlying health conditions. ?An ultrasound exam to check for scarring. ?A test to check blood flow to the penis. Doing a sleep study at home to measure nighttime erections. How is this treated? This condition may be treated by: Medicines, such as: ?Medicine taken by mouth to help you achieve an erection (oral medicine). ?Hormone replacement therapy to replace low testosterone levels. ?Medicine that is injected into the penis. Your health care provider may instruct you how to give yourself these injections at home. ?Medicine that is delivered with a short applicator tube. The tube is inserted into the opening at the tip of the penis, which is the opening of the urethra. A tiny pellet of medicine is put in the urethra. The pellet dissolves and enhances erectile function. This is also called MUSE (medicated urethral system for erections) therapy. Vacuum pump. This is a pump with a ring on it. The pump and ring are placed on the penis and used to create pressure that helps the penis become erect. Penile implant surgery. In this procedure, you may receive: ?An inflatable implant. This consists of cylinders, a pump, and a reservoir. The cylinders can be inflated with a fluid that helps to create an erection, and they can be deflated after intercourse. ?A semi-rigid implant. This consists of two silicone rubber rods. The rods provide some rigidity. They are also flexible, so the penis can both curve downward in its normal position and become straight for sexual intercourse. Blood vessel surgery to improve blood flow to the penis. During this procedure, a blood vessel from a different part of the body is placed into the penis to allow blood to flow around (bypass) damaged or blocked blood vessels. Lifestyle changes, such as exercising more, losing weight, and quitting smoking. Follow these instructions at home: Medicines Take gbbh-[id number] and prescription medicines only as told by your health care provider. Do not increase the dosage without first discussing it with your health care provider. If you are using self-injections, do injections as directed by your health care provider. Make sure you avoid any veins that are on the surface of the penis. After giving an injection, apply pressure to the injection site for 5 minutes. Talk to your health care provider about how to prevent headaches while taking ED medicines. These medicines may cause a sudden headache due to the increase in blood flow in your body. General instructions Exercise regularly, as directed by your health care provider. Work with your health care provider to lose weight, if needed. Do not use any products that contain nicotine or tobacco. These products include cigarettes, chewing tobacco, and vaping devices, such as e-cigarettes. If you need help quitting, ask your health care provider. Before using a vacuum pump, read the instructions that come with the pump and discuss any questions with your health care provider. Keep all follow-up visits. This is important. Contact a health care provider if: You feel nauseous. You are vomiting. You get sudden headaches while taking ED medicines. You have any concerns about your sexual health. Get help right away if: You are taking oral or injectable medicines and you have an erection that lasts longer than 4 hours. If your health care provider is unavailable, go to the nearest emergency room for evaluation. An erection that lasts much longer than 4 hours can result in permanent damage to your penis. You have severe pain in your groin or abdomen. You develop redness or severe swelling of your penis. You have redness spreading at your groin or lower abdomen. You are unable to urinate. You experience chest pain or a rapid heartbeat (palpitations) after taking oral medicines. These symptoms may represent a serious problem that is an emergency. Do not wait to see if the symptoms will go away. Get medical help right away. Call your local emergency services (911 in the [place] Do not drive yourself to the hospital. Summary Erectile dysfunction (ED) is the inability to get or keep an erection during sexual intercourse. This condition is diagnosed based on a physical exam, your symptoms, and tests to determine the cause. Treatment varies depending on the cause and may include medicines, hormone therapy, surgery, or a vacuum pump. You may need follow-up visits to make sure that you are using your medicines or devices correctly. Get help right away if you are taking or injecting medicines and you have an erection that lasts longer than 4 hours. This information is not intended to replace advice given to you by your health care provider. Make sure you discuss any questions you have with your health care provider. Document Revised: 09/14/2021 Document Reviewed: 09/14/2021 [employer] Patient Education 2022 [employer] Follow Up Care 11/05/2023 12:36:59 With:Bart MARTINEZ, JOEY Pedro, URO Address: [address] [place] [address] [phone] When: Unknown [facility] 08-03-2023 History of Presen t illness Narrative DIABETES A1C- 03/30/2023- 6.6 MICROA- 03/30/2023 LIPID- 03/30/2923 EYE EXAM- 05/2023- NDR FOOT EXAM- 01/17/2022- +neuropathy LAB- 08/2023 PSA- 09/12/2022 HEP C SCREENING- none on file COLON- 04/16/2020- diverticulosis WELLVISIT- 09/13/2022 VACCINES- tdap 04/2022; no shingrix on file GENERAL SURGEON- Dr Pham- for colonoscopy FUNERAL LIMOUSINE DRIVER- Christina Ham- 12/2019 VENEER MATCHER- Dr Bateman-02/04/2020 Silvestre Corea is a 57 y.o. 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 Bsl 90-140 not checking blood pressures. Having some chest tightness that goes into the back. +fmh CAD gets short of breath with exertion that goes away with rest. Neuropathy controlled currently. SUBJECTIVE: MEDICATIONS: Current Outpatient Medications Medication Instructions Alpha-Lipoic Acid 600 MG capsule Oral, Daily aspirin 81 mg, Oral, Daily RT cetirizine (ZYRTEC) 10 mg, Oral, Daily clobetasol (Temovate) 0.05 % ointment APPLY OINTMENT TOPICALLY TO AFFECTED AREA EXTERNALLY TWICE DAILY FOR 14 DAYS EPINEPHrine (Epipen) 0.3 MG/0.3ML injection syringe INJECT CONTENTS OF 1 PEN NEEDED FOR ALLERGIC REACTION fluticasone (Flonase) 50 MCG/ACT nasal spray Use 1 spray(s) in each nostril once daily glyBURIDE (Diabeta) 5 MG tablet TAKE 1 TABLET BY MOUTH ONCE DAILY WITH BREAKFAST OR THE FIRST MAIN MEAL OF THE DAY levothyroxine (SYNTHROID, LEVOXYL) 50 mcg, Oral, Daily before breakfast Luer Lock Safety Syringes 22G X 1-1/2 3 ML misc USE DIRECTED ONCE A WEEK metFORMIN (Glucophage) 1000 MG tablet TAKE 1 TABLET BY MOUTH TWICE DAILY WITH A MEAL omega-3 (Fish Oil) 1000 MG capsule Oral, Daily pregabalin (LYRICA) 300 mg, Oral, 2 times daily rOPINIRole (Requip) 0.25 MG tablet Daily PRN rosuvastatin (Crestor) 40 MG tablet Take 1 tablet by mouth once daily tadalafil (CIALIS) 5 mg, Oral, Daily PRN testosterone cypionate (Depo-Testosterone) 200 MG/ML injection INJECT 1/2 (ONE-HALF) ML INTRAMUSCULARLY ONCE A WEEK traZODone (Desyrel) 50 MG tablet Every 24 hours Trulicity 3 MG/0.5ML solution pen-injector 3 mg Subcutaneous weekly for 90 days ALLERGIES: Allergies Allergen Reactions Banana Other Reaction(s): GI Distress, GI Intolerance Banana (Diagnostic) Unknown Bee Pollen Unknown Bee Venom Unknown Mixed Ragweed Angioedema and Unknown bees Molds & Smuts Unknown SURGICAL HISTORY: Past Surgical History: Procedure Laterality Date [facility] CLONOSEQ CLONALITY (ID) 10/02/2017 Dr. Miles CHOLECYSTECTOMY 11/[address] Marko Robledo at [facility] COLONOSCOPY 05/05/2013 for diverticulitis, diverticulosis, polyp by Dr. Miles TONSILLECTOMY 1979 FAMILY HISTORY: Family History Problem Relation Name Age of Onset Hypertension Mother Heart disease Mother Kidney failure Mother Diabetes Mother Parkinsonism Father Hypertension Father Heart disease Father No Known Problems Maternal Grandmother No Known Problems Maternal Grandfather Dementia Paternal Grandmother SOCIAL HISTORY: Social History Tobacco Use Smoking status: Never Smokeless tobacco: Never Vaping Use Vaping Use: Never used Substance Use Topics Alcohol use: Never Comment: Caffeine: none Depression: Not at risk (04/02/2023) PHQ-2 PHQ-2 Score: 0 REVIEW OF SYMPTOMS: Review of Systems Review of Systems Constitutional: Negative for fatigue, fever and unexpected weight change. HENT: Negative for congestion, dental problem, ear pain, postnasal drip, sinus pain and sore throat. Eyes: Negative for discharge and visual disturbance. Respiratory: Negative for snoring, cough, + shortness of breath Cardiovascular: positive for chest pain and palpitations. Gastrointestinal: Negative for blood in stool, constipation, diarrhea, nausea and vomiting. Genitourinary: Negative for difficulty urinating, dysuria and enuresis. Musculoskeletal: Negative for arthralgias and back pain. Skin: Negative for color change, rash and wound. Allergic/Immunologic: Negative for food allergies. Neurological: Negative for dizziness and headaches. Psychiatric/Behavioral: Negative for self-injury and sleep disturbance. The patient is not nervous/anxious. OBJECTIVE: Visit Vitals BP 126/80 Pulse 71 Ht 6' 2 Wt 282 lb BMI 36.21 kg/m Smoking Status Never BSA 2.59 m Physical Exam Constitutional: General: pt is not in acute distress. Appearance:Pt is not ill-appearing, toxic-appearing or diaphoretic. HENT: Head: Normocephalic and atraumatic. Right Ear: Tympanic membrane and ear canal normal. There is no impacted cerumen. Left Ear: Tympanic membrane and ear canal normal. There is no impacted cerumen. Nose: No congestion or rhinorrhea. Mouth/Throat: Mouth: Mucous membranes are moist. Pharynx: Oropharynx is clear. No oropharyngeal exudate or posterior oropharyngeal erythema. Eyes: Extraocular Movements: Extraocular movements intact. Conjunctiva/sclera: Conjunctivae normal. Pupils: Pupils are equal, round, and reactive to light. Neck: Vascular: No carotid bruit. Cardiovascular: Rate and Rhythm: Normal rate and regular rhythm. Pulses: Normal pulses. Heart sounds: No murmur heard. No friction rub. No gallop. Pulmonary: Effort: Pulmonary effort is normal. No respiratory distress. Breath sounds: No stridor. No wheezing, rhonchi or rales. Chest: Chest wall: No tenderness. Abdominal: General: Abdomen is flat. Bowel sounds are normal. There is no distension. Palpations: Abdomen is soft. Tenderness: There is no abdominal tenderness. There is no guarding. Musculoskeletal: General: No swelling, tenderness or deformity. Cervical back: No rigidity. Right lower leg: No edema. Left lower leg: No edema. Lymphadenopathy: Cervical: No cervical adenopathy. Skin: General: Skin is warm and dry. Capillary Refill: Capillary refill takes less than 2 seconds. Findings: No rash. Neurological: General: No focal deficit present. Mental Status: Pt is alert and oriented to person, place, and time. Mental status is at baseline. Psychiatric: Mood and Affect: Mood normal. Behavior: Behavior normal. Thought Content: Thought content normal. Judgment: Judgment normal. Diabetic foot exam: Left: Pulses Dorsalis Pedis: present Reflexes 2+ Vibratory sensation normal Proprioception normal Sharp/dull discrimination normal Filament test present Right: Pulses Dorsalis Pedis: present Reflexes 2+ Vibratory sensation normal Proprioception normal Sharp/dull discrimination normal Filament test present ASSESSMENT AND PLAN: Assessment/Plan Problem List Items Addressed This Visit Acquired hypothyroidism (CMS/HCC) Relevant Medications levothyroxine (Synthroid, Levoxyl) 50 MCG tablet Other Relevant Orders TSH Stable. Monitor. Diabetic peripheral neuropathy associated with type 2 diabetes mellitus (CMS/HCC) Relevant Medications pregabalin (Lyrica) 300 MG capsule metFORMIN (Glucophage) 1000 MG tablet Other Relevant Orders STRESS NUCLEAR MEDICINE TREADMILL CBC and differential Comprehensive metabolic panel Hemoglobin A1c Lipid panel Microalbumin / creatinine urine ratio TSH Continue all current care. Our specific goals for your diabetes, is to keep your hbaic<7% and your blood pressure less than 130/80. Our plan for achieving these goals is as follows: You state that you are confident that you can achieve & practice our plan. You have been given handouts providng education on diabetic diet and a summary of this plan at the end of your visit today. Low testosterone Relevant Medications testosterone cypionate (Depo-Testosterone) 200 MG/ML injection Other Relevant Orders STRESS NUCLEAR MEDICINE TREADMILL Testosterone Continue all current care. Continue to monitor. Other Visit Diagnoses Feeling of chest tightness - Primary Relevant Orders STRESS NUCLEAR MEDICINE TREADMILL Complete stress test. Monitor. To ER for concerns. Dyspnea on exertion Relevant Orders STRESS NUCLEAR MEDICINE TREADMILL As above. Family history of premature CAD Relevant Orders STRESS NUCLEAR MEDICINE TREADMILL As above. Screening for prostate cancer Relevant Orders PSA Complete labs as ordered. Follow up in about 4 months (around 12/02/2023), or wellness. documented in this encounter [facility] 09-27-2022 Hospital Discharg e instructions Patient Education 09/27/2022 11:26:31 Testicular Self-Exam, [id number]-[id number] Testicular Self-Exam A self-exam of your testicles (testicular self-exam) is looking at and feeling your testicles for unusual lumps or swelling. Swelling, lumps, or pain can be caused by: Injuries. Puffiness, redness, and soreness (inflammation). Infection. Extra fluids around your testicle (hydrocele). Twisted testicles (testicular torsion). Cancer of the testicle (testicular cancer). Why is it important to do a self-exam of testicles? You may need to do self-exams if you are at risk for cancer of the testicles. You may be at risk if you have: A testicle that has not descended (cryptorchidism). A history of cancer of the testicle. A family history of cancer of the testicle. How to do a self-exam of testicles It is easiest to do a self-exam after a warm bath or shower. Testicles are harder to examine when you are cold. A normal testicle is egg-shaped and feels firm. It is smooth, and it is not tender. At the back of your testicles, there is a firm cord that feels like spaghetti (spermatic cord). Look and feel for changes Stand and hold your penis away from your body. Look at each testicle to check for lumps or swelling. Roll each testicle between your thumb and finger. Feel the whole testicle. Feel for: ?Lumps. ?Swelling. ?Discomfort. Check for swelling or tender bumps in the groin area. Your groin is where your lower belly (abdomen) meets your upper thighs. Contact a health care provider if: You find a bump or lump. This may be like a small, hard bump that is the size of a pea. You find swelling. You find pain. You find soreness. You see or feel any other changes. Summary A self-exam of your testicles is looking at and feeling your testicles for lumps or swelling. You may need to do self-exams if you are at risk for cancer of the testicle. You should check each of your testicles for lumps, swelling, or discomfort. You should check for swelling or tender bumps in the groin area. Your groin is where your lower belly (abdomen) meets your upper thighs. This information is not intended to replace advice given to you by your health care provider. Make sure you discuss any questions you have with your health care provider. Document Released: 09/14/2009 Document Revised: 10/09/2019 Document Reviewed: 05/14/2017 [employer] Patient Education 2020 [employer] 09/27/2022 11:26:30 Hydrocele, Adult Hydrocele, Adult A hydrocele is a collection of fluid in the loose pouch of skin that holds the testicles (scrotum). This may happen because: The amount of fluid produced in the scrotum is not absorbed by the rest of the body. Fluid from the abdomen fills the scrotum. Normally, the testicles develop in the abdomen then move (drop) into to the scrotum before . The tube that the testicles travel through usually closes after the testicles drop. If the tube does not close, fluid from the abdomen can fill the scrotum. This is less common in adults. What are the causes? The cause of a hydrocele in adults is usually not known. However, it may be caused by: An injury to the scrotum. An infection (epididymitis). Decreased blood flow to the scrotum. Twisting of a testicle (testicular torsion). A defect. A tumor or cancer of the testicle. What are the signs or symptoms? A hydrocele feels like a water-filled balloon. It may also feel heavy. Other symptoms include: Swelling of the scrotum. The swelling may decrease when you lie down. You may also notice more swelling at night than in the morning. Swelling of the groin. Mild discomfort in the scrotum. Pain. This can develop if the hydrocele was caused by infection or twisting. The larger the hydrocele, the more likely you are to have pain. How is this diagnosed? This condition may be diagnosed based on: Physical exam. Medical history. You may also have other tests, including: Imaging tests, such as ultrasound. Blood or urine tests. How is this treated? Most hydroceles go away on their own. If you have no discomfort or pain, your health care provider may suggest close monitoring of your condition (called watch and wait or watchful waiting) until the condition goes away or symptoms develop. If treatment is needed, it may include: Treating an underlying condition. This may include using an antibiotic medicine to treat an infection. Surgery to stop fluid from collecting in the scrotum. Surgery to drain the fluid. Options include: ?Needle aspiration. A needle is used to drain fluid. However, the fluid buildup will come back quickly. ?Hydrocelectomy. For this procedure, an incision is made in the scrotum to remove the fluid sac. Follow these instructions at home: Watch the hydrocele for any changes. Take [id number] and prescription medicines only as told by your health care provider. If you were prescribed an antibiotic medicine, use it as told by your health care provider. Do not stop taking the antibiotic even if you start to feel better. Keep all follow-up visits as told by your health care provider. This is important. Contact a health care provider if: You notice any changes in the hydrocele. The swelling in your scrotum or groin gets worse. The hydrocele becomes red, firm, painful, or tender to the touch. You have a fever. Get help right away if you: Develop a lot of pain, or your pain becomes worse. Summary A hydrocele is a collection of fluid in the loose pouch of skin that holds the testicles (scrotum). Hydroceles can cause swelling, discomfort, and sometimes pain. In adults, the cause of a hydrocele usually is not known. However, it is sometimes caused by an infection or a rotation and twisting of the scrotum. Treatment is usually not needed. Hydroceles often go away on their own. If a hydrocele causes pain, treatment may be given to ease the pain. This information is not intended to replace advice given to you by your health care provider. Make sure you discuss any questions you have with your health care provider. Document Released: 12/06/2010 Document Revised: 06/29/2018 Document Reviewed: 06/29/2018 [employer] Patient Education 2020 [employer] Follow Up Care 09/05/2022 10:59:38 With:Bart MARTINEZ, Lizzeth Pena, URL, URO Address: When:Within 2 Month(s) Comments:w/Scrotal US [facility] 09-05-2022 Hospital Discharg e instructions Patient Education 09/05/2022 12:00:07 Erectile Dysfunction Erectile Dysfunction Erectile dysfunction (ED) is the inability to get or keep an erection in order to have sexual intercourse. Erectile dysfunction may include: Inability to get an erection. Lack of enough hardness of the erection to allow penetration. Loss of the erection before sex is finished. What are the causes? This condition may be caused by: Certain medicines, such as: ?Pain relievers. ?Antihistamines. ?Antidepressants. ?Blood pressure medicines. ?Water pills (diuretics). ?Ulcer medicines. ?Muscle relaxants. ?Drugs. Excessive drinking. Psychological causes, such as: ?Anxiety. ?Depression. ?Sadness. ?Exhaustion. ?Performance fear. ?Stress. Physical causes, such as: ?Artery problems. This may include diabetes, smoking, liver disease, or atherosclerosis. ?High blood pressure. ?Hormonal problems, such as low testosterone. ?Obesity. ?Nerve problems. This may include back or pelvic injuries, diabetes mellitus, multiple sclerosis, or Parkinson disease. What are the signs or symptoms? Symptoms of this condition include: Inability to get an erection. Lack of enough hardness of the erection to allow penetration. Loss of the erection before sex is finished. Normal erections at some times, but with frequent unsatisfactory episodes. Low sexual satisfaction in either partner due to erection problems. A curved penis occurring with erection. The curve may cause pain or the penis may be too curved to allow for intercourse. Never having nighttime erections. How is this diagnosed? This condition is often diagnosed by: Performing a physical exam to find other diseases or specific problems with the penis. Asking you detailed questions about the problem. Performing blood tests to check for diabetes mellitus or to measure hormone levels. Performing other tests to check for underlying health conditions. Performing an ultrasound exam to check for scarring. Performing a test to check blood flow to the penis. Doing a sleep study at home to measure nighttime erections. How is this treated? This condition may be treated by: Medicine taken by mouth to help you achieve an erection (oral medicine). Hormone replacement therapy to replace low testosterone levels. Medicine that is injected into the penis. Your health care provider may instruct you how to give yourself these injections at home. Vacuum pump. This is a pump with a ring on it. The pump and ring are placed on the penis and used to create pressure that helps the penis become erect. Penile implant surgery. In this procedure, you may receive: ?An inflatable implant. This consists of cylinders, a pump, and a reservoir. The cylinders can be inflated with a fluid that helps to create an erection, and they can be deflated after intercourse. ?A semi-rigid implant. This consists of two silicone rubber rods. The rods provide some rigidity. They are also flexible, so the penis can both curve downward in its normal position and become straight for sexual intercourse. Blood vessel surgery, to improve blood flow to the penis. During this procedure, a blood vessel from a different part of the body is placed into the penis to allow blood to flow around (bypass) damaged or blocked blood vessels. Lifestyle changes, such as exercising more, losing weight, and quitting smoking. Follow these instructions at home: Medicines Take [id number] and prescription medicines only as told by your health care provider. Do not increase the dosage without first discussing it with your health care provider. If you are using self-injections, perform injections as directed by your health care provider. Make sure to avoid any veins that are on the surface of the penis. After giving an injection, apply pressure to the injection site for 5 minutes. General instructions Exercise regularly, as directed by your health care provider. Work with your health care provider to lose weight, if needed. Do not use any products that contain nicotine or tobacco, such as cigarettes and e-cigarettes. If you need help quitting, ask your health care provider. Before using a vacuum pump, read the instructions that come with the pump and discuss any questions with your health care provider. Keep all follow-up visits as told by your health care provider. This is important. Contact a health care provider if: You feel nauseous. You vomit. Get help right away if: You are taking oral or injectable medicines and you have an erection that lasts longer than 4 hours. If your health care provider is unavailable, go to the nearest emergency room for evaluation. An erection that lasts much longer than 4 hours can result in permanent damage to your penis. You have severe pain in your groin or abdomen. You develop redness or severe swelling of your penis. You have redness spreading up into your groin or lower abdomen. You are unable to urinate. You experience chest pain or a rapid heart beat (palpitations) after taking oral medicines. Summary Erectile dysfunction (ED) is the inability to get or keep an erection during sexual intercourse. This problem can usually be treated successfully. This condition is diagnosed based on a physical exam, your symptoms, and tests to determine the cause. Treatment varies depending on the cause, and may include medicines, hormone therapy, surgery, or vacuum pump. You may need follow-up visits to make sure that you are using your medicines or devices correctly. Get help right away if you are taking or injecting medicines and you have an erection that lasts longer than 4 hours. This information is not intended to replace advice given to you by your health care provider. Make sure you discuss any questions you have with your health care provider. Document Released: 06/15/2001 Document Revised: 05/31/2018 Document Reviewed: 07/04/2017 [employer] Patient Education 2020 [employer] Follow Up Care 08/10/2022 14:07:21 With:JAYME CELIS PA-C, URL Address: [address]air[address] [place] [address] When:6 weeks [facility] [employer] Evaluation + Plan note Future Appointments Appointment Date:10/11/2022 01:40:00 PM Scheduled Provider:JAYME CELIS PA-C Location:[facility] [place] Appointment Type:URO Office Visit [facility] Evaluation + Plan note Future Appointments Appointment Date:11/29/2022 08:30:00 AM Scheduled Provider:Lizzeth Arriaga MD Location:[facility] [place] Appointment Type:URO Office Visit [facility] [employer] Evaluation + Plan note Future Appointments Appointment Date:12/30/2022 01:45:00 PM Scheduled Provider:Lizzeth Arriaga MD Location:[facility] Appointment Type:URO Office Visit [facility] Evaluation note Diagnosis Abdominal pain, generalized Acute cough documented in this encounter [employer] Phone: [email or web address] note* Diagnosis Abdominal pain, generalized Acute cough documented in this encounter [employer] Phone: [email or web address] note* Diagnosis Feeling of chest tightness- Primary Other chest pain Diabetic peripheral neuropathy associated with type 2 diabetes mellitus (CMS/HCC) Acquired hypothyroidism (CMS/HCC) Unspecified hypothyroidism Low testosterone Dyspnea on exertion Other dyspnea and respiratory abnormality Family history of premature CAD Family history of ischemic heart disease Screening for prostate cancer Special screening for malignant neoplasm of prostate documented in this encounter [facility] HealthcareEvaluation note* Diagnosis Diabetes mellitus due to underlying condition with hyperosmolarity without coma, without long-term current use of insulin (CMS/HCC)- Primary documented in this encounter [facility]* Diagnosis Bacterial folliculitis- Primary Other specified disease of hair and hair follicles Garrett angioma documented in this encounter [facility]* Diagnosis Acquired hypothyroidism ([facility])- Primary Unspecified hypothyroidism Diabetic peripheral neuropathy associated with type 2 diabetes mellitus ([facility]) Mixed hyperlipidemia ([facility]) Mixed hyperlipidemia Low testosterone Type 2 diabetes mellitus without complication, without long-term current use of insulin ([facility]) Diabetes mellitus due to underlying condition with hyperosmolarity without coma, without long-term current use of insulin ([facility]) Acute non-recurrent frontal sinusitis Idiopathic neuropathy Other specified idiopathic peripheral neuropathy Immunization due Dysuria Flank pain Abdominal pain, unspecified site Routine general medical examination at a [facility] Type 2 diabetes mellitus with hyperglycemia ([facility]) Morbid (severe) obesity due to excess calories ([facility]) Body mass index (BMI) 35.0-35.9, adult Type 2 diabetes mellitus with other specified complication ([facility]) Male erectile dysfunction, unspecified Type 2 diabetes mellitus with diabetic neuropathy, unspecified ([facility]) documented [facility] encounter [facility]* Diagnosis Acute non-recurrent frontal sinusitis Diabetic peripheral neuropathy associated with type 2 diabetes mellitus ([facility]/HCC) documented in this encounter [facility]* Diagnosis Flank pain- Primary Abdominal pain, unspecified site documented in this encounter [facility]* Diagnosis Acute cough- Primary Acute non-recurrent frontal sinusitis documented in this encounter [facility]* Diagnosis Acquired hypothyroidism ([facility]) Unspecified hypothyroidism Low testosterone Diabetes mellitus due to underlying condition with hyperosmolarity without coma, without long-term current use of insulin ([facility]) Diabetic peripheral neuropathy associated with type 2 diabetes mellitus ([facility]) Acute non-recurrent frontal sinusitis documented in this encounter [facility]* Diagnosis Idiopathic neuropathy- Primary Other specified idiopathic peripheral neuropathy documented in this encounter [facility]* Diagnosis Diabetic peripheral neuropathy associated with type 2 diabetes mellitus ([facility]/HCC) documented in this encounter [facility]* Diagnosis Bacterial folliculitis- Primary Other specified disease of hair and hair follicles documented in this encounter [facility]* Diagnosis Morbid (severe) obesity due to excess calories ([facility])- Primary Type 2 diabetes mellitus without complication, without long-term current use of insulin ([facility]) documented in [facility] encounter [facility]* Diagnosis Diabetic peripheral neuropathy associated with type 2 diabetes mellitus (CMS/HCC) documented in this encounter [facility] HealthcareEvaluation note* Diagnosis Low testosterone documented in this encounter [facility] HealthcareEvaluation note* Diagnosis Low testosterone documented in this encounter [facility] HealthcareEvaluation note* Diagnosis Acute non-recurrent frontal sinusitis documented in this encounter [facility] HealthcareEvaluation note* Diagnosis Type 2 diabetes mellitus with diabetic polyneuropathy, with long-term current use of insulin ([facility])- Primary Low testosterone Acquired hypothyroidism ([facility]/HCC) Unspecified hypothyroidism Mixed hyperlipidemia ([facility]) Mixed hyperlipidemia Screening for prostate cancer Special screening for malignant neoplasm of prostate Heart murmur Undiagnosed cardiac murmurs Shortness of breath Family history of early CAD Family history of ischemic heart disease Feeling of chest tightness Other chest pain Acute non-recurrent frontal sinusitis documented in this encounter [facility] HealthcareEvaluation note* Diagnosis Bacterial folliculitis- Primary Other specified disease of hair and hair follicles Seborrheic keratosis documented in this encounter [facility] HealthcareEvaluation note* Diagnosis Idiopathic neuropathy Other specified idiopathic peripheral neuropathy documented in this encounter [facility] HealthcareEvaluation note* Diagnosis Diabetic peripheral neuropathy associated with type 2 diabetes mellitus ([facility]/HCC) documented in this encounter [facility] HealthcareHospital course Narrative No data available for this section [facility] Hospital Discharge instructions No data available for this section [facility] progress note No data available for this section [facility] Summary Purpose Family History No Family History Records FoundNo Family History Records FoundNo Family History Records FoundNo Family History Records Found No data available for this section No Family History Records FoundNo Family History Records FoundNo Family History Records Found Advance Directives No Advanced Directives Records FoundDocuments on File Type Date Recorded 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 ACP-Advance Directive ACP-Power of [employer] Reason for Referral Specialty Diagnoses / Procedures Referred By Contac t Referred To Contact Diagnoses Diabetic peripheral neuropathy associated with type 2 diabetes mellitus ([facility]/HCC) Low testosterone Feeling of chest tightness Dyspnea on exertion Family history of premature CAD Procedures STRESS NUCLEAR MEDICINE TREADMILL Fruth, Amada E, LITIGATION SPECIALIST [address] [place] [address] Referral ID Status Reason Start Date Expiration Date V isits Requested Visits Authorized [id number] Pending Review 08/03/2023 01/30/2024 3 3 Specialty Diagnoses / Procedures Referred By Contac t Referred To Contact Diagnoses Low testosterone WilfridoAmada, LITIGATION SPECIALIST [address] [place] [address] Referral ID Status Reason Start Date Expiration Date V isits Requested Visits Authorized [id number] Pending Review 1 1 Additional Source Comments (unrecognized sect ion and content) No Status Records FoundNo Status Records FoundNo Status Records FoundNo Status Records FoundNo Status Records FoundNo Status Records FoundNo Status Records Found INFORMATION SOURCE (unrecogn ized section and content) DATE CREATED AUTHOR 12/28/2017 [facility] DATE CREATED AUTHOR AUTHOR'S ORGANIZ ATION 09/23/2021 [facility] dical Specialist DATE CREATED AUTHOR AUTHOR'S ORGANIZ ATION 03/05/2022 [facility] DATE CREATED AUTHOR AUTHOR'S ORGANIZ ATION 10/14/2022 [facility] DATE CREATED AUTHOR AUTHOR'S ORGANIZ ATION 10/01/2024 [facility] DATE CREATED AUTHOR AUTHOR'S ORGANIZ ATION 11/14/2024 [facility] d[facility] Specialists EPIC DATE CREATED AUTHOR AUTHOR'S ORGANIZ ATION 11/30/2024 [facility] Care Teams (unrecognized sec tion and content) [employer] Forms Relationship Specialty Start Date End Date James Payton MD [address], [place] [id number] PCP - General 08/18/20 [employer] Relationship Specialty Start Date End Date James Payton MD [address] [place] [address] PCP - General 08/18/20 [employer] Relationship Specialty Start Date End Date James Payton MD [address] [place] [address] PCP - General 08/18/20 [employer] Relationship Specialty Start Date End Date James Payton MD [address], [place] [id number] PCP - General 08/18/20 [employer] Relationship Specialty Start Date End Date Alejandro Florian DO [address] [place], [place] [id number] PCP - General Family Medicine 01/15/23 Amada Stockton NP [address] [place] [address] Nurse Practitioner Family Medicine 01/15/23 [employer] Relationship Specialty Start Date End Date Alejandro Florian DO [address] [place] [address] PCP - General Family Medicine 01/15/23 Amada Stockton NP [address] [place] [address] Nurse Practitioner Family Medicine 01/15/23 [employer] Relationship Specialty Start Date End Date Alejandro Florian DO [address] [place] [address] PCP - General Family Medicine 01/15/23 Amada Stockton NP [address] [place] [address] Nurse Practitioner Family Medicine 01/15/23 [employer] Relationship Specialty Start Date End Date Alejandro Florian DO [address] [place] [address] PCP - General Family Medicine 01/15/23 Amada Stockton NP [address] [place] [address] Nurse Practitioner Family Medicine 01/15/23 [employer] Relationship Specialty Start Date End Date Alejandro Florian DO [address] [place] [address] PCP - General Family Medicine 01/15/23 Amada Stockton NP [address] [place] [address] Nurse Practitioner Family Medicine 01/15/23 [employer] Relationship Specialty Start Date End Date Alejandro Florian DO [address] [place] [address] PCP - General Family Medicine 01/15/23 Amada Stockton NP [address] [place] [address] Nurse Practitioner Family Medicine 01/15/23 [employer] Relationship Specialty Start Date End Date Alejandro Florian DO [address] [place] [address] PCP - General Family Medicine 01/15/23 Amada Stockton NP [address] [place] [address] Nurse Practitioner Family Medicine 01/15/23 [employer] Relationship Specialty Start Date End Date Alejandro Florian DO [address] [place] [address] PCP - General Family Medicine 01/15/23 Amada Stockton NP [address] [place] [address] Nurse Practitioner Family Medicine 01/15/23 [employer] Relationship Specialty Start Date End Date Alejandro Florian DO [address] [place] [address] PCP - General Family Medicine 01/15/23 Amada Stockton NP [address] [place] [address] Nurse Practitioner Family Medicine 01/15/23 [employer] Relationship Specialty Start Date End Date Alejandro Florian DO [address] [place] [address] PCP - General Family Medicine 01/15/23 Amada Stockton NP [address] [place] [address] Nurse Practitioner Family Medicine 01/15/23 [employer] Relationship Specialty Start Date End Date Alejandro Florian DO [address] [place] [address] PCP - General Family Medicine 01/15/23 Amada Stockton NP [address] [place] [address] Nurse Practitioner Family Medicine 01/15/23 [employer] Relationship Specialty Start Date End Date Alejandro Florian DO [address] [place] [address] PCP - General Family Medicine 01/15/23 Amada Stockton LITIGATION SPECIALIST [address] [place] [address] Nurse Practitioner Family Medicine 01/15/23 [employer] Relationship Specialty Start Date End Date Alejandro Florian DO [address] [place] [address] PCP - General Family Medicine 01/15/23 Amada Stockton NP [address] [place] [address] Nurse Practitioner Family Medicine 01/15/23 [employer] Relationship Specialty Start Date End Date Alejandro Florian DO [address] [place] [address] PCP - General Family Medicine 01/15/23 Amada Stockton NP [address] [place] [address] Nurse Practitioner Family Medicine 01/15/23 [employer] Relationship Specialty Start Date End Date Alejandro Florian DO [address] [place] [address] PCP - General Family Medicine 01/15/23 Amada Stockton NP [address] [place] [address] Nurse Practitioner Family Medicine 01/15/23 [employer] Relationship Specialty Start Date End Date Alejandro Florian DO [address] [place] [address] PCP - General Family Medicine 01/15/23 Amada Stockton NP [address] [place] [address] Nurse Practitioner Family Medicine 01/15/23 [employer] Relationship Specialty Start Date End Date Alejandro Florian DO [address] [place] [address] PCP - General Family Medicine 01/15/23 Amada Stockton NP [address] [place], [place] [id number] Nurse Practitioner Family Medicine 01/15/23 [employer] Relationship Specialty Start Date End Date Alejandro Florian DO [address] [place] [address] PCP - General Family Medicine 01/15/23 Amada Stockton NP [address] [place] [id number] Nurse Practitioner Family Medicine 01/15/23 Reason for Visit (unrecogniz ed section and content) Reason Comments Follow-up Reason Comments Med Refill Reason Comments Rash Specialty Diagnoses / Procedures Referred By Contsofie t Referred To Contact Dermatology Diagnoses Other acne Procedures ME OFFICE/OUTPATIENT NEW HIGH MDM 60 MINUTES Renetta Benito, LITIGATION SPECIALIST [address] [place] [address] Phone: tel: fax: Amina Graham MD [address] [address] Phone: tel: fax: Referral ID Status Reason Start Date Expiration Date V isits Requested Visits Authorized [id number] Closed Specialty Services Required 01/30/2024 07/28/2024 1 1 Reason Comments Annual Exam Having back pain mid back bilateral sides sometimes feels like someone punches him in the back, this has been going on for a couple months Reason Onset Date Comments Med Refill 03/12/2024 Reason Comments Back Pain Upper middle back pa in for 2-3 months; no xrays doneTaking Aleve with no relief Pain worsens at night, will wake up in pain and have to move positions Reason Comments Cough Sinusitis Reason Onset Date Comments Med Refill 03/07/2024 Reason Onset Date Comments abdominal xray 06/29/2024 Reason Comments Follow-up Reason Onset Date Comments Referral 08/22/2024 Reason Onset Date Comments Med Refill 10/31/2024 Reason Comments Med Change Request Reason Comments Follow-up Concerned about chol esterol and wants to discuss changing meds.Complaints of a sinus infection that won't go away. Reason Comments Follow-up Suspicious Skin Lesion FOR RECORDS PERTAINING TO PATIENTS WHO ARE OR HAVE BEEN ENROLLED IN A CHEMICAL DEPENDENCY/SUBSTANCEABUSE PROGRAM, SOME INFORMATION MAY BE OMITTED. This clinical summary was aggregated from multiple sources. Caution should be exercised in using it in the provision of clinical care. This summary normalizes information from multiple sources, and as a consequence, information in this document may materially change the coding, format and clinical context of patient data. In addition, data may be omitted in some cases. CLINICAL DECISIONS SHOULD BE BASED ON THE PRIMARY CLINICAL RECORDS. [facility] [employer] [facility]. provides no warranty or guarantee of the accuracy or completeness of information in this document.
[2024-12-08] MEDS: REGADENOSON 0.4 MG/5 ML SYRINGE IV (08:28)
--- NOTE | 2024-12-08 08:28 | PC.NURSE ---
Nursing Note Cardiac Stress Test Reviewed: Medication, allergies and patient history reviewed. Stress Test: [x ] Patient tolerated stress test well. [x ] Patient unable to tolerate walking on treadmill. Switched to Lexiscan stress test. [ ] No chest pain noted per patient [ ] Chest pain that resolved prior to leaving stress lab. [x ] No dyspnea noted. [ ] Dyspnea that resolved prior to leaving stress lab. [x ] Patient left stress lab asymptomatic and hemodynamically stable. [ ] Patient taken to the Emergency Room due to non-resolving symptoms following stress test. [ ] Patient achieved target heart rate. [ ] Patient unable to achieve target heart rate. [ ] Aminophylline administered as reversal agent to Lexiscan (Regadenoson). [ ] Nitro administered. Nursing Comments:
--- NOTE | 2024-12-08 09:00 | CA_ITS ---
Patient Name: JELLY CARABALLO MR#: [id number] : 1965 Exam Date: 12/08/2024 Ordering Doctor: AMADA STOCKTON ECHOCARDIOGRAM REPORT PROCEDURE: CA ECHO DOPPLER COMPLETE INDICATIONS: Heart murmur, shortness of breath, diabetes COMPARISON: None. DESCRIPTION: COMPLETE ECHOCARDIOGRAM Real-time transthoracic echocardiography with 2D, M-mode, spectral and color flow Doppler performed. QUALITY: Technical quality was good. LEFT VENTRICLE: Normal chamber size. Moderate concentric left ventricular hypertrophy. LV EF: Global left ventricular systolic function is normal; visually estimated ejection fraction is 55 to 60%. Calculated left ventricular ejection fraction is 56%. No significant wall motion abnormalities. DIASTOLIC: Normal diastolic function. ATRIAL SEPTUM: Visually appears intact. LEFT ATRIUM: Normal chamber size. RIGHT ATRIUM: Mild dilatation. RIGHT VENTRICLE: Normal chamber size. Normal right ventricular systolic function. A prominent moderator band (normal variant) is seen TRICUSPID VALVE: Normal mobility and thickness. No stenosis with no regurgitation. Unable to assess right-sided pressures due to lack of measurable tricuspid regurgitation. MITRAL VALVE: Normal mobility and thickness. No evidence of mitral valve stenosis. There is no mitral annular calcification. No mitral regurgitation. AORTIC VALVE: Normal trileaflet appearance. Normal leaflet mobility. No evidence of aortic valve stenosis. Multifocal calcification. No aortic regurgitation. AORTIC ROOT: Normal diameter and appearance. Ascending aorta is normal in size. PULMONIC VALVE: Normal thickness and mobility. No stenosis. No regurgitation. PERICARDIUM: No evidence of pericardial effusion. IVC: Collapses with inspiration. IVC is normal in size. CONCLUSION: 1. Global left ventricular systolic function is normal; visually estimated ejection fraction is 55 to 60% 2. Normal right ventricular size and systolic function 3. Moderate left ventricular hypertrophy 4. Normal diastolic function 5. The right atrium is mildly dilated 6. No significant valvular abnormalities Adult Echocardiography Procedure Report Left Ventricle LVEDD (3.7 - 5.6 cm): 4.39 cm LVESD (2.2 - 4.0 cm): 3.31 cm LVIVS thickness (0.6 - 1.2 cm): 1.44 cm LVPW thickness (0.5 - 1.0 cm): 1.43 cm e': 0.07 m/s E - e': 11.67 LVOT Max Gradient: 1.77 mm[Hg] LVOT Area (cm2): 0.67 m/s Peak Velocity (LVOT): 0.67 m/s LVOT Diameter 2.34 cm Left Atrium LA Volume Index (2D A2C): 31.56 ml/m2 Left Atrium Systolic Dimension: 4.06 cm Mitral Valve MV E to A Ratio: 1.22 Mitral Valve A-Wave Peak Velocity: 0.65 m/s Mitral Valve E-Wave Peak Velocity: 0.79 m/s Right Ventricle Aorta AO Root Diam: 3.36 cm Ascending Ao Diam: 3.03 cm Aortic Valve AoV Area (Peak Gurjit): 1.90 cm2, 1.90 cm2 Peak Velocity(Antegrade Flow): 1.50 m/s Peak Gradient(Antegrade Flow): 9.04 mm[Hg] Tricuspid Valve Peak Velocity (Regurgitant Flow): 1.50 m/s Pulmonic Valve Mean Gradient: 2.52 mm[Hg] Mean Velocity: 0.72 m/s Peak Velocity: 1.17 m/s, 1.10 m/s Peak Gradient: 4.87 mm[Hg], 5.52 mm[Hg] Right Atrium Right Atrium Systolic Pressure: 72.24 ml, 72.24 ml Dictated by: Cayla Hernandez M.D. on 12/08/2024 at 17:17 Approved by: Cayla Hernandez M.D. on 12/08/2024 at 17:22
--- NOTE | 2024-12-08 10:49 | PM.STRESS ---
Stress Test Stress Test Requesting physician: AMADA STOCKTON Procedure: Lexiscan nuclear stress test General Information: Reason for Stress Test: [Shortness of breath] Cardiac History and Risk Factors: [Hypertension, hyperlipidemia, diabetes mellitus, obesity] Resting 12 - Lead Electrocardiogram: Sinus rhythm with first-degree AV block, heart rate 75 bpm, no significant T or ST changes Stress Test: Protocol: [Lexiscan] Exercise Capacity: [Not applicable] Blood Pressure Response: [Normal] Rhythm: [Sinus] ST - Response: [No changes] Patient Response: [No symptoms] Patient's resting heart rate 72 bpm and resting blood pressure 138/78 mmHg. The patient was injected with Lexiscan 0.4 mg IV and he was monitored for few minutes. Peak heart rate 90 bpm which represents 55% of age-predicted maximum heart rate. Peak blood pressure 138/78. Patient did not report any symptoms EKG throughout the test did not show any significant T or ST changes. No significant arrhythmia was noted Interpretation: Normal Lexiscan EKG stress test without evidence of ischemia Nuclear myocardial perfusion images result will be reported separately
== END 2024-12-08 07:34 | disposition home or self-care (01) ==
LOC: NM 07:33
PROVIDERS: PCP Nurse Practitioner; Visit Provider Nurse Practitioner
DX: R01.1 Cardiac murmur, unspecified (principal); R06.02 Shortness of breath; Z82.49 Family history of ischemic heart disease and other diseases of the circulatory system; R07.89 Other chest pain
CPT/HCPCS: 93017; 93306; J2785

== ENCOUNTER 2024-12-25 21:50 | Emergency (ER) | payer OTHER, SELFPAY ==
--- OUTSIDE RECORDS SUMMARY | 2024-12-15 07:00 | XMS_ITS | Encounter Summary ---
Author Organization [facility] Address [address] [place] [address] Care Team Providers Care Mixer Operator Raw Salt Name Role Phone Alejandro Florian Primary Care Provider [phone] Gala Anna INSURANCE CLAIM REPRESENTATIVE Unavailable [phone] Reason for Visit * Reason Comments Medication Problem Lyrica is not workin g as well as it has been since he refilled it about 2 weeks ago. Pt is experiencing pain every day when he wasn't before Encounter Details Date Type Department Care Team (Late st Contact Info) Description 12/15/2024 7:00 AM EDT Office Visit [facility] [address] [place] [address] Gala Anna NP [address] [place] [address] Arthralgia, unspecified joint (Primary Dx); Acute non-recurrent frontal sinusitis; Poison juhi dermatitis; Diabetic peripheral neuropathy associated with type 2 diabetes mellitus (HCC) Social History Tobacco Use Types Packs/Day Years Used Date Smoking Tobacco: Never Smokeless Tobacco: Never Tobacco Cessation:Counseling Given: Not Answered Alcohol Use Standard Drinks/Week Comments Never 0 (1 standard drink = 0.6 oz pur e alcohol) Caffeine: none PHQ-2 Answer Date Recorded Patient Health Questionnaire-2 Score 0 12/15/2024 Sex and Gender Information Value Date Recorded Sex Assigned at Not on file Legal Sex Male 6:39 PM EDT Gender Identity Not on file Sexual Orientation Not on file documented as of this encounter Last Filed Vital Signs Vital Sign Reading Time Taken Comments Blood Pressure 120/70 12/15/2024 7:15 AM EDT Pulse 81 12/15/2024 7:15 AM EDT Temperature 36.6 C (97.9 F) 12/15/2024 7:15 AM EDT Respiratory Rate - - Oxygen Saturation 96% 12/15/2024 7:15 AM EDT Inhaled Oxygen Concentration - - Weight 130 kg (286 lb 3.2 oz) 12/15/2024 7:15 AM EDT Height 188 cm (6' 2 ) 12/15/2024 7:15 AM EDT Body Mass Index 36.75 12/15/2024 7:15 AM EDT documented in this encounter Functional Status * Over the past 2 weeks, how often have you been bothered by any of the following problems? Question Answer Date of Assessment Author Little interest or pleasure in doing things Not at all 12/15/2024 7:14 AM EDT Gala Anna NP Feeling down, depressed, or hopeless Not at all 12/15/2024 7:14 AM EDT Gala Anna NP Patient Health Questionnaire -2 Score 0 12/15/2024 7:14 AM EDT Gala Anna NP documented as of this encounter Progress Notes * Gala Anna NP - 12/15/2024 7:00 AM EDT Images from the original note were not included. Silvestre Corea is a 59 y.o. male presents with chief complaint of Medication Problem (Lyrica is not working as well as it has been since he refilled it about 2 weeks ago. Pt is experiencing pain every day when he wasn't before) HPI: HPI INSURANCE CLAIM REPRESENTATIVE; the lyrica generic he was given is not working on his neuropathy. Within a week of taking this medication pain started returning. Had same trouble with a different generic previously. INSURANCE CLAIM REPRESENTATIVE weed wacking. Now with poison juhi to arms and legs INSURANCE CLAIM REPRESENTATIVE joints painful and feel swollen. Denies red hot or fever. Denies known injury. SUBJECTIVE: MEDICATIONS: Current Outpatient Medications Medication Instructions Alpha-Lipoic Acid 600 MG capsule Daily aspirin 81 mg, Daily RT cefuroxime (Ceftin) 250 MG tablet Take 1 tablet, by mouth, twice daily, 30 days clobetasol (Temovate) 0.05 % ointment cyanocobalamin (VITAMIN B-12) 1,000 mcg, Daily EPINEPHrine (Epipen) 0.3 MG/0.3ML injection syringe INJECT CONTENTS OF 1 PEN NEEDED FOR ALLERGICREACTION fluticasone (Flonase) 50 MCG/ACT nasal spray Use 1 spray(s) in each nostril once daily glyBURIDE (Diabeta) 5 MG tablet TAKE 1 TABLET BY MOUTH IN THE MORNING WITH MEALS ketoconazole (NIZOral) 2 % shampoo Topical, 2 times weekly, Lather on scalp and mcdowell area 2x a week, leave on 5 min before rinsing levothyroxine (SYNTHROID, LEVOXYL) 50 mcg, Oral, Daily before breakfast metFORMIN (Glucophage) 1000 MG tablet TAKE 1 TABLET BY MOUTH TWICE DAILY WITH A MEAL montelukast (SINGULAIR) 10 mg, Oral, Nightly omega-3 (Fish Oil) 1000 MG capsule Daily Ozempic, 2 MG/DOSE, 8 MG/3ML solution pen-injector INJECT 1 SYRINGE (2MG) SUBCUTANEOUSLY ONCE A WEEK IN THE ABDOMEN, THIGH, OR UPPER ARM. pregabalin (LYRICA) 300 mg, Oral, 2 times daily rOPINIRole (REQUIP) 0.25 mg, Oral, Daily PRN rosuvastatin (CRESTOR) 40 mg, Oral, Daily Syringe/Needle, Disp, (Luer Lock Safety Syringes) 22G X 1-1/2 3 ML misc 1 each, Subcutaneous, Daily tadalafil (CIALIS) 5 mg, Oral, Daily PRN testosterone cypionate (Depo-Testosterone) 200 MG/ML injection INJECT 1/2 (ONE- HALF) ML INTRAMUSCULARLY ONCE A WEEK 30 day supply traZODone (Desyrel) 50 MG tablet TAKE 1 TABLET BY MOUTH ONCE DAILY AT THE SAME TIME EACH DAY. Trulicity 1.5 mg, Subcutaneous, Weekly, Patient to [...] CHOLECYSTECTOMY 11/[address] Marko Robledo at [facility] COLONOSCOPY 05/05/2013 for diverticulitis, diverticulosis, polyp [...] Drug use: Never Depression: Not at risk (12/15/2024) PHQ-2 PHQ-2 Score: 0 REVIEW OF SYMPTOMS: Review of Systems Constitutional: Positive for fatigue. HENT: Negative. Eyes: Negative. Respiratory: Negative. Cardiovascular: Negative. Gastrointestinal: Negative. Genitourinary: Negative. Musculoskeletal: Positive for arthralgias and joint swelling. Skin: Positive for rash. Neurological: Positive for numbness. Psychiatric/Behavioral: Negative. Hematological: Negative. Endocrine: Negative. Allergic/Immunologic: Positive for environmental allergies and food allergies. OBJECTIVE: Visit Vitals BP 120/70 (BP Location: Left arm, Patient Position: Sitting, BP Cuff Size: Large adult) Pulse 81 Temp 97.9 ??F (Tympanic) Ht 6' 2 Wt 286 lb 3.2 oz SpO2 96% BMI 36.75 kg/m?? Smoking Status Never BSA 2.61 m?? Physical Exam Constitutional: Appearance: Normal appearance. HENT: Head: Normocephalic and atraumatic. Mouth/Throat: Mouth: Mucous membranes are moist. Pharynx: Oropharynx is clear. Eyes: Conjunctiva/sclera: Conjunctivae normal. Pupils: Pupils are equal, round, and reactive to light. Neck: Vascular: No carotid bruit. Cardiovascular: Rate and Rhythm: Normal rate and regular rhythm. Pulses: Normal pulses. Heart sounds: Normal heart sounds. Pulmonary: Effort: Pulmonary effort is normal. Breath sounds: Normal breath sounds. Musculoskeletal: General: Swelling and tenderness present. Cervical back: Normal range of motion and neck supple. Comments: Swelling and tenderness joints of bilateral fingers Skin: General: Skin is warm and dry. Findings: Rash present. Comments: Poison juhi dermatitis bilateral forearms and lower legs. Neurological: General: No focal deficit present. Mental Status: He is alert and oriented to person, place, and time. Mental status is at baseline. Psychiatric: Mood and Affect: Mood normal. Behavior: Behavior normal. Thought Content: Thought content normal. Judgment: Judgment normal. ASSESSMENT AND PLAN: Assessment/Plan Problem List Items Addressed This Visit None Visit Diagnoses Arthralgia, unspecified joint - Primary Relevant Orders ALISON Rheumatoid factor SYSTEMIC LUPUS ERYTHEMATOSUS (SLE), DISEASE ACTIVITY PANEL Discussed lifestyle factors in inflammation. Doesn't necessarily want to start another pill. Will get labs to assess neuropathy pregabalin (Lyrica) 300 MG capsule SARIKA due to ineffectiveness of generics Poison juhi dermatitis avoid triggers. Medications as directed. Follow up due for recheck mid january. documented in this encounter Plan of Treatment Upcoming Encounters Date Type Department Care Team (Late st Contact Info) Description 03/24/2025 7:40 AM EDT Office Visit [facility] [address] [place] [address] Christina Broussard, PA [address] [place] [address] documented as of this encounter Procedures Procedure Name Priority Date/Time Associated Diagnosis Comments SYSTEMIC LUPUS ERYTHEMATOSUS (SLE), DISEASE ACTIVITY PANEL Routine 12/15/2024 7:50 AM EDT Arthralgia, unspecified joint RHEUMATOID FACTOR Routine 12/15/2024 7:5 0 AM EDT Arthralgia, unspecified joint ALISON SCREEN W/REFLEX Routine 12/15/2024 7 :50 AM EDT Arthralgia, unspecified joint documented in this encounter Results * SYSTEMIC LUPUS ERYTHEMATOSUS (SLE), DISEASE ACTIVITY PANEL (12/15/2024 7:50 AM EDT) DNA (DS) ANTIBODY <1 IU/mL [facility] Comment: IU/mL Interpretation < or = 4 Negative 5-9 Indeterminate > or = 10 Positive CHROMATIN (NUCLEOSOMAL) ANTIBODY <1.0 NEG <1.0 NEG AI [facility] COMPLEMENT COMPONENT C3C 172 82 - 185 mg/dL [facility] COMPLEMENT COMPONENT C4C 21 15 - 53 mg/dL [facility] 12/15/2024 7:50 AM EDT 12/15/2024 7:50 AM EDT Narrative Resulting Agency Comment Performing Organization Information Site ID: QPT Name: [facility] Address: [address] [place] [address], [address] [place] [phone] Director: David Carrillo MD Gala Anna LAB BLOOD ORDERABLES Final Res ult Performing Organization Address [facility] Co de Phone Number [facility] * Rheumatoid factor (12/15/2024 7:50 AM EDT) Pathologist [facility] RHEUMATOID FACTOR <10 <14 IU/mL [facility] Blood Venous blood specimen / Unknown 12/15/2024 7:50 AM EDT 12/15/2024 7:50 AM EDT Narrative Resulting Agency Comment Performing Organization Information Site ID: QPT Name: [facility] Address: [address] [place] [address], [address] [place] [phone] Director: David Carrillo MD Gala Anna LAB BLOOD ORDERABLES Final Res ult Performing Organization Address [facility] Co de Phone Number [facility] * ALISON (12/15/2024 7:50 AM EDT) ALISON SCREEN, IFA NEGATIVE NEGATIVE [facility] Comment: ALISON IFA is a first line screen for detecting the presence of up to approximately 150 autoantibodies in various autoimmune diseases. A negative ALISON IFA result suggests an ALISON-associated autoimmune disease is not present at this time, but is not definitive. If there is high clinical suspicion for Sjogren's syndrome, testing for anti-SS-A/Ro antibody should be considered. Anti-Eli-1 antibody should be considered for clinically suspected inflammatory myopathies. AC-0: Negative International Consensus on ALISON Patterns (https://doi.org/10.1515/fobg-3919-6168) For additional information, please refer to http://education.[employer]/faq/ZFS354 (This link is being provided for informational/ educational purposes only.) Blood Venous blood specimen / Unknown 12/15/2024 7:50 AM EDT 12/15/2024 7:50 AM EDT Narrative Resulting Agency Comment Performing Organization Information Site ID: QPT Name: [facility] Address: [address] [place] [address], [address] [place] [phone] Director: David Carrillo MD Gala Anna NP LAB BLOOD ORDERABLES Final Res ult [facility] documented in this encounter Visit Diagnoses Diagnosis Arthralgia, unspecified joint- Primary Acute non-recurrent frontal sinusitis Poison juhi dermatitis Diabetic peripheral neuropathy associated with type 2 diabetes mellitus (HCC) documented in this encounter Administered Medications Inactive Administered Medications - up to 3 most recent administrations Medication Order MAR Action Action Date Dose Rate Site triamcinolone acetonide (Kenalog-40) injection 40 mg 40 mg, Intramuscular, Once, On Sun12/15/24 at 0800, For 1 doseIndications:Poison juhi dermatitis Given 12/15/2024 7:49 AM EDT 40 mg Left Ventrogluteal documented in this encounter Additional Health Concerns Assessment Noted Time PHQ-9 Depression Total Score: 3 04/02/20 23 7:00 AM EDT documented as of this encounter Care Teams Mixer Operator Raw Salt Relationship Specialty Start Date End Date Alejandro Florian DO [address] [place] [id number] PCP - General Family Medicine 01/15/23 Gala Anna NP [address] [place] [address] Nurse Practitioner Family Medicine 01/15/23 documented as of this encounter
[2024-12-25] VITALS (15 sets, daily range): BP systolic 132–180; BP diastolic 78–85; PULSE 74–85; TEMP 36.6; O2SAT 93–100; BMI 34.9
--- OUTSIDE RECORDS SUMMARY | 2024-12-25 22:00 | XMS_ITS | Encounter Summary ---
Author Organization [facility] Address [address] [place] [address] Care Team Providers Care Automatic Casting Machine Operator Name Role Phone Alejandro Florian Primary Care Provider [phone]- [phone] Gala Anna NP Unavailable [phone] Reason for Visit * Reason Onset Date Comments Med Refill 12/23/2024 Encounter Details Date Type Department Care Team (Late st Contact Info) Description 12/23/2024 Telephone [facility] [address] [place] [address] Lizz Farfan MA Med Refill Social History Tobacco Use Types Packs/Day Years [...] encounter Miscellaneous Notes * Telephone Encounter - Gala Anna NP - 12/23/2024 1:27 PM EDT Sent as requested. * Telephone Encounter - Lizz Farfan MA - 12/23/2024 1:21 PM EDT PT called in stating we were going to send in non generic lyrica when he was here last week. documented in this encounter Plan of Treatment Upcoming Encounters Date Type Department Care Team (Late st Contact Info) Description 03/24/2025 7:40 AM EDT Office Visit [facility] [address] [place] [address] Christina Broussard, LUIS [address] [place] [address] documented as of this encounter Visit Diagnoses Diagnosis Acute non-recurrent frontal sinusitis documented in this encounter Additional Health Concerns Assessment Noted Time PHQ-9 Depression Total Score: 3 04/02/20 7:00 AM EDT documented as of this encounter Care Teams Automatic Casting Machine Operator Relationship Specialty Start Date End Date Alejandro Florian DO [address] [place] [address] PCP - General Family Medicine 01/15/23 Gala Anna NP [address] [place], [place] [id number] Nurse Practitioner Family Medicine 01/15/23 documented as of this encounter
--- OUTSIDE RECORDS SUMMARY | 2024-12-25 22:00 | XMS_ITS | Encounter Summary ---
Author Organization [facility] Address [address] [facility] [place] [address] Care Team Providers Care Paint Roller Assembler Name Role Phone Alejandro Florian DO Primary Care Provider [phone] Gala Anna TILE MECHANIC Unavailable [phone] Encounter Details Date Type Department Care Team (Late st Contact Info) Description 12/14/2022 Abstract [facility] [address] [place] [address] Gala Anna NP [address] [place] [address] Social History Tobacco Use Types [...] [facility] [address] [place] [address] Christina Broussard PA [address] [address] [place] [address] documented as of this encounter Visit Diagnoses Not on filedocumented in this encounter Care Teams Paint Roller Assembler Relationship Specialty Start Date End Date Alejandro Florian DO [address] [place] [address] PCP - General Family Medicine 01/15/23 Gala Anna NP [address] [facility] [address] [place] [id number] Nurse Practitioner Family Medicine 01/15/23 documented as of this encounter
--- OUTSIDE RECORDS SUMMARY | 2024-12-25 22:00 | XMS_ITS | CCD ---
Author Organization [facility] Care Team Providers Care Country Manager Name Role Phone BAKFRANCINE, ENEDELIA FRANTZ Unavailable Unavailable SIDHRU, ENEDELIA FRANTZ Unavailable Unavailable TIMO QUIROZ Unavailable Unavailable Fito James Primary Care Provider James Payton MD Primary Care Provider [phone] FRUTH, AMADA Referring Unavailable ROSS, JAMES Primary Care Unavailable FRUTH, AMADA Referring Unavailable ROSS, JAMES Primary Care Unavailable FRUTH, AMADA Referring Unavailable ROSS, [facility] Primary Care Unavailable FRUTH, AMADA Referring Unavailable ROSS, [facility] Primary Care Unavailable FRUTH, AMADA Primary Care Physician [phone] FRUTH, AMADA Primary Care Unavailable BROWN ., [...] Alejandro Florian DO Primary Care Provider Wilfrido FIRE SUPPORT SPECIALISTAmada Unavailable [phone] FRUTH, AMADA E Attending Unavailable CHRISTINA HAM Attending Unavailable FRUTH, AMADA E Attending Unavailable RENETTA BENITO Attending Unavailable FRUTH, AMADA E Attending Unavailable CHRISTINA HAM Attending Unavailable RENETTA BENITO Referring Unavailable FRUTH, AMADA E Attending Unavailable FRUTH, AMADA E Attending Unavailable CHRISTINA HAM Attending Unavailable Dagtaz [facility] Attending Unavail raine Anna, ROBBY Carrion Referring Unavailab maritza Anna, ROBBY Carrion Primary Care UnavailROBBY Mancera Primary Care Unavailab maritza Mejia APRNNAS, Francheska Hassan Referring Unavail Roxy Boyce Attending Jessica Arriaga, Lizzeth Pena Attending Unavailable Allergies Allergy Classification Reported Allergen(s) Allergy Type Date of Onset Reaction(s) Facility (20 sources) banana extract; Translations: [BANANA] Drug Allergy 0 [facility] Repository (1 source) OTHER; Translations: [OTHER] Propensity to adverse reactions (disorder) 7 [facility] Repository (5 sources) bee venom Propensity to adverse reactions to drug 5 [facility] Work Phone: (1 source) bee venom Drug allergy (disorder) 1 [facility] Repository (1 source) Mold Extract Drug Allergy [facility] Repository (20 sources) Banana Extract Drug Allergy 2 Unknown [facility] Work Phone: (20 sources) Bee pollen Allergy to substance 2 Unknown [facility] Healthcare (20 sources) Honey bee venom Allergy to substance 5 Unknown [facility] Healthcare (20 sources) Mold Extract Drug Allergy 2 Unknown [facility] Healthcare (20 sources) Mixed Ragweed Allergy to substance 7 Angioedema, Unknown [facility] (1 source) No Known Medication Allergies; Translations: [No Known Medication Allergies] Propensity to adverse reactions (disorder) [facility] Repository Medications Current Medications Medication [...] Instructions, 45 gm, Refill(s) 0, Topical BID, [facility], 188, cm, 09/27/22 10:31:00 EDT, Height/Length Dosing, 128, kg, 09/27/22 10:31:00 EDT, Weight Dosing Start Date: 09/27/22 Status: Ordered cefuroxime 250 mg oral tablet (15 sources) Cephalosporin Antibacterial Start: 11-14-2024 take 1 [...] oral capsule (20 sources) Tetracycline-class Drug Start: 024 End: doxycycline (Vibramycin) 100 MG capsule Indications: Bacterial folliculitis Take 1 capsule daily 30 capsule 3 07/22/2024 11/14/2024 Discontinued (Ineffective) 0.5 ml dulaglutide 3 mg/ml auto-injector (20 sources) GLP-1 Receptor Agonist Start: 024 dulaglutide (Trulicity) 1.5 MG/0.5ML solution pen-injector Indications: Type 2 diabetes mellitus without complication, without long-term current use of insulin (HCC) Inject 1.5 mg under the skin 1 [...] coma, without long-term current use of insulin (HCC) Inject 3 mg under the skin 1 (one) time per week 12 mL 3 05/05/2024 Active Start: 05-05-2024 inject 3 mg by subcu taneous injection every week Dulaglutide (Trulicity) 3 MG/0.5ML [...] coma, without long-term current use of insulin ([facility]) INJECT 1 SYRINGE SUBCUTANEOUSLY ONCE A WEEK ON WEDNESDAYS 12 mL 3 08/15/2023 Active [id number] 0.3 ml EPINEPHrine 1 mg/ml auto-injector (20 sources) alpha-Adrenergic Agonist, beta-Adrenergic Agonist, Catecholamine Start: 12-23-2024 EPINEPHrine (Epip en) 0.3 MG/0.3ML injection syringe Indications: Bee sting allergy INJECT CONTENTS OF 1 PEN NEEDED FOR ALLERGIC REACTION 1 each 1 12/23/2024 Active Start: 12-23-2024 EPINEPHrine (E pipen) 0.3 MG/0.3ML injection syringe Indications: Bee sting allergy INJECT CONTENTS OF 1 PEN NEEDED FOR ALLERGIC REACTION 1 each 1 12/23/2024 Active Start: 10-12-2023 End: 12-23-2024 EPINEPHrine (Epipen) 0.3 MG/ 0.3ML injection syringe Indications: Bee sting allergy INJECT CONTENTS OF 1 PEN NEEDED FOR ALLERGIC REACTION 1 each 1 10/12/2023 12/23/2024 Discontinued (Reorder) Start: 06-12-2022 EPINEPHrine (E pipen) 0.3 MG/0.3ML [...] associated with type 2 diabetes mellitus (HCC) TAKE 1 TABLET BY MOUTH IN THE [...] 0 Active ketoconazole 20 mg/ml medicated shampoo (7 sources) Azole Antifungal Start: End: ketoconazole (NIZOral) 2 % shampoo Indications: Bacterial folliculitis Apply topically 2 (two) times a week Lather on scalp and mcdowell area 2x a week, leave on 5 min before rinsing 120 mL 11/17/2024 12/17/2024 Active ketorolac tromethamine 10 mg [...] day(s), # 14 tab(s), Refills(s) 0, Pharmacy: [facility], 188, cm, 09/27/22 10:31:00 EDT, Height/Length Dosing, 128, kg, 09/27/22 10:31:00 EDT, Weight Dosing Start Date: 09/27/22 Stop Date: 10/11/22 Status: Ordered levothyroxine sodium 0.05 mg oral tablet (20 sources) l-Thyroxine Start: End: take 1 tablet by mouth before mealtime levothyroxine (Synthroid, Levoxyl) 50 MCG tablet Indications: Acquired hypothyroidism Take 1 tablet (50 mcg) by mouth [...] Daily, # 14 tab(s), Refills(s) 0, Pharmacy: [facility], 188, cm, 09/27/22 10:31:00 EDT, Height/Length Dosing, 128, kg, 09/27/22 10:31:00 EDT, Weight Dosing Start Date: 09/27/22 Status: Ordered metFORMIN hydrochloride 1000 mg oral tablet (20 sources) Biguanide Start: End: take 1 tablet by mouth twice daily at mealtime metFORMIN (Glucophage) 1000 MG tablet Indications: Diabetic peripheral neuropathy associated with type 2 diabetes mellitus (HCC) TAKE 1 TABLET BY MOUTH TWICE DAILY [...] Status: Ordered take 1 tablet by gina th twice daily at mealtime metFORMIN (GLUCOPHAGE) 500 [...] Ozempic, 2 MG/DOSE, 8 MG/3ML solution pen-injector (12 sources) Start: 11-10-2024 Ozempic, 2 MG/DOSE, 8 [...] oral capsule (20 sources) Start: 10-12-2023 End: 12-23-2025 take 1 capsule by mouth in the morning Lyrica 300 MG capsule Indications: Acute non-recurrent frontal sinusitis Take 1 capsule (300 mg) by mouth in the morning and 1 capsule (300 mg) before bedtime. 60 capsule 3 12/23/2024 12/23/2025 Active Start: 04-02-2023 End: 08-03-2023 take 1 [...] tablet (20 sources) HMG-CoA Reductase Inhibitor Start: 12-12-2023 End: 11-26-2024 take 1 tablet by mouth once daily rosuvastatin (Crestor) 40 MG tablet Indications: Diabetic peripheral neuropathy associated with type 2 diabetes mellitus (HCC) Take 1 tablet by mouth once daily 90 tablet 11/26/2024 Active Start: 06-05-2023 take 1 tablet by gina th once daily rosuvastatin (Crestor) 40 MG tablet [...] Start: 09-27-2022 take 1 tablet by gina th once daily tadalafil 5 mg oral tablet 5 mg = 1 tab(s), Oral, Daily, # 30 tab(s), Refills(s) 11, Pharmacy: [facility], 188, cm, 09/27/22 10:31:00 EDT, Height/Length Dosing, 128, kg, 09/27/22 10:31:00 EDT, Weight Dosing Start Date: 09/27/22 Status: Ordered Start: 09-05-2022 End: 11-04-2022 take 1 tablet by mouth once daily Cialis 2.5 mg oral tablet 2.5 mg = 1 tab(s), Oral, Daily, X 30 day(s), # 30 tab(s), Refills(s) 1, Pharmacy: [facility], 188, cm, 09/05/22 10:08:00 EST, [...] lls(s) 0 Start Date: 09/05/22 Status: Ordered 1 ml triamcinolone acetonide 40 mg/ml prefilled syringe (4 sources) Corticosteroid Start: 12-15-2024 End: 12-15-2024 triamcinolone acetonide (Kenalog-40) injection 40 mg Start: 12-15-2024 End: 12-15-2024 inject 40 mg by intramuscular injection once 40 mg, Intramuscular, Once, On Sun12/15/24 at 0800, For 1 dose Start: 12-15-2024 End: 12-15-2024 triamcinolone acetonide (Kenalog-40) injection 40 mg Start: 12-15-2024 End: 12-15-2024 inject 40 mg by intramuscular injection once 40 mg, Intramuscular, Once, On Sun12/15/24 at 0800, For 1 dose Turmeric extract (20 sources) Turmeric (QC NORMA [...] [Mononeuropathy, unspecified] Onset: 03-24-2010 01-19-2023 Chronic Other non-traumatic joint disorders (2 sources) Joint pain; Translations: [Pain in unspecified joint] 12-15-2024 Episodic Other nutritional; endocrine; and metabolic disorders (20 [...] 03-24-2010 01-19-2023 Chronic Other upper respiratory infections (12 sources) Acute frontal sinusitis; Translations: [Acute frontal [...] 11-22-2010 01-19-2023 Episodic Other aftercare (1 source) retirement (current) use of aspirin; Translations: [CUSTODIAL CURRENT USE OF ASPIRIN] Onset: 03-01-2022 Episodic Other aftercare (1 source) retirement (current) use of oral hypoglycemic drugs; Translations: [FURNITURE CRATER USE ORAL HYPOGLYCEMIC DX] Onset: 03-01-2022 Episodic Other aftercare (1 source) Other half-way (current) drug therapy; Translations: [OTH FURNITURE CRATER CURRENT DRUG THERAPY] Onset: 03-01-2022 Episodic Other aftercare (20 sources) Long-term current use of insulin; Translations: [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 Sincerely, Francheska Mejia, 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 C C Providers: The following document(s) were included in the letter: September 30, 2024 09:25:06 EDT - (09/30/2024) Diabetes Office Visit Note Normal [facility] SARS-CoV-2 (COVID-19) Ab Juan MOISErapid (S/P/Bld)on 02-28-2024 Interpretation and review of laboratory results Normal [facility] SARS-CoV-2 (COVID-19) RNA FELIX+probe Ql (Unsp spec) Negative [facility] Ambulatory Visit Summaryon 0 12-26-2023 Ambulatory Visit Summary SILVESTRE COREA :1965 Visit Date:12/26/2023 Ambulatory Visit Instructions Your Diagnosis BPH with obstruction/lower urinary tract symptoms Hydrocele Scrotal lesion Penile rash Erectile dysfunction Your Care Team Attending Physician - Bart MARTINEZ, Lizzeth Pena Primary Care Physician - AMADA ANNA NP This Is Your Medications List Contact [...] Lizzeth Pena, URL, URO When: Where: [address], [place] [address] [phone] Medications What How Much When Why Instructions [...] by: ? (more content not included)... Normal [facility] Patient Educationon 12-25- 24 Patient Education Urology Erectile Dysfunction Erectile dysfunction [...] these instructions at home: Medicines ? Take zhyd-geh-vizkftp and prescription medicines only as told by [...] include cig (more content not included)... Normal [facility] Urology Office/Clinic Noteon 12-26-2023 Urology [...] lesion no (more content not included)... Normal [facility] Comment on above: Result Comment: Elec tronically Signed By: Lizzeth Arriaga MD\.br\Date and Time Signed: 12/26/23 15:55 EDT\.br\Electronically Co-Signed By: Tatum Coyle\.br\Date and Time Co-Signed: 12/26/23 09:44 EDT CREATININEon 10-05-2022 Creatinine [Mass/Vol] 0.98 mg/dL Normal 0.70-1.30 [facility] Comment on above: Performed By: #### C ALEXIS #### [facility] [address] [place] [address] Dr. Magda Shelby EGFR-AF SWAZI >60 Normal >=[address] [facility] Comment on above: Performed By: #### C ALEXIS #### [facility] [address] [place] [address] Dr. Magda Shelby EGFR-NON AF SWAZI >60 Normal >=60 [facility] Comment on above: Performed By: #### C ALEXIS #### [facility] [address] [place] [address] ABD/PELV WO W [...] by: ALBERTO ZAPIEN Date: 2022-10-05 08:57 Normal [facility] US SCROTUMon 09-13-2022 US SCROTUM EXAM: [...] by: GOVIND FIGUEROA Date: 2022-09-13 09:34 Normal [facility] CBCon 03-03-2022 Erythrocyte distribution width (RBC) [Ratio] 13.8 % Normal 11.8-14.4 [facility] Comment on above: Performed By: #### C BC, CP #### [facility] [address] [place] [address] [place]: Bill Hernadez MD Hematocrit (Bld) [Volume fraction] 44.7 % Normal 40.7-50.3 [facility] Comment on above: Performed By: #### C WANG, CP #### [address] [place] [address] [place]: Bill Hernadez MD Hemoglobin (Bld) [Mass/Vol] 14.6 g/dL Normal 13.0-17.0 [facility] Comment on above: Performed By: #### C WANG, CP #### [address] [place] [address] [place]: Bill Hernadez MD MCH (RBC) [Entitic mass] 27.7 pg Normal 25.2-33.5 [facility] Comment on above: Performed By: #### C WANG, CP #### [address] [place] [address] [place]: Bill Hernadez MD MCHC (RBC) [Mass/Vol] 32.7 g/dL Normal 28.4-34.8 [facility] Comment on above: Performed By: #### C WANG, CP #### [address] [place] [address] [place]: Bill Hernadez MD MCV (RBC) [Entitic vol] 84.7 fL Normal 82.6-102.9 [facility] Comment on above: Performed By: #### C WANG, CP #### [address] [place] [address] [place]: Bill Hernadez MD NRBC Automated 0.0 per 100 WBC Normal 0.0 [facility] Comment on above: Performed By: #### C WANG, CP #### [address] [place] [address] [place]: Bill Hernadez MD Platelet mean volume (Bld) [Entitic vol] 10.5 fL Normal 8.1-13.5 [facility] Comment on above: Performed By: #### C WANG, CP #### [facility] [address] [place] [address] [place]: Bill Hernadez MD Platelets (Bld) [#/Vol] 216 10*3/uL Normal 138-453 [facility] Comment on above: Performed By: #### C WANG, CP #### [facility] [address] [place] [address] [place]: Bill Hernadez MD RBC (Bld) [#/Vol] 5.28 10*6/uL Normal 4.21-5.77 [facility] Comment on above: Performed By: #### C WANG, CP #### [facility] [address] [place] [address] [place]: Bill Hernadez MD WBC (Bld) [#/Vol] 7.6 10*3/uL Normal 3.5-11.3 [facility] Comment on above: Performed By: #### C WANG, CP #### [facility] [address] [place] [address] [place]: Bill Hernadez MD Hematocrit (Bld) [Volume fraction] 44.7 % 40.7 - 50.3 % [facility] Hemoglobin (Bld) [Mass/Vol] 14.6 g/dL 13 - 17 g/dL [facility] MCH (RBC) [Entitic mass] 27.7 pg 25.2 - 33.5 pg [facility] MCHC (RBC) [Mass/Vol] 32.7 g/dL 28.4 - 34.8 g/dL [facility] MCV (RBC) [Entitic vol] 84.7 fL 82.6 - 102.9 fL [facility] NRBC Automated 0.0 0.0 per 100 WBC [facility] Platelet distribution width (Bld) [Ratio] 13.8 % 11.8 - 14.4 % [facility] Platelet mean volume (Bld) [Entitic vol] 10.5 fL 8.1 - 13.5 fL [facility] Platelets (Bld) [#/Vol] 216 10*3/uL [facility] RBC (Bld) [#/Vol] 5.28 10*6/uL 4.21 - 5.7 7 m/uL [facility] WBC (Bld) [#/Vol] 7.6 10*3/uL [facility] Comp Metabolic Profon 2021 (cont.) Normal [facility] Comment on above: Result Comment: Aver age GFR for 50-59 years old: 93 mL/min/1.73sq m Chronic Kidney Disease: <60 mL/min/1.73sq m Kidney failure: <15 mL/min/1.73sq m eGFR calculated using average adult body mass. Additional eGFR calculator available at: http://www.[employer]/multiple_crcl_2011.htm Performed By: #### C WANG, CP #### [facility] [address] [place] [address] [place]: Bill Hernadez MD Albumin [Mass/Vol] 4.6 g/dL Normal 3.5-5.2 [facility] Comment on above: Performed By: #### C WANG, CP #### [facility] [address] [place] [address] [place]: Bill Hernadez MD Albumin/Glob Ratio 2.0 Normal 1.0-2.5 [facility] Comment on above: Performed By: #### C WANG, CP #### [facility] [address] [place] [address] [place]: Bill Hernadez MD Alkaline Phos 73 U/L Normal 40-129 [facility] Comment on above: Performed By: #### C WANG, CP #### [facility] [address] [place] [address] [place]: Bill Hernadez MD ALT [Catalytic activity/Vol] 42 U/L High 5-41 [facility] Comment on above: Performed By: #### C BC, CP #### [facility] [address] [place], [place] [id number] [place]: Bill Hernadez MD Anion gap [Moles/Vol] 13 mmol/L Normal 9-17 [facility] Comment on above: Performed By: #### C BC, CP #### [facility] [address] [place], [place] [id number] [place]: Bill Hernadez MD AST [Catalytic activity/Vol] 24 U/L Normal <40 [facility] Comment on above: Performed By: #### C BC, CP #### [facility] [address] [place], [place] [id number] [place]: Bill Hernadez MD Bilirubin [Mass/Vol] 0.6 mg/dL Normal 0.3-1.2 [facility] Comment on above: Performed By: #### C BC, CP #### [facility] [address] [place], [place] [id number] [place]: Bill Hernadez MD BUN/CRE Ratio 15 Normal 9-20 [facility] Comment on above: Performed By: #### C BC, CP #### [facility] [address] [place], [place] [id number] [place]: Bill Hernadez MD Calcium [Mass/Vol] 10.0 mg/dL Normal 8.6-10.4 [facility] Comment on above: Performed By: #### C BC, CP #### [facility] [address] [place], [place] [id number] [place]: Bill Hernadez MD Chloride [Moles/Vol] 99 mmol/L Normal 98-107 [facility] Comment on above: Performed By: #### C BC, CP #### [facility] [address] [place], [place] [id number] [place]: Bill Hernadez MD CO2 [Moles/Vol] 25 mmol/L Normal 20-31 [facility] Comment on above: Performed By: #### C BC, CP #### [facility] [address] [place], [place] [id number] [place]: Bill Hernadez MD Creatinine [Mass/Vol] 0.87 mg/dL Normal 0.70-1.20 [facility] Comment on above: Performed By: #### C BC, CP #### [facility] [address] [place], [place] [id number] [place]: Bill Hernadez MD GFR, Amer >60 Normal >60 [facility] Comment on above: Performed By: #### C BC, CP #### [facility] [address] [place], [place] [id number] [place]: Bill Hernadez MD GFR,non Amer >60 Normal >60 [facility] Comment on above: Performed By: #### C BC, CP #### [facility] [address] [place], [place] [id number] [place]: Bill Hernadez MD Glucose [Mass/Vol] 276 mg/dL High 70-99 [facility] Comment on above: Performed By: #### C BC, CP #### [facility] [address] [place], [place] [id number] [place]: Bill Hernadez MD Potassium [Moles/Vol] 4.1 mmol/L Normal 3.7-5.3 [facility] Comment on above: Performed By: #### C BC, CP #### [facility] [address] [place], [place] [id number] [place]: Bill Hernadez MD Protein [Mass/Vol] 6.9 g/dL Normal 6.4-8.3 [facility] Comment on above: Performed By: #### C BC, CP #### [facility] [address] [place] [address] [place]: Bill Hernadez MD Sodium [Moles/Vol] 137 mmol/L Normal 135-144 [facility] Comment on above: Performed By: #### C WNAG, CP #### [facility] [address] [place] [address] [place]: Bill Hernadez MD Staging: Normal [facility] Comment on above: Result Comment: Stag e 1: Some kidney damage normal GFR Stage 2: Mild kidney damage GFR 60-89 Stage 3: Moderate kidney damage GFR 30-59 Stage 4: Severe kidney damage GFR 15-29 Stage 5: Severe kidney damage GFR <15 ESRD - chronic treatment by dialysis or transplant Performed By: #### C WANG, CP #### [facility] [address] [place] [address] [place]: Bill Hernadez MD Urea nitrogen [Mass/Vol] 13 mg/dL Normal 6-20 [facility] Comment on above: Performed By: #### C WANG, CP #### [facility] [address] [place] [address] [place]: Bill Hernadez MD Comprehensive Metabolic Pane [facility] 03-03-2022 Albumin [Mass/Vol] 4.6 g/dL 3.5 - 5.2 g/dL [facility] Albumin/Globulin [Mass ratio] 2.0 {ratio} 1 - 2.5 [facility] ALP (Bld) [Catalytic activity/Vol] 73 U/L 40 - 129 U/L [facility] ALT [Catalytic activity/Vol] 42 U/L High 5 - 41 U/L [facility] Anion gap [Moles/Vol] 13 mmol/L 9 - 17 mmol/L [facility] AST [Catalytic activity/Vol] 24 U/L NINF - 40 U/L [facility] Bilirubin [Mass/Vol] 0.6 mg/dL 0.3 - 1.2 mg/dL [facility] Calcium [Mass/Vol] 10.0 mg/dL 8.6 - 10. 4 mg/dL [facility] Chloride [Moles/Vol] 99 mmol/L 98 - 107 mmol/L [facility] CO2 [Moles/Vol] 25 mmol/L 20 - 31 mmol/L [facility] Creatinine [Mass/Vol] 0.87 mg/dL 0.7 - 1.2 mg/dL [facility] Free PSA/Total PSA [Mass fraction] 6.9 g/dL 6.4 - 8.3 g/dL [facility] GFR >60 60 - PINF mL/min [facility] GFR Non- >60 60 - PINF mL/min [facility] Glucose [Mass/Vol] 276 mg/dL High 70 - 99 mg/dL [facility] Interpretation and review of laboratory results Abnormal [facility] Potassium [Moles/Vol] 4.1 mmol/L 3.7 - 5.3 mmol/L [facility] Sodium [Moles/Vol] 137 mmol/L 135 - 144 mmol/L [facility] Urea nitrogen (BldV) [Mass/Vol] 13 mg/dL 6 - 20 mg/dL [facility] Urea nitrogen/Creatinine (Bld) [Mass ratio] 15 9 - 20 [facility] Laboratory - Chemistry and C hemistry - challengeon 03-03-2022 GFR/1.73 sq M.predicted MDRD (S/P/Bld) [Vol rate/Area] [facility] Comment on above: Average GFR for 50-5 9 years old: 93 mL/min/1.73sq m Chronic Kidney Disease: <60 mL/min/1.73sq m Kidney failure: <15 mL/min/1.73sq m eGFR calculated using average adult body mass. Additional eGFR calculator available at: http://www.[employer].Dimmi/multiple_crcl_2012.htm Stage 1: Some kidney damage normal GFR [...] Abram Muñoz DO 03/03/22 Final result Normal [facility] Nonobstructed bowel-gas pattern. [facility] EXAMINATION: TWO XRAY VIEWS OF THE ABDOMEN 03/03/2022 3:03 pm COMPARISON: None. HISTORY: ORDERING SYSTEM PROVIDED HISTORY: Abdominal pain, generalized FINDINGS: Bowel gas pattern nonobstructed. No pathologic calcification. No acute osseous abnormality. [facility] Abram Muñoz DO - 03/03/2022 EXAMINATION: TWO XRAY VIEWS OF THE ABDOMEN 03/03/2022 3:03 pm COMPARISON: None. HISTORY: ORDERING SYSTEM PROVIDED HISTORY: Abdominal pain, generalized FINDINGS: Bowel gas pattern nonobstructed. No pathologic calcification. No acute osseous abnormality. IMPRESSION: Nonobstructed bowel-gas pattern. [facility] [employer] Phone: Radiology Study observation (narrative) [facility] Phone: XR ABDOMEN (2 VIEWS)Ordered By: Abram Muñoz on 03-03-2022 [facility] Phone: XR CHEST (2 VW)on 03-03-2022 XR [...] Martha Crawford MD 03/03/22 Final result Normal [facility] Unremarkable PA and lateral chest. No evidence of acute cardiopulmonary process. [facility] EXAMINATION: TWO XRAY VIEWS OF THE CHEST 03/03/2022 3:03 pm COMPARISON: PA and lateral chest November 09, 2016. HISTORY: ORDERING SYSTEM PROVIDED HISTORY: Abdominal pain, generalized FINDINGS: The heart is normal in size. Central pulmonary vascularity appears normal. No evidence of pneumothorax, pleural effusion, infiltrate, or abnormal lung mass. Osseous structures are grossly unremarkable in appearance. Suggestion of a large body habitus. [facility] Martha Crawford MD - 03/03/2022 EXAMINATION: [...] chest. No evidence of acute cardiopulmonary process. [facility] [employer] Phone: Radiology Study observation (narrative) [facility] Phone: XR CHEST (2 VW)Ordered By: Mo Crawford on 03-03-2022 [facility] [employer] Phone: POINT OF CARE GLUCOSEon - Glucose [Mass/Vol] 240 mg/dL Critically high 74-106 [facility] Comment on above: Performed By: #### P OCGLUC #### [facility] [address] [address] [address] Magda Shelby CBC AUTO DIFFon 02-26-2022 BASO # 0.0 103/ul Normal 0.0-0.1 [facility] Comment on above: Performed By: #### C BC #### [facility] [address] [address] [address] Magda Shelby Basophils/100 WBC (Bld) 0.2 % Normal 0.2-2.0 [facility] Comment on above: Performed By: #### C BC #### [facility] [address] [place] [address] Dr. Magda Shelby EO # 0.1 103/ul Normal 0.0-0.7 [facility] Comment on above: Performed By: #### C BC #### [facility] [address] [place] [address] Dr. Magda Shelby Eosinophils/100 WBC (Bld) 1.1 % Normal 0.9-7.0 [facility] Comment on above: Performed By: #### C BC #### [facility] [address] [place] [address] Dr. Magda Shelby Erythrocyte distribution width (RBC) [Ratio] 14.5 % Normal 11.0-15.0 [facility] Comment on above: Performed By: #### C BC #### [facility] [address] [place] [address] Dr. Magda Shelby Hematocrit (Bld) [Volume fraction] 45.3 % Normal 42.0-54.0 [facility] Comment on above: Performed By: #### C BC #### [facility] [address] [place] [address] Dr. Magda Shelby Hemoglobin (Bld) [Mass/Vol] 14.9 g/dL Normal 14.0-18.0 [facility] Comment on above: Performed By: #### C BC #### [facility] [address] [place] [address] Dr. Magda Shelby IG # 0.04 10e3/ul Critically high 0.00-0.03 [facility] Comment on above: Performed By: #### C BC #### [facility] [address] [place] [address] Dr. Magda Shelby IG % 0.4 % Normal 0.0-0.5 [facility] Comment on above: Performed By: #### C BC #### [facility] [address] [place] [address] Dr. Magda Shelby LYMPH # 1.4 103/ul Normal 1.2-3.8 [facility] Comment on above: Performed By: #### C BC #### [facility] [address] [place] [address] Dr. Magda Shelby Lymphocytes/100 WBC (Bld) 13.2 % Critically low 20.5-60.0 [facility] Comment on above: Performed By: #### C BC #### [facility] [address] [place] [address] Dr. Magda Shelby MANUAL DIFF REQ NO Normal [facility] Comment on above: Performed By: #### C BC #### [facility] [address] [place] [address] Dr. Magda Shelby MCH (RBC) [Entitic mass] 27.6 pg Normal 25.9-34.0 [facility] Comment on above: Performed By: #### C BC #### [facility] [address] [place] [address] Dr. Magda Shelby MCHC (RBC) [Mass/Vol] 32.9 g/dL Normal 29.9-35.2 [facility] Comment on above: Performed By: #### C BC #### [facility] [address] [place] [address] Dr. Magda Shelby MCV (RBC) [Entitic vol] 84.0 fL Normal 80.0-94.0 [facility] Comment on above: Performed By: #### C BC #### [facility] [address] [place] [address] Dr. Magda Shelby MONO # 0.6 103/ul Normal 0.3-0.8 [facility] Comment on above: Performed By: #### C BC #### [facility] [address] [place] [address] Dr. Magda Shelby Monocytes/100 WBC (Bld) 5.1 % Normal 1.7-12.0 [facility] Comment on above: Performed By: #### C BC #### [facility] [address] [place] [address] Dr. Magda Shelby NEUT # 8.7 103/ul Critically high 1.4-6.[address] [facility] Comment on above: Performed By: #### C BC #### [facility] [address] [address] [address] Magda Shelby Neutrophils/100 WBC (Bld) 80.0 % Critically high 43.0-75.0 [facility] Comment on above: Performed By: #### C BC #### [facility] [address] [address] [address] Magda Shelby Platelet mean volume (Bld) [Entitic vol] 10.4 fL Normal 9.5-13.5 [facility] Comment on above: Performed By: #### C BC #### [facility] [address] [place] [address] Dr. Magda Shelby PLT 213 103/ul Normal 150-450 [facility] Comment on above: Performed By: #### C BC #### [facility] [address] [place] [address] Dr. Magda Shelby RBC 5.39 106/ul Normal 4.70-6.10 [facility] Comment on above: Performed By: #### C BC #### [facility] [address] [address] [address] Magda Shelby WBC 10.9 103/ul Normal 4.0-11.0 [facility] Comment on above: Performed By: #### C BC #### [facility] [address] [place] [address] Dr. Magda Shelby [facility]on 01-31 SARS-CoV-2 (COVID-19) RNA FELIX+probe Ql (Unsp spec) Not detected Normal NOT DETECTED [facility] Comment on above: Result Comment: When [...] for this test is supported by the [place] of Health and Human Service's declaration that [...] used). Performed By: #### C VDTBH #### [facility] [address] [place] [address] Dr. Magda Shelby POINT OF CARE GLUCOSEon 01-31 Glucose [Mass/Vol] 281 mg/dL Critically high 74-106 [facility] Comment on above: Performed By: #### P OCGLUC #### [facility] [address] [place] [address] Dr. Magda Shelby Glucose [Mass/Vol] 222 mg/dL Critically high 74-106 [facility] Comment on above: Performed By: #### P OCGLUC #### [facility] [address] [place] [address] Dr. Magda Shelby PROF CHEM 8 (BAS METB)on Anion gap [Moles/Vol] 12.2 mmol/L Normal [facility] Comment on above: Performed By: #### B MP #### [facility] [address] [place] [address] Dr. Magda Shelby Calcium [Mass/Vol] 8.6 mg/dL Normal 8.5-10.1 [facility] Comment on above: Performed By: #### B MP #### [facility] [address] [place] [address] Dr. Magda Shelby Chloride [Moles/Vol] 105 mmol/L Normal 98-107 [facility] Comment on above: Performed By: #### B MP #### [facility] [address] [place] [address] Dr. Magda Shelby CO2 [Moles/Vol] 25.1 mmol/L Normal 21.0-32.0 [facility] Comment on above: Performed By: #### B MP #### [facility] [address] [place], [place] [id number] Dr. Magda Shelby Creatinine [Mass/Vol] 1.12 mg/dL Normal 0.70-1.30 [facility] Comment on above: Performed By: #### B MP #### [facility] [address] [place] [address] Dr. Magda Shelby EGFR-AF SWAZI >60 Normal >=60 [facility] Comment on above: Performed By: #### B MP #### [facility] [address] [address] [address] Magda Shelby EGFR-NON AF SWAZI >60 Normal >=60 [facility] Comment on above: Performed By: #### B MP #### [facility] [address] [place] [address] Dr. Magda Shelby Glucose [Mass/Vol] 184 mg/dL Critically high 74-106 [facility] Comment on above: Performed By: #### B MP #### [facility] [address] [place] [address] Dr. Magda Shelby Potassium [Moles/Vol] 4.3 mmol/L Normal 3.5-5.1 [facility] Comment on above: Performed By: #### B MP #### [facility] [address] [place] [address] Dr. Magda Shelby Sodium [Moles/Vol] 138 mmol/L Normal 136-145 [facility] Comment on above: Performed By: #### B MP #### [facility] [address] [place] [address] Dr. Magda Shelby Urea nitrogen [Mass/Vol] 13.0 mg/dL Normal 7.0-18.0 [facility] Comment on above: Performed By: #### B MP #### [facility] [address] [place] [address] Dr. Magda Shelby Urea nitrogen/Creatinine [Mass ratio] 11.6 mg/mg Normal [facility] Comment on above: Performed By: #### B MP #### [facility] [address] [place] [address] Dr. Magda Shelby Microalbumin (with Creat)on 09-21-2021 Creatinine (U) [Mass/Vol] 85 mg/dL Normal 20-320 [facility] Supervisor Comment on above: Order Comment: [facility] performed at: [facility], [employer] [facility], [address] [place] [address], [address] [place] [address], [address] [place] [address], Game Engineer: David Carrillo MD [facility] Date/Time: [facility] Results Received Date/Time: [facility] Reported Date/Time: Performed By: #### m ALBC #### [facility] [address] [place] [address] MICROALBUMIN 0.3 mg/dL Normal See Note: [facility] Specialist Comment on above: Order Comment: [facility] performed at: [employer], [employer] [facility], [address] [place] [address], [address] [place] [address], [address] [place] [address], Game Engineer: David Carrillo MD [facility] Date/Time: [facility] Results Received Date/Time: [facility] Reported Date/Time: Result Comment: Refe rence Range: Reference Range Not established Performed By: #### m ALBC #### [facility] [address] [place] [address] MICROALBUMIN/CREATI NINE RATIO, RANDOM URINE 4 mcg/mg creat Normal <30 [facility] Supervisor Comment on above: Order Comment: [facility] performed at: [employer], [employer] [facility], [address] [place] [address], [address] [place] [address], [address] [place] [address], Game Engineer: David Carrillo MD [facility] Date/Time: [facility] [...] m ALBC #### [facility] [address] [place] [address] Q - UR CULT REFLEXon 022 REFLEXIVE URINE CULTURE SEE NOTE Normal [facility] Supervisor Comment on above: Order Comment: [facility] performed at: [employer], [employer] [facility], [address] , [address] [place] [address], [address] [place] [address], Game Engineer: David Carrillo MD [facility] Date/Time: [facility] Results Received Date/Time: [facility] Reported Date/Time: Result Comment: NO C ULTURE INDICATED Performed By: #### A 1C #### [facility] [address] [place] [address] Q - URINALYSIS,COMPLETE,WITH REFLEX TO CULTUREon 09-21-2021 Appearance (U) CLEAR Normal CLEAR [facility] Supervisor Comment on above: Order Comment: [facility] performed at: [employer] [facility], [address] , [address] [place] [address], [address] [place] [address], Game Engineer: David Carrillo MD [facility] Date/Time: [facility] Results Received Date/Time: [facility] Reported Date/Time: Performed By: #### A 1C #### [facility] [address] [place] [address] BACTERIA NONE SEEN Normal NONE SEEN [facility] Supervisor Comment on above: Order Comment: [facility] performed at: [employer] [facility], [address] , [address] [place] [address], [address] [place] [address], Game Engineer: David Carrillo MD [facility] Date/Time: [facility] Results Received Date/Time: [facility] Reported Date/Time: Performed By: #### A 1C #### [facility] [address] [place] [address] Bilirubin Ql (U) Negative Normal NEGATIVE [facility] Supervisor Comment on above: Order Comment: [facility] performed at: [employer] [facility], [address] , [address] [place] [address], [address] [place] [address], Game Engineer: David Carrillo MD [facility] Date/Time: [facility] Results Received Date/Time: [facility] Reported Date/Time: Performed By: #### A 1C #### [facility] [address] [place] [address] Color (U) YELLOW Normal YELLOW [facility] Supervisor Comment on above: Order Comment: [facility] performed at: [employer] [employer] [facility], [address] , [address] [place] [address], [address] [place] [address], Game Engineer: David Carrillo MD [facility] Date/Time: [facility] Results Received Date/Time: [facility] Reported Date/Time: Performed By: #### A 1C #### [facility] [address] [place] [address] Glucose Ql (U) Negative Normal NEGATIVE [facility] Supervisor Comment on above: Order Comment: [facility] performed at: [employer], [employer] [facility], [address] , [address] [place] [address], [address] [place] [address], Game Engineer: David Carrillo MD [facility] Date/Time: [facility] Results Received Date/Time: [facility] Reported Date/Time: Performed By: #### A 1C #### [facility] [address] [place] [address] HYALINE CAST NONE SEEN Normal NONE SEEN [facility] Supervisor Comment on above: Order Comment: [facility] performed at: [employer] [employer] [facility], [address] , [address] [place] [address], [address] [place] [address], Game Engineer: David Carrillo MD [facility] Date/Time: [facility] Results Received Date/Time: [facility] Reported Date/Time: Performed By: #### A 1C #### [facility] [address] [place] [address] Ketones Ql (U) Negative Normal NEGATIVE [facility] Supervisor Comment on above: Order Comment: [facility] performed at: [facility], [employer] [facility], [address], [address] [place] [address], [address] [place] [address], Game Engineer: David Carrillo MD [facility] Date/Time: [facility] Results Received Date/Time: [facility] Reported Date/Time: Performed By: #### A 1C #### [facility] [address] [place] [address] Leukocyte esterase Test strip Ql (U) Negative Normal NEGATIVE [facility] Supervisor Comment on above: Order Comment: [facility] performed at: [facility], [employer] [facility], [address] , [address] [place] [address], [address] [place] [address], Game Engineer: David Carrillo MD [facility] Date/Time: [facility] Results Received Date/Time: [facility] Reported Date/Time: Performed By: #### A 1C #### [facility] [address] [place] [address] Nitrite Ql (U) Negative Normal NEGATIVE [facility] Supervisor Comment on above: Order Comment: [facility] performed at: [facility], [employer] [facility], [address], [address] [place] [address], [address] [place] [address], Game Engineer: David Carrillo MD [facility] Date/Time: [facility] Results Received Date/Time: [facility] Reported Date/Time: Performed By: #### A 1C #### [facility] [address] [place] [address] OCCULT BLOOD Negative Normal NEGATIVE [facility] Supervisor Comment on above: Order Comment: [facility] performed at: [facility], [employer] [facility], [address], [address] [place] [address], [address] [place] [address], Game Engineer: David Carrillo MD [facility] Date/Time: [facility] Results Received Date/Time: [facility] Reported Date/Time: Performed By: #### A 1C #### [facility] [address] [place] [address] pH (U) [pH] Normal 5.0-8.0 [facility] Specialist Comment on above: Order Comment: [facility] performed at: [facility], [employer] [facility], [address] [facility], [address] [place] [address], [phone], Game Engineer: David Carrillo MD [facility] Date/Time: [facility] Results Received Date/Time: [facility] Reported Date/Time: Performed By: #### A 1C #### [facility] [address] [place] [address] Protein Ql (U) Negative Normal NEGATIVE [facility] Comment on above: Order Comment: [facility] performed at: [employer], [employer] [facility], [address] [facility], [address] [place] [address], [phone], Game Engineer: David Carrillo MD [facility] Date/Time: [facility] Results Received Date/Time: [facility] Reported Date/Time: Performed By: #### A 1C #### [facility] [address] [place] [address] RBC NONE SEEN Normal < OR = 2 [facility] Specialist Comment on above: Order Comment: [facility] performed at: [employer], [employer] [facility], [address] [facility], [address] [place] [address], [phone], Game Engineer: David Carrillo MD [facility] Date/Time: [facility] Results Received Date/Time: [facility] Reported Date/Time: Performed By: #### A 1C #### [facility] [address] [place] [address] Specific gravity (U) [Rel density] 1.015 Normal 1.001-1.035 [facility] Supervisor Comment on above: Order Comment: [facility] performed at: [employer] [employer] [facility], [address] [place] [address], [address] [place] [address], [address] [place] [address], Game Engineer: David Carrillo MD [facility] Date/Time: [facility] Results Received Date/Time: [facility] Reported Date/Time: Performed By: #### A 1C #### [facility] [address] [place] [address] SQUAMOUS EPITHELIAL CELLS NONE SEEN Normal < OR = 5 [facility] Supervisor Comment on above: Order Comment: [facility] performed at: [employer], [employer] [facility], [address] [place] [address], [address] [place] [address], [address] [place] [address], Game Engineer: David Carrillo MD [facility] Date/Time: [facility] Results Received Date/Time: [facility] Reported Date/Time: Performed By: #### A 1C #### [facility] [address] [place] [address] WBC NONE SEEN Normal < OR = 5 [facility] Supervisor Comment on above: Order Comment: [facility] performed at: [employer] [employer] [facility], [address] [place] [address], [address] [place] [address], [address] [place] [address], Game Engineer: David Carrillo MD [facility] Date/Time: [facility] Results Received Date/Time: [facility] Reported Date/Time: Performed By: #### A 1C #### [facility] [address] [place] [address] Complete Blood Count with Au to Diffon 09-20-2021 BASOABS 28 cells/uL Normal 0-200 [facility] Supervisor Comment on above: Order Comment: [facility] performed at: [employer] [employer] [facility], [address] [place] [address], [address] [place] [address], [address] [place] [address], Game Engineer: David Carrillo MD [facility] Date/Time: [facility] Results Received Date/Time: [facility] Reported Date/Time: Performed By: #### C BCAD, CMP, TSH reflex FT4, TEST, LIPD, FT4, VITD #### [facility] [address] [place] [address] Basophils/100 WBC (Bld) 0.5 % Normal [facility] Supervisor Comment on above: Order Comment: [facility] performed at: [employer], [employer] [facility], [address] [facility], [address] [place] [address], [phone], Game Engineer: David Carrillo MD [facility] Date/Time: [facility] Results Received Date/Time: [facility] Reported Date/Time: Performed By: #### C BCAD, CMP, TSH reflex FT4, TEST, LIPD, FT4, VITD #### [facility] [address] [place] [address] EOSABS 429 cells/uL Normal 15-500 [facility] Specialist Comment on above: Order Comment: [facility] performed at: [employer], [employer] [facility], [address] [place] [address], [address] [place] [address], [address] [place] [address], Game Engineer: David Carrillo MD [facility] Date/Time: [facility] Results Received Date/Time: [facility] Reported Date/Time: Performed By: #### C BCAD, CMP, TSH reflex FT4, TEST, LIPD, FT4, VITD #### [facility] [address] [place] [address] Eosinophils/100 WBC (Bld) 7.8 % Normal [facility] Specialist Comment on above: Order Comment: [facility] performed at: [employer], [employer] [facility], [address] [facility], [address] [place] [address], [phone], Game Engineer: David Carrlilo MD [facility] Date/Time: [facility] Results Received Date/Time: [facility] Reported Date/Time: Performed By: #### C BCAD, CMP, TSH reflex FT4, TEST, LIPD, FT4, VITD #### [facility] [address] [place] [address] Erythrocyte distribution width (RBC) [Ratio] 13.7 % Normal 11.0-15.0 [facility] Supervisor Comment on above: Order Comment: [facility] performed at: [employer], [employer] [facility], [address] [place] [address], [address] [place] [address], [address] [place] [address], Game Engineer: David Carrillo MD [facility] Date/Time: [facility] Results Received Date/Time: [facility] Reported Date/Time: Performed By: #### C BCAD, CMP, TSH reflex FT4, TEST, LIPD, FT4, VITD #### [facility] [address] [place] [address] Hematocrit (Bld) [Volume fraction] 41.4 % Normal 38.5-50.0 [facility] Supervisor Comment on above: Order Comment: [facility] performed at: [employer], [employer] [facility], [address] [place] [address], [address] [place] [address], [address] [place] [address], Game Engineer: David Carrillo MD [facility] Date/Time: [facility] Results Received Date/Time: [facility] Reported Date/Time: Performed By: #### C BCAD, CMP, TSH reflex FT4, TEST, LIPD, FT4, VITD #### [facility] [address] [place] [address] Hemoglobin (Bld) [Mass/Vol] 13.6 g/dL Normal 13.2-17.1 [facility] Supervisor Comment on above: Order Comment: [facility] performed at: [employer], [employer] LIST [facility], [address] [place] [address], [address] [place] [address], [address] [place] [address], Game Engineer: David Carrillo MD [facility] Collection Date/Time: [facility] Results Received Date/Time: [facility] Reported Date/Time: Performed By: #### C BCAD, CMP, TSH reflex FT4, TEST, LIPD, FT4, VITD #### [facility] Default [address] [place] [address] Lymphocytes (Bld) [#/Vol] 1.485 10*3/uL Normal 850-3900 [facility] Supervisor Comment on above: Order Comment: [facility] Testing performed at: Blip, TATE'S LIST [facility], [address] [facility], [address] [place] [address], [address] [place] [address], Game Engineer: David Carrillo MD [facility] Collection Date/Time: [facility] Results Received Date/Time: [facility] Reported Date/Time: Performed By: #### C BCAD, CMP, TSH reflex FT4, TEST, LIPD, FT4, VITD #### [facility] Default [address] [place] [address] Lymphocytes/100 WBC (Bld) 27.0 % Normal [facility] Supervisor Comment on above: Order Comment: [facility] Testing performed at: Blip, TATE'S LIST [facility], [address] [place] [address], [address] [place] [address], [address] [place] [address], Game Engineer: David Carrillo MD [facility] Date/Time: [facility] Results Received Date/Time: [facility] Reported Date/Time: Performed By: #### C BCAD, CMP, TSH reflex FT4, TEST, LIPD, FT4, VITD #### [facility] Default [address] [place] [address] MCH (RBC) [Entitic mass] 27.6 pg Normal 27.0-33.0 [facility] Supervisor Comment on above: Order Comment: [facility] Testing performed at: Blip, TATE'S LIST [facility], [address] [facility], [address] [place] [address], [phone], Game Engineer: David Carrillo MD [facility] Date/Time: [facility] Results Received Date/Time: [facility] Reported Date/Time: Performed By: #### C BCAD, CMP, TSH reflex FT4, TEST, LIPD, FT4, VITD #### [facility] Default [address] [place] [address] MCHC (RBC) [Mass/Vol] 32.9 g/dL Normal 32.0-36.0 [facility] Supervisor Comment on above: Order Comment: [facility] Testing performed at: Blip, TATE'S LIST [facility], [address] [facility], [address] [place] [address], [phone], Game Engineer: David Carrillo MD [facility] Date/Time: [facility] Results Received Date/Time: [facility] Reported Date/Time: Performed By: #### C BCAD, CMP, TSH reflex FT4, TEST, LIPD, FT4, VITD #### [facility] Default [address] [place] [address] MCV (RBC) [Entitic vol] 84.0 fL Normal 80.0-100.0 [facility] Supervisor Comment on above: Order Comment: [facility] performed at: Blip, TATE'S LIST [facility], [address] [place] [address], [address] [place] [address], [phone], Game Engineer: David Carrillo MD [facility] Date/Time: [facility] Results Received Date/Time: [facility] Reported Date/Time: Performed By: #### C BCAD, CMP, TSH reflex FT4, TEST, LIPD, FT4, VITD #### [facility] Default [address] [place] [address] MONOABS 556 cells/uL Normal 200-950 [facility] Supervisor Comment on above: Order Comment: [facility] Testing performed at: Blip, TATE'S LIST [facility], [address] [facility], [address] [place] [address], [phone], Game Engineer: David Carrillo MD [facility] Collection Date/Time: [facility] Results Received Date/Time: [facility] Reported Date/Time: Performed By: #### C BCAD, CMP, TSH reflex FT4, TEST, LIPD, FT4, VITD #### [facility] Default [address] [place] [address] Monocytes/100 WBC (Bld) 10.1 % Normal [facility] Specialist Comment on above: Order Comment: [facility] Testing performed at: Blip, TATE'S LIST [facility], [address] [place] [address], [address] [place] [address], [address] [place] [address], Game Engineer: David Carrillo MD [facility] Collection Date/Time: [facility] Results Received Date/Time: [facility] Reported Date/Time: Performed By: #### C BCAD, CMP, TSH reflex FT4, TEST, LIPD, FT4, VITD #### [facility] Default [address] [place] [address] Neutrophils (Bld) [#/Vol] 3.003 10*3/uL Normal 4988-6547 [facility] Supervisor Comment on above: Order Comment: [facility] Testing performed at: Blip, TATE'S LIST [facility], [address] [place] [address], [address] [place] [address], [address] [place] [address], Game Engineer: David Carrillo MD [facility] Collection Date/Time: [facility] Results Received Date/Time: [facility] Reported Date/Time: Performed By: #### C BCAD, CMP, TSH reflex FT4, TEST, LIPD, FT4, VITD #### [facility] Default [address] [place] [address] Neutrophils/100 WBC (Bld) 54.6 % Normal [facility] Specialist Comment on above: Order Comment: [facility] Testing performed at: Blip, TATE'S LIST [facility], [address] [place] [address], [address] [place] [address], [address] [place] [address], Game Engineer: David Carrillo MD [facility] Collection Date/Time: [facility] Results Received Date/Time: [facility] Reported Date/Time: Performed By: #### C BCAD, CMP, TSH reflex FT4, TEST, LIPD, FT4, VITD #### [facility] Default [address] [place] [address] Platelet mean volume (Bld) [Entitic vol] 11.3 fL Normal 7.5-12.5 [facility] Supervisor Comment on above: Order Comment: [facility] Testing performed at: Blip, TATE'S LIST [facility], [address] [place] [address], [address] [place] [address], [address] [place] [address], Game Engineer: David Carrillo MD [facility] Collection Date/Time: [facility] Results Received Date/Time: [facility] Reported Date/Time: Performed By: #### C BCAD, CMP, TSH reflex FT4, TEST, LIPD, FT4, VITD #### [facility] Default [address] [place] [address] Platelets (Bld) [#/Vol] 175 10*3/uL Normal 140-400 [facility] Supervisor Comment on above: Order Comment: [facility] Testing performed at: Blip, TATE'S LIST [facility], [address] [place] [address], [address] [place] [address], [address] [place] [address], Game Engineer: David Carrillo MD [facility] Collection Date/Time: [facility] Results Received Date/Time: [facility] Reported Date/Time: Performed By: #### C BCAD, CMP, TSH reflex FT4, TEST, LIPD, FT4, VITD #### [facility] Default [address] [place] [address] RBC (Bld) [#/Vol] 4.93 10*6/uL Normal 4.20-5.80 [facility] Specialist Comment on above: Order Comment: [facility] Testing performed at: Blip, TATE'S LIST [facility], [address] [place] [address], [address] [place] [address], [address] [place] [address], Game Engineer: David Carrillo MD [facility] Collection Date/Time: [facility] Results Received Date/Time: [facility] Reported Date/Time: Performed By: #### C BCAD, CMP, TSH reflex FT4, TEST, LIPD, FT4, VITD #### [facility] Default [address] [place] [address] WBC (Bld) [#/Vol] 5.5 10*3/uL Normal 3.8-10.8 [facility] [place] [facility] Supervisor Comment on above: Order Comment: [facility] Testing performed at: Blip, TATE'S LIST [facility], [address] [place] [address], [address] [place] [address], [address] [place] [address], Game Engineer: David Carrillo MD [facility] Collection Date/Time: [facility] Results Received Date/Time: [facility] Reported Date/Time: Performed By: #### C BCAD, CMP, TSH reflex FT4, TEST, LIPD, FT4, VITD #### [facility] Default [address] [place] [address] Comprehensive Metabolic Pane [facility] 09-20-2021 Albumin [Mass/Vol] 4.4 g/dL Normal 3.6-5.1 [facility] [place] [facility] Supervisor Comment on above: Order Comment: [facility] Testing performed at: Blip, TATE'S LIST [facility], [address] [place] [address], [address] [place] [address], [address] [place] [address], Game Engineer: David Carrillo MD [facility] Collection Date/Time: [facility] Results Received Date/Time: [facility] Reported Date/Time: Performed By: #### C BCAD, CMP, TSH reflex FT4, TEST, LIPD, FT4, VITD #### [facility] Default [address] [place] [address] Albumin/Globulin [Mass ratio] 2.1 {ratio} Normal 1.0-2.5 [facility] Supervisor Comment on above: Order Comment: [facility] Testing performed at: Blip, TATE'S LIST [facility], [address] [place] [address], [address] [place] [address], [address] [place] [address], Game Engineer: David Carrillo MD [facility] Collection Date/Time: [facility] Results Received Date/Time: [facility] Reported Date/Time: Performed By: #### C BCAD, CMP, TSH reflex FT4, TEST, LIPD, FT4, VITD #### [facility] Default [address] [place] [address] ALP [Catalytic activity/Vol] 60 U/L Normal 35-144 [facility] Specialist Comment on above: Order Comment: [facility] Testing performed at: Blip, TATE'S LIST [facility], [address] [place] [address], [address] [place] [address], [address] [place] [address], Game Engineer: David Carrillo MD [facility] Collection Date/Time: [facility] Results Received Date/Time: [facility] Reported Date/Time: Performed By: #### C BCAD, CMP, TSH reflex FT4, TEST, LIPD, FT4, VITD #### [facility] Default [address] [place] [address] ALT [Catalytic activity/Vol] 45 U/L Normal 9-46 [facility] Supervisor Comment on above: Order Comment: [facility] Testing performed at: Blip, TATE'S LIST [facility], [address] [place] [address], [address] [place] [address], [address] [place] [address], Game Engineer: David Carrillo MD [facility] Collection Date/Time: [facility] Results Received Date/Time: [facility] Reported Date/Time: Performed By: #### C BCAD, CMP, TSH reflex FT4, TEST, LIPD, FT4, VITD #### [facility] Default [address] [place] [address] Anion gap [Moles/Vol] 13 mmol/L Normal 12-20 [facility] Supervisor Comment on above: Order Comment: [facility] Testing performed at: [employer], TATE'S LIST [facility], [address] [place] [address], [address] [place] [address], [address] [place] [address], Game Engineer: David Carrillo MD [facility] Collection Date/Time: [facility] Results Received Date/Time: [facility] Reported Date/Time: Result Comment: Effe ctive 07/07/2019 reference range changed. Performed By: #### C BCAD, CMP, TSH reflex FT4, TEST, LIPD, FT4, VITD #### [facility] Default [address] [place] [address] AST [Catalytic activity/Vol] 32 U/L Normal 10-35 [facility] Specialist Comment on above: Order Comment: [facility] Testing performed at: Blip, TATE'S LIST [facility], [address] [facility], [address] [place] [address], [address] [place] [address], Game Engineer: David Carrillo MD [facility] Collection Date/Time: [facility] Results Received Date/Time: [facility] Reported Date/Time: Performed By: #### C BCAD, CMP, TSH reflex FT4, TEST, LIPD, FT4, VITD #### [facility] Default [address] [place] [address] Bilirubin [Mass/Vol] 0.5 mg/dL Normal 0.2-1.2 [facility] Specialist Comment on above: Order Comment: [facility] Testing performed at: Blip, TATE'S LIST [facility], [address] [facility], [address] [place] [address], [address] [place] [address], Game Engineer: David Carrillo MD [facility] Collection Date/Time: [facility] Results Received Date/Time: [facility] Reported Date/Time: Performed By: #### C BCAD, CMP, TSH reflex FT4, TEST, LIPD, FT4, VITD #### [facility] Default [address] [place] [address] BUN/CREA 16 NOT APPLICABLE Normal 6-22 [facility] Specialist Comment on above: Order Comment: [facility] Testing performed at: Blip, TATE'S LIST [facility], [address] [facility], [address] [place] [address], [address] [place] [address], Game Engineer: David Carrillo MD [facility] Collection Date/Time: [facility] Results Received Date/Time: [facility] Reported Date/Time: Performed By: #### C BCAD, CMP, TSH reflex FT4, TEST, LIPD, FT4, VITD #### [facility] Default [address] [place] [address] Calcium [Mass/Vol] 9.3 mg/dL Normal 8.6-10.3 [facility] Comment on above: Order Comment: [facility] Testing performed at: Blip, TATE'S LIST [facility], [address] [place] [address], [address] [place] [address], [address] [place] [address], Game Engineer: David Carrillo MD [facility] Collection Date/Time: [facility] Results Received Date/Time: [facility] Reported Date/Time: Performed By: #### C BCAD, CMP, TSH reflex FT4, TEST, LIPD, FT4, VITD #### [facility] Default [address] [place] [address] Chloride [Moles/Vol] 106 mmol/L Normal 98-110 [facility] Comment on above: Order Comment: [facility] Testing performed at: Blip, TATE'S LIST [facility], [address] [place] [address], [address] [place] [address], [address] [place] [address], Game Engineer: David Carrillo MD [facility] Collection Date/Time: [facility] Results Received Date/Time: [facility] Reported Date/Time: Performed By: #### C BCAD, CMP, TSH reflex FT4, TEST, LIPD, FT4, VITD #### [facility] Default [address] [place] [address] CO2 [Moles/Vol] 25 mmol/L Normal 20-32 [facility] Specialist Comment on above: Order Comment: [facility] Testing performed at: Blip, TATE'S LIST [facility], [address] [place] [address], [address] [place] [address], [address] [place] [address], Game Engineer: David Carrillo MD [facility] Collection Date/Time: [facility] Results Received Date/Time: [facility] Reported Date/Time: Performed By: #### C BCAD, CMP, TSH reflex FT4, TEST, LIPD, FT4, VITD #### [facility] Default [address] [place] [address] Creatinine [Mass/Vol] 0.92 mg/dL Normal 0.70-1.33 [facility] Supervisor Comment on above: Order Comment: [facility] Testing performed at: Blip, TATE'S LIST [facility], [address] [place] [address], [address] [place] [address], [phone], Game Engineer: David Carrillo MD [facility] Collection Date/Time: [facility] Results Received Date/Time: [facility] Reported Date/Time: Result Comment: For patients >49 years of age, the reference limit for Creatinine is approximately 13% higher for people identified as -Italian. Performed By: #### C BCAD, CMP, TSH reflex FT4, TEST, LIPD, FT4, VITD #### [facility] Default [address] [place] [address] eGFRAA ([facility]) 107 mL/min/1.73m2 Normal > OR = 60 [facility] Specialist Comment on above: Order Comment: [facility] Testing performed at: Blip, TATE'S LIST [facility], [address] [place] [address], [address] [place] [address], [phone], Game Engineer: David Carrillo MD [facility] Collection Date/Time: [facility] Results Received Date/Time: [facility] Reported Date/Time: Performed By: #### C BCAD, CMP, TSH reflex FT4, TEST, LIPD, FT4, VITD #### [facility] Default [address] [place] [address] eGFRNAA ([facility]) 93 mL/min/1.73m2 Normal > OR = 60 [facility] Supervisor Comment on above: Order Comment: [facility] Testing performed at: [employer] [facility], [address] [place] [address], [address] [place] [address], [address] [place] [address], Game Engineer: David Carrillo MD [facility] Collection Date/Time: [facility] Results Received Date/Time: [facility] Reported Date/Time: Performed By: #### C BCAD, CMP, TSH reflex FT4, TEST, LIPD, FT4, VITD #### [facility] Default [address] [place] [address] Globulin (S) [Mass/Vol] 2.1 g/dL Normal 1.9-3.7 [facility] Comment on above: Order Comment: [facility] Testing performed at: Blip, TATE'S LIST [facility], [address] [place] [address], [address] [place] [address], [address] [place] [address], Game Engineer: David Carrillo MD [facility] Collection Date/Time: [facility] Results Received Date/Time: [facility] Reported Date/Time: Performed By: #### C BCAD, CMP, TSH reflex FT4, TEST, LIPD, FT4, VITD #### [facility] Default [address] [place] [address] Glucose [Mass/Vol] 168 mg/dL High 65-99 [facility] Specialist Comment on above: Order Comment: [facility] Testing performed at: Blip, TATE'S LIST [facility], [address] [place] [address], [address] [place] [address], [address] [place] [address], Game Engineer: David Carrillo MD [facility] Collection Date/Time: [facility] Results Received Date/Time: [facility] Reported Date/Time: Result Comment: Fasting reference interval For someone without known diabetes, a glucose value >125 mg/dL indicates that they may have diabetes and this should be confirmed with a follow-up test. Performed By: #### C BCAD, CMP, TSH reflex FT4, TEST, LIPD, FT4, VITD #### [facility] Default [address] [place] [address] Potassium [Moles/Vol] 4.4 mmol/L Normal 3.5-5.3 [facility] Supervisor Comment on above: Order Comment: [facility] Testing performed at: Blip, TATE'S LIST [facility], [address] [place] [address], [address] [place] [address], [address] [place] [address], Game Engineer: David Carrillo MD [facility] Collection Date/Time: [facility] Results Received Date/Time: [facility] Reported Date/Time: Performed By: #### C BCAD, CMP, TSH reflex FT4, TEST, LIPD, FT4, VITD #### [facility] Default [address] [place] [address] Protein [Mass/Vol] 6.5 g/dL Normal 6.1-8.1 [facility] Supervisor Comment on above: Order Comment: [facility] Testing performed at: Blip, TATE'S LIST [facility], [address] [place] [address], [address] [place] [address], [address] [place] [address], Game Engineer: David Carrillo MD [facility] Collection Date/Time: [facility] Results Received Date/Time: [facility] Reported Date/Time: Performed By: #### C BCAD, CMP, TSH reflex FT4, TEST, LIPD, FT4, VITD #### [facility] Default [address] [place] [address] Sodium [Moles/Vol] 140 mmol/L Normal 135-146 [facility] Supervisor Comment on above: Order Comment: [facility] Testing performed at: Blip, TATE'S LIST [facility], [address] [place] [address], [address] [place] [address], [address] [place] [address], Game Engineer: David Carrillo MD [facility] Collection Date/Time: [facility] Results Received Date/Time: [facility] Reported Date/Time: Performed By: #### C BCAD, CMP, TSH reflex FT4, TEST, LIPD, FT4, VITD #### [facility] Default [address] [place] [address] Urea nitrogen [Mass/Vol] 15 mg/dL Normal 7-25 [facility] [place] [facility] Supervisor Comment on above: Order Comment: [facility] Testing performed at: Blip, TATE'S LIST [facility], [address] [facility], [address] [place] [address], [address] [place] [address], Game Engineer: David Carrillo MD [facility] Collection Date/Time: [facility] Results Received Date/Time: [facility] Reported Date/Time: Performed By: #### C BCAD, CMP, TSH reflex FT4, TEST, LIPD, FT4, VITD #### [facility] Default [address] [place] [address] Free T4on 09-20-2021 Free T4 [Mass/Vol] 1.0 ng/dL Normal 0.8-1.8 [facility] Specialist Comment on above: Order Comment: [facility] Testing performed at: Blip, TATE'S LIST [facility], [address] [facility], [address] [place] [address], [address] [place] [address], Game Engineer: David Carrillo MD [facility] Collection Date/Time: [facility] Results Received Date/Time: [facility] Reported Date/Time: Performed By: #### C BCAD, CMP, TSH reflex FT4, TEST, LIPD, FT4, VITD #### [facility] Default [address] [place] [address] Hemoglobin A1Con 09-20-2021 HEMOGLOBIN A1c 7.1 % of total Hgb High <5.7 No [facility] [place] [facility] Supervisor Comment on above: Order Comment: [facility] Testing performed at: Blip, TATE'S LIST [facility], [address] [facility], [address] [place] [address], [phone], Game Engineer: David Carrillo MD [facility] Collection Date/Time: [facility] [...] A 1C #### [facility] Default [address] [place] [address] Lipid Panelon 09-20-2021 Cholesterol [Mass/Vol] 117 mg/dL Normal <200 [facility] [place] [facility] Supervisor Comment on above: Order Comment: [facility] Testing performed at: Blip, TATE'S LIST [facility], [address] [place] [address], [address] [place] [address], [address] [place] [address], Game Engineer: David Carrillo MD [facility] Collection Date/Time: [facility] Results Received Date/Time: [facility] Reported Date/Time: Performed By: #### C BCAD, CMP, TSH reflex FT4, TEST, LIPD, FT4, VITD #### [facility] Default [address] [place] [address] Cholesterol in HDL [Mass/Vol] 37 mg/dL Low > OR = 40 [facility] Supervisor Comment on above: Order Comment: [facility] Testing performed at: Blip, TATE'S LIST [facility], [address] [facility], [address] [place] [address], [address] [place] [address], Game Engineer: David Carrillo MD [facility] Collection Date/Time: [facility] Results Received Date/Time: [facility] Reported Date/Time: Performed By: #### C BCAD, CMP, TSH reflex FT4, TEST, LIPD, FT4, VITD #### [facility] Default [address] [place] [address] Cholesterol in LDL [Mass/Vol] 49 mg/dL Normal [facility] Supervisor Comment on above: Order Comment: [facility] Testing performed at: Blip, TATE'S LIST [facility], [address] [place] , [address] [place] [address], [address] [place] [address], Game Engineer: David Carrillo MD [facility] Collection Date/Time: [facility] Results Received Date/Time: [facility] Reported Date/Time: Result Comment: Refe rence range: <100 Desirable range <100 mg/dL for primary prevention; <70 mg/dL for patients with CHD or diabetic patients with > or = 2 CHD risk factors. LDL-C is now calculated using the Ancelmo-Juares calculation, which is a validated novel method providing better accuracy than the Friedewald equation in the estimation of LDL-C. Ancelmo CLINTON et al. MARIELY. 2013;310(19): 4973-3062 (http://education.Muzy/faq/FSD194) Performed By: #### C BCAD, CMP, TSH reflex FT4, TEST, LIPD, FT4, VITD #### [facility] Default [address] [place] [address] NON HDL CHOLESTEROL 80 mg/dL (calc) Normal <130 [facility] Supervisor Comment on above: Order Comment: [facility] Testing performed at: Blip, TATE'S LIST [facility], [address] [place] [address], [address] [place] [address], [phone], Game Engineer: David Carrillo MD [facility] Date/Time: [facility] Results Received Date/Time: [facility] Reported Date/Time: Result Comment: For patients with diabetes plus 1 major ASCVD risk factor, treating to a non-HDL-C goal of <100 mg/dL (LDL-C of <70 mg/dL) is considered a therapeutic option. Performed By: #### C BCAD, CMP, TSH reflex FT4, TEST, LIPD, FT4, VITD #### [facility] Default [address] [place] [address] Triglyceride [Mass/Vol] 263 mg/dL High <150 [facility] Supervisor Comment on above: Order Comment: [facility] Testing performed at: Blip, TATE'S LIST [facility], [address] [place] [address], [address] [place] [address], [id number], Game Engineer: David Carrillo MD [facility] Date/Time: [facility] Results Received Date/Time: [facility] Reported Date/Time: Result Comment: If a non-fasting specimen was collected, consider repeat triglyceride testing on a fasting specimen if clinically indicated. Aditya et al. J. of Clin. Lipidol. 2015;9:129-169. Performed By: #### C BCAD, CMP, TSH reflex FT4, TEST, LIPD, FT4, VITD #### [facility] Default [address] [place] [address] Prostatic Specific Antigen, Totalon 09-20-2021 PSA, TOTAL 0.47 ng/mL Normal < OR = 4.00 [facility] Comment on above: Order Comment: [facility] Testing performed at: [employer] [facility], [address] [place] [address], [id number], Game Engineer: David Carrillo MD [facility] Date/Time: [facility] Results Received Date/Time: [facility] Reported Date/Time: Result Comment: The total PSA value from this assay system is standardized against the WHO standard. The test result will be approximately 20% lower when compared to the equimolar-standardized total PSA (Juliana Hanna). Comparison of serial PSA results should be interpreted with this fact in mind. This test was performed using the Siemens chemiluminescent method. Values obtained from different assay methods cannot be used interchangeably. PSA levels, regardless of value, should not be interpreted as absolute evidence of the presence or absence of disease. Performed By: #### P SA #### [facility] [address] [place] [address] TSH w/ Reflex to Free T4on 0 09-20-2021 TSH W/REFLEX TO FT4 5.46 mIU/L High 0.40-4.50 [facility] Comment on above: Order Comment: [facility] Testing performed at: [employer] [facility], [address] [place] [address], [address] [place] [address], [id number], Game Engineer: David Carrillo MD [facility] Date/Time: [id number] [facility] Results Received Date/Time: [id number] [facility] Reported Date/Time: Performed By: #### C BCAD, CMP, TSH reflex FT4, TEST, LIPD, FT4, VITD #### [facility] [address] [place] [address] Testosteroneon 09-20-2021 TESTOSTERONE, TOTAL, MALES (ADULT), IA 349 ng/dL Normal [id number] [facility] Comment on above: Order Comment: [facility] Testing performed at: [employer] [facility], [address] [place] [address], [address] [place] [address], [phone], Game Engineer: David Carrillo MD [facility] Date/Time: [facility] Results Received Date/Time: [facility] Reported Date/Time: Performed By: #### C BCAD, CMP, TSH reflex FT4, TEST, LIPD, FT4, VITD #### [facility] [address] [place] [address] Vitamin D 25-OHon 09-20-2021 VIT D 25 OH 22 ng/mL Low 30-100 [facility] Supervisor Comment on above: Order Comment: [facility] Testing performed at: [employer] [facility], [address] [place] [address], [address] [place] [address], [address] [place] [address], Game Engineer: Daivd Carrillo MD [facility] Date/Time: [facility] Results [...] D, (D2,D3), LC/MS/MS is recommended: order code [id number] (patients >2yrs). See Note 1 Note 1 For additional information, please refer to http://education.[employer].Dimmi/faq/HKK584 (This link is being provided for informational/ educational purposes only.) Performed By: #### C BCAD, CMP, TSH reflex FT4, TEST, LIPD, FT4, VITD #### [facility] Default [address] [place] [address] Hemoglobin A1Con 08-18-2020 Glucose [Mass/Vol] 143 mg/dL [employer] Work Phone: Comment on above: The ADA and AACC rec ommend providing the estimated average glucose result to permit better patient understanding of their HBA1c result. HbA1c (Bld) [Mass fraction] 6.6 % High 4 - 6 % [employer] Work Phone: Interpretation and review of laboratory results Abnormal [employer] Work Phone: Vital Signs Date Time Vital Sign Value Performing Clinician Facility 12-15-2024 07:15-0400 Body height 188 cm Amada Anna FIRE SUPPORT SPECIALIST Work Phone: [facility] 12-15-2024 07:15-0400 Body mass index (BMI) [Ratio] 36.75 kg/m2 Amada Fruth FIRE SUPPORT SPECIALIST Work Phone: [facility] 12-15-2024 07:15-0400 Body temperature 97.9 [degF] Amada Fruth FIRE SUPPORT SPECIALIST Work Phone: [facility] 12-15-2024 07:15-0400 Body weight 129.82 kg Amadaashley Hansonth FIRE SUPPORT SPECIALIST Work Phone: [facility] 12-15-2024 07:15-0400 Diastolic blood pressure 70 mm[Hg] Amada Fruth FIRE SUPPORT SPECIALIST Work Phone: [facility] 12-15-2024 07:15-0400 Heart rate 81 /min Amada Fruth FIRE SUPPORT SPECIALIST Work Phone: [facility] 12-15-2024 07:15-0400 SaO2% (BldA) [Mass fraction] 96 % Amada Fruth FIRE SUPPORT SPECIALIST Work Phone: [facility] 12-15-2024 07:15-0400 Systolic blood pressure 120 mm[Hg] Amada Fruth FIRE SUPPORT SPECIALIST Work Phone: [facility] 11-13-2024 07:25-0400 Body height 188 cm Amada Fruth FIRE SUPPORT SPECIALIST Work Phone: [facility] 11-13-2024 07:25-0400 Body mass index (BMI) [Ratio] 36.49 kg/m2 Amada Fruth FIRE SUPPORT SPECIALIST Work Phone: [facility] 11-13-2024 07:25-0400 Body temperature 96.21 [degF] Amada Fruth FIRE SUPPORT SPECIALIST Work Phone: [facility] 11-13-2024 07:25-0400 Body weight 128.91 kg Amada Fruth FIRE SUPPORT SPECIALIST Work Phone: [facility] 11-13-2024 07:25-0400 Diastolic blood pressure 82 mm[Hg] Amada Fruth FIRE SUPPORT SPECIALIST Work Phone: [facility] 11-13-2024 07:25-0400 Heart rate 74 /min Amada Fruth FIRE SUPPORT SPECIALIST Work Phone: [facility] 11-13-2024 07:25-0400 SaO2% (BldA) [Mass fraction] 94 % Amada Fruth FIRE SUPPORT SPECIALIST Work Phone: [facility] 11-13-2024 07:25-0400 Systolic blood pressure 132 mm[Hg] Amada Fruth FIRE SUPPORT SPECIALIST Work Phone: [facility] 06-17-2024 07:39-0500 Body height 188 cm Amada Fruth FIRE SUPPORT SPECIALIST Work Phone: [facility] 06-17-2024 07:39-0500 Body mass index (BMI) [Ratio] 35.87 kg/m2 Amada Fruth FIRE SUPPORT SPECIALIST Work Phone: [facility] 06-17-2024 07:39-0500 Body temperature 97.59 [degF] Amada Fruth FIRE SUPPORT SPECIALIST Work Phone: [facility] 06-17-2024 07:39-0500 Body weight 126.73 kg Amada Fruth FIRE SUPPORT SPECIALIST Work Phone: [facility] 06-17-2024 07:39-0500 Diastolic blood pressure 78 mm[Hg] Amada Fruth FIRE SUPPORT SPECIALIST Work Phone: [facility] 06-17-2024 07:39-0500 Heart rate 76 /min Amada Fruth FIRE SUPPORT SPECIALIST Work Phone: [facility] 06-17-2024 07:39-0500 SaO2% (BldA) [Mass fraction] 95 % Amada Fruth FIRE SUPPORT SPECIALIST Work Phone: [facility] 06-17-2024 07:39-0500 Systolic blood pressure 130 mm[Hg] Amada Fruth FIRE SUPPORT SPECIALIST Work Phone: [facility] 05-05-2024 07:56-0500 Body height 188 cm Amada Fruth FIRE SUPPORT SPECIALIST Work Phone: [facility] 05-05-2024 07:56-0500 Diastolic blood pressure 80 mm[Hg] Amada Fruth FIRE SUPPORT SPECIALIST Work Phone: [facility] 05-05-2024 07:56-0500 Heart rate 71 /min Amada Fruth FIRE SUPPORT SPECIALIST Work Phone: [facility] 05-05-2024 07:56-0500 Respiratory rate 18 /min Amada Fruth FIRE SUPPORT SPECIALIST Work Phone: [facility] 05-05-2024 07:56-0500 SaO2% (BldA) [Mass fraction] 94 % Amada Fruth FIRE SUPPORT SPECIALIST Work Phone: [facility] 05-05-2024 07:56-0500 Systolic blood pressure 112 mm[Hg] Amada Fruth FIRE SUPPORT SPECIALIST Work Phone: [facility] 02-28-2024 11:34-0400 Body height 188 cm Amada Fruth FIRE SUPPORT SPECIALIST Work Phone: [facility] 02-28-2024 11:34-0400 Body mass index (BMI) [Ratio] 35.82 kg/m2 Amada Fruth FIRE SUPPORT SPECIALIST Work Phone: [facility] 02-28-2024 11:34-0400 Body temperature 97.59 [degF] Amada Fruth FIRE SUPPORT SPECIALIST Work Phone: [facility] 02-28-2024 11:34-0400 Body weight 126.55 kg Amada Fruth FIRE SUPPORT SPECIALIST Work Phone: [facility] 02-28-2024 11:34-0400 Diastolic blood pressure 76 mm[Hg] Amada Fruth FIRE SUPPORT SPECIALIST Work Phone: [facility] 02-28-2024 11:34-0400 Heart rate 68 /min Amada Fruth FIRE SUPPORT SPECIALIST Work Phone: [facility] 02-28-2024 11:34-0400 SaO2% (BldA) [Mass fraction] 94 % Amada Fruth FIRE SUPPORT SPECIALIST Work Phone: [facility] 02-28-2024 11:34-0400 Systolic blood pressure 138 mm[Hg] Amada Fruth FIRE SUPPORT SPECIALIST Work Phone: [facility] 12-26-2023 08:27-0400 Blood Pressure Location Lizzeth Lue [facility] 12-26-2023 08:27-0400 Body temperature 97.7 [degF] Lizzeth Lue [facility] 12-26-2023 08:27-0400 Diastolic blood pressure 86 mm[Hg] Lizzeth Lue [facility] 12-26-2023 08:27-0400 Heart rate 88 /min Lizzeth Lue [facility] 12-26-2023 08:27-0400 Systolic blood pressure 140 mm[Hg] Lizzeth Lue [facility] 08-03-2023 07:39-0500 Body height 188 cm Amada Fruth FIRE SUPPORT SPECIALIST Work Phone: [facility] 08-03-2023 07:39-0500 Body mass index (BMI) [Ratio] 36.21 kg/m2 Amada Fruth FIRE SUPPORT SPECIALIST Work Phone: [facility] 08-03-2023 07:39-0500 Body weight 127.91 kg Amada Fruth FIRE SUPPORT SPECIALIST Work Phone: [facility] 08-03-2023 07:39-0500 Diastolic blood pressure 80 mm[Hg] Amada Fruth FIRE SUPPORT SPECIALIST Work Phone: [facility] 08-03-2023 07:39-0500 Heart rate 71 /min Amada Fruth FIRE SUPPORT SPECIALIST Work Phone: [facility] 08-03-2023 07:39-0500 Systolic blood pressure 126 mm[Hg] Amada Fruth FIRE SUPPORT SPECIALIST Work Phone: [facility] 09-27-2022 10:25-0400 Blood Pressure Location Lizzeth Lue [facility] 09-27-2022 10:25-0400 Diastolic blood pressure 82 mm[Hg] Lizzeth Lue [facility] 09-27-2022 10:25-0400 Heart rate 78 /min Lizzeth Lue [facility] 09-27-2022 10:25-0400 Systolic blood pressure 127 mm[Hg] Lizzeth Lue [facility] 09-05-2022 09:58-0500 Blood Pressure Location JAYME LALITA [facility] 09-05-2022 09:58-0500 Diastolic blood pressure 84 mm[Hg] JAYME LALITA [facility] 09-05-2022 09:58-0500 Heart rate 80 /min JAYME LALITA [facility] 09-05-2022 09:58-0500 Systolic blood pressure 144 mm[Hg] JAYME LALITA [facility] Encounters Encounter Date Encounter Type Care Provider Facility Start: 12-26-2024 ambulatory Lizzeth WhiteRosette Herrmannrohan Facility:[facility] Start: 12-23-2024 End: 12-23-2024 Refill Lizz Farfan MA [facility] Comment on above: Bee sting allergy Med Refill Start: 12-22-2024 End: 12-22-2024 ambulatory FIRE SUPPORT SPECIALIST Amada Anna Facility: [facility] Start: 12-15-2024 End: 12-15-2024 Bamboo flowsheet Amada E Fruth FIRE SUPPORT SPECIALIST Work Phone: [facility] Start: 12-15-2024 End: 12-15-2024 Bamboo flowsheet Amada E Fruth FIRE SUPPORT SPECIALIST Work Phone: [facility] Start: 12-15-2024 End: 12-15-2024 ambulatory AMADA E FRUTH Not Available Start: 12-15-2024 End: 12-15-2024 Office outpatient visit 25 minutes Amada E Fruth FIRE SUPPORT SPECIALIST Work Phone: [facility] Comment on above: Arthralgia, unspecif ied joint (Primary Dx); Acute non-recurrent frontal sinusitis; Poison juih dermatitis; Diabetic peripheral neuropathy associated with type 2 diabetes mellitus ([facility]) Start: 11-26-2024 End: 11-26-2024 Refill Amada E Fruth FIRE SUPPORT SPECIALIST Work Phone: [facility] Comment on above: Diabetic peripheral neuropathy associated with type 2 diabetes mellitus ([facility]/HCC) Start: 11-16-2024 End: 11-16-2024 Refill Amada E Fruth FIRE SUPPORT SPECIALIST Work Phone: [facility] Comment on above: Idiopathic neuropath y Start: 11-14-2024 End: 11-14-2024 Bamboo flowsheet Christina SMITH Work Phone: [facility] Start: 11-14-2024 End: 11-14-2024 Bamboo flowsheet Christina SMITH Work Phone: [facility] Start: 11-14-2024 End: 11-14-2024 Office outpatient visit 25 minutes Christina Ham PA Work Phone: [facility] Comment on above: Bacterial folliculit is (Primary Dx); Seborrheic keratosis Start: 11-14-2024 End: 11-14-2024 ambulatory CHRISTINA HAM Not Available Start: 11-13-2024 End: 11-13-2024 Bamboo flowsheet Amada E Fruth FIRE SUPPORT SPECIALIST Work Phone: [facility] Start: 11-13-2024 End: 11-13-2024 Bamboo flowsheet Amada E Fruth FIRE SUPPORT SPECIALIST Work Phone: [facility] Start: 11-13-2024 End: 11-13-2024 Office outpatient visit 25 minutes Amada E Fruth FIRE SUPPORT SPECIALIST Work Phone: [facility] Comment on above: Type 2 diabetes nata itus with diabetic polyneuropathy, with long-term current use of insulin (CMS/[facility]) (Primary Dx); Low testosterone; Acquired hypothyroidism (CMS/HCC); Mixed hyperlipidemia (CMS/[facility]); Screening for prostate cancer; Heart murmur; Shortness of breath; Family history of early CAD; Feeling of chest tightness; Acute non-recurrent frontal sinusitis Start: 11-13-2024 End: 11-13-2024 ambulatory AMADA E FRUTH Not Available Start: 11-05-2024 End: 11-05-2024 Refill Amada E Fruth FIRE SUPPORT SPECIALIST Work Phone: [facility] Comment on above: Acute non-recurrent frontal sinusitis Start: 11-02-2024 End: 11-03-2024 Refill Amada E Fruth FIRE SUPPORT SPECIALIST Work Phone: [facility] Comment on above: Low testosterone Start: 10-31-2024 End: 11-02-2024 Telephone encounter Veda Hawley RN [facility] Comment on above: Med Refill Start: 10-25-2024 End: 10-26-2024 Refill Maada E Fruth FIRE SUPPORT SPECIALIST Work Phone: [facility] Comment on above: Low testosterone Start: 09-30-2024 End: 09-30-2024 ambulatory Francheska Mejia 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 Facility: [facility] Start: 09-28-2024 End: 09-28-2024 Refill Amada E th FIRE SUPPORT SPECIALIST Work Phone: [facility] Comment on above: Diabetic peripheral neuropathy associated with type 2 diabetes mellitus ([facility]/HCC) Start: 08-22-2024 End: 08-22-2024 Telephone encounter Lizz Farfan MA [facility] Comment on above: Referral Start: 07-22-2024 End: 07-22-2024 Bamboo flowsheet Christina L Jitendra PA Work Phone: [facility] Start: 07-22-2024 End: 07-22-2024 Bamboo flowsheet Christina L Jitendra PA Work Phone: [facility] Start: 07-22-2024 End: 07-22-2024 ambulatory CHRISTINA L JITENDRA Not Available Start: 07-22-2024 End: 07-22-2024 Office outpatient visit 15 minutes Christina L Jitendra PA Work Phone: [facility] Comment on above: Bacterial folliculit is (Primary Dx) Start: 06-29-2024 End: 06-30-2024 Telephone encounter Amada E th FIRE SUPPORT SPECIALIST Work Phone: [facility] Comment on above: abdominal xray Start: 06-17-2024 End: 06-17-2024 Bamboo flowsheet Amada E Fruth FIRE SUPPORT SPECIALIST Work Phone: [facility] Start: 06-17-2024 End: 06-17-2024 Bamboo flowsheet Amada E Fruth FIRE SUPPORT SPECIALIST Work Phone: [facility] Start: 06-17-2024 End: 06-17-2024 Office outpatient visit 15 minutes Amada E Fruth FIRE SUPPORT SPECIALIST Work Phone: [facility] Comment on above: Flank pain (Primary Dx) Start: 06-17-2024 End: 06-17-2024 ambulatory AMADA E FRUTH Not Available Start: 05-05-2024 End: 05-05-2024 Bamboo flowsheet Amada E Frukaryn FIRE SUPPORT SPECIALIST Work Phone: [facility] Start: 05-05-2024 End: 05-05-2024 Bamboo flowsheet Amada E Frukaryn FIRE SUPPORT SPECIALIST Work Phone: [facility] Start: 05-05-2024 End: 05-05-2024 ambulatory AMADA E FRUKARYN Not Available Start: 05-05-2024 End: 05-05-2024 Patient encounter status Amadaashley Anna FIRE SUPPORT SPECIALIST Work Phone: [facility] Start: 05-05-2024 End: 05-05-2024 Periodic preventive med est patient 40-64yrs Amada E Frukaryn FIRE SUPPORT SPECIALIST Work Phone: [facility] Comment [...] Start: 04-21-2024 End: 04-21-2024 Bamboo flowsheet Christina SIMTH Work Phone: [facility] Start: 04-21-2024 End: 04-21-2024 Bamboo flowsheet Christina SMITH Work Phone: [facility] Start: 04-21-2024 End: 04-21-2024 Office outpatient new 30 minutes Christina Ham PA Work Phone: [facility] Comment on above: Bacterial folliculit is (Primary Dx); Garrett angioma Start: 04-21-2024 End: 04-21-2024 ambulatory CHRISTINA HAM Not Available Start: 03-12-2024 End: 03-12-2024 Refill 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 [employer]OD Work Phone: [facility] Comment on above: Acute non-recurrent frontal sinusitis; Diabetic peripheral neuropathy associated with type 2 diabetes mellitus ([facility]/HCC) Start: 03-09-2024 End: 03-09-2024 Refill Amada E Fruth FIRE SUPPORT SPECIALIST Work Phone: [facility] Comment on above: Diabetic peripheral neuropathy associated with type 2 diabetes mellitus ([facility]/HCC) Start: 03-07-2024 End: 03-07-2024 Refill Amada E Fruth FIRE SUPPORT SPECIALIST Work Phone: [facility] Comment on above: Acquired hypothyroid ism ([facility]); Low testosterone; Diabetes mellitus due to underlying condition with hyperosmolarity without coma, without long-term current use of insulin ([facility]); Diabetic peripheral neuropathy associated with type 2 diabetes mellitus ([facility]); Acute non-recurrent frontal sinusitis Idiopathic neuropath y (Primary Dx) Start: 02-28-2024 End: 02-28-2024 Bamboo flowsheet Amada E Fruth FIRE SUPPORT SPECIALIST Work Phone: [facility] Start: 02-28-2024 End: 02-28-2024 Bamboo flowsheet Amada E Fruth FIRE SUPPORT SPECIALIST Work Phone: [facility] Start: 02-28-2024 End: 02-28-2024 ambulatory AMADA E FRUTH Not Available Start: 02-28-2024 End: 02-28-2024 Office outpatient visit 15 minutes Amada E Fruth FIRE SUPPORT SPECIALIST Work Phone: [facility] Comment on above: Acute cough (Primary Dx); Acute non-recurrent frontal sinusitis Start: 01-30-2024 End: 01-30-2024 ambulatory RENETTA BENITO Not Available Start: 12-26-2023 End: 12-26-2023 Patient encounter procedure Lizzeth Arriaga [facility] Start: 08-15-2023 Refill Amada E Fruth FIRE SUPPORT SPECIALIST Work Phone: [facility] Comment on above: Diabetes mellitus du e to underlying condition with hyperosmolarity without coma, without long-term current use of insulin (CMS/HCC) (Primary Dx) Start: 08-03-2023 Bamboo flowsheet Amada E Frut h FIRE SUPPORT SPECIALIST Work Phone: [facility] Start: 08-03-2023 Bamboo flowsheet Amada E Frut h FIRE SUPPORT SPECIALIST Work Phone: [facility] Start: 08-03-2023 End: 08-03-2023 Office outpatient visit 15 minutes Amada E Fruth FIRE SUPPORT SPECIALIST Work Phone: [facility] Comment on above: Feeling of chest tig htness (Primary Dx); Diabetic peripheral neuropathy associated with type 2 diabetes mellitus (CMS/HCC); Acquired hypothyroidism (CMS/HCC); Low testosterone; Dyspnea on exertion; Family history of premature CAD; Screening for prostate cancer Start: 11-29-2022 End: 11-29-2022 Patient encounter procedure Lizzeth Arriaga [facility] Start: 10-05-2022 End: 10-06-2022 ambulatory AMADA FRUTH Facility:[facility] Start: 09-27-2022 End: 09-27-2022 Patient encounter procedure Lizzeth Arriaga [facility] Start: 09-13-2022 End: 09-14-2022 ambulatory AMADA FRUTH Facility:[facility] Start: 09-05-2022 End: 09-05-2022 Patient encounter procedure JAYME CELIS [facility] Start: 03-03-2022 End: 03-06-2022 [facility] Start: 03-03-2022 End: 03-05-2022 Subsequent hospital visit by physician Negra Ramos Dr Room 2 [facility] Laboratory Comment on above: Abdominal pain, gene ralized; Acute cough Start: 02-26-2022 End: 02-27-2022 ambulatory [facility] Facility:[facility] Start: 08-18-2020 End: 08-18-2020 Subsequent hospital visit by physician James MACEDO Laboratory Start: 12-27-2016 End: 12-27-2016 Ambulatory [facility] Procedures Date Procedure Procedure Detail Performing Clinician Start: 02-28-2024 SARS-CoV-2 (COVID-19 ) Ab panel - Serum, Plasma or Blood by Rapid immunoassay Amada Anna FIRE SUPPORT SPECIALIST Work Phone: Start: 03-03-2022 Radiologic exam abdo men 2 views Amada Anna Work Phone: Start: 03-03-2022 Radiologic exam ches t 2 views Amada Anna Work Phone: Start: 03-03-2022 Comprehensive metabo lic panel Amada Hanson Work Phone: Start: 08-18-2020 Hemoglobin glycosylated a1c James Payton Work Phone: Start: 04-16-2020 Colonoscopy James olsen MD Work Phone: Cholecystectomy JAYME KAUR Colonoscopy JAYME CELIS Vasectomy JAYME CELIS Plan of Treatment Date Care Activity Detail Author Start: 04-16-2030 Screening for malignant neoplasm of colon [facility] Start: 11-08-2026 Glaucoma screening Diabetes: Retinopathy Screening [facility] Start: 11-12-2025 Urine screening for protein Diabetes: Urine Protein Screening [facility] Start: 05-13-2025 Urine screening for protein Diabetes: Urine Protein Screening [facility] Start: 05-09-2025 Glaucoma screening Diabetes: Retinopathy Screening [facility] Start: 03-24-2025 End: 03-24-2025 Patient encounter procedure 03/24/2025 7:40 AM EDT Office Visit [facility] [address] [place] [address] Christina Ham, LUIS [address] [place] [address] [facility] Start: 02-11-2025 Hemoglobin A1c measurement Diabetes: Hemoglobin A1C [facility] Start: 12-30-2024 Hemoglobin A1c measurement [facility] Start: 12-15-2024 End: 12-15-2025 Nuclear Ab [Titer] in Serum by Immunofluorescence [facility] Lab Routine Arthralgia, unspecified joint Expected: 12/15/2024 (Approximate), Expires: 12/15/2025 [facility] Work Phone: Comment on above: Expected: 12/15/2024 (Approximate), Expi res: 12/15/2025 Start: 12-15-2024 End: 12-15-2025 Rheumatoid factor [Units/volume] in Serum or Plasma Rheumatoid factor Lab Routine Arthralgia, unspecified joint Expected: 12/15/2024 (Approximate), Expires: 12/15/2025 [facility] Comment on above: Expected: 12/15/2024 (Approximate), Expi res: 12/15/2025 Start: 12-15-2024 End: 12-15-2025 SYSTEMIC LUPUS ERYTHEMATOSUS (SLE), DISEASE ACTIVITY PANEL SYSTEMIC LUPUS ERYTHEMATOSUS (SLE), DISEASE ACTIVITY PANEL Lab Routine Arthralgia, unspecified joint Expected: 12/15/2024 (Approximate), Expires: 12/15/2025 [facility] Comment on above: Expected: 12/15/2024 (Approximate), Expi res: 12/15/2025 Start: 11-14-2024 End: 11-14-2024 Patient encounter procedure [facility] M Comment on above: Arrived Start: 11-13-2024 End: 11-13-2025 Cardiac stress study Procedure STRESS TEST LEXISCAN Imaging Routine Heart murmur Shortness of breath Family history of early CAD Feeling of chest tightness Expected: 11/13/2024 (Approximate), Expires: 11/13/2025 [facility] Comment on above: Expected: 11/13/2024 (Approximate), Expi res: 11/13/2025 Start: 11-13-2024 End: 11-13-2025 CBC W Auto Differential panel - Blood CBC and differential Lab Routine Type 2 diabetes mellitus with diabetic polyneuropathy, with long-term current use of insulin (CMS/HCC) Mixed hyperlipidemia (CMS/HCC) Expected: 11/13/2024 (Approximate), Expires: 11/13/2025 [facility] Work Phone: Comment on above: Expected: 11/13/2024 (Approximate), Expi res: 11/13/2025 Start: 11-13-2024 End: 11-13-2025 Comprehensive metabolic 2000 panel - Serum or Plasma Comprehensive metabolic panel Lab Routine Type 2 diabetes mellitus with diabetic polyneuropathy, with long-term current use of insulin (CMS/HCC) Mixed hyperlipidemia (CMS/HCC) Expected: 11/13/2024 (Approximate), Expires: 11/13/2025 [facility] Comment on above: Expected: 11/13/2024 (Approximate), Expi res: 11/13/2025 Start: 11-13-2024 End: 11-13-2025 Hemoglobin A1c/Hemoglobin.total in Blood Hemoglobin A1c Lab Routine Type 2 diabetes mellitus with diabetic polyneuropathy, with long-term current use of insulin (CMS/HCC) Expected: 11/13/2024 (Approximate), Expires: 11/13/2025 [facility] Comment on above: Expected: 11/13/2024 (Approximate), Expi res: 11/13/2025 Start: 11-13-2024 End: 11-13-2025 Lipid 1996 panel - Serum or Plasma Lipid panel Lab Routine Type 2 diabetes mellitus with diabetic polyneuropathy, with long-term current use of insulin (CMS/HCC) Mixed hyperlipidemia (CMS/HCC) Expected: 11/13/2024 (Approximate), Expires: 11/13/2025 [facility] Comment on above: Expected: 11/13/2024 (Approximate), Expi res: 11/13/2025 Start: 11-13-2024 End: 11-13-2025 Microalbumin/Creatinine panel in random Urine Microalbumin / creatinine urine ratio Lab Routine Type 2 diabetes mellitus with diabetic polyneuropathy, with long-term current use of insulin (CMS/HCC) Expected: 11/13/2024 (Approximate), Expires: 11/13/2025 [facility] Comment on above: Expected: 11/13/2024 (Approximate), Expi res: 11/13/2025 Start: 11-13-2024 End: 11-13-2025 Prostate specific Ag [Mass/volume] in Serum or Plasma PSA Lab Routine Type 2 diabetes mellitus with diabetic polyneuropathy, with long-term current use of insulin ([facility]/HCC) Screening for prostate cancer Expected: 11/13/2024 (Approximate), Expires: 11/13/2025 [facility] Comment on above: Expected: 11/13/2024 (Approximate), Expi res: 11/13/2025 Start: 11-13-2024 End: 11-13-2025 Thyrotropin [Units/volume] in Serum or Plasma TSH Lab Routine Type 2 diabetes mellitus with diabetic polyneuropathy, with long-term current use of insulin ([facility]/HCC) Acquired hypothyroidism (CMS/HCC) Expected: 11/13/2024 (Approximate), Expires: 11/13/2025 [facility] Comment on above: Expected: 11/13/2024 (Approximate), Expi res: 11/13/2025 Start: 11-13-2024 End: 11-13-2026 US Heart Transthoracic Transthoracic Echo (TTE) Complete Echocardiography Routine Heart murmur Shortness of breath Family history of early CAD Feeling of chest tightness Expected: 11/13/2024 (Approximate), Expires: 11/13/2026 [facility] Comment on above: Expected: 11/13/2024 (Approximate), Expi res: 11/13/2026 Start: 11-13-2024 End: 11-13-2024 Patient encounter procedure [facility] Comment on above: Arrived Start: 10-31-2024 Urine screening for protein Diabetes: Urine Protein Screening [facility] Start: 08-05-2024 End: 05-05-2025 Microalbumin/Creatinine panel in random Urine Microalbumin / creatinine urine ratio Lab Routine Diabetic peripheral neuropathy associated with type 2 diabetes mellitus (CMS/HCC) Dysuria Flank pain Expected: 08/05/2024 (Approximate), Expires: 05/05/2025 [facility] Comment on above: Expected: 08/05/2024 (Approximate), Expi res: 05/05/2025 Start: 08-02-2024 Urine screening for protein Diabetes: Urine Protein Screening [facility] Start: 07-22-2024 End: 07-22-2024 Patient encounter procedure 07/22/2024 7:50 AM EST Office Visit [facility] [address] [place] [address] Christina Ham, LUIS [address] [place] [address] [facility] Start: 06-17-2024 End: 06-17-2025 XR Abdomen Single view XR ABDOMEN 2 VIEW Imaging Routine Flank pain Expected: 06/17/2024, Expires: 06/17/2025 [facility] Comment on above: Expected: 06/17/2024, Expires: 5 Start: 06-17-2024 End: 06-17-2025 XR Lumbar spine 4 Views XR LUMBAR SPINE AP/LAT/FLEX/EXT/OBLIQUES Imaging Routine Flank pain Expected: 06/17/2024, Expires: 06/17/2025 [facility] Work Phone: Comment on above: Expected: 06/17/2024, Expires: 5 Start: 06-17-2024 End: 06-17-2024 Patient encounter procedure 06/17/2024 7:30 AM EST Office Visit [facility] [address] [place] [address] Amada Anna NP [address] [place] [address] Arrived [facility] Comment on above: Arrived Start: 05-28-2024 Hemoglobin A1c measurement Diabetes: Hemoglobin A1C [facility] Start: 05-05-2024 End: 05-05-2025 Bacteria identified in Urine by Culture Urine culture Microbiology Routine Dysuria Flank pain Expected: 05/05/2024 (Approximate), Expires: 05/05/2025 [facility] Comment on above: Expected: 05/05/2024 (Approximate), Expi res: 05/05/2025 Start: 05-05-2024 End: 05-05-2025 CBC W Auto Differential panel - Blood CBC and differential Lab Routine Diabetic peripheral neuropathy associated with type 2 diabetes mellitus (CMS/HCC) Mixed hyperlipidemia (CMS/HCC) Type 2 diabetes mellitus without complication, without long-term current use of insulin (CMS/HCC) Expected: 05/05/2024 (Approximate), Expires: 05/05/2025 [facility] Work Phone: Comment on above: Expected: 05/05/2024 (Approximate), Expi res: 05/05/2025 Start: 05-05-2024 End: 05-05-2025 Comprehensive metabolic 2000 panel - Serum or Plasma Comprehensive metabolic panel Lab Routine Diabetic peripheral neuropathy associated with type 2 diabetes mellitus (CMS/HCC) Mixed hyperlipidemia (CMS/HCC) Type 2 diabetes mellitus without complication, without long-term current use of insulin (CMS/HCC) Expected: 05/05/2024 (Approximate), Expires: 05/05/2025 [facility] Comment on above: Expected: 05/05/2024 (Approximate), Expi res: 05/05/2025 Start: 05-05-2024 End: 05-05-2025 Hemoglobin A1c/Hemoglobin.total in Blood Hemoglobin A1c Lab Routine Diabetic peripheral neuropathy associated with type 2 diabetes mellitus (CMS/HCC) Mixed hyperlipidemia (CMS/HCC) Type 2 diabetes mellitus without complication, without long-term current use of insulin (CMS/HCC) Expected: 05/05/2024 (Approximate), Expires: 05/05/2025 [facility] Comment on above: Expected: 05/05/2024 (Approximate), Expi res: 05/05/2025 Start: 05-05-2024 End: 05-05-2025 Lipid 1996 panel - Serum or Plasma Lipid panel Lab Routine Diabetic peripheral neuropathy associated with type 2 diabetes mellitus (CMS/HCC) Mixed hyperlipidemia (CMS/HCC) Type 2 diabetes mellitus without complication, without long-term current use of insulin ([facility]) Expected: 05/05/2024 (Approximate), Expires: 05/05/2025 [facility] Comment on above: Expected: 05/05/2024 (Approximate), Expi res: 05/05/2025 Start: 05-05-2024 End: 05-05-2025 Microalbumin/Creatinine panel in random Urine Microalbumin / creatinine urine ratio Lab Routine Diabetic peripheral neuropathy associated with type 2 diabetes mellitus ([facility]) Mixed hyperlipidemia ([facility]) Type 2 diabetes mellitus without complication, without long-term current use of insulin ([facility]) Expected: 05/05/2024 (Approximate), Expires: 05/05/2025 [facility] Comment on above: Expected: 05/05/2024 (Approximate), Expi res: 05/05/2025 Start: 05-05-2024 End: 05-05-2025 Testosterone [Mass/volume] in Serum or Plasma Testosterone Lab Routine Low testosterone Expected: 05/05/2024 (Approximate), Expires: 05/05/2025 [facility] Comment on above: Expected: 05/05/2024 (Approximate), Expi res: 05/05/2025 Start: 05-05-2024 End: 05-05-2025 Thyrotropin [Units/volume] in Serum or Plasma TSH Lab Routine Acquired hypothyroidism ([facility]) Expected: 05/05/2024 (Approximate), Expires: 05/05/2025 [facility] Comment on above: Expected: 05/05/2024 (Approximate), Expi res: 05/05/2025 Start: 05-05-2024 End: 05-05-2025 Urinalysis complete panel - Urine Urinalysis with reflex microscopic (clean catch) Lab Routine Dysuria Flank pain Expected: 05/05/2024 (Approximate), Expires: 05/05/2025 [facility] Comment on above: Expected: 05/05/2024 (Approximate), Expi res: 05/05/2025 Start: 05-05-2024 End: 05-05-2024 Patient encounter procedure 05/05/2024 7:30 AM EST Office Visit [facility] [address] [place] [phone] Amada Anna NP [address] [place] [address] [facility] Start: 04-21-2024 End: 04-21-2024 Patient encounter procedure 04/21/2024 9:50 AM EDT Office Visit [facility] [address] [place] [id number] Christina Ham PA [address] [place] [address] Other acne [facility] Comment on above: Other acne Start: 04-10-2024 End: 04-10-2024 Patient encounter procedure 04/10/2024 3:30 PM EDT Office Visit [facility] [address] [place] [phone] Amina Graham MD [address] [place] [address] [facility] Start: 03-30-2024 Urine screening for protein Diabetes: Urine Protein Screening [facility] Start: 03-02-2024 Influenza vaccination Influenza Vaccine (#1) [facility] Start: 01-29-2024 Hemoglobin A1c measurement Diabetes: Hemoglobin A1C [facility] Start: 11-02-2023 End: 11-02-2023 Patient encounter procedure 11/02/2023 7:30 AM EDT Office Visit [facility] [address] [place] [address] Amada Anna NP [address] [place] [address] [facility] Start: 11-01-2023 End: 08-03-2024 CBC W Auto Differential panel - Blood CBC and differential Lab Routine Diabetic peripheral neuropathy associated with type 2 diabetes mellitus ([facility]/HCC) Expected: 11/01/2023 (Approximate), Expires: 08/03/2024 [facility] Comment on above: Expected: 11/01/2023 (Approximate), Expi res: 08/03/2024 Start: 11-01-2023 End: 08-03-2024 Comprehensive metabolic 2000 panel - Serum or Plasma Comprehensive metabolic panel Lab Routine Diabetic peripheral neuropathy associated with type 2 diabetes mellitus (CMS/HCC) Expected: 11/01/2023 (Approximate), Expires: 08/03/2024 [facility] Comment on above: Expected: 11/01/2023 (Approximate), Expi res: 08/03/2024 Start: 11-01-2023 End: 08-03-2024 Hemoglobin A1c measurement Hemoglobin A1c Lab Routine Diabetic peripheral neuropathy associated with type 2 diabetes mellitus (CMS/HCC) Expected: 11/01/2023 (Approximate), Expires: 08/03/2024 [facility] Comment on above: Expected: 11/01/2023 (Approximate), Expi res: 08/03/2024 Start: 11-01-2023 End: 08-03-2024 Lipid 1996 panel - Serum or Plasma Lipid panel Lab Routine Diabetic peripheral neuropathy associated with type 2 diabetes mellitus (CMS/HCC) Expected: 11/01/2023 (Approximate), Expires: 08/03/2024 [facility] Comment on above: Expected: 11/01/2023 (Approximate), Expi res: 08/03/2024 Start: 11-01-2023 End: 08-03-2024 Microalbumin/Creatinine panel in random Urine Microalbumin / creatinine urine ratio Lab Routine Diabetic peripheral neuropathy associated with type 2 diabetes mellitus (CMS/HCC) Expected: 11/01/2023 (Approximate), Expires: 08/03/2024 [facility] Comment on above: Expected: 11/01/2023 (Approximate), Expi res: 08/03/2024 Start: 11-01-2023 End: 08-03-2024 Prostate specific Ag [Mass/volume] in Serum or Plasma PSA Lab Routine Screening for prostate cancer Expected: 11/01/2023 (Approximate), Expires: 08/03/2024 [facility] Comment on above: Expected: 11/01/2023 (Approximate), Expi res: 08/03/2024 Start: 11-01-2023 End: 08-03-2024 Testosterone [Mass/volume] in Serum or Plasma Testosterone Lab Routine Low testosterone Expected: 11/01/2023 (Approximate), Expires: 08/03/2024 [facility] Comment on above: Expected: 11/01/2023 (Approximate), Expi res: 08/03/2024 Start: 11-01-2023 End: 08-03-2024 Thyrotropin [Units/volume] in Serum or Plasma TSH Lab Routine Diabetic peripheral neuropathy associated with type 2 diabetes mellitus (CMS/HCC) Acquired hypothyroidism (CMS/HCC) Expected: 11/01/2023 (Approximate), Expires: 08/03/2024 [facility] Comment on above: Expected: 11/01/2023 (Approximate), Expi res: 08/03/2024 Start: 10-31-2023 Hemoglobin A1c measurement Diabetes: Hemoglobin A1C [facility] Start: 08-03-2023 End: 08-03-2025 STRESS NUCLEAR MEDICINE TREADMILL STRESS NUCLEAR MEDICINE TREADMILL Cardiac Nuclear Medicine Routine Diabetic peripheral neuropathy associated with type 2 diabetes mellitus (CMS/HCC) Low testosterone Feeling of chest tightness Dyspnea on exertion Family history of premature CAD Expected: 08/03/2023 (Approximate), Expires: 08/03/2025 [facility] Work Phone: Comment on above: Expected: 08/03/2023 (Approximate), Expi res: 08/03/2025 Start: 06-29-2023 Hemoglobin A1c measurement Diabetes: Hemoglobin A1C [facility] Start: 03-16-2022 End: 03-16-2022 Patient encounter procedure 03/16/2022 Office Visit Neurology Rustam Calderon MD [address] [place] [address] [address] [place] [address] [facility] Start: 03-02-2022 Influenza vaccination Flu vaccine (#1) [facility] Start: 10-06-2021 COVID-19 Vaccine (4 - Booster for Moderna series) COVID-19 Vaccine (4 - Booster for Moderna series) [facility] Start: 08-18-2021 Hemoglobin A1c measurement A1C test (Diabetic or Prediabetic) [facility] Start: 11-15-2020 Hemoglobin A1c measurement A1C test (Diabetic or Prediabetic) [facility] [employer] Start: 03-02-2020 Influenza vaccination Flu [facility]) [facility]: Start: 06-29-2017 [facility]id [facility] Start: 2015 Screening for malignant neoplasm of colon Colon cancer screen colonoscopy [facility]: Start: 2015 Shingles Vaccine (1 of 2) Shingles Vaccine (1 of 2) [facility] [employer] [facility] Start: 06-29-2013 Lipid panel Lipids [facility] Start: 2010 Screening for malignant neoplasm of colon [facility] Start: 1984 DTaP/Tdap/Td vaccine (1 - Tdap) DTaP/Tdap/Td vaccine (1 - Tdap) [facility] Start: 1983 Diabetic retinal exam Diabetic retinal exam [facility] Start: 1983 Hepatitis C screening Hepatitis C screen [facility] Start: 1983 Urine screening for protein Diabetic microalbuminuria test [facility] Start: 1980 HIV screening HIV screen [facility] Start: 1977 Depression Screen Depression Screen [facility] Start: 1975 Diabetic foot examination Diabetic foot exam [facility] Start: 1965 Hepatitis C screening Hepatitis C screen [facility] [employer] Work Phone: Start: 1965 Screening for malignant neoplasm of colon [facility] Immunizations Immunization Date Immunization Notes Care Provider Fa [facility] 05-05-2024 influenza, seasonal, injectable, preservative free Amada Fruth [employer] Work Phone: [facility] 04-02-2023 influenza, injectabl e, quadrivalent, preservative free Amada Fruth [employer] Work Phone: [facility] 04-02-2023 influenza virus vaccine, unspecified formulation Amada Fruth [employer] Work Phone: [facility] 04-21-2022 influenza virus vaccine, unspecified formulation JAYME LALITA [facility] 04-21-2022 influenza, injectabl e, quadrivalent, preservative free Amada Fruth [employer] Work Phone: [facility] 04-21-2022 tetanus toxoid, redu georgina diphtheria toxoid, and acellular pertussis vaccine, adsorbed JAYME LALITA [facility] 06-07-2021 SARS-CoV-2 (COVID-19 ) mRNA-1273 vaccine JAYME LALITA [facility] 06-06-2021 Moderna SARS-CoV-2 Booster Vaccination Amada Fruth [employer] Work Phone: [facility] 04-15-2021 influenza virus vaccine, unspecified formulation JAYME LALITA [facility] 04-15-2021 influenza, injectabl e, quadrivalent, preservative free Amada Fruth [employer] Work Phone: [facility] 08-11-2020 SARS-CoV-2 (COVID-19 ) mRNA-1273 vaccine JAYME LALITA [facility] Comment on above: Result Comment: 2022: [id number] 08-10-2020 Moderna SARS-CoV-2 Vaccination Amada Fruth [employer] Work Phone: [facility] 07-14-2020 SARS-CoV-2 (COVID-19 ) mRNA-1273 vaccine JAYME LALITA [facility] 07-13-2020 Moderna SARS-CoV-2 Vaccination Amada Fruth [employer] Work Phone: [facility] 04-08-2020 influenza virus vaccine, unspecified formulation JAYME LALITA [facility] 04-08-2020 influenza, injectabl e, quadrivalent, preservative free Amada Fruth [employer] Work Phone: [facility] 04-17-2019 influenza virus vaccine, unspecified formulation JAYME CELIS [facility] 04-17-2019 influenza, injectabl e, quadrivalent, preservative free Amada Fruth [employer] Work Phone: [facility] 04-16-2019 influenza, high dose seasonal, preservative-free Amada Fruth [employer] Work Phone: [facility] Payers Date Payer Category Payer Private Health Insurance [id number] 2016 Private Health Insurance [id number] 1965 Unknown [id number] 2.16.8 [id number] 1965 Unknown [id number] 2.16.8 [id number] 1965 Unknown [id number] 2.16.8 [id number] 1965 Unknown [id number] 2.16.8 [id number] 1965 Unknown [id number] 2.16.84 0.1.213131.3.579.2.593 1965 Unknown [id number] 2.16.84 0.1.083850.3.579.2.593 1965 Unknown [id number] 2.16.84 0.1.133077.3.579.2.593 1965 Unknown [id number] 2.16.8 40.1.864599.3.579.2.1259 1965 Unknown [id number] 2.16.84 0.1.996087.3.579.2.1259 1965 Unknown [id number] 2.16.84 0.1.067900.3.579.2.1259 1965 Unknown [id number] 2.16.84 0.1.594182.3.579.2.9 1965 Unknown [id number] 2.16.84 0.1.061037.3.579.2.1259 1965 Unknown [id number] 2.16.84 0.1.908503.3.579.2.9 1965 Unknown [id number] 2.16.84 0.1.628898.3.579.2.1259 1965 Unknown [id number] 2.16.84 0.1.186419.3.579.2.9 1965 Unknown [id number] 2.16.84 0.1.573650.3.579.2.1259 1965 Unknown [id number] 2.16. [id number] 1965 Unknown [id number] 2.16. [id number] 1965 Unknown [id number] 2.16.8 40.1.997609.3.579.2.727 1959 Unknown [id number] Social History Date Type Detail Facility Start: 11-09-2016 End: 04-02-2023 Tobacco smoking status ILIS Never smoker [employer] 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 Phone: Start: 1965 [facility] Tobacco smoking status Never [facility] Start: 04-02-2023 End: 12-15-2024 Sex Assigned At Male [facility] Start: 04-02-2023 Tobacco use and exposure Smokeless tobacco non-user [facility] Start: 04-02-2023 End: 12-15-2024 Alcohol intake Lifetime non-drinker (finding) [facility] Start: 04-02-2023 End: 12-15-2024 History of Social function [facility] Start: 01-18-2023 Alcohol Comment Caffeine: none [facility] Functional Status Date Assessment Result Facility 12-15-2024 Patient Health Quest ionnaire 2 item (PHQ-2) [Reported] [facility] 11-13-2024 Patient Health Quest ionnaire 2 item (PHQ-2) [Reported] [facility] 12-26-2023 Functional Status N/A [facility] 09-27-2022 Functional Status N/A [facility] 09-05-2022 Functional Status Yes [facility] Clinical Notes 09-05-2022 to 12-23-2024 Telephone Encounter - Lizz Farfan MA - 12/23/2024 1:21 PM EDTTelephone Encounter - Lizz Farfan MA - 12/23/2024 1:21 PM EDTTelephone Encounter - Lizz Farfan MA - 12/23/2024 11:43 AM EDT Note Date & Type Note Facility 12-23-2024 Telephone encounter Note PT called in stating we were going to send in non generic lyrica when he was here last week. [facility] 12-23-2024 Miscellaneous Notes PT called in stating we were going to send in non generic lyrica when he was here last week. documented in this encounter [facility] 12-23-2024 Telephone encounter Note [facility]ing [facility] 12-23-2024 Miscellaneous Notes Requesting refill on Epi pen, please send to [facility]. documented in this encounter [facility] 12-15-2024 History of Presen t illness Narrative Images from the original note were not included. Silvestre Corea is a 59 y.o. male presents with chief complaint of Medication Problem (Lyrica is not working as well as it has been since he refilled it about 2 weeks ago. Pt is experiencing pain every day when he wasn't before) HPI: HPI [employer]; the lyrica generic he was given is not working on his neuropathy. Within a week of taking this medication pain started returning. Had same trouble with a different generic previously. [employer] weed wacking. Now with poison juhi to arms and legs [employer] joints painful and feel swollen. Denies red [...] Dr. Marko Robledo at [facility] COLONOSCOPY 05/05/2013 for diverticulitis, diverticulosis, polyp [...] Size: Large adult) Pulse 81 Temp 97.9 F (Tympanic) Ht 6' 2 Wt 286 lb 3.2 oz SpO2 96% BMI 36.75 kg/m Smoking Status Never BSA 2.61 m Physical Exam Constitutional: Appearance: Normal appearance. [...] recheck mid january. documented in this encounter [facility] 11-14-2024 History of Presen t illness Narrative [...] Folliculitis follow up documented in this encounter [facility] 11-13-2024 History of Presen t illness Narrative Images from the original note were not included. Silvestre Corea is a 59 y.o. 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 angle bender; chest tightness and shortness of breath when he is walking. Mother and father both had [place] by this age. Hx of DM A1c [...] Dr. Marko Robledo at [facility] COLONOSCOPY 05/05/2013 for diverticulitis, diverticulosis, polyp [...] 02/13/2025) for Recheck. documented in this encounter [facility] 10-31-2024 Telephone encounter Note Rx for testosterone needs to be altered to reflect 4ml vs 2ml. Travis aware this will occur Sunday. [facility] 10-31-2024 Miscellaneous Notes Rx for testosterone needs to be altered to reflect 4ml vs 2ml. Thiagot aware this will occur Sunday. documented in this encounter [facility] 09-30-2024 Note Patient Education Ma terials Name: Silvestre Corea Current Date: 09/30/2024 09:07:39 [facility] : 1965 The following sheet(s) are the Patient Education Leaflets for Silvestre Corea Custom Diabetes office visit stop metformin Trulicity 4.5 mg weekly Breakfast glyburide 5mg May call or stop by office for CGM/glucometer download and review for instrution on further med adjustment. Health Maintenance Goals Blood sugar goals ? 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 See paint mixer machine for toenail trimming and promptly for any [...] ? Low-fat or nonfat milk, corrage cheese, micronesian yogurt, cheese FIBER: Fiber goal over 25 [...] ? cup Ice Cream or Sherbet ? Moroccan Muffin ? large Baked Potato (3 ounces) [...] muffins, donuts Jams (more content not included)... [facility] 08-22-2024 Telephone encounter Note Requesting referral for diabetes management to Dr. Pérez's office for weight management and type 2 diabetic management. [facility] 08-22-2024 Miscellaneous Notes Requesting referral for diabetes management to Dr. Pérez's office for weight management and type 2 diabetic management. documented in this encounter [facility] 07-22-2024 History of Presen t illness Narrative [...] Visit: 4 months documented in this encounter [facility] 06-29-2024 Telephone encounter Note Notify negative abdominal xray And notify mild arthritis of spine only. Can consider physical therapy if pain still present. [facility] 06-29-2024 Miscellaneous Notes Notify negative abdominal xray And notify mild arthritis of spine only. Can consider physical therapy if pain still present. documented in this encounter [facility] 06-17-2024 History of Presen t illness Narrative Silvestre Corea is a 58 y.o. 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 Marko Robledo at [facility] COLONOSCOPY 05/05/2013 for diverticulitis, diverticulosis, polyp [...] day. 4 weeks. documented in this encounter [facility] 05-05-2024 History of Presen t illness Narrative Silvestre Corea is a 58 y.o. 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 Marko Robledo at [facility] COLONOSCOPY 05/05/2013 for diverticulitis, diverticulosis, polyp [...] List Items Addressed This Visit Acquired hypothyroidism ([facility]) - Primary Relevant Medications levothyroxine (Synthroid, Levoxyl) 50 MCG tablet Other Relevant Orders TSH Stable. Monitor. Diabetes ([facility]) Our specific goals for your diabetes, is [...] neuropathy associated with type 2 diabetes mellitus ([facility]) Relevant Medications metFORMIN (Glucophage) 1000 MG tablet glyBURIDE (Diabeta) 5 MG tablet rosuvastatin (Crestor) 40 MG tablet Other Relevant Orders CBC and differential Comprehensive metabolic panel Hemoglobin A1c Lipid panel Microalbumin / creatinine urine ratio Microalbumin / creatinine urine ratio As above. Please get office copy of work wellness labs. Hyperlipemia ([facility]/HCC) Relevant Orders Low fat diet daily exercise [...] 08/05/2024) for Recheck. documented in this encounter [facility] 04-21-2024 History of Presen t illness Narrative [...] seen in 2019. Referred today by Amada Anna APRN-NAS All pertinent medical history, medications, and [...] Plan to treat like acne with a half-way low dose antibiotic. Doxycyline 100mg once a [...] Visit: 3 months documented in this encounter [facility] 03-12-2024 Telephone encounter Note Silvestre left a message on the refill line that he wanted Gabapentin and or Lyrica couldn't remember and then he said his diabetic medication he thought was Glipizide so I pulled Glyburide [facility] 03-12-2024 Miscellaneous Notes Silvestre left a message on the refill line that he wanted Gabapentin and or Lyrica couldn't remember and then he said his diabetic medication he thought was Glipizide so I pulled Glyburide documented in this encounter [facility] 02-28-2024 History of Presen t illness Narrative DIABETES Has freestyle andi A1C- 10/30/2023- 8.2 MICROA- 08/2023 LIPID- 10/2023 EYE EXAM- 05/2023- NDR FOOT EXAM- 01/17/2022- +neuropathy LAB- 10/2023 PSA- 10/30/2023- 0.52 HEP C SCREENING- none on file COLON- 04/16/2020- diverticulosis WELLVISIT- 10/2023 VACCINES- tdap 04/2022; no shingrix on file GENERAL SURGEON- Dr Pham- for colonoscopy PAYABLE REPRESENTATIVE- Christina Ham- 12/2019 DIRECTOR OF QUALITY CONTROL- Dr Bateman- 02/04/2020 BOILERMAKER APPRENTICE- Dr. Mosqueda DENTIST- Johanna Mcnally Silvestre Corea is a 58 y.o. 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 Marko Robledo at [facility] COLONOSCOPY 05/05/2013 for diverticulitis, diverticulosis, polyp [...] and as needed.. documented in this encounter [facility] 12-26-2023 Hospital Discharg e instructions Patient Education [...] Follow these instructions at home: Medicines Take otaq-vmi-wmrpxuk and prescription medicines only as told by [...] provider. Document Revised: 09/14/2021 Document Reviewed: 09/14/2021 [employer] Patient Education 2022 Smart Balloon. Follow Up Care 11/05/2023 12:36:59 With:Bart MARTINEZ, JOEY Pedro, URO Address: [address], [place] [address] [phone] When: Unknown [facility] 08-03-2023 History of Presen t illness Narrative DIABETES A1C- 03/30/2023- 6.6 MICROA- 03/30/2023 LIPID- 03/30/2923 EYE EXAM- 05/2023- NDR FOOT EXAM- 01/17/2022- +neuropathy LAB- 08/2023 PSA- 09/12/2022 HEP C SCREENING- none on file COLON- 04/16/2020- diverticulosis WELLVISIT- 09/13/2022 VACCINES- tdap 04/2022; no shingrix on file GENERAL SURGEON- Dr Pham- for colonoscopy PAYABLE REPRESENTATIVE- Christina Ham- 12/2019 DIRECTOR OF QUALITY CONTROL- Dr Bateman-02/04/2020 Silvestre Corea is a 57 y.o. 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 Bsl 90-140 not [...] Dr. Marko Robledo at [facility] COLONOSCOPY 05/05/2013 for diverticulitis, diverticulosis, polyp [...] 12/02/2023), or wellness. documented in this encounter [facility] 09-27-2022 Hospital Discharg e instructions Patient Education 09/27/2022 11:26:31 Testicular Self-Exam, [id number] Testicular Self-Exam A self-exam of your testicles [...] 09/14/2009 Document Revised: 10/09/2019 Document Reviewed: 05/14/2017 [employer] Patient Education 2020 Smart Balloon. 09/27/2022 11:26:30 Hydrocele, Adult Hydrocele, Adult A [...] Watch the hydrocele for any changes. Take hzjr-nmx-tjuwvkn and prescription medicines only as told by [...] 12/06/2010 Document Revised: 06/29/2018 Document Reviewed: 06/29/2018 [employer] Patient Education 2019 Smart Balloon. Follow Up Care 09/05/2022 10:59:38 With:Bart MARTINEZ, Lizzeth Pena URZac, URO Address: When:Within 2 Month(s) Comments:w/Scrotal US [facility] 09-05-2022 Hospital Discharg e instructions Patient [...] Follow these instructions at home: Medicines Take expt-ymn-lvyzjdz and prescription medicines only as told by [...] 06/15/2001 Document Revised: 05/31/2018 Document Reviewed: 07/04/2017 [employer] Patient Education 2020 [employer] Follow Up Care 08/10/2022 14:07:21 With:JAYME CELIS PA-C, URL Address: [address] [place] [address] When:6 weeks [facility] Evaluation + Plan note Future Appointments Appointment Date:10/11/2022 01:40:00 PM Scheduled Provider:JAYME CELIS PA-C Location:[facility] Appointment Type:URO Office Visit [facility] Evaluation + Plan note Future Appointments Appointment Date:11/29/2022 08:30:00 AM Scheduled Provider:Lizzeth Arriaga MD Location:[facility] Appointment Type:URO Office Visit [facility] Evaluation + Plan note Future Appointments Appointment Date:12/30/2022 01:45:00 PM Scheduled Provider:Lizzeth Arriaga MD Location:[facility] Appointment Type:URO Office Visit [facility] Evaluation note Diagnosis Abdominal pain, generalized Acute cough documented in this encounter [employer] Phone: evaluation note* Diagnosis Abdominal pain, generalized Acute cough documented in this encounter [employer] Phone: [email or web address] note* Diagnosis Feeling of chest tightness- Primary Other chest pain Diabetic peripheral neuropathy associated with type 2 diabetes mellitus (CMS/HCC) Acquired hypothyroidism (CMS/HCC) Unspecified hypothyroidism Low testosterone Dyspnea on exertion Other dyspnea and respiratory abnormality Family history of premature CAD Family history of ischemic heart disease Screening for prostate cancer Special screening for malignant neoplasm of prostate [facility] Diagnosis Diabetes mellitus due to underlying condition with hyperosmolarity without coma, without long-term current use of insulin (CMS/HCC)- Primary [facility]* Diagnosis Bacterial folliculitis- Primary Other specified disease of hair and hair follicles Garrett angioma documented in this encounter [facility]* Diagnosis Acquired hypothyroidism (CMS/HCC)- Primary Unspecified hypothyroidism Diabetic peripheral neuropathy associated with type 2 diabetes mellitus ([facility]) Mixed hyperlipidemia ([facility]) Mixed hyperlipidemia Low testosterone Type 2 diabetes mellitus without complication, without long-term current use of insulin ([facility]) Diabetes mellitus due to underlying condition with hyperosmolarity without coma, without long-term current use of insulin ([facility]) Acute non-recurrent frontal sinusitis Idiopathic neuropathy Other specified idiopathic peripheral neuropathy Immunization due Dysuria Flank pain Abdominal pain, unspecified site Routine general medical examination at a [facility] facility Type 2 diabetes mellitus with hyperglycemia ([facility]) Morbid (severe) obesity due to excess calories ([facility]) Body mass index (BMI) 35.0-35.9, adult Type 2 diabetes mellitus with other specified complication ([facility]) Male erectile dysfunction, unspecified Type 2 diabetes mellitus with diabetic neuropathy, unspecified ([facility]) [facility] Diagnosis Acute non-recurrent frontal sinusitis Diabetic peripheral neuropathy associated with type 2 diabetes mellitus ([facility]) documented [facility]* Diagnosis Flank pain- Primary Abdominal pain, unspecified site documented [facility]* Diagnosis Acute cough- Primary Acute non-recurrent frontal sinusitis [facility]* Diagnosis Acquired hypothyroidism ([facility]) Unspecified hypothyroidism Low testosterone Diabetes mellitus due to underlying condition with hyperosmolarity without coma, without long-term current use of insulin ([facility]) Diabetic peripheral neuropathy associated with type 2 diabetes mellitus ([facility]) Acute non-recurrent frontal sinusitis [facility]* Diagnosis Idiopathic neuropathy- Primary Other specified idiopathic peripheral neuropathy documented [facility]* Diagnosis Diabetic peripheral neuropathy associated with type 2 diabetes mellitus ([facility]) [facility]* Diagnosis Bacterial folliculitis- Primary Other specified disease of hair and hair follicles documented [facility]* Diagnosis Morbid (severe) obesity due to excess calories ([facility])- Primary Type 2 diabetes mellitus without complication, without long-term current use of insulin ([facility]) [facility]* Diagnosis Diabetic peripheral neuropathy associated with type 2 diabetes mellitus ([facility]) documented [facility]* Diagnosis Low testosterone documented in this encounter [facility]* Diagnosis Low testosterone documented in this encounter [facility]* Diagnosis Acute non-recurrent frontal sinusitis documented in this encounter [facility]* Diagnosis Type 2 diabetes mellitus with diabetic polyneuropathy, with long-term current use of insulin ([facility])- Primary Low testosterone Acquired hypothyroidism ([facility]/HCC) Unspecified hypothyroidism Mixed hyperlipidemia ([facility]) Mixed hyperlipidemia Screening for prostate cancer Special screening for malignant neoplasm of prostate Heart murmur Undiagnosed cardiac murmurs Shortness of breath Family history of early CAD Family history of ischemic heart disease Feeling of chest tightness Other chest pain Acute non-recurrent frontal sinusitis documented in this encounter [facility]* Diagnosis Bacterial folliculitis- Primary Other specified disease of hair and hair follicles Seborrheic keratosis documented in this encounter [facility]* Diagnosis Idiopathic neuropathy Other specified idiopathic peripheral neuropathy documented in this encounter [facility]* Diagnosis Diabetic peripheral neuropathy associated with type 2 diabetes mellitus ([facility]) documented in this encounter [facility]* Diagnosis Arthralgia, unspecified joint- Primary Acute non-recurrent frontal sinusitis Poison juhi dermatitis Diabetic peripheral neuropathy associated with type 2 diabetes mellitus ([facility]) documented in this encounter [facility]* Diagnosis Bee sting allergy documented in this encounter [facility]* Diagnosis Acute non-recurrent frontal sinusitis documented in this encounter [facility] Narrative No data available for this section [facility] Hospital Discharge instructions No data available for this section [facility] progress note No data available for this section [facility] Summary Purpose Family History No Family History Records FoundNo Family History Records FoundNo Family History Records FoundNo Family History Records Found No data available for this section No Family History Records FoundNo Family History Records FoundNo Family History Records Found Advance Directives No Advanced Directives Records FoundDocuments on File Type Date Recorded Patient Mental 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 Expl anation ACP-Advance Directive ACP-Power of Bail Agent Reason for Referral Specialty Diagnoses / Procedures Referred By Contac t Referred To Contact Diagnoses Diabetic peripheral neuropathy associated with type 2 diabetes mellitus (CMS/HCC) Low testosterone Feeling of chest tightness Dyspnea on exertion Family history of premature CAD Procedures STRESS NUCLEAR MEDICINE TREADMILL Amada Anna, FIRE SUPPORT SPECIALIST [address] [place] [address] Referral ID Status Reason Start Date Expiration Date V isits Requested Visits Authorized [id number] Pending Review 08/03/2023 01/30/2024 3 3 Specialty Diagnoses / Procedures Referred By Contac t Referred To Contact Diagnoses Low testosterone Amada Anna, ROBBY [address] [place] [address] Referral ID Status Reason Start Date Expiration Date V isits Requested Visits Authorized [id number] Pending Review 1 1 Additional Source Comments (unrecognized sect ion and content) No Status Records FoundNo Status Records FoundNo Status Records FoundNo Status Records FoundNo Status Records FoundNo Status Records FoundNo Status Records Found INFORMATION SOURCE (unrecogn ized section and content) DATE CREATED AUTHOR 12/28/2017 [facility] DATE CREATED AUTHOR AUTHOR'S ORGANIZ ATION 09/23/2021 [facility] dical Specialist DATE CREATED AUTHOR AUTHOR'S ORGANIZ ATION 03/05/2022 [facility] DATE CREATED AUTHOR AUTHOR'S ORGANIZ ATION 10/14/2022 [facility] DATE CREATED AUTHOR AUTHOR'S ORGANIZ ATION 12/16/2024 [facility] dical Specialists [facility] DATE CREATED AUTHOR AUTHOR'S ORGANIZ ATION 12/24/2024 [facility] DATE CREATED AUTHOR AUTHOR'S ORGANIZ ATION 12/25/2024 Sundeep Maurer [facility] Care Teams (unrecognized sec tion and content) Country Manager Relationship Specialty Start Date End Date James Payton MD [address] [place] [address] PCP - General 08/18/20 Country Manager Relationship Specialty Start Date End Date James Payton MD [address] [place] [address] PCP - General 08/18/20 Country Manager Relationship Specialty Start Date End Date James Payton MD [address] [place] [facility] [address] PCP - General 08/18/20 Country Manager Relationship Specialty Start Date End Date James Payton MD [address] [place] [facility] [address] PCP - General 08/18/20 Country Manager Relationship Specialty Start Date End Date Alejandro Florian DO [address] [place] [address] PCP - General Family Medicine 01/15/23 Amada Anna NP [address] [place] [address] Nurse Practitioner Family Medicine 01/15/23 Country Manager Relationship Specialty Start Date End Date Alejandro Florian DO [address] [place] [address] PCP - General Family Medicine 01/15/23 Amada Anna NP [address] [place] [address] Nurse Practitioner Family Medicine 01/15/23 Country Manager Relationship Specialty Start Date End Date Alejandro Florian DO [address] [place] [address] PCP - General Family Medicine 01/15/23 Amada Anna NP [address] [place] [address] Nurse Practitioner Family Medicine 01/15/23 Country Manager Relationship Specialty Start Date End Date Alejandro Florian DO [address] [place] [address] PCP - General Family Medicine 01/15/23 Amada Anna NP [address] [place] [address] Nurse Practitioner Family Medicine 01/15/23 Country Manager Relationship Specialty Start Date End Date Alejandro Florian DO [address] [place] [address] PCP - General Family Medicine 01/15/23 Amada Anna NP [address] [place] [address] Nurse Practitioner Family Medicine 01/15/23 Country Manager Relationship Specialty Start Date End Date Alejandro Florian DO [address] [place] [address] PCP - General Family Medicine 01/15/23 Amada Anna NP [address] [place] [address] Nurse Practitioner Family Medicine 01/15/23 Country Manager Relationship Specialty Start Date End Date Alejandro Florian DO [address] [place] [address] PCP - General Family Medicine 01/15/23 Amada Anna NP [address] [place] [address] Nurse Practitioner Family Medicine 01/15/23 Country Manager Relationship Specialty Start Date End Date Alejandro Florian DO [address] [place] [address] PCP - General Family Medicine 01/15/23 Amada Anna NP [address] [place] [address] Nurse Practitioner Family Medicine 01/15/23 Country Manager Relationship Specialty Start Date End Date Alejandro Florian DO [address] [place] [address] PCP - General Family Medicine 01/15/23 Amada Anna NP [address] [place] [address] Nurse Practitioner Family Medicine 01/15/23 Country Manager Relationship Specialty Start Date End Date Alejandro Florian DO [address] [place] [address] PCP - General Family Medicine 01/15/23 Amada Anna NP [address] [place] [address] Nurse Practitioner Family Medicine 01/15/23 Country Manager Relationship Specialty Start Date End Date Alejandro Florian DO [address] [place] [address] PCP - General Family Medicine 01/15/23 Amada Anna NP [address] [place] [address] Nurse Practitioner Family Medicine 01/15/23 Country Manager Relationship Specialty Start Date End Date Alejandro Florian DO [address] [place] [address] PCP - General Family Medicine 01/15/23 Amada Anna FIRE SUPPORT SPECIALIST [address] [place] [address] Nurse Practitioner Family Medicine 01/15/23 Country Manager Relationship Specialty Start Date End Date Alejandro Florian DO [address] [place] [address] PCP - General Family Medicine 01/15/23 Amada Anna FIRE SUPPORT SPECIALIST [address] [place] [address] Nurse Practitioner Family Medicine 01/15/23 Country Manager Relationship Specialty Start Date End Date Alejandro Florian DO [address] [place] [address] PCP - General Family Medicine 01/15/23 Amada Anna FIRE SUPPORT SPECIALIST [address] [address] [place] [address] Nurse Practitioner Family Medicine 01/15/23 Country Manager Relationship Specialty Start Date End Date Alejandro Florian DO [address] [place] [address] PCP - General Family Medicine 01/15/23 Amada Anna FIRE SUPPORT SPECIALIST [address] [place] [address] Nurse Practitioner Family Medicine 01/15/23 Country Manager Relationship Specialty Start Date End Date Alejandro Florian DO [address] [place] [address] PCP - General Family Medicine 01/15/23 Amada Anna NP [address] [place] [address] Nurse Practitioner Family Medicine 01/15/23 Country Manager Relationship Specialty Start Date End Date Alejandro Florian DO [address] [place] [address] PCP - General Family Medicine 01/15/23 Amada Anna NP [address] [place] [id number] Nurse Practitioner Family Medicine 01/15/23 Country Manager Relationship Specialty Start Date End Date Alejandro Florian DO [address] [place] [id number] PCP - General Family Medicine 01/15/23 Amada Anna NP [address] [place], [place] [phone] Nurse Practitioner Family Medicine 01/15/23 Country Manager Relationship Specialty Start Date End Date Alejandro Florian DO [address] [place] [phone] PCP - General Family Medicine 01/15/23 Amada Anna NP [address] [place] [phone] Nurse Practitioner Family Medicine 01/15/23 Reason for Visit (unrecogniz ed section and content) Reason Comments Follow-up Reason Comments Med Refill Reason Comments Rash Specialty Diagnoses / Procedures Referred By Sammy t Referred To Contact Dermatology Diagnoses Other acne Procedures ME OFFICE/OUTPATIENT NEW HIGH MDM 60 MINUTES Renetta Benito, FIRE SUPPORT SPECIALIST [address] [place] [address] Phone: tel: fax: Amina Graham MD [address] [place] [address] Phone: tel: fax: Referral ID Status Reason Start Date Expiration Date V isits Requested Visits Authorized [id number] Closed Specialty Services Required 01/30/2024 07/28/2024 1 [...] away. Reason Comments Follow-up Suspicious Skin Lesion Reason Comments Medication Problem Lyrica is not workin g as well as it has been since he refilled it about 2 weeks ago. Pt is experiencing pain every day when he wasn't before Reason Onset Date Comments Med Refill 12/23/2024 FOR RECORDS PERTAINING TO PATIENTS WHO ARE [...] BE BASED ON THE PRIMARY CLINICAL RECORDS. [employer] provides no warranty or guarantee of the accuracy or completeness of information in this document.
--- OUTSIDE RECORDS SUMMARY | 2024-12-25 22:00 | XMS_ITS | Clinical Summary ---
Author Organization [facility] Address [address] [place] [address] Phone Care Team Providers Care Foreign Exchange Dealer Name Role Phone Unavailable Primary Care Provider Unavailabl e Encounters Date Type Department Care Team Description 12/22/2024 Travel from Last 3 Months Social History Tobacco Use Types Packs/Day Years Used Date Smoking Tobacco: Never Assessed Sex and Gender Information Value Date Recorded Sex Assigned at Not on file Legal Sex Male 10:53 AM EST Gender Identity Not on file Sexual Orientation Not on file Plan of Treatment Upcoming Encounters Date Type Department Care Team ([facility] st Contact Info) Description 12/29/2024 12:45 PM EDT Office Visit [facility] [address] [facility] [address] [place] [address] Francine Mendiola MD [address] [facility] [address] [place], [place] [phone] Health Maintenance Due Date Last Done Comments CT Colonography 1965 FIT-DNA (Cologuard) 1965 FIT 1965 HIV Screening 1965 Sigmoidoscopy 1965 Skin Cancer Screening 1965 MMR Vaccines (1 of 1 - Standard series) 1966 Hepatitis B Vaccines (1 of 3 - 19+ 3-dose series) 1984 Pneumococcal Vaccine (1 of 2 - PCV) 1984 Zoster Vaccines (1 of 2) 2015 Diabetes Screening 08/18/2023 08/18/2020 COVID-19 Vaccine ( season) 2024 06/07/2021, 08/11/2020, 07/14/2020 Yearly Adult Physical 05/06/2025 05/05/2024, 024 Lipid Panel 11/11/2029 11/11/2024 Colonoscopy 04/16/2030 04/16/2020, 04/16/2020 Colorectal Cancer Screening 04/16/2030 DTaP/Tdap/Td Vaccines (2 - Td or Tdap) 04/21/2032 04/21/2022 Influenza Vaccine Completed 05/05/2024, , 04/21/2022, Additional history exists Hepatitis C Screening Completed 11/11/2024 HIB Vaccines Aged Out No longer eligi ble based on patient's age to complete this topic HPV Vaccines (No Doses Required) Completed Hepatitis A Vaccines Aged Out No long er eligible based on patient's age to complete this topic IPV Vaccines Aged Out No longer eligi ble based on patient's age to complete this topic Meningococcal Vaccine Aged Out No favian josie eligible based on patient's age to complete this topic Rotavirus Vaccines Aged Out No longer eligible based on patient's age to complete this topic Insurance [employer] RESOURCES [place] [id number]
--- OUTSIDE RECORDS SUMMARY | 2024-12-25 22:00 | XMS_ITS | Encounter Summary ---
Author Organization [facility] Address [address] [facility] [place] [address] Care Team Providers Care Fire Production Operator Name Role Phone Alejandro Florian DO Primary Care Provider Gala Anna WELT STITCH CLEANER Unavailable [phone] Encounter Details Date Type Department Care Team (Late st Contact Info) Description 12/28/2022 Orders Only [facility] [address] [place] [address] Gala Anna NP [address] [place] [address] Social History Tobacco Use Types [...] [facility] DERM [address] [place] [address] Christina Broussard PA [address] [facility] [address] [facility] [address] [place] [address] documented as of this encounter Procedures Procedure Name Priority Date/Time Associated Diagnosis Comments US SCROTUM Routine 12/28/2022 2:58 PM EDT documented in this encounter Results * US scrotum (12/28/2022 2:58 PM EDT) Anatomical Region Laterality Modality Body Ultrasound us Gala Anna WELT STITCH CLEANER IMG US PROCEDURES Final Result documented in this encounter Visit Diagnoses Not on filedocumented in this encounter Care Teams Fire Production Operator Relationship Specialty Start Date End Date Alejandro Florian DO [address] [place] [address] PCP - General Family Medicine 01/15/23 Gala Anna, ROBBY [address] [place] [address] Nurse Practitioner Family Medicine 01/15/23 documented as of this encounter
--- OUTSIDE RECORDS SUMMARY | 2024-12-25 22:00 | XMS_ITS | Clinical Summary ---
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
--- OUTSIDE RECORDS SUMMARY | 2024-12-25 22:00 | XMS_ITS | Patient Health Record ---
Author Organization [facility] Address [address] [place] [address] Care Team Providers Care Contracts Manager Name Role Phone Gala Anna Primary Care Provider Kirit Mays Unavailable [phone] Reason For Referral No Information Problems Problem Type SNOMED Code ICD Code Onset Dates Problem Status W/U Status Risk Notes Problem [id number] Hallux varus (acquired), right foot (M20.31) Active confirmed Problem [id number] Hallux varus (acquired), left foot (M20.32) Active confirmed Problem [id number] Contusion of right great toe with damage to nail, initial encounter (S90.211A) Active confirmed Problem [id number] Contusion of left great toe with damage to nail, initial encounter (S90.212A) Active confirmed Encounters Encounter Location Date Provider Diagnosis [facility] Office [address] [place] [id number] 02/04/2024 Kirit Sky Contusion of left great [...] Insured Coverage Start Date Coverage End Date [facility] [address] [address] [place] [address] [id number] JELLY CARABALLO Self - patient is the insured
--- OUTSIDE RECORDS SUMMARY | 2024-12-25 22:00 | XMS_ITS | Encounter Summary ---
Author Organization [facility] Address [address] [facility] [place] [address] Care Team Providers Care Road Roller Operator Hot Mix Name Role Phone Alejandro Florian DO Primary Care Provider [phone] Gala Anna CREOSOTING ENGINEER Unavailable [phone] Encounter Details Date Type Department Care Team (Late st Contact Info) Description 06/08/2023 Abstract [facility] [address] [place] [address] Gala Anna NP [address] [place] [address] Social History Tobacco Use Types [...] TSR DERM [address] [place] [address] Christina Broussard PA [address] [facility] [address] [place] [address] documented as of this encounter Visit Diagnoses Not on filedocumented in this encounter Additional Health Concerns Assessment Noted Time PHQ-9 Depression Total Score: 3 04/02/20 23 7:00 AM EDT documented as of this encounter Care Teams Road Roller Operator Hot Mix Relationship Specialty Start Date End Date Alejandro Florian DO [address] [place] [address] PCP - General Family Medicine 01/15/23 Gala Anna NP [address] [place] [address] Nurse Practitioner Family Medicine 01/15/23 documented as of this encounter
--- OUTSIDE RECORDS SUMMARY | 2024-12-25 22:00 | XMS_ITS | Encounter Summary ---
Author Organization [facility] Address [address] [facility] [place] [address] Care Team Providers Care Liberal Arts Teacher Name Role Phone Alejandro Florian DO Primary Care Provider [phone] Gala Anna SAFETY ADVISOR Unavailable [phone] Encounter Details Date Type Department Care Team (Late st Contact Info) Description 01/17/2023 Abstract [facility] [address] [place] [address] Gala Anna NP [address] [place] [address] Social History Tobacco Use Types [...] TSR DERM [address] [place] [address] Christina Broussard PA [address] [facility] [address] [place] [address] [place] [address] documented as of this encounter Visit Diagnoses Not on filedocumented in this encounter Care Teams Liberal Arts Teacher Relationship Specialty Start Date End Date Alejandro Florian DO [address] [place] [address] PCP - General Family Medicine 01/15/23 Gala Anna NP [address] [facility] [address] [place] [address] Nurse Practitioner Family Medicine 01/15/23 documented as of this encounter
--- OUTSIDE RECORDS SUMMARY | 2024-12-25 22:00 | XMS_ITS | Encounter Summary ---
Author Organization [facility] Address [address] [place] [address] Care Team Providers Care Open Developer Operator Name Role Phone Alejandro Florian Primary Care Provider [phone] Gala Anna NP Unavailable [phone] Reason for Visit * Reason Onset Date Comments lab results 12/16/2024 Encounter Details Date Type Department Care Team (Late Contact Info) Description 12/16/2024 Results Follow-Up [facility] [address] [place] [address] Gala Anna NP [address] [place] [address] Social History Tobacco Use Types [...] Telephone Encounter - Gala Anna NP - 12/16/2024 3:10 PM EDT Notify negative for rheumatoid and lupus documented in this encounter Plan of Treatment Upcoming Encounters Date Type Department Care Team (Late Contact Info) Description 03/24/2025 7:40 AM EDT Office Visit [facility] [address] [place] [address] Christina Broussard, LUIS [address] [place] [address] documented as of this encounter Visit Diagnoses Not on filedocumented in this encounter Additional Health Concerns Assessment Noted Time PHQ-9 Depression Total Score: 3 04/02/20 23 7:00 AM EDT documented as of this encounter Care Teams Open Developer Operator Relationship Specialty Start Date End Date Alejandro Florian DO [address] [place], [place] [phone] PCP - General Family Medicine 01/15/23 Gala Anna NP [address] [place], [place] [phone] Nurse Practitioner Family Medicine 01/15/23 documented as of this encounter
--- OUTSIDE RECORDS SUMMARY | 2024-12-25 22:00 | XMS_ITS | Encounter Summary ---
Author Organization [facility] Address [address] [facility] [place] [address] Care Team Providers Care Clay Hoister Name Role Phone Alejandro Florian Primary Care Provider [phone] Gala Anna WIND OPERATIONS SUPERVISOR Unavailable [phone] Encounter Details Date Type Department Care Team (Late st Contact Info) Description 11/10/2024 Orders Only [facility] [address] [place] [address] Gaal Anna NP [address] [...] TSR DERM [address] [place] [address] Christina Broussard, PA [address] [place] [address] documented as of this encounter Procedures Procedure Name Priority Date/Time Associated Diagnosis Comments DIABETIC RETINOPATHY SCREENING - OU - BOTH EYES Routine 11/08/2024 10:13 AM EDT documented in this encounter Results * Diabetic Retinopathy Screening - OU - Both Eyes (11/08/2024 10:13 AM EDT) Anatomical Region Laterality Modality Head Other us Gala Anna WIND OPERATIONS SUPERVISOR OPHTH PHOTOGRAPHY Final Result documented in this encounter Visit Diagnoses Not on filedocumented in this encounter Additional Health Concerns Assessment Noted Time PHQ-9 Depression Total Score: 3 04/02/20 7:00 AM EDT documented as of this encounter Care Teams Clay Hoister Relationship Specialty Start Date End Date Alejandro Florian DO [address] [place] [id number] PCP - General Family Medicine 01/15/23 Gala Anna NP [address] [place] [address] Nurse Practitioner Family Medicine 01/15/23 documented as of this encounter
--- OUTSIDE RECORDS SUMMARY | 2024-12-25 22:00 | XMS_ITS | Encounter Summary ---
Author Organization [facility] Address [address] [place] [address] Care Team Providers Care Painter And Grader Cork Name Role Phone Alejandro Florian Primary Care Provider [phone] Gala Anna GROUNDS RESTORATION SPECIALIST Unavailable [phone] Reason for Visit * Reason Comments Med Refill Encounter Details Date Type Department Care Team (Late st Contact Info) Description 05/04/2024 Refill [facility] [address] [place] [address] Linda Benito, GROUNDS RESTORATION SPECIALIST [address] [place] [address] Injury of nail bed of [...] TSR DERM [address] [place] [address] Christina Broussard, LUIS [address] [place] [address] documented as of this encounter Visit Diagnoses Diagnosis Injury of nail bed of toe documented in this encounter Additional Health Concerns Assessment Noted Time PHQ-9 Depression Total Score: 3 04/02/20 7:00 AM EDT documented as of this encounter Care Teams Painter And Grader Cork Relationship Specialty Start Date End Date Alejandro Florian DO [address] [place], [place] [address] PCP - General Family Medicine 01/15/23 Gala Anna NP [address] [place] [address] Nurse Practitioner Family Medicine 01/15/23 documented as of this encounter
--- OUTSIDE RECORDS SUMMARY | 2024-12-25 22:00 | XMS_ITS | Encounter Summary ---
Author Organization [facility] Address [address] [place] [address] Care Team Providers Care Sr. Social Media & Mobile Manager Name Role Phone Alejandro Florian Primary Care Provider [phone] Gala Anna CANDLE MAKER Unavailable [phone] Encounter Details Date Type Department Care Team (Latest Contact Info) Description 12/15/2024 Travel Social History Tobacco Use Types Packs/Day Years [...] [facility] DERM [address] [place] [address] Christina Broussard, LUIS [address] [place] [address] documented as of this encounter Visit Diagnoses Not on filedocumented in this encounter Additional Health Concerns Assessment Noted Time PHQ-9 Depression Total Score: 3 04/02/20 23 7:00 AM EDT documented as of this encounter Care Teams Sr. Social Media & Mobile Manager Relationship Specialty Start Date End Date Alejandro Florian DO [address] [place] [address] PCP - General Family Medicine 01/15/23 Gala Anna NP [address] [place] [address] Nurse Practitioner Family Medicine 01/15/23 documented as of this encounter
--- OUTSIDE RECORDS SUMMARY | 2024-12-25 22:00 | XMS_ITS | Encounter Summary ---
Author Organization [facility] Address [address] [facility] [place] [address] Care Team Providers Care Forensic Identification Specialist Name Role Phone Alejandro Florian DO Primary Care Provider [phone] Gala Anna LOAN CLOSER Unavailable [phone] Encounter Details Date Type Department Care Team (Late st Contact Info) Description 03/13/2024 Abstract [facility] [address] [place] [address] Gala Anna NP [address] [place] [address] Social History Tobacco Use Types [...] TSR DERM [address] [place] [address] Christina Broussard PA [address] [facility] [address] [place], [place] [id number] documented as of this encounter Visit Diagnoses Not on filedocumented in this encounter Additional Health Concerns Assessment Noted Time PHQ-9 Depression Total Score: 3 04/02/20 23 7:00 AM EDT documented as of this encounter Care Teams Forensic Identification Specialist Relationship Specialty Start Date End Date Alejandro Florian DO [address] [place] [address] PCP - General Family Medicine 01/15/23 Gala Anna NP [address] [place] [address] Nurse Practitioner Family Medicine 01/15/23 documented as of this encounter
--- OUTSIDE RECORDS SUMMARY | 2024-12-25 22:00 | XMS_ITS | Encounter Summary ---
Author Organization [facility] Address [address] [facility] [place] [address] Care Team Providers Care Ship Surveyor Name Role Phone Alejandro Florian DO Primary Care Provider [phone] Gala Anna SUPERVISOR BRINE Unavailable [phone] Encounter Details Date Type Department Care Team (Late st Contact Info) Description 06/15/2023 Abstract [facility] [address] [place] [address] Gala Anna NP [address] [place] [address] Social History Tobacco Use [...] TSR DERM [address] [place] [address] Christina Broussard PA [address] [email or web address] [address] [place] [address] documented as of this encounter Visit Diagnoses Not on filedocumented in this encounter Additional Health Concerns Assessment Noted Time PHQ-9 Depression Total Score: 3 04/02/20 23 7:00 AM EDT documented as of this encounter Care Teams Ship Surveyor Relationship Specialty Start Date End Date Alejandro Florian DO [address] [place] [address] PCP - General Family Medicine 01/15/23 Gala Anna NP [address] [place] [address] Nurse Practitioner Family Medicine 01/15/23 documented as of this encounter
--- OUTSIDE RECORDS SUMMARY | 2024-12-25 22:00 | XMS_ITS | Referral Summary ---
Author Organization [facility] Address [address] [place] [address] Care Team Providers Care Electrical Controls Engineer Name Role Phone Unavailable Primary Care Provider [...] at Not on file Legal Sex Male 12:38 AM EDT Gender Identity Not on file Sexual Orientation Not on file Plan of Treatment Not on file
--- OUTSIDE RECORDS SUMMARY | 2024-12-25 22:00 | XMS_ITS | Encounter Summary ---
Author Organization [facility] Address [address] [facility] [place] [address] Care Team Providers Care Management Department Chair Name Role Phone Alejandro Florian DO Primary Care Provider [phone] Gala Anna STOGY MAKER Unavailable [phone] Encounter Details Date Type Department Care Team (Late st Contact Info) Description 07/26/2023 Abstract [facility] [address] [place] [address] Gala Anna NP [address] [place] [address] Social History Tobacco Use Types [...] TSR DERM [address] [place] [address] Christina Broussard PA [address] [facility] [address] [place], [place] [id number] documented as of this encounter Visit Diagnoses Not on filedocumented in this encounter Additional Health Concerns Assessment Noted Time PHQ-9 Depression Total Score: 3 04/02/20 23 7:00 AM EDT documented as of this encounter Care Teams Management Department Chair Relationship Specialty Start Date End Date Alejandro Florian DO [address] [place] [address] PCP - General Family Medicine 01/15/23 Gala Anna NP [address] [place] [address] Nurse Practitioner Family Medicine 01/15/23 documented as of this encounter
--- OUTSIDE RECORDS SUMMARY | 2024-12-25 22:00 | XMS_ITS | Encounter Summary ---
Author Organization [facility] Address [address] [place] [address] Care Team Providers Care Air Hammer Operator Name Role Phone Casa Hunter MD Primary Care Provider [phone] Alli Roman MD Primary Care Provider Lisa Mariam Carrington MD Primary Care Provider [phone] Reason for Visit * Reason Onset Date Comments Medication Refill 02/21/2011 Encounter Details Date Type Department Care Team (Late st Contact Info) Description 02/21/2011 Refill Neurology [facility] [place] [address] [place] [address] Francia Kelly MD [address] [place] [address] [place] [address] Unspecified hereditary and idiopathic peripheral neuropathy; Spasm [...] 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 Not on file Not on file Not on file Not on file Not on file Not on file documented as of this encounter Miscellaneous Notes * Telephone Encounter - Francia Kelly MD - 02/21/2011 11:56 AM EDTFrom: SILVESTRE CARABALLO To: Francia Kelly MD Sent: SunFeb 21, 2011 9:02 AM Subject: Medication Renewal Request Original authorizing provider: MD Silvestre Omalley Anmol would like a refill of the following medications: gabapentin (NEURONTIN) 300 MG PO CAPS [Francia Kelly MD] Preferred pharmacy: [facility] [address] [facility] [address] [place] [phone] Comment: I have tried to cut back [...] muscle documented in this encounter Care Teams Air Hammer Operator Relationship Specialty Start Date End Date Casa Hunter MD [address] [place] [id number] PCP - General 05/17/10 04/13/11 Alli Roman MD PCP - General 04/14/11 09/15/14 Mariam Luna MD [address] [place] [address] PCP - General Family Medicine 10/29/15 documented as of this encounter
--- OUTSIDE RECORDS SUMMARY | 2024-12-25 22:00 | XMS_ITS | Clinical Summary ---
Author Organization [facility] Address [address] [place] [address] Care Team Providers Care Developmental Mathematics Professor Name Role Phone Unavailable Primary Care Provider [...]
--- OUTSIDE RECORDS SUMMARY | 2024-12-25 22:00 | XMS_ITS | Encounter Summary ---
Author Organization [facility] Address [address] [facility] [place] [address] Care Team Providers Care Gluing Pressman Name Role Phone Alejandro Florian DO Primary Care Provider [phone] Gala Anna FURNITURE SALESPERSON Unavailable [phone] Encounter Details Date Type Department Care Team (Late st Contact Info) Description 01/15/2023 Abstract [facility] [address] [place] [address] Gala Anna NP [address] [place] [address] Social History Tobacco Use Types [...] [facility] [address] [place] [address] Christina Broussard PA [address] [place] [address] [place] [address] documented as of this encounter Visit Diagnoses Not on filedocumented in this encounter Care Teams Gluing Pressman Relationship Specialty Start Date End Date Alejandro Florian DO [address] [place] [address] PCP - General Family Medicine 01/15/23 Gala Anna NP [address] [facility] [address] [place] [id number] Nurse Practitioner Family Medicine 01/15/23 documented as of this encounter
--- OUTSIDE RECORDS SUMMARY | 2024-12-25 22:00 | XMS_ITS | Encounter Summary ---
Author Organization [facility] Address [address] [facility] [place] [address] Care Team Providers Care Legal Aid Name Role Phone Alejandro Florian DO Primary Care Provider [phone] Gala Anna ELEMENTARY PRINCIPAL Unavailable [phone] Encounter Details Date Type Department Care Team (Late st Contact Info) Description 02/05/2023 Abstract [facility] [address] [place] [address] Gala Anna NP [address] [place] [address] Social History Tobacco Use Types [...] [facility] [address] [place] [address] Christina Broussard PA [address] [address] [facility] [address] [place] [address] documented as of this encounter Visit Diagnoses Not on filedocumented in this encounter Care Teams Legal Aid Relationship Specialty Start Date End Date Alejandro Florian DO [address] [place] [address] PCP - General Family Medicine 01/15/23 Gala Anna NP [address] [place] [address] Nurse Practitioner Family Medicine 01/15/23 documented as of this encounter
--- OUTSIDE RECORDS SUMMARY | 2024-12-25 22:00 | XMS_ITS | Encounter Summary ---
Author Organization [facility] Address [address] [place] [address] Care Team Providers Care Metallurgical Inspector Name Role Phone Alejandro Florian Primary Care Provider [phone] Gala Anna ETHANOL OPERATIONS MANAGER Unavailable [phone] Reason for Visit * Reason Onset Date Comments Med Refill 12/23/2024 Encounter Details Date Type Department Care Team (Late Contact Info) Description 12/23/2024 Refill [facility] [address] [place] [address] Lizz Farfan MA Bee sting allergy Social History Tobacco Use Types Packs/Day Years [...] encounter Miscellaneous Notes * Telephone Encounter - Lizz Farfan MA - 12/23/2024 11:43 AM EDT Requesting refill on Epi pen, please send to [facility]. documented in this encounter Plan of Treatment Upcoming Encounters Date Type Department Care Team (Late st Contact Info) Description 03/24/2025 7:40 AM EDT Office Visit [facility] [address] [place] [address] Christina Broussard, LUIS [address] [place] [address] documented as of this encounter Visit Diagnoses Diagnosis Bee sting allergy documented in this encounter Additional Health Concerns Assessment Noted Time PHQ-9 Depression Total Score: 3 04/02/20 23 7:00 AM EDT documented as of this encounter Care Teams Metallurgical Inspector Relationship Specialty Start Date End Date Alejandro Florian DO [address] [place] [address] PCP - General Family Medicine 01/15/23 Gala Anna NP [address] [place], [place] [id number] Nurse Practitioner Family Medicine 01/15/23 documented as of this encounter
--- OUTSIDE RECORDS SUMMARY | 2024-12-25 22:00 | XMS_ITS | Clinical Summary ---
Author Organization [facility] Address [address] [place] [address] Care Team Providers Care Supervisor Laundry Name Role Phone Chiqui, Alejandro Sanchez DO Primary Care Provider [phone] Gala Anna CHIEF DESIGN DRAFTER Unavailable [phone] Allergies Active Allergy Reactions Criticality Noted Date [...] clobetasol (Temovate) 0.05 % ointment 022 Active dulaglutide (Trulicity) 1.5 MG/0.5ML solution pen-injectorIndic ations:Type 2 diabetes mellitus without complication, without long-term current use of insulin (HCC) Inject 1.5 mg under the skin 1 (one) time per week Patient to take two of the 1.5mg pens every week due to product availability 8 pen 11 024 Active Additional Information Patient not taking.Reported on 12/15/2024 cyanocobalamin (Vitamin B-12) 1000 MCG tablet Take 1,000 mcg by mouth Daily Active Turmeric (QC TUMERIC COMPLEX PO) Take by mouth Daily Active Syringe/Needle, Disp, (Luer Lock Safety Syringes) 22G X 1-/2 3 ML miscIndications:I diopathic neuropathy Inject 1 each under the skin Daily 100 each 1 024 Active metFORMIN (Glucophage) 1000 MG tabletIndications :Diabetic peripheral neuropathy associated with type 2 diabetes mellitus (HCC) TAKE 1 TABLET BY MOUTH TWICE DAILY WITH A MEAL 180 tablet 1 Active Additional Information Patient not taking.Reported on 12/15/2024 levothyroxine (Synthroid, Levoxyl) 50 MCG tabletIndications :Acquired hypothyroidism Take 1 tablet (50 mcg) by mouth in the morning. Take before meals. 90 tablet 2 Active Dulaglutide (Trulicity) 3 MG/0.5ML solution auto-injectorIndi cations:Diabetes mellitus due to underlying condition with hyperosmolarity without coma, without long-term current use of insulin ([facility]) Inject 3 mg under the skin 1 (one) time per week 12 mL 3 Active Additional Information Patient not taking.Reported on 12/15/2024 rOPINIRole (Requip) 0.25 MG tabletIndications :Idiopathic neuropathy [...] AT BEDTIME 90 tablet 1 025 Active Ozempic, 2 MG/DOSE, 8 MG/3ML solution pen-injector INJECT 1 SYRINGE (2MG) SUBCUTANEOUSLY ONCE A WEEK IN THE ABDOMEN, THIGH, OR UPPER ARM. 025 Active cefuroxime (Ceftin) 250 MG tabletIndications :Bacterial folliculitis Take 1 tablet, by mouth, twice daily, 30 days 60 tablet 4 025 Active traZODone (Desyrel) 50 MG tabletIndications :Idiopathic neuropathy TAKE 1 TABLET BY MOUTH ONCE DAILY AT THE SAME TIME EACH DAY. 90 tablet 025 Active rosuvastatin (Crestor) 40 MG tabletIndications :Diabetic peripheral neuropathy associated with type 2 diabetes mellitus (HCC) Take 1 tablet by mouth once daily 90 tablet 025 Active pregabalin (Lyrica) 300 MG capsuleIndication s:Acute non-recurrent frontal sinusitis Take 1 capsule (300 mg) by mouth in the morning and 1 capsule (300 mg) before bedtime. 180 capsule 1 025 Active EPINEPHrine (Epipen) 0.3 MG/0.3ML injection syringeIndication s:Bee sting allergy INJECT CONTENTS OF 1 PEN NEEDED FOR ALLERGIC REACTION 1 each 1 025 Active Lyrica 300 MG capsuleIndication s:Acute non-recurrent frontal sinusitis Take 1 capsule (300 mg) by mouth in the morning and 1 capsule (300 mg) before bedtime. 60 capsule 3 025 12/23 Active EPINEPHrine (Epipen) 0.3 MG/0.3ML injection syringeIndication s:Bee sting allergy INJECT CONTENTS OF 1 PEN NEEDED FOR ALLERGIC REACTION 1 each 1 024 12/23 Discontinued( Reorder) rosuvastatin (Crestor) 40 MG tabletIndications :Diabetic peripheral neuropathy associated with type 2 diabetes mellitus (HCC) Take 1 tablet (40 mg) by mouth Daily 90 tablet 024 11/26 Discontinued pregabalin (Lyrica) 300 MG capsuleIndication s:Acute non-recurrent frontal sinusitis TAKE 1 CAPSULE BY MOUTH IN THE MORNING AND 1 AT BEDTIME 180 capsule 1 025 12/15 Discontinued( Reorder) ketoconazole (NIZOral) 2 % shampooIndication s:Bacterial folliculitis Apply topically 2 (two) times a week Lather on scalp and mcdowell area 2x a week, leave on 5 min before rinsing 120 mL 11 025 12/17 Hospital, Clinic, or Other Facility Administered Medication Ordered Dose Route Frequency Start Date End Date Status triamcinolone acetonide (Kenalog-40) injection 40 mgIndications:Poison juhi dermatitis 40 mg IM Once 12/15/2024 12/15/2024 Ended Active Problems Problem Noted Date Diagnosed Date Hallux varus (acquired), right foot 05/05/2024 Sigmoid diverticulitis 04/02/2023 Acquired hypothyroidism 01/19/2023 Asthma 01/19/2023 Bilateral hearing loss 01/19/2023 BPH with obstruction/lower urinary tract symptom s 01/19/2023 Diabetes 01/19/2023 Erectile dysfunction 01/19/2023 Gall stone 01/19/2023 Hyperlipemia 01/19/2023 Low HDL (under 40) 01/19/2023 Hyperglycemia due to type 2 diabetes mellitus alf current use of insulin 01/17/2022 Allergic to [...] neuropathy and hx of PE, presenting to [facility] 11/10 with abdominal pain, N/V. He [...] Encounters Date Type Department Care Team Description 12/23/2024 Telephone [facility] [address] [place] [address] Lizz Farfan MA Med Refill 12/23/2024 Refill [facility] [address] [place] [address] Lizz Farfan MA Bee sting allergy 12/16/2024 Results Follow-Up [facility] [place] [address] Gala Anna NP 12/15/2024 7:00 AM EDT Office Visit [facility] [address] [place] [address] Gala Anna NP Arthralgia, unspecified joint (Primary Dx); Acute non-recurrent frontal sinusitis; Poison juhi dermatitis; Diabetic peripheral neuropathy associated with type 2 diabetes mellitus (HCC) 12/15/2024 Bamboo flowsheet [facility] [address] [place] [address] Gala Anna NP 12/15/2024 Travel 12/09/2024 Orders Only [facility] [address] [place] [address] Janelle Olea MA Abnormal stress test 12/09/2024 Telephone [facility] [address] [place] [address] Gala Anna NP echo and stress test results 11/26/2024 Refill [facility] [place] [id number] Gala Anna NP Diabetic peripheral neuropathy associated with type 2 diabetes mellitus (HCC) 11/16/2024 Refill [facility] [address] [place] [address] Gala Anna NP Idiopathic neuropathy 11/14/2024 7:40 AM EDT Office Visit [facility] [address] [place] [address] Christina Broussard PA Bacterial folliculitis (Primary Dx); Seborrheic keratosis 11/14/2024 Bamboo flowsheet [facility] [address] [place] [address] Christnia Broussard PA 11/14/2024 Travel 11/13/2024 7:30 AM EDT Office Visit [facility] [address] [place] [address] Gala Anna NP Type 2 diabetes mellitus with diabetic polyneuropathy, with long-term current use of insulin (HCC) (Primary Dx); Low testosterone; Acquired hypothyroidism ; Mixed hyperlipidemia ; Screening for prostate cancer; Heart murmur; Shortness of breath; Family history of early CAD; Feeling of chest tightness; Acute non-recurrent frontal sinusitis 11/13/2024 Bamboo flowsheet [facility] [address] [place] [address] Gala Anna NP 11/13/2024 Travel 11/10/2024 Orders Only [facility] [address] [place] [address] Gala Anna NP 11/05/2024 Refill [facility] [address] [place] [address] Gala Anna NP Acute non-recurrent frontal sinusitis 11/02/2024 Refill [facility] [address] [place] [address] Gala Anna NP Low testosterone 10/31/2024 Telephone [facility] [address] [place] [address] Veda Hawley RN Med Refill 10/25/2024 Refill [facility] [address] [place] [address] Gala Anna NP Low testosterone 09/28/2024 Refill [facility] [address] [place] [address] Gala Anna NP Diabetic peripheral neuropathy associated with type 2 diabetes mellitus (HCC) from Last 3 Months Immunizations Immunization Administration [...] F) 12/15/2024 7:15 AM EDT Respiratory Rate 18 05/05/2024 7:56 AM EST Oxygen Saturation 96% 12/15/2024 7:15 AM EDT Inhaled Oxygen Concentration - - Weight 130 kg (286 lb 3.2 oz) 12/15/2024 7:15 AM EDT Height 188 cm (6' 2 ) 12/15/2024 7:15 AM EDT Body Mass Index 36.75 12/15/2024 7:15 AM EDT Plan of Treatment Upcoming Encounters Date Type Department Care Team (Late st Contact Info) Description 03/24/2025 7:40 AM EDT Office Visit [facility] [address] [place] [id number] Christina Broussard, LUIS [address] [place] [address] Health Maintenance Due Date Last [...] 7 :50 AM EDT Arthralgia, unspecified joint STRESS TEST LEXISCAN Routine 12/09/2024 8:46 AM EDT Heart murmur Shortness of breath Family history of early CAD Feeling of chest tightness ECG 12-LEAD Routine 12/08/2024 8:45 AM EDT NOTE Routine 11/12/2024 8:11 AM EDT URINALYSIS REFLEX Routine 11/12/2024 8:1 1 AM EDT Dysuria Flank pain CULTURE, URINE, ROUTINE Routine 11/12/2024 8:11 AM EDT Dysuria Flank pain MICROALBUMIN / CREATININE URINE RATIO Routine 11/12/2024 8:10 AM EDT Diabetic peripheral neuropathy associated with type 2 diabetes mellitus (HCC) Mixed hyperlipidemia Essential hypertension Routine health maintenance HEMOGLOBIN A1C Routine 11/11/2024 7:49 AM EDT CBC (INCLUDES DIFF/PLT) Routine 11/11/2024 7:49 AM EDT COMPREHENSIVE METABOLIC PANEL Routine 11/11/2024 7:49 AM EDT LIPID PANEL Routine 11/11/2024 7:49 AM EDT HEPATITIS C ANTIBODY Routine 11/11/2024 7:49 AM EDT Routine health maintenance Need for hepatitis C screening test T4 (THYROXINE), TOTAL Routine 11/11/2024 7:49 AM EDT Acquired hypothyroidism Diabetic peripheral neuropathy associated with type 2 diabetes mellitus (HCC) Mixed hyperlipidemia Essential hypertension Routine health maintenance TSH Routine 11/11/2024 7:49 AM EDT Acquired hypothyroidism Diabetic peripheral neuropathy associated with type 2 diabetes mellitus (HCC) Mixed hyperlipidemia Essential hypertension Routine health maintenance TESTOSTERONE, TOTAL, MALES (ADULT), [place] Routine 11/11/2024 7:49 AM EDT Diabetic peripheral neuropathy associated with type 2 diabetes mellitus (HCC) Low testosterone Routine health maintenance DIABETIC RETINOPATHY SCREENING - OU - BOTH EYES Routine 11/08/2024 10:13 AM EDT HEMOGLOBIN A1C Routine 09/30/2024 Diabetic peripheral neuropathy associated with type 2 diabetes mellitus (HCC) Mixed hyperlipidemia Type 2 diabetes mellitus without complication, without long-term current use of insulin (HCC) COLONOSCOPY Routine 04/16/2020 12:00 PM EDT from Last 3 Months or Most Recently Relevant to Health Maintenance Results * SYSTEMIC LUPUS ERYTHEMATOSUS (SLE), DISEASE [...] Performing Organization Information Site ID: QPT Name: [facility] Address: [address] [place] [address], [address] [place] [phone] Director: David Carrillo MD us Gala Anna NP LAB BLOOD ORDERABLES Final Res ult [facility] * Rheumatoid factor (12/15/2024 7:50 AM EDT) RHEUMATOID FACTOR <10 <14 IU/mL [facility] Blood Venous blood specimen / Unknown 12/15/2024 7:50 AM EDT 12/15/2024 7:50 AM EDT Narrative Resulting Agency Comment Performing Organization Information Site ID: QPT Name: [facility] Address: [facility], [address] [place] [phone] Director: David Carrillo MD us Gala Anna NP LAB BLOOD ORDERABLES Final Res ult Performing Organization Address [facility] de Phone Number [facility] * ALISON (12/15/2024 [...] AC-0: Negative International Consensus on ALISON Patterns (https://doi.org/10.1515/jwyh-2783-2105) For additional information, please refer to http://education.Spry.Postdeck/faq/YZC829 (This link is being provided for informational/ educational purposes only.) Blood Venous blood specimen / Unknown 12/15/2024 7:50 AM EDT 12/15/2024 7:50 AM EDT Narrative Resulting Agency Comment Performing Organization Information Site ID: QPT Name: [facility] Address: [address] [place] [address], [address] [place] [address] Director: David Carrillo MD us Gala Anna CHIEF DESIGN DRAFTER LAB BLOOD ORDERABLES Final Res ult Performing Organization Address [facility] de Phone Number [facility] * STRESS TEST LEXISCAN (12/09/2024 8:46 AM EDT) us Gala E Wilfrido CHIEF DESIGN DRAFTER CV STRESS PROCEDURES Final Res ult Performing Organization Address [facility] Co de Phone Number [facility] [address] [place] [address], [place] * ECG 12 lead (12/08/2024 8:45 AM EDT) us Gala Anna NP ECG ORDERABLES Final Result * NOTE (11/12/2024 8:11 AM EDT) NOTE [facility] Comment: This urine was analyzed for the presence of WBC, RBC, bacteria, casts, and other formed elements. Only those elements seen were reported. 11/12/2024 8:11 AM EDT 11/12/2024 8:11 AM EDT Narrative Resulting Agency Comment Performing Organization Information Site ID: QPT Name: [facility] Address: [address] [place] [address], [address] [place] [phone] Director: David Carrillo MD us Gala nAna NP [facility] Final Result Performing Organization Address City/State/[facility] Co de Phone Number [facility] * (ABNORMAL) Urinalysis with reflex microscopic [...] Performing Organization Information Site ID: QPT Name: [facility] Address: [address] [place] [address], [address] [place] [phone] Director: David Carrillo MD us Gala Anna NP LAB URINE ORDERABLES Final Res ult Performing Organization Address City/[facility]/ZIP Co de Phone Number [facility] * Urine culture (11/12/2024 8:11 AM EDT) MICRO NUMBER [id number] [facility] SPECIMEN QUALITY Adequate [facility] SOURCE: ([facility]) [...] Performing Organization Information Site ID: QPT Name: [facility] Address: [address] [place] [address], [address] [place] [phone] Director: David Carrillo MD Gala Anna LAB MICROBIOLOGY - GENERAL ORD ERABLES Final Result Performing Organization Address [facility] de Phone Number [facility] * Microalbumin / [...] 11/13/2024 11:36 AM EDT SPLIT 11/11/2024 FROM [id number] Resulting Agency Comment Performing Organization Information Site ID: QPT Name: [facility] Address: [address] [place] [address], [address] [place] [phone] Director: David Carrillo MD Gala Anna NP LAB URINE ORDERABLES Final Res ult Performing Organization Address [facility] de Phone Number [facility] * Hepatitis C antibody (11/11/2024 7:49 AM EDT) Pathologist [facility] HEPATITIS C ANTIBODY NON-REACTI VE NON-REACT AMY [facility] Comment: HCV antibody was non-reactive. There is no laboratory evidence of HCV infection. In most cases, no further action is required. However, if recent HCV exposure is suspected, a test for HCV RNA (test code 87420) is suggested. For additional information please refer to http://education.Gr[employer] In The City/faq/TZO56z2 (This link is being provided for informational/ educational purposes only.) Blood Venous blood specimen / Unknown 11/11/2024 7:49 AM EDT 11/11/2024 7:49 AM EDT Narrative [facility] - 11/12/2024 12:29 PM EDT FASTING:YES PATIENT UNABLE TO VOID; ADVISED TO RETURN FOR COLLECTION. FASTING: YES Resulting Agency Comment Performing Organization Information Site ID: QPT Name: [facility] Address: [address] [place] [address], [address] [place] [phone] Director: David Carrillo MD Gala Anna CHIEF DESIGN DRAFTER LAB BLOOD ORDERABLES Final Res ult Performing Organization Address [facility] de Phone Number [facility] * (ABNORMAL) [...] Performing Organization Information Site ID: QPT Name: [facility] Address: [address] [place] [address], [address] [place] [phone] Director: David Carrillo MD Gala Anna NP [...] Performing Organization Information Site ID: QPT Name: [facility] Address: [address] [place] [address], [address] [place] [address] Director: David Carrillo MD us Gala E Wilfrido CHIEF DESIGN DRAFTER LAB BLOOD ORDERABLES Final Res ult Performing Organization Address City/[facility] Co de Phone Number [facility] * T4 (11/11/2024 7:49 AM EDT) T4 (THYROXINE), TOTAL 5.9 4.9 - 10.5 mcg/dL [facility] Blood Venous blood specimen / Unknown 11/11/2024 7:49 AM EDT 11/11/2024 7:49 AM EDT Narrative [facility] - 11/12/2024 12:29 PM EDT FASTING:YES PATIENT UNABLE TO VOID; ADVISED TO RETURN FOR COLLECTION. FASTING: YES Resulting Agency Comment Performing Organization Information Site ID: QPT Name: [facility] Address: [address] [place] [address], [address] [place] [phone] Director: David Carrillo MD us Gala E Wilfrido CHIEF DESIGN DRAFTER LAB BLOOD ORDERABLES Final Res ult Performing Organization Address [facility] de Phone Number [facility] * Testosterone (11/11/2024 7:49 AM EDT) Pathologist [facility] TESTOSTERONE, TOTAL, MALES (ADULT), IA 448 250 - 827 ng/dL [facility] Blood Venous blood specimen / Unknown 11/11/2024 7:49 AM EDT 11/11/2024 7:49 AM EDT Narrative [facility] - 11/12/2024 12:29 PM EDT FASTING:YES PATIENT UNABLE TO VOID; ADVISED TO RETURN FOR COLLECTION. FASTING: YES Resulting Agency Comment Performing Organization Information Site ID: QPT Name: [facility] Address: [address] [place] [address], [address] [place] [phone] Director: David Carrillo MD us Gala E Wilfrido CHIEF DESIGN DRAFTER LAB BLOOD ORDERABLES Final Res ult Performing Organization Address [facility] Co de Phone Number [facility] * (ABNORMAL) Hemoglobin [...] Performing Organization Information Site ID: QPT Name: [facility] Address: [address] [place] [address], [address] [place] [phone] Director: David Carrillo MD us Gala Anna NP LAB BLOOD ORDERABLES Final Res ult [facility] * (ABNORMAL) Lipid panel (11/11/2024 7:49 AM EDT) CHOLESTEROL, TOTAL 193 <200 mg/dL [facility] HDL CHOLESTEROL 34(L) > OR = 40 mg/dL [facility] TRIGLYCERIDES 433(H) <150 mg/dL [facility] Comment: If a non-fasting specimen was collected, consider repeat triglyceride testing on a fasting specimen if clinically indicated. Aditya et al. J. of Clin. Lipidol. 2015;9:129-169. LDL CHOLESTEROL [facility] Comment: LDL cholesterol not calculated. Triglyceride [...] LDL-C. Ancelmo SS et al. MARIELY. 2013;310(19): 9855-1061 (http://education.Spry.Postdeck/faq/PBS499) CHOL/HDLC RATIO 5.7(H) <5.0 (calc) [facility] NON [...] Performing Organization Information Site ID: QPT Name: [facility] Address: [address] [place] [address], [address] [place] [phone] Director: David Carrillo MD us Gala Anna [...] Performing Organization Information Site ID: QPT Name: [facility] Address: [address] [place] [address], [address] [place] [phone] Director: David Carrillo MD Gala Anna NP LAB BLOOD ORDERABLES Final Res ult [facility] * Diabetic Retinopathy Screening - OU - Both Eyes (11/08/2024 10:13 AM EDT) Anatomical Region Laterality Modality Head Other Gala Anna NP OPHTH PHOTOGRAPHY Final Result * Colonoscopy (04/16/2020 12:00 PM EDT) Anatomical Region Laterality Modality Endoscopy 04/16/2020 12:0 0 PM EDT Narrative 04/16/2020 12:00 PM EDT PERFORMED AT [facility] LOCATION:[id number] diverticulitis Procedure Note CONVERSION, GENERIC - 11/15/2022 PERFORMED AT [facility] LOCATION:[id number] diverticulitis Gala Anna NP ENDOSCOPY PROCEDURE ORDERABLES Final Result from Last 3 Months or Most Recently Relevant to Health Maintenance Insurance [facility] Care Teams Supervisor Laundry Relationship Specialty Start Date End Date Alejandro Florian DO [address] [place] [address] PCP - General Family Medicine 01/15/23 Gala Anna NP [address] [place] [address] Nurse Practitioner Family Medicine 01/15/23
--- OUTSIDE RECORDS SUMMARY | 2024-12-25 22:00 | XMS_ITS | Clinical Summary ---
Author Organization [facility] Address [address] [place], [place] [id number] Care Team Providers Care Dinkey Operator Slate Name Role Phone Gala Anna NAS Primary Care Provider [phone] Social History Tobacco Use Types Packs/Day Years Used Date Smoking Tobacco: Never Assessed Sex and Gender Information Value Date Recorded Sex Assigned at Not on file Legal Sex Male 3:44 PM EDT Gender Identity Not on file Sexual Orientation Not on file Plan of Treatment Upcoming Encounters Date Type Department Care Team (Late st Contact Info) Description 04/07/2025 1:00 PM EDT Office Visit Cardiology [address] [place], [place] [phone] [place] [address] [place], [place] [phone] coronary arter disease Health Maintenance Due Date Last Done Comments Anxiety Screening 1983 Depression Screening 1983 HIV Screening 1983 Hepatitis C Screening [address] Colonography 2010 Cologuard (FIT-DNA) 2010 Fecal Occult Blood 2010 Prostate Cancer Screening Discussion 2010 Sigmoidoscopy 2010 Pneumococcal Vaccine: 50+ (1 of 1 - PCV) 2015 Shingrix Vaccine (1 of 2) 2015 Colonoscopy 04/16/2021 04/16/2020 Colorectal Cancer Screening 04/16/2021 Covid-19 Vaccine ( - 2023-2 5 season) 2024 06/06/2021, 08/10/2020, 07/13/2020 Diabetes Screening 11/12/2027 11/11/2024, 09/30/2024 DTaP,Tdap,Td Vaccine (2 - Td or Tdap) 04/21/2032 04/21/2022 Influenza Vaccine Completed 05/05/2024, , 04/21/2022, Additional history exists [facility] Care Teams Dinkey Operator Slate Relationship Specialty Start Date End Date Gala Anna CNP [address] [facility] [address] [place] [address] PCP - General Family Medicine 12/16/24
--- OUTSIDE RECORDS SUMMARY | 2024-12-25 22:00 | XMS_ITS | Encounter Summary ---
Author Organization [facility] Address [address] [place] [address] Phone Care Team Providers Care Display Artist Name Role Phone Unavailable Primary Care Provider Unavailabl e Encounter Details Date Type Department Care Team (Latest Contact Info) Description 12/22/2024 Travel Social History Tobacco Use Types Packs/Day Years Used Date Smoking Tobacco: Never Assessed Sex and Gender Information Value Date Recorded Sex Assigned at Not on file Legal Sex Male 10:53 AM EST Gender Identity Not on file Sexual Orientation Not on file documented as of this encounter Plan of Treatment Upcoming Encounters Date Type Department Care Team (Late st Contact Info) Description 12/29/2024 12:45 PM EDT Office Visit [facility] [address] [address] [place] [address] Francine Mendiola MD [address] [facility] [address] [place] [address] documented as of this encounter Visit Diagnoses Not on filedocumented in this encounter
--- OUTSIDE RECORDS SUMMARY | 2024-12-25 22:00 | XMS_ITS | Encounter Summary ---
Author Organization [facility] Address [address] [facility] [place] [address] Care Team Providers Care Acquisition Lead Name Role Phone Alejandro Florian DO Primary Care Provider [phone] Gala Anna VEGETABLE HARVEST MACHINE OPERATOR Unavailable [phone] Encounter Details Date Type Department Care Team (Late st Contact Info) Description 12/15/2024 Bamboo flowsheet [facility] [address] [place] [address] Gala Anna NP [address] [place] [address] Social History Tobacco Use Types [...] [facility] [address] [place] [address] Christina Broussard PA [address] [place] [address] documented as of this encounter Visit Diagnoses Not on filedocumented in this encounter Additional Health Concerns Assessment Noted Time PHQ-9 Depression Total Score: 3 04/02/20 23 7:00 AM EDT documented as of this encounter Care Teams Acquisition Lead Relationship Specialty Start Date End Date Alejandro Florian DO [address] [place], [place] [id number] PCP - General Family Medicine 01/15/23 Gala Anna NP [address] [place], [place] [id number] Nurse Practitioner Family Medicine 01/15/23 documented as of this encounter
--- OUTSIDE RECORDS SUMMARY | 2024-12-25 22:01 | XMS_ITS | Encounter Summary ---
Author Organization [facility] enter Address [address] [place] [address] Care Team Providers Care Skills Instructor Name Role Phone Alli Roman MD Primary Care Provider Mariam Gamboa MD Primary Care Provider [phone] Reason for Visit * Reason Onset Date Comments Other 06/10/2014 Encounter Details Date Type Department Care Team (Late st Contact Info) Description 06/10/2014 Telephone Neurology [facility] Outpatient [facility] [address] [facility] [place] 7[address] [place] [address] Renetta Perez Other Social History [...] 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
--- OUTSIDE RECORDS SUMMARY | 2024-12-25 22:01 | XMS_ITS | Encounter Summary ---
Author Organization [facility] Address [address] [facility] [place] [address] Care Team Providers Care Lisw Name Role Phone Alejandro Florian DO Primary Care Provider [phone] Gala Anna OLIVING MACHINE OPERATOR Unavailable [phone] Encounter Details Date Type Department Care Team (Late st Contact Info) Description 03/07/2024 Abstract [facility] [address] [place] [address] Gala Anna NP [address] [place] [address] Social History Tobacco Use Types [...] [facility] [address] [place] [address] Christina Broussard PA [address] [facility] [address] [place], [place] [id number] documented as of this encounter Visit Diagnoses Not on filedocumented in this encounter Additional Health Concerns Assessment Noted Time PHQ-9 Depression Total Score: 3 04/02/20 23 7:00 AM EDT documented as of this encounter Care Teams Lisw Relationship Specialty Start Date End Date Alejandro Florian DO [address] [place] [address] PCP - General Family Medicine 01/15/23 Gala Anna NP [address] [place] [address] Nurse Practitioner Family Medicine 01/15/23 documented as of this encounter
--- OUTSIDE RECORDS SUMMARY | 2024-12-25 22:01 | XMS_ITS | Encounter Summary ---
Author Organization [facility] Address [address] [facility] [place] [address] Care Team Providers Care Svp Research And Strategic Analysis Name Role Phone Alejandro Florian DO Primary Care Provider [phone] Gala Anna EXCEPTIONAL CHILDREN TEACHER ASSISTANT Unavailable [phone] Encounter Details Date Type Department Care Team (Late st Contact Info) Description 12/27/2023 Abstract [facility] [address] [place] [address] Gala Anna NP [address] [place] [address] Social History Tobacco Use Types [...] [facility] [address] [place] [address] Christina Broussard PA [address] [facility] [address] [place], [place] [id number] documented as of this encounter Visit Diagnoses Not on filedocumented in this encounter Additional Health Concerns Assessment Noted Time PHQ-9 Depression Total Score: 3 04/02/20 23 7:00 AM EDT documented as of this encounter Care Teams Svp Research And Strategic Analysis Relationship Specialty Start Date End Date Alejandro Florian DO [address] [place] [address] PCP - General Family Medicine 01/15/23 Gala Anna NP [address] [place] [address] Nurse Practitioner Family Medicine 01/15/23 documented as of this encounter
--- OUTSIDE RECORDS SUMMARY | 2024-12-25 22:01 | XMS_ITS | Clinical Summary ---
Author Organization [facility] [facility] Address [id number] [place] [address] Care Team Providers Care Sandwich Board Carrier Name Role Phone Unavailable Primary Care Provider [...]
--- NOTE | 2024-12-25 22:08 | XR_ITS ---
The [address] [address] Patient Name: JELLY CARABALLO MRN: [id number] date: 1965 Sex: M Assigned Patient Location: ED.MAIN Current Patient Location: ED.MAIN Accession/Order Number: [id number] Exam Date: 12/25/2024 23:02 Report Date: 12/25/2024 23:03 At the request of: GABE LAINEZ MD Procedure: XR chest 1V PA CHEST: CLINICAL HISTORY: SOB COMPARISON: 01/10/2020 FINDINGS: Stable cardiomediastinal silhouette. No focal airspace opacity, effusion or pneumothorax. XR/XR chest 1V IMPRESSION: NEGATIVE ACUTE PLEURAL-PARENCHYMAL DISEASE. Impression dictated by: Christophe Oropeza M.D. 12/25/2024 11:03 PM Dictation Location: [place] [address] Electronically authenticated by: [id number] Y Date: 12/25/2024 23:03
--- NOTE | 2024-12-25 22:09 | ECG_ITS ---
The [facility] Test Date: 2024-12-25 Pat Name: JELLY CARABALLO Department: Room: - Gender: Male It Auditor: : 1965 Requested By: [id number] Order Number: [id number] Reading MD: KHOI CASTAÑEDA M.D. Measurements Intervals [place] Rate: 84 P: 57 NC: 224 QRS: 67 QRSD: 94 T: 36 QT: 370 QTc: 411 Interpretive Statements 1100 Sinus rhythm 2231 First degree AV block 2440 Incomplete right bundle branch block Possible septal myocardial infarction, probably old 9150 abnormal ECG Compared to ECG 12/25/2024 21:59:10 No significant changes Electronically Signed On 12-27-2024 11:57:40 EDT by KHOI CASTAÑEDA M.D.
--- NOTE | 2024-12-25 22:09 | ED.CHESTPAI1 ---
HPI - Chest Pain General Chief Complaint: Chest Pain Stated Complaint: SOB, PRESSURE IN CHEST Time Seen by Provider: 12/25/24 22:01 Source: patient Mode of arrival: walk-in History of Present Illness HPI narrative: This 59-year-old male with a history of diabetes who states he recently had a stress test that was abnormal and he is waiting to see a occ med physician on Sunday presents for evaluation of pressure in his chest and some mild shortness of breath. The patient states that he took a nap today and was not wearing his CPAP. When he woke up he felt mildly short of breath. He also had some pressure in his chest and told his about it and she made him come to the hospital. He does not have any severe chest pain with radiation into his arm, back or jaw. He does not have any dizziness or syncope. He has not had any diaphoresis. He has no abdominal pain or back pain. He does have a rash in his inguinal area that he states started after he was weed whacking and thinks that he has poison juhi. He also had poison juhi on his arms and received an injection of steroids that raised his blood sugar. The rash in his inguinal area and lower abdomen appears more like a yeast dermatitis than poison juhi. The patient also states he has recently had an upper respiratory tract infection with cough with phlegm production. Related Data Home Medications ?Medication ?Instructions ?Recorded ?Confirmed epinephrine 0.3 mg/0.3 mL 12/25/24 injection, auto-injector fluticasone propionate 50 intranasal 12/25/24 mcg/actuation nasal spray,suspension glyburide 5 mg tablet mg 12/25/24 levothyroxine 50 mcg tablet mcg 12/25/24 montelukast 10 mg tablet mg 12/25/24 pregabalin 300 mg capsule mg 12/25/24 ropinirole 0.25 mg tablet mg 12/25/24 rosuvastatin 40 mg tablet mg 12/25/24 semaglutide 2 mg/dose (8 mg/3 mL) mg subcut 12/25/24 subcutaneous pen injector (Ozempic) tadalafil 5 mg tablet mg 12/25/24 testosterone cypionate 200 mg/mL mg 12/25/24 intramuscular oil trazodone 50 mg tablet mg 12/25/24 Allergies Allergy/AdvReac Type Severity Reaction Status Date / Time bee venom protein (honey bee) Allergy Severe Anaphylaxis Verified 12/25/24 22:12 banana AdvReac Intermediate Gastrointestinal Verified 12/25/24 22:[address] dye AdvReac Mild vomiting Uncoded 12/25/24 22:12 Review of Systems ROS Status of ROS 10 or more systems reviewed and unremarkable except as noted in history and below PFSH PFSH Social History Little interest or pleasure in doing things: not at all Feeling down, depressed, or hopeless: not at all Exam Narrative Exam Narrative: Vital signs and Nursing Notes reviewed: Patient is afebrile with a normal pulse, blood pressure is elevated at 180/85 and his pulse ox is moderately low at 94% on room air General: Awake, alert, oriented, no acute distress, lying comfortably on the stretcher-he is speaking in complete sentences, mildly anxious, no respiratory distress HEENT: Normocephalic atraumatic, mucous membranes are moist and pink, eyes are clear, normal conjunctiva, vision is grossly intact Neck: Supple, no JVD Chest: Lungs are clear to auscultation with good air entry, there is no wheezing rhonchi or rales appreciated no accessory muscle use, patient is speaking in complete sentences-no chest wall tenderness to palpation CVS: Regular rate and rhythm S1-S2, no murmurs rubs or gallops, pulses are brisk and equal bilaterally ABD: Soft, nondistended, nontender, no rebound guarding or rigidity, bowel sounds are normal, no pulsatile masses appreciated Extremities: Moving all extremities, no lower extremity tenderness or swelling noted, negative Homans' sign, pulses are brisk and equal bilaterally Skin: Normal in appearance without diffuse rash however there is a pink irregular rash in the lower abdominal area and medial thighs more consistent with a yeast dermatitis, there is dried areas on his forearms bilaterally that may be resolving poison juhi. Neuro: No focal deficits Constitutional Vital Signs, click to edit/add: Last Vital Signs Temp 97.8 F 12/25/24 21:54 Pulse 77 12/25/24 23:20 Resp 14 12/25/24 23:33 BP 132/78 12/25/24 23:33 Pulse Ox 100 12/25/24 23:33 O2 Del Method Room Air 12/25/24 23:33 Course Vital Signs Vital signs: Vital Signs Temperature 97.8 F 12/25/24 21:54 Pulse Rate 85 12/25/24 21:54 Respiratory Rate 18 12/25/24 21:54 Blood Pressure 180/85 H 12/25/24 21:54 Pulse Oximetry 94 L 12/25/24 21:54 Oxygen Delivery Method Room Air 12/25/24 21:54 Temperature 97.8 F 12/25/24 21:54 Pulse Rate 77 12/25/24 23:20 Respiratory Rate 14 12/25/24 23:33 Blood Pressure 132/78 12/25/24 23:33 Pulse Oximetry 100 12/25/24 23:33 Oxygen Delivery Method Room Air 12/25/24 23:33 MDM - Chest Pain MDM Narrative Medical decision making narrative: This 59-year-old male presents for evaluation of chest pressure and shortness of breath. The patient states he recently had a stress test that he failed. He has a lot of anxiety about the stress test. He does have a follow-up appointment with a occ med physician on Sunday. The patient states he took a nap today and did not use his CPAP machine. He also has an upper respiratory tract infection. He has been coughing with clear phlegm. He denies any fever. He denies any rina chest pain. He states that he took his blood pressure and it was elevated and his made him come to the hospital. He states his blood pressure came down en route to the hospital and he requested to not come but she insisted. I did review his stress test and echocardiogram. His echocardiogram was normal. The stress test showed abnormal myocardial perfusion stress images showing evidence of small area of mild ischemia at the anteroapical segment in addition there was evidence of diaphragmatic attenuation. Normal left systolic function ejection fraction 58%. No transient ischemic dilatation. The patient's blood pressure was elevated upon arrival. He does not have a history of high blood pressure. An EKG done upon arrival was a sinus rhythm at 77 bpm with a first-degree AV block. The EKG is unchanged from prior EKGs. His blood pressure came down from the 180s into the 150s. Cardiac workup including CBC with differential, comprehensive metabolic profile, troponin and D-dimer were ordered. His labs are normal. X-ray was reviewed radiology and is negative for acute findings. The results of his labs, EKG and x-ray were discussed with the patient and his . He has an appointment with cardiology on Sunday. I offered him admission for further evaluation but he declines. He is currently taking a baby aspirin. I suspect his symptoms are related to not using his CPAP machine as well as an upper respiratory tract infection. He was encouraged return the emergency department for worsening symptoms, any rina chest pain or severe shortness of breath, dizziness diaphoresis or any other concerns. Heart score is 2. Medical Records Data Attestation: I reviewed the patient's medical records. Lab Data Attestation: I reviewed the patient's lab results. Labs: Lab Results 12/25/24 12/25/24 Range/Units 22:21 22:36 WBC 6.9 (4.0-11.0) 10^3/uL RBC 5.40 (4.70-6.10) 10^6/uL Hgb 15.0 (14.0-18.0) g/dL Hct 45.3 (42.0-54.0) % MCV 83.9 (80.0-94.0) fL MCH 27.8 (25.9-34.0) pg MCHC 33.1 (29.9-35.2) g/dL RDW 14.0 (11.0-15.0) % Plt Count 161 (150-450) 10^3/uL MPV 10.1 (9.5-13.5) fL Neut % (Auto) 57.5 (43.0-75.0) % Lymph % (Auto) 25.1 (20.5-60.0) % Brantley % (Auto) 9.6 (1.7-12.0) % Eos % (Auto) 7.1 H (0.9-7.0) % Baso % (Auto) 0.6 (0.2-2.0) % Neut # (Auto) 4.0 (1.4-6.5) 10^3/uL Lymph # (Auto) 1.7 (1.2-3.8) 10^3/uL Brantley # (Auto) 0.7 (0.3-0.8) 10^3/uL Eos # (Auto) 0.5 (0.0-0.7) 10^3/uL Baso # (Auto) 0.0 (0.0-0.1) 10^3/uL Abs Immat Gran (auto) 0.01 (0.00-0.03) 10^3/uL Imm/Tot Granulo (auto) 0.1 (0.0-0.5) % D-Dimer 0.29 (<=0.59) mg/L FEU Sodium 142 (136-145) mmol/L Potassium 4.1 (3.5-5.1) mmol/L Chloride 106 (98-107) mmol/L Carbon Dioxide 26.3 (21.0-32.0) mmol/L Anion Gap 13.8 BUN 22.0 H (7.0-18.0) mg/dL Creatinine 1.23 (0.70-1.30) mg/dL Est GFR ( Amer) >60 (>=60 mL/min/1.73m^2) Est GFR (Non-Af Amer) >60 (>=60 mL/min/1.73m^2) BUN/Creatinine Ratio 17.9 Glucose 239 H (74-106) mg/dL Calcium 9.1 (8.5-10.1) mg/dL Total Bilirubin 0.5 (0.2-1.0) mg/dL AST 28 (15-37) U/L ALT 48 (16-63) U/L Alkaline Phosphatase 77 (46-116) U/L Troponin I High Sens 6.4 (4.0-76.1) pg/mL Total Protein 6.6 (6.4-8.2) g/dL Albumin 3.8 (3.4-5.0) g/dL Globulin 2.8 g/dL Albumin/Globulin Ratio 1.4 SARS-CoV-2 Ag (CV2AG) Negative (NEGATIVE) ECG Data Attestation: I personally reviewed and interpreted this ECG as follows: (Sinus rhythm 84 bpm, first-degree AV block, incomplete right bundle branch block, no acute ST segment elevation or T wave inversion-unchanged) Prior ECG tracings: available for review Heart Score History: Slightly/Non-Suspicious ECG: Normal Age: >45-<65 years Risk Factors: 1 or 2 Risk Factors Troponin: <Normal Limit Total Heart Score Recommendations & Risks:: 2 Discharge Plan Discharge Chief Complaint: Chest Pain Clinical Impression: Elevated blood pressure reading, Upper respiratory infection, viral, Atypical chest pain Patient Disposition: Home, Self-Care Time of Disposition Decision: 23:16 Condition: Good Prescriptions / Home Meds: No Action trazodone 50 mg tablet glyburide 5 mg tablet ropinirole 0.25 mg tablet levothyroxine 50 mcg tablet montelukast 10 mg tablet epinephrine 0.3 mg/0.3 mL auto-injector testosterone cypionate 200 mg/mL oil fluticasone propionate 50 mcg/actuation spray,suspension INTRANASAL rosuvastatin 40 mg tablet tadalafil 5 mg tablet pregabalin 300 mg capsule Ozempic 2 mg/dose (8 mg/3 mL) pen injector SUBCUT Print Language: German Instructions: Noncardiac Chest Pain (ED) Additional Instructions: Return to the emergency department as needed for chest pain, worsening shortness of breath or any concerns. Follow-up closely with cardiology on Sunday. Referrals: AMADA STOCKTON [Primary Care Provider, Unknown] - 1 week Discharge Date/Time: 12/25/24 23:36
[2024-12-25 22:36] LABS: Basophils Percent Auto 0.6 % (0.2-2.0); Eosinophils Absolute Auto 0.5 10^3/uL (0.0-0.7); Eosinophils Percent Auto 7.1 % (0.9-7.0); Hematocrit 45.3 % (42.0-54.0); Immature Granulocytes Abs Auto 0.01 10^3/uL (0.00-0.03); Immature Granulocytes Pct Auto 0.1 % (0.0-0.5); Lymphocytes Absolute Auto 1.7 10^3/uL (1.2-3.8); Lymphocytes Percent Auto 25.1 % (20.5-60.0); Mean Corpuscular HGB Conc 33.1 g/dL (29.9-35.2); Mean Corpuscular Hemoglobin 27.8 pg (25.9-34.0); Mean Corpuscular Volume 83.9 fL (80.0-94.0); Mean Platelet Volume 10.1 fL (9.5-13.5); Monocytes Absolute Auto 0.7 10^3/uL (0.3-0.8); Monocytes Percent Auto 9.6 % (1.7-12.0); Neutrophils Percent Auto 57.5 % (43.0-75.0); Platelet Count 161 10^3/uL (150-450); White Blood Count 6.9 10^3/uL (4.0-11.0)
[2024-12-25 22:47] LABS: D Dimer 0.29 mg/L FEU (<=0.59)
[2024-12-25 22:51] LABS: Alanine Aminotransferase 48 U/L (16-63); Albumin Globulin Ratio 1.4; Albumin Level 3.8 g/dL (3.4-5.0); Alkaline Phosphatase 77 U/L (46-116); Anion Gap 13.8; Aspartate Amino Transferase 28 U/L (15-37); BUN Creatinine Ratio 17.9; Bilirubin Total 0.5 mg/dL (0.2-1.0); Calcium 9.1 mg/dL (8.5-10.1); Carbon Dioxide 26.3 mmol/L (21.0-32.0); Chloride 106 mmol/L (98-107); Estimated GFR (African America >60 (>=60 mL/min/1.73m^2); Estimated GFR (Non-African Ame >60 (>=60 mL/min/1.73m^2); Globulin 2.8 g/dL; Glucose 239 mg/dL (74-106); Potassium 4.1 mmol/L (3.5-5.1); Sodium 142 mmol/L (136-145); Total Protein 6.6 g/dL (6.4-8.2); Troponin I High Sensitivity 6.4 pg/mL (4.0-76.1)
[2024-12-25 23:04] LABS: Internal Control Within Normal Limits; SARS-CoV-2 Ag NEGATIVE (NEGATIVE)
== END 2024-12-25 23:36 | disposition home or self-care (01) ==
PROVIDERS: Emergency Provider Emergency Medicine; PCP Nurse Practitioner
DX: R07.89 Other chest pain (principal); J06.9 Acute upper respiratory infection, unspecified; E11.9 Type 2 diabetes mellitus without complications; I10 Essential (primary) hypertension; Z79.82 Long term (current) use of aspirin; R03.0 Elevated blood-pressure reading, without diagnosis of hypertension; R06.02 Shortness of breath
CPT/HCPCS: 36415; 71045; 80053; 84484; 85025; 85378; 87811; 93005; 99285